=== PATIENT | male | born 1945 | race Caucasian/White ===

== ENCOUNTER 2018-04-18 07:35 | Emergency (ER) | payer OTHER, SELFPAY ==
[2018-04-18 07:43] VITALS: BP 161/84; PULSE 82; RESP 15; TEMP 36.7; O2SAT 100; BMI 36.2
--- NOTE | 2018-04-18 07:55 | DI.RAD.S_ITS ---
PROCEDURE: XR CHEST 1V INDICATIONS: Chest pain TECHNIQUE: One view of the chest was acquired. COMPARISON: [facility], , CHEST 2 VIEW, 04/17/2015, 18:13. FINDINGS: Surgical changes and devices: None. Lungs and pleura: No pleural effusions or pneumothorax. There is pulmonary vascular prominence suggestive of mild edema. Mediastinum: Mediastinal contours appear unchanged. Heart size is enlarged. Bones and chest wall: No suspicious bony lesions. Overlying soft tissues appear unremarkable. IMPRESSION: 1. Pulmonary vascular prominence suggestive of mild edema. Dictated by: Carloz Lopez M.D. on 04/18/2018 at 8:59 Approved by: Carloz Lopez M.D. on 04/18/2018 at 8:59
[2018-04-18 08:04] LABS: Add Manual Diff / Slide Review NO; Basophils Percent Auto 1.3 % (0-2); Eosinophils Percent Auto 2.5 % (2-4); Hematocrit 39.5 % (41-53); Hemoglobin 13.7 g/dL (13.5-17.5); Lymphocytes Percent Auto 17.6 % (25-40); Mean Corpuscular HGB Conc 34.5 % (30-36); Mean Corpuscular Hemoglobin 31.5 PG (26-34); Mean Corpuscular Volume 91.3 fL (80-100); Monocytes Percent Auto 8.9 % (3-14); Neutrophils Absolute Auto 6300 /uL (3000-5900); Neutrophils Percent Auto 69.7 % (50-75); Platelet Count 205 X10^3/uL (150-400); Red Blood Cell Count 4.33 X10^6/uL (4.5-5.9); Red Cell Distribution Width 14.4 % (11.6-14.8)
[2018-04-18 08:05] LABS: INR 1.2 (0.9-1.3); Prothrombin Time 12.5 SECONDS (10.1-12.7)
[2018-04-18 08:07] LABS: PTT Partial Thromboplastin Tim 31 SECONDS (26.4-36.2)
[2018-04-18 08:09] LABS: Alanine Aminotransferase 31 IU/L (21-72); Albumin 3.8 g/dL (3.5-5.0); Albumin Globulin Ratio 1.2 (1.0-2.8); Alkaline Phosphatase 69 U/L (38-126); Aspartate Aminotransferase 21 IU/L (17-59); BUN Creatinine Ratio 14.4 (6-22); Bilirubin Total 0.5 mg/dL (0.2-1.3); Calcium 9.1 mg/dL (8.4-10.2); Creatine Kinase 114 U/L (55-170); Estimated Glomerular Filt Rate > 60.0 mL/min (>60); Globulin 3.2 g/dL (1.7-4.1); Glucose 275 mg/dL (80-110); HEMOLYSIS < 15 (0-50); Lipase 150 U/L (23-300); Potassium 4.3 mmol/L (3.4-5.1); Sodium 137 mmol/L (137-145)
--- NOTE | 2018-04-18 08:10 | DI.RAD.S_ITS ---
PROCEDURE: XR CHEST 2V INDICATIONS: palpitations TECHNIQUE: 2 views of the chest were acquired. COMPARISON: [facility], , CHEST 1 VIEW, 03/23/2015, 5:56. [facility], , CHEST 2 VIEW, 04/17/2015, 18:13. [facility], , XR CHEST 1V, 04/18/2018, 8:06. FINDINGS: Surgical changes and devices: None. Lungs and pleura: No pleural effusions or pneumothorax. There is pulmonary vascular prominence suggestive of mild edema. No focal consolidation. Mediastinum: Mediastinal contours are unchanged. Heart size is enlarged. Bones and chest wall: No suspicious bony abnormalities. Soft tissues appear unremarkable. IMPRESSION: 1. Persistent mild pulmonary edema. Dictated by: Carloz Lopez M.D. on 04/18/2018 at 8:58 Approved by: Carloz Lopez M.D. on 04/18/2018 at 8:59
[2018-04-18 08:24] LABS: CKMB % Relative Index 2.1 % (1.5-5.0); Creatine Kinase MB 2.36 ng/mL (<2.37)
--- NOTE | 2018-04-18 08:37 | ED.ARRPALP ---
HPI - Arrhythmia/Palpitations General Chief Complaint: Arrhythmia/Palpitations Stated Complaint: trouble breathing, elevated heart rate Time Seen by Provider: 04/18/18 08:00 Source: patient Mode of arrival: ambulatory Limitations: no limitations History of Present Illness HPI narrative: 72 M hx of paroxysmal Afib 2+ years ago presents with chest tightness and mild dyspnea after finding his HR > 150 on pulse ox at home. Patient reports he could feel his pulse disappear when his heart raced as per pulse ox, and was SOB and lightheaded. Reports that 2 years prior he had a similar episode and was treated for CHF and pneumonia at the time. Patient since has not need to stay on diuretics or antiarrhythmics. Only taking baby aspirin at this time. This episode has no precipitants that patient can identify. Currently feeling mild chest tightness in ED. PMD Dr. Danielle Related Data Home Medications Medication Instructions Recorded Confirmed zolpidem 5 mg PO HS PRN 04/18/18 04/18/18 Allergies Allergy/AdvReac Type Severity Reaction Status Date / Time lisinopril [LISINOPRIL] Allergy Intermediate COUGH Verified 04/18/18 07:43 piperacillin [PIPERACILLIN] AdvReac Mild RASH MAY Verified 04/18/18 07:43 2014 ADMIT, MAY BE VANCO, UNSURE vancomycin [VANCOMYCIN] AdvReac Mild RASH MAY Verified 04/18/18 07:43 2014 ADMIT MAY BE PIPERACILLIN INSTEAD azithromycin [From Zithromax] AdvReac Verified 04/18/18 07:43 Review of Systems Review of Systems Constitutional - No fever, chills Eyes - No visual changes ENT - No hearing loss Cardiovascular - has chest pain, No edema, has palpitations Respiratory - No cough, has shortness of breath GI - No abdominal pain, No nausea, No vomiting - No dysuria, no hematuria MSK- No back pain Skin - No rash Neuro - No weakness, no change in level of consciousness Endocrine - No polyuria Hematologic/lymphatic - No easy bruising, no petechiae PFSH Social History Smoking Status: Never smoker Exam Narrative Exam Narrative: Exam: Constitutional - Well appearing, well nourished, NAD EYES - PERRL, EOMI ENT - Moist oral mucosa Cardiovasuclar - Normal rate, rhythm, no murmurs, gallops, rubs Respiratory - Lungs CTA bilaterally, no increased respiratory effort, no accessory muscle use GI - Soft, non tender, non distended, no rebound MSK - No deformity, No CVA tenderness, trace lower extremity edema Skin - No rash, no petechiae Neuro - A&Ox3, moves all extremities. No focal deficits Initial Vital Signs Initial Vital Signs: Vital Signs Temperature 98.0 F 04/18/18 07:43 Pulse Rate 82 04/18/18 07:43 Respiratory Rate 15 04/18/18 07:43 Blood Pressure 161/84 H 04/18/18 07:43 Pulse Oximetry 100 04/18/18 07:43 Course Orders Ordered: ED Orders 04/18/18 07:50 Complete Blood Count AUTO DIFF Stat Comprehensive Metabolic Panel Stat Lipase Stat Partial Thromboplastin Time Stat Prothrombin Time INR Stat Troponin with CK Cardiac Panel Stat 04/18/18 07:55 XR chest 1V Stat EKG-12 Lead Stat 04/18/18 07:58 Thyroid Stimulating Hormone Stat 04/18/18 07:59 BNP [B Type Natriuretic Peptide] Stat 04/18/18 08:09 Urinalysis and Microscopic Stat 04/18/18 08:10 XR chest 2V Stat 04/18/18 08:45 Urinalysis and Microscopic Stat Sodium Chloride (Normal Saline 0.9%) 1,000 mls @ 150 mls/hr IV CONT SHELBY Last Admin: 04/18/18 08:55 Dose: 150 mls/hr Heparin Sodium/Dextrose (Heparin Drip) 25,000 unit in 500 mls @ 28.304 mls/hr IV CONT SHELBY; Protocol Last Admin: 04/18/18 08:58 Dose: 12 units/kg/hr, 28.304 mls/hr Sodium Chloride (Normal Saline 0.9%) 1,000 mls @ 150 mls/hr IV CONT SHELBY Last Admin: 04/18/18 09:03 Dose: Not Given Nitroglycerin (Nitrostat) 0.4 mg SL [id number] PRN PRN Reason: Chest Pain Last Admin: 04/18/18 09:09 Dose: 0.4 mg Nitroglycerin (Nitrostat) 0.4 mg SL [id number] PRN PRN Reason: Chest Pain Discontinued Medications Aspirin (Aspirin) 325 mg PO NOW ONE Stop: 04/18/18 08:44 Last Admin: 04/18/18 08:55 Dose: Not Given Aspirin (Aspirin Chew) 324 mg PO NOW ONE Stop: 04/18/18 08:46 Last Admin: 04/18/18 09:03 Dose: 324 mg Furosemide (Lasix) 40 mg IV NOW ONE Stop: 04/18/18 11:04 Last Admin: 04/18/18 11:14 Dose: 40 mg Vital Signs - 8 hr 04/18/18 07:43 04/18/18 08:59 04/18/18 09:09 Temperature 98.0 F Pulse Rate 82 75 77 Respiratory Rate 15 18 Blood Pressure 161/84 H 148/77 H Blood Pressure [Right Arm] 148/77 H Pulse Oximetry 100 99 04/18/18 10:04 04/18/18 10:54 Temperature Pulse Rate 77 80 Respiratory Rate 15 14 Blood Pressure Blood Pressure [Right Arm] 133/76 H 152/76 H Pulse Oximetry 97 99 MDM - Arrhythmia/Palpitations Lab Data Result diagrams: 04/18/18 07:50 04/18/18 07:50 Lab Results 04/18/18 04/18/18 04/18/18 Range/Units 07:50 07:50 07:50 WBC 9.0 (4.5-11.0) X10^3/uL RBC 4.33 L (4.5-5.9) X10^6/uL Hgb 13.7 (13.5-17.5) g/dL Hct 39.5 L (41-53) % MCV 91.3 (80-100) fL MCH 31.5 (26-34) PG MCHC 34.5 (30-36) % RDW 14.4 (11.6-14.8) % Plt Count 205 (150-400) X10^3/uL Neut % (Auto) 69.7 (50-75) % Lymph % (Auto) 17.6 L (25-40) % [place] % (Auto) 8.9 (3-14) % Eos % (Auto) 2.5 (2-4) % Baso % (Auto) 1.3 (0-2) % Neut # (Auto) 6300 H (8840-6592) /uL PT 12.5 (10.1-12.7) SECONDS INR 1.2 (0.9-1.3) APTT 31 (26.4-36.2) SECONDS Sodium 137 (137-145) mmol/L Potassium 4.3 (3.4-5.1) mmol/L Chloride 102.0 (98-107) mmol/L Carbon Dioxide 25.0 (22-32) mmol/L BUN 13.0 (9-20) mg/dL Creatinine 0.90 (0.66-1.25) mg/dL Estimated GFR > 60.0 (>60) mL/min BUN/Creatinine Ratio 14.4 (6-22) Glucose 275 H (80-110) mg/dL Calcium 9.1 (8.4-10.2) mg/dL Total Bilirubin 0.5 (0.2-1.3) mg/dL AST 21 (17-59) IU/L ALT 31 (21-72) IU/L Alkaline Phosphatase 69 (38-126) U/L Total Creatine Kinase 114 (55-170) U/L CK-MB (CK-2) 2.36 (<2.37) ng/mL CK-MB (CK-2) Rel Index 2.1 (1.5-5.0) % Troponin I 0.603 H* (0.01-0.034) ng/mL B-Natriuretic Peptide (<100) Total Protein 7.0 (6.3-8.2) g/dL Albumin 3.8 (3.5-5.0) g/dL Globulin 3.2 (1.7-4.1) g/dL Albumin/Globulin Ratio 1.2 (1.0-2.8) Lipase 150 (23-300) U/L TSH (0.47-4.68) uIU/mL Digoxin 04/18/18 04/18/18 Range/Units 07:58 07:59 WBC (4.5-11.0) X10^3/uL RBC (4.5-5.9) X10^6/uL Hgb (13.5-17.5) g/dL Hct (41-53) % MCV (80-100) fL MCH (26-34) PG MCHC (30-36) % RDW (11.6-14.8) % Plt Count (150-400) X10^3/uL Neut % (Auto) (50-75) % Lymph % (Auto) (25-40) % [place] % (Auto) (3-14) % Eos % (Auto) (2-4) % Baso % (Auto) (0-2) % Neut # (Auto) (8962-3919) /uL PT (10.1-12.7) SECONDS INR (0.9-1.3) APTT (26.4-36.2) SECONDS Sodium (137-145) mmol/L Potassium (3.4-5.1) mmol/L Chloride (98-107) mmol/L Carbon Dioxide (22-32) mmol/L BUN (9-20) mg/dL Creatinine (0.66-1.25) mg/dL Estimated GFR (>60) mL/min BUN/Creatinine Ratio (6-22) Glucose (80-110) mg/dL Calcium (8.4-10.2) mg/dL Total Bilirubin (0.2-1.3) mg/dL AST (17-59) IU/L ALT (21-72) IU/L Alkaline Phosphatase (38-126) U/L Total Creatine Kinase (55-170) U/L CK-MB (CK-2) (<2.37) ng/mL CK-MB (CK-2) Rel Index (1.5-5.0) % Troponin I (0.01-0.034) ng/mL B-Natriuretic Peptide 205.0 (<100) Total Protein (6.3-8.2) g/dL Albumin (3.5-5.0) g/dL Globulin (1.7-4.1) g/dL Albumin/Globulin Ratio (1.0-2.8) Lipase (23-300) U/L TSH 2.03 (0.47-4.68) uIU/mL Digoxin Cancelled Imaging Data Chest x-ray: Radiologist's impression: Patient: Joseph Zepeda RMR#: [id number] : 7Acct:[id number] Age/Sex: 72 / MDate of Service: 04/18/18 Loc: ED Accession Number: [id number] Procedure: XR chest 2V Ordering Provider: Thomas Geronimo M.D. PROCEDURE: XR CHEST 2V INDICATIONS: palpitations TECHNIQUE: 2 views of the chest were acquired. COMPARISON: [facility], , CHEST 1 VIEW, 03/23/2015, 5:56. [facility], , CHEST 2 VIEW, 04/17/2015, 18:13. [facility], CR, XR CHEST 1V, 04/18/2018, 8:06. FINDINGS: Surgical changes and devices: None. Lungs and pleura: No pleural effusions or pneumothorax. There is pulmonary vascular prominence suggestive of mild edema. No focal consolidation. Mediastinum: Mediastinal contours are unchanged. Heart size is enlarged. Bones and chest wall: No suspicious bony abnormalities. Soft tissues appear unremarkable. IMPRESSION: 1. Persistent mild pulmonary edema. Dictated by: Carloz Lopez M.D. on 04/18/2018 at 8:58 Approved by: Carloz Lopez M.D. on 04/18/2018 at 8:59 ECG Data Interpretation: Sinus Rhthym; HR [address]/Tw changes Normal ME interval; Left atrial enlargement No ectopy small inferior Q waves MDM Narrative Medical decision making narrative: Patient still having mild chest discomfort despite no evidence of afib on monitor. has remained SR 70-90s 325mg ASA given. No significant EKG changes at this time Trop 0.6 - likely result of demand during tachycardic episodes Consulted configuration consultant Dr. Corrales; Agrees that modest trop leak is demand ischemia; without definitive EKG changes recommends medical management and trending of troponin. Case discussed with Hospitalist Dr. Brice - recommends transfer to facility with cardiology. CXR reviewed, mild pulmnary edema - 40mg lasix given. Spoke with configuration consultant Dr. Guan and Hospitalist Dr. Persaud at [facility]; accepted patient for transfer. Patient remained stable in ED. Discharge Plan Departure Patient Disposition: [facility] Clinical Impression: Non-ST elevation [place] (NSTEMI), Pulmonary edema Prescriptions: No Action zolpidem 5 MG tablet 5 mg PO HS PRN (Reason: Sleep) RF: 0
[2018-04-18 08:42] LABS: Troponin I 0.603 ng/mL (0.01-0.034)
[2018-04-18] MEDS: SODIUM CHLORIDE 0.9% 1,000 ML 150 ML IV (08:55)
[2018-04-18] MEDS: HEPARIN DRIP 25,000 UNIT/500 ML IV.SOLN 28.304 UNIT IV (08:58)
[2018-04-18 08:59] VITALS: BP 148/77; PULSE 75; RESP 18; O2SAT 99
--- NOTE | 2018-04-18 08:59 | ED_ITS ---
HPI - Arrhythmia/Palpitations General Chief Complaint: Arrhythmia/Palpitations Stated Complaint: trouble breathing, elevated heart rate Time Seen by Provider: 04/18/18 08:00 Source: patient Mode of arrival: ambulatory Limitations: no limitations History of Present Illness HPI narrative: 72 M hx of paroxysmal Afib 2+ years ago presents with chest tightness and mild dyspnea after finding his HR > 150 on pulse ox at home. Patient reports he could feel his pulse disappear when his heart raced as per pulse ox, and was SOB and lightheaded. Reports that 2 years prior he had a similar episode and was treated for CHF and pneumonia at the time. Patient since has not need to stay on diuretics or antiarrhythmics. Only taking baby aspirin at this time. This episode has no precipitants that patient can identify. Currently feeling mild chest tightness in ED. PMD Dr. Danielle Related Data Home Medications Medication Instructions Recorded Confirmed zolpidem 5 mg PO HS PRN 04/18/18 04/18/18 Allergies Allergy/AdvReac Type Severity Reaction Status Date / Time lisinopril [LISINOPRIL] Allergy Intermediate COUGH Verified 04/18/18 07:43 piperacillin [PIPERACILLIN] AdvReac Mild RASH MAY Verified 04/18/18 07:43 2014 ADMIT, MAY BE VANCO, UNSURE vancomycin [VANCOMYCIN] AdvReac Mild RASH MAY Verified 04/18/18 07:43 2014 ADMIT MAY BE PIPERACILLIN INSTEAD azithromycin [From Zithromax] AdvReac Verified 04/18/18 07:43 Review of Systems Review of Systems Constitutional - No fever, chills Eyes - No visual changes ENT - No hearing loss Cardiovascular - has chest pain, No edema, has palpitations Respiratory - No cough, has shortness of breath GI - No abdominal pain, No nausea, No vomiting - No dysuria, no hematuria MSK- No back pain Skin - No rash Neuro - No weakness, no change in level of consciousness Endocrine - No polyuria Hematologic/lymphatic - No easy bruising, no petechiae PFSH Social History Smoking Status: Never smoker Exam Narrative Exam Narrative: Exam: Constitutional - Well appearing, well nourished, NAD EYES - PERRL, EOMI ENT - Moist oral mucosa Cardiovasuclar - Normal rate, rhythm, no murmurs, gallops, rubs Respiratory - Lungs CTA bilaterally, no increased respiratory effort, no accessory muscle use GI - Soft, non tender, non distended, no rebound MSK - No deformity, No CVA tenderness, trace lower extremity edema Skin - No rash, no petechiae Neuro - A&Ox3, moves all extremities. No focal deficits Initial Vital Signs Initial Vital Signs: Vital Signs Temperature 98.0 F 04/18/18 07:43 Pulse Rate 82 04/18/18 07:43 Respiratory Rate 15 04/18/18 07:43 Blood Pressure 161/84 H 04/18/18 07:43 Pulse Oximetry 100 04/18/18 07:43 Course Orders Ordered: ED Orders 04/18/18 07:50 Complete Blood Count AUTO DIFF Stat Comprehensive Metabolic Panel Stat Lipase Stat Partial Thromboplastin Time Stat Prothrombin Time INR Stat Troponin with CK Cardiac Panel Stat 04/18/18 07:55 XR chest 1V Stat EKG-12 Lead Stat 04/18/18 07:58 Thyroid Stimulating Hormone Stat 04/18/18 07:59 BNP [B Type Natriuretic Peptide] Stat 04/18/18 08:09 Urinalysis and Microscopic Stat 04/18/18 08:10 XR chest 2V Stat 04/18/18 08:45 Urinalysis and Microscopic Stat Sodium Chloride (Normal Saline 0.9%) 1,000 mls @ 150 mls/hr IV CONT SHELBY Last Admin: 04/18/18 08:55 Dose: 150 mls/hr Heparin Sodium/Dextrose (Heparin Drip) 25,000 unit in 500 mls @ 28.304 mls/hr IV CONT SHELBY; Protocol Last Admin: 04/18/18 08:58 Dose: 12 units/kg/hr, 28.304 mls/hr Sodium Chloride (Normal Saline 0.9%) 1,000 mls @ 150 mls/hr IV CONT SHELBY Last Admin: 04/18/18 09:03 Dose: Not Given Nitroglycerin (Nitrostat) 0.4 mg SL [id number] PRN PRN Reason: Chest Pain Last Admin: 04/18/18 09:09 Dose: 0.4 mg Nitroglycerin (Nitrostat) 0.4 mg SL [id number] PRN PRN Reason: Chest Pain Discontinued Medications Aspirin (Aspirin) 325 mg PO NOW ONE Stop: 04/18/18 08:44 Last Admin: 04/18/18 08:55 Dose: Not Given Aspirin (Aspirin Chew) 324 mg PO NOW ONE Stop: 04/18/18 08:46 Last Admin: 04/18/18 09:03 Dose: 324 mg Furosemide (Lasix) 40 mg IV NOW ONE Stop: 04/18/18 11:04 Last Admin: 04/18/18 11:14 Dose: 40 mg Vital Signs - 8 hr 04/18/18 07:43 04/18/18 08:59 04/18/18 09:09 Temperature 98.0 F Pulse Rate 82 75 77 Respiratory Rate 15 18 Blood Pressure 161/84 H 148/77 H Blood Pressure [Right Arm] 148/77 H Pulse Oximetry 100 99 04/18/18 10:04 04/18/18 10:54 Temperature Pulse Rate 77 80 Respiratory Rate 15 14 Blood Pressure Blood Pressure [Right Arm] 133/76 H 152/76 H Pulse Oximetry 97 99 MDM - Arrhythmia/Palpitations Lab Data Result diagrams: 04/18/18 07:50 04/18/18 07:50 Lab Results 04/18/18 04/18/18 04/18/18 Range/Units 07:50 07:50 07:50 WBC 9.0 (4.5-11.0) X10^3/uL RBC 4.33 L (4.5-5.9) X10^6/uL Hgb 13.7 (13.5-17.5) g/dL Hct 39.5 L (41-53) % MCV 91.3 (80-100) fL MCH 31.5 (26-34) PG MCHC 34.5 (30-36) % RDW 14.4 (11.6-14.8) % Plt Count 205 (150-400) X10^3/uL Neut % (Auto) 69.7 (50-75) % Lymph % (Auto) 17.6 L (25-40) % [place] % (Auto) 8.9 (3-14) % Eos % (Auto) 2.5 (2-4) % Baso % (Auto) 1.3 (0-2) % Neut # (Auto) 6300 H (9663-0283) /uL PT 12.5 (10.1-12.7) SECONDS INR 1.2 (0.9-1.3) APTT 31 (26.4-36.2) SECONDS Sodium 137 (137-145) mmol/L Potassium 4.3 (3.4-5.1) mmol/L Chloride 102.0 (98-107) mmol/L Carbon Dioxide 25.0 (22-32) mmol/L BUN 13.0 (9-20) mg/dL Creatinine 0.90 (0.66-1.25) mg/dL Estimated GFR > 60.0 (>60) mL/min BUN/Creatinine Ratio 14.4 (6-22) Glucose 275 H (80-110) mg/dL Calcium 9.1 (8.4-10.2) mg/dL Total Bilirubin 0.5 (0.2-1.3) mg/dL AST 21 (17-59) IU/L ALT 31 (21-72) IU/L Alkaline Phosphatase 69 (38-126) U/L Total Creatine Kinase 114 (55-170) U/L CK-MB (CK-2) 2.36 (<2.37) ng/mL CK-MB (CK-2) Rel Index 2.1 (1.5-5.0) % Troponin I 0.603 H* (0.01-0.034) ng/mL B-Natriuretic Peptide (<100) Total Protein 7.0 (6.3-8.2) g/dL Albumin 3.8 (3.5-5.0) g/dL Globulin 3.2 (1.7-4.1) g/dL Albumin/Globulin Ratio 1.2 (1.0-2.8) Lipase 150 (23-300) U/L TSH (0.47-4.68) uIU/mL Digoxin 04/18/18 04/18/18 Range/Units 07:58 07:59 WBC (4.5-11.0) X10^3/uL RBC (4.5-5.9) X10^6/uL Hgb (13.5-17.5) g/dL Hct (41-53) % MCV (80-100) fL MCH (26-34) PG MCHC (30-36) % RDW (11.6-14.8) % Plt Count (150-400) X10^3/uL Neut % (Auto) (50-75) % Lymph % (Auto) (25-40) % [place] % (Auto) (3-14) % Eos % (Auto) (2-4) % Baso % (Auto) (0-2) % Neut # (Auto) (8109-3542) /uL PT (10.1-12.7) SECONDS INR (0.9-1.3) APTT (26.4-36.2) SECONDS Sodium (137-145) mmol/L Potassium (3.4-5.1) mmol/L Chloride (98-107) mmol/L Carbon Dioxide (22-32) mmol/L BUN (9-20) mg/dL Creatinine (0.66-1.25) mg/dL Estimated GFR (>60) mL/min BUN/Creatinine Ratio (6-22) Glucose (80-110) mg/dL Calcium (8.4-10.2) mg/dL Total Bilirubin (0.2-1.3) mg/dL AST (17-59) IU/L ALT (21-72) IU/L Alkaline Phosphatase (38-126) U/L Total Creatine Kinase (55-170) U/L CK-MB (CK-2) (<2.37) ng/mL CK-MB (CK-2) Rel Index (1.5-5.0) % Troponin I (0.01-0.034) ng/mL B-Natriuretic Peptide 205.0 (<100) Total Protein (6.3-8.2) g/dL Albumin (3.5-5.0) g/dL Globulin (1.7-4.1) g/dL Albumin/Globulin Ratio (1.0-2.8) Lipase (23-300) U/L TSH 2.03 (0.47-4.68) uIU/mL Digoxin Cancelled Imaging Data Chest x-ray: Radiologist's impression: Patient: Joseph Zepeda RMR#: [id number] : 7Acct:[id number] Age/Sex: 72 / MDate of Service: 04/18/18 Loc: ED Accession Number: [id number] Procedure: XR chest 2V Ordering Provider: Thomas Geronimo M.D. PROCEDURE: XR CHEST 2V INDICATIONS: palpitations TECHNIQUE: 2 views of the chest were acquired. COMPARISON: [facility], , CHEST 1 VIEW, 03/23/2015, 5:56. [facility], , CHEST 2 VIEW, 04/17/2015, 18:13. [facility], CR, XR CHEST 1V, 04/18/2018, 8: 06. FINDINGS: Surgical changes and devices: None. Lungs and pleura: No pleural effusions or pneumothorax. There is pulmonary vascular prominence suggestive of mild edema. No focal consolidation. Mediastinum: Mediastinal contours are unchanged. Heart size is enlarged. Bones and chest wall: No suspicious bony abnormalities. Soft tissues appear unremarkable. IMPRESSION: 1. Persistent mild pulmonary edema. Dictated by: Carloz Lopez M.D. on 04/18/2018 at 8:58 Approved by: Carloz Lopez M.D. on 04/18/2018 at 8:59 ECG Data Interpretation: Sinus Rhthym; HR [address]/Tw changes Normal [place] interval; Left atrial enlargement No ectopy small inferior Q waves MDM Narrative Medical decision making narrative: Patient still having mild chest discomfort despite no evidence of afib on monitor. has remained SR 70-90s 325mg ASA given. No significant EKG changes at this time Trop 0.6 - likely result of demand during tachycardic episodes Consulted centrifugal casting machine tender Dr. Corrales; Agrees that modest trop leak is demand ischemia; without definitive EKG changes recommends medical management and trending of troponin. Case discussed with Hospitalist Dr. Brice - recommends transfer to facility with cardiology. CXR reviewed, mild pulmnary edema - 40mg lasix given. Spoke with centrifugal casting machine tender Dr. Guan and Hospitalist Dr. Persaud at [facility]; accepted patient for transfer. Patient remained stable in ED. Discharge Plan Departure Patient Disposition: [facility] Clinical Impression: Non-ST elevation [place] (NSTEMI), Pulmonary edema Prescriptions: No Action zolpidem 5 MG tablet 5 mg PO HS PRN (Reason: Sleep) RF: 0
[2018-04-18] MEDS: ASPIRIN 81 MG TAB 324 MG PO (09:03)
--- NOTE | 2018-04-18 09:07 | PC.NURSE ---
pt c/o chest heaviness that started about a week ago, rated as 4/10, sob got worse today, and irregular heart beat that started yesterday. pt has history of afib with cardioversion.
[2018-04-18 09:09] VITALS: BP 148/77; PULSE 77
[2018-04-18] MEDS: NITROGLYCERIN 0.4 MG SL TAB SL (09:09)
[2018-04-18 09:14] LABS: Thyroid Stimulating Hormone 2.03 uIU/mL (0.47-4.68)
--- NOTE | 2018-04-18 09:27 | PC.NURSE ---
1 nitro took pain from 03/03-01/03. dropped pt's bp by 20points, and pt c/o lightheaded, will hold the 2 additional doses.
[2018-04-18 10:04] VITALS: BP 133/76; PULSE 77; RESP 15; O2SAT 97
[2018-04-18 10:54] VITALS: BP 152/76; PULSE 80; RESP 14; O2SAT 99
[2018-04-18] MEDS: FUROSEMIDE 40 MG/4 ML VIAL IV (11:14)
== END 2018-04-18 11:41 | disposition short-term general hospital (02) ==
PROVIDERS: Emergency Provider Student in an Organized Health Care Education/Training Program; Family Provider Internal Medicine; PCP Internal Medicine
DX: I21.4 Non-ST elevation (NSTEMI) myocardial infarction (principal); J81.1 Chronic pulmonary edema
CPT/HCPCS: 36591; 71045; 71046; 80053; 82550; 82553; 83690; 83880; 84443; 84484; 85025; 85610; 85730; 93005; 93010; 96365; 96366; 99284; 99285; J1644; J1940

== ENCOUNTER → 2018-04-27 10:12 | Outpatient (CLI) | payer OTHER, SELFPAY ==
[2018-04-27 11:44] LABS: BUN Creatinine Ratio 18.8 (6-22); Blood Urea Nitrogen 15 mg/dL (9-20); Calcium 9.1 mg/dL (8.4-10.2); Carbon Dioxide 28 mmol/L (22-32); Chloride 99 mmol/L (98-107); Estimated Glomerular Filt Rate > 60.0 mL/min (>60); Glucose 157 mg/dL (80-110); HEMOLYSIS < 15 (0-50); Potassium 4.3 mmol/L (3.4-5.1); Sodium 139 mmol/L (137-145)
== END ==
PROVIDERS: PCP Internal Medicine; Visit Provider Internal Medicine
DX: I25.10 Atherosclerotic heart disease of native coronary artery without angina pectoris (principal); I10 Essential (primary) hypertension
CPT/HCPCS: 36415; 80048

== ENCOUNTER → 2018-05-22 10:37 | Outpatient (CLI) | payer OTHER, SELFPAY ==
[2018-05-22 11:34] LABS: Hemoglobin A1C% w Est Avg Glu 8.3 % (4.0-6.0)
[2018-05-22 11:41] LABS: BUN Creatinine Ratio 22.2 (6-22); Blood Urea Nitrogen 20 mg/dL (9-20); Calcium 9.2 mg/dL (8.4-10.2); Carbon Dioxide 27 mmol/L (22-32); Chloride 101 mmol/L (98-107); Estimated Glomerular Filt Rate > 60.0 mL/min (>60); Glucose 157 mg/dL (80-110); HEMOLYSIS < 15 (0-50); Potassium 4.6 mmol/L (3.4-5.1); Sodium 142 mmol/L (137-145)
[2018-05-22 11:57] LABS: Vitamin D 25 Hydroxy (D3) 31.4 ng/mL (30.0-100.0)
== END ==
PROVIDERS: PCP Internal Medicine; Visit Provider Internal Medicine
DX: E11.9 Type 2 diabetes mellitus without complications (principal); I25.10 Atherosclerotic heart disease of native coronary artery without angina pectoris
CPT/HCPCS: 36415; 80048; 82306; 83036

== ENCOUNTER 2018-06-14 09:18 | Emergency (ER) | payer OTHER, SELFPAY ==
[2018-06-14] VITALS (15 sets, daily range): BP systolic 93–141; BP diastolic 45–73; PULSE 53–89; RESP 11–26; TEMP 36.6; O2SAT 97–100; BMI 33.0
--- NOTE | 2018-06-14 09:50 | DI.RAD.S_ITS ---
PROCEDURE: XR CHEST 2V INDICATIONS: afib TECHNIQUE: 2 views of the chest were acquired. COMPARISON: [facility], CR, XR CHEST 2V, 04/18/2018, 8:30. FINDINGS: Surgical changes and devices: None. Lungs and pleura: No pleural effusions or pneumothorax. Mild increased pulmonary vascularity is present. There is blunting the costophrenic angles bilaterally. Mediastinum: Mediastinal contours are normal. Heart size is mildly prominent. Bones and chest wall: No suspicious bony abnormalities. Soft tissues appear unremarkable. IMPRESSION: Cardiomegaly with increased vascularity and trace effusions most suggestive of edema. Dictated by: Shannon Shay M.D. on 06/14/2018 at 11:01 Approved by: Shannon Shay M.D. on 06/14/2018 at 11:02
[2018-06-14 10:04] LABS: Add Manual Diff / Slide Review NO; Hematocrit 36.8 % (41-53); Hemoglobin 12.8 g/dL (13.5-17.5); Lymphocytes Percent Auto 21.6 % (25-40); Mean Corpuscular HGB Conc 34.7 % (30-36); Mean Corpuscular Hemoglobin 32.2 PG (26-34); Mean Corpuscular Volume 92.9 fL (80-100); Monocytes Percent Auto 7.7 % (3-14); Neutrophils Absolute Auto 6900 /uL (3000-5900); Neutrophils Percent Auto 66.7 % (50-75); Platelet Count 266 X10^3/uL (150-400); Red Blood Cell Count 3.96 X10^6/uL (4.5-5.9); Red Cell Distribution Width 15.1 % (11.6-14.8); White Blood Cell Count 10.4 X10^3/uL (4.5-11.0)
[2018-06-14 10:08] LABS: BUN Creatinine Ratio 21.3 (6-22); Blood Urea Nitrogen 17 mg/dL (9-20); Calcium 9.2 mg/dL (8.4-10.2); Carbon Dioxide 25 mmol/L (22-32); Chloride 104 mmol/L (98-107); Estimated Glomerular Filt Rate > 60.0 mL/min (>60); Glucose 180 mg/dL (80-110); HEMOLYSIS < 15 (0-50); Magnesium 2.1 mg/dL (1.6-2.3); Potassium 4.3 mmol/L (3.4-5.1); Sodium 139 mmol/L (137-145)
[2018-06-14 10:21] LABS: Troponin I 0.121 ng/mL (0.01-0.034)
[2018-06-14 10:30] LABS: Free T4, Direct Thyroxine 1.22 ng/dL (0.78-2.19)
[2018-06-14] MEDS: SODIUM CHLORIDE 0.9% 1,000 ML 1000 ML IV (10:31)
--- NOTE | 2018-06-14 10:37 | PC.NURSE ---
S/W MD about 1L NS bolus and BNP being high. Agreed to 500ss bolus.
[2018-06-14] MEDS: ASPIRIN 81 MG TAB 324 MG PO (10:42)
[2018-06-14 10:44] LABS: Thyroid Stimulating Hormone 0.91 uIU/mL (0.47-4.68)
--- NOTE | 2018-06-14 10:44 | PC.NURSE ---
Metoprolol held for bp 98/53, hr 77-92
[2018-06-14] MEDS: ETOMIDATE 2 MG/ML VIAL 10 MG IV (12:38)
--- NOTE | 2018-06-14 13:22 | ED.WEAKNESS ---
HPI - Weakness General Chief complaint: Weakness Stated complaint: low bp, elevated heart rate Time Seen by Provider: 06/14/18 09:25 History of Present Illness HPI Narrative: HPI 72-year-old male with HTN and [place] ~4 weeks ago now S/P stent ?2 with a interval cardiac moderate notable for one short episode of A. fib presents with mild weakness, and an irregular heart rate of estimated half days duration. Patient reports that he was in his usual state of health, he checks his blood pressure twice daily, when checked at this morning he noted he was 90/50 with a heart rate of approximately 100, he normally has a lower resting heart rate in the blood pressure proximally 140/80. The patient then presents the emergency room for further evaluation. The patient notes that he normally drinks 1-2 cups of coffee a day, yesterday he drank an estimate for cups after running out of decaf coffee. Patient denies fevers, chills, shortness of breath, or further symptoms. M/S/F/SocHx notable for: cardiomyopathy, CAD, A. fib, DM II, HTN; remainder reviewed with patient and in chart. Medications: ASA, atorvastatin, carvedilol, clopidogrel, furosemide, glucosamine, Losartan, metformin, multivitamin, zolpidem. ROS: Negative constitutional, eye, cardiovascular, pulmonary, GI, , MSK, skin, neurologic, psychiatric, endocrine unless noted in the HPI. Exam Gen: Pleasant, non-toxic appearing, resting comfortably. HEENT: NC, AT, PEERL, EOMI. Resp: Clear to auscultation bilaterally, normal work of breathing, no accessory muscle usage. Card: irregularly irregular rate, with no murmurs, rubs, or gallops, extremities warm and well perfused. GI: Non-tender to palpation throughout all quadrants, no focal tenderness at McBurney's point, negative Jones's sign, non-distended, no rebound or guarding. : No suprapubic tenderness to palpation. MSK: No visible deformities, strength and tone without visually appreciable deficit. Skin: Normal color with no visible lesions. Neuro: AO x 3, no facial asymmetry, vision and hearing WNL. Psych: Mood and affect appropriate. Labs / Imaging: WBC 10.4, Hb 12.8, Na 139, K 4.3, magnesium 2.1 troponin < 0.121 BNP 482.0 EKG: atrial fibrillation with ventricular rate of 95 bpm, no ST segment elevations or depressions, no LBBB. CXR: cardiomegaly with increased vascularity and trace effusion most suggestive of edema. EKG (post cardioversion): SR 89 bpm, no LBBB, no ST segment elevations or depressions. MDM Previous chart, nursing note, labs, imaging, and vitals reviewed. A: 72-year-old male with HTN and [place] ~4 weeks ago now S/P stent ?2 with a interval cardiac moderate notable for one short episode of A. fib presents with mild weakness, and an irregular heart rate of estimated half days duration. DDx & Evaluation: patient with A. fib and hypotension. Patient already on dual antiplatelet agents. Inciting event unclear, maybe idiopathic given the patient's CAD and prior atrial fibrillation versus triggered by increase caffeine consumption yesterday, electrolytes WNL. The stock plan administrator on-call was consulted, recent hospitalization reviewed, as well as cardiac cath report, given the patient's multiple comorbidities a cardioversion was felt to be in the patient's best interest, no further anticoagulation recommended, and then initiation of amiodarone. Patient to follow up with his stock plan administrator on Friday or Friday. The troponin elevation was noted, however the patient has extensive microvascular disease, this is felt to to be causing her rate dependent demand mediated troponin elevation, no further troponin measurements were recommended given the patient's recent cardiac catheterization, absence of chest pain, or shortness breath, and the otherwise asymptomatic nature of his atrial fibrillation. Following 500 ML normal saline, the patient was sedated and cardioverted as documented below, amiodarone prescribed an patient discharged with cardiology follow-up. SEDATION Pre-Procedure: Consent: Written. Risks and benefits including adverse drug reaction, pain, nausea, vomiting, the need for respiratory support, and in extremely rare instances organ damage and , were reviewed with the patient, the patient understood and consented to sedation. ASA: 2, Mallampati 1, 12+ hours NPO. Y ? Patient (name and ID) and procedure. Y ? airway cart Y ? BVM Y ? Suction Y ? capnography, SaO2, HR, BP functioning and within acceptable limits. Patient on supplemental oxygen via a nasal cannula. Y ? review potential complications and management plans. Procedure The patient was given a total of 10 mg of Etomidate with moderate-deep sedation achieved. There were no significant adverse events and the patient tolerated the procedure well. Total time: 15 minutes. Post-Procedure I remained at the bedside until the patient was clearing sedation, vitals signs, airway and overall clinical condition were stable. RT and nursing remained present monitoring the patient per protocol through complete clearing of sedation and I was immediately available in the department throughout. Cardioversion Indication: Atrial Fibrillation. Consent: Written. Risks and benefits including post-procedural arrhythmias, pain, electrical san, and stroke were discussed with the patient. The patient understood and agreed to proceed with the procedure. After a time out in which the patient's identity was confirmed verbally and by their wrist band, synchronized cardioversion was performed at 200 J via anterior / posterior pads. A continuous 3 lead echocardiogram demonstrated conversion from atrial fibrillation to a sinus rhythm, the transition from atrial fibrillation to sinus rhythm was notable for an estimated 10 second long asystole pause. There were no complications and the patient tolerated the procedure well. Impression: atrial fibrillation (please reference below for remainder of encounter information) Related Data Home Medications Medication Instructions Recorded Confirmed zolpidem 5 mg PO HS PRN 04/18/18 05/22/18 aspirin 81 mg tablet,delayed 81 mg PO DAILY 04/27/18 05/22/18 release atorvastatin 40 mg tablet 40 mg PO DAILY 04/27/18 05/22/18 carvedilol 3.125 mg tablet 3.125 mg PO BID 04/27/18 05/22/18 clopidogrel 75 mg tablet 75 mg PO DAILY 04/27/18 05/22/18 glucosamine sulfate 1,000 mg 1,000 mg PO BID 04/27/18 05/22/18 capsule metformin 500 mg tablet 500 mg PO BID 04/27/18 05/22/18 multivitamin tablet 1 tab PO DAILY 04/27/18 05/22/18 Previous Rx's Medication Instructions Recorded furosemide 40 mg tablet 40 mg PO DAILY #90 tab 06/11/18 losartan 50 mg tablet 100 mg PO DAILY #90 tab 06/11/18 amiodarone See Label Instructions .ROUTE 06/14/18 .COMPLEX #21 tab Allergies Allergy/AdvReac Type Severity Reaction Status Date / Time lisinopril [LISINOPRIL] Allergy Intermediate COUGH Verified 05/22/18 10:10 piperacillin [PIPERACILLIN] AdvReac Mild RASH MAY Verified 05/22/18 10:10 2014 ADMIT, MAY BE VANCO, UNSURE vancomycin [VANCOMYCIN] AdvReac Mild RASH MAY Verified 05/22/18 10:10 2014 ADMIT MAY BE PIPERACILLIN INSTEAD azithromycin [From Zithromax] AdvReac Verified 05/22/18 10:10 [facility] Medical History Cardiomyopathy (Chronic ~03/2018) Coronary artery disease (Chronic ~03/2018) Atrial fibrillation (Chronic 03/30/15) Type 2 diabetes mellitus without complication (Chronic 05/01/15) Hypertension (Chronic 05/30/15) Social History Smoking Status: Former smoker Exam Initial Vital Signs Initial Vital Signs: Vital Signs Temperature 97.9 F 06/14/18 09:27 Pulse Rate 88 06/14/18 09:27 Respiratory Rate 15 06/14/18 09:27 Blood Pressure 141/73 H 06/14/18 09:27 Pulse Oximetry 97 06/14/18 09:27 Course Orders Ordered: ED Orders 06/14/18 09:35 B Type Natriuretic Peptide Stat Basic Metabolic Panel Stat Complete Blood Count AUTO DIFF Stat Free T4 Free Thyroxine Stat Magnesium Stat Thyroid Stimulating Hormone Stat Troponin I Stat 06/14/18 09:50 XR chest 2V Stat Discontinued Medications Amiodarone HCl (Cordarone) 400 mg PO NOW ONE Stop: 06/14/18 13:08 Aspirin (Aspirin Chew) 324 mg PO NOW ONE Stop: 06/14/18 10:38 Last Admin: 06/14/18 10:42 Dose: 324 mg Etomidate (Amidate) 10 mg IV NOW ONE Stop: 06/14/18 12:25 Last Admin: 06/14/18 12:38 Dose: 10 mg Sodium Chloride (Normal Saline 0.9%) 1,000 mls @ 1,000 mls/hr IV BOLUS ONE Stop: 06/14/18 10:49 Last Infusion: 06/14/18 11:06 Dose: 25 mls/hr Admin: 06/14/18 10:31 Dose: 1,000 mls/hr Metoprolol Tartrate (Lopressor) 5 mg IV Q5M [facility] Stop: 06/14/18 10:56 Vital Signs - 8 hr 06/14/18 09:27 06/14/18 10:30 06/14/18 11:01 Temperature 97.9 F Pulse Rate 88 88 79 Respiratory Rate 15 15 20 Blood Pressure 141/73 H Blood Pressure [Left Arm] 110/55 L 117/56 L Pulse Oximetry 97 100 100 06/14/18 12:20 06/14/18 12:30 06/14/18 12:46 Temperature Pulse Rate 86 85 55 L Respiratory Rate 13 16 14 Blood Pressure Blood Pressure [Left Arm] 93/51 L 110/57 L 130/62 H Pulse Oximetry 100 98 100 06/14/18 12:52 06/14/18 13:00 06/14/18 13:05 Temperature Pulse Rate 53 L 53 L 54 L Respiratory Rate 20 15 13 Blood Pressure Blood Pressure [Left Arm] 121/54 H 106/49 L 100/47 L Pulse Oximetry 100 100 99 06/14/18 13:10 06/14/18 13:15 Temperature Pulse Rate 55 L 55 L Respiratory Rate 11 L 16 Blood Pressure Blood Pressure [Left Arm] 110/59 L 119/55 L Pulse Oximetry 98 100 MDM - Weakness Lab Data Result diagrams: 06/14/18 09:35 06/14/18 09:35 Lab Results 06/14/18 06/14/18 06/14/18 Range/Units 09:35 09:35 09:35 WBC 10.4 (4.5-11.0) X10^3/uL RBC 3.96 L (4.5-5.9) X10^6/uL Hgb 12.8 L (13.5-17.5) g/dL Hct 36.8 L (41-53) % MCV 92.9 (80-100) fL MCH 32.2 (26-34) PG MCHC 34.7 (30-36) % RDW 15.1 H (11.6-14.8) % Plt Count 266 (150-400) X10^3/uL Neut % (Auto) 66.7 (50-75) % Lymph % (Auto) 21.6 L (25-40) % [place] % (Auto) 7.7 (3-14) % Eos % (Auto) 3.0 (2-4) % Baso % (Auto) 1.0 (0-2) % Neut # (Auto) 6900 H (5716-5364) /uL Sodium 139 (137-145) mmol/L Potassium 4.3 (3.4-5.1) mmol/L Chloride 104 (98-107) mmol/L Carbon Dioxide 25 (22-32) mmol/L BUN 17 (9-20) mg/dL Creatinine 0.80 (0.66-1.25) mg/dL Estimated GFR > 60.0 (>60) mL/min BUN/Creatinine Ratio 21.3 (6-22) Glucose 180 H (80-110) mg/dL Calcium 9.2 (8.4-10.2) mg/dL Magnesium 2.1 (1.6-2.3) mg/dL Troponin I 0.121 H* (0.01-0.034) ng/mL B-Natriuretic Peptide (<100) TSH 0.91 (0.47-4.68) uIU/mL Free T4 1.22 (0.78-2.19) ng/dL 06/14/18 Range/Units 09:35 WBC (4.5-11.0) X10^3/uL RBC (4.5-5.9) X10^6/uL Hgb (13.5-17.5) g/dL Hct (41-53) % MCV (80-100) fL MCH (26-34) PG MCHC (30-36) % RDW (11.6-14.8) % Plt Count (150-400) X10^3/uL Neut % (Auto) (50-75) % Lymph % (Auto) (25-40) % [place] % (Auto) (3-14) % Eos % (Auto) (2-4) % Baso % (Auto) (0-2) % Neut # (Auto) (8007-6551) /uL Sodium (137-145) mmol/L Potassium (3.4-5.1) mmol/L Chloride (98-107) mmol/L Carbon Dioxide (22-32) mmol/L BUN (9-20) mg/dL Creatinine (0.66-1.25) mg/dL Estimated GFR (>60) mL/min BUN/Creatinine Ratio (6-22) Glucose (80-110) mg/dL Calcium (8.4-10.2) mg/dL Magnesium (1.6-2.3) mg/dL Troponin I (0.01-0.034) ng/mL B-Natriuretic Peptide 482.0 H (<100) TSH (0.47-4.68) uIU/mL Free T4 (0.78-2.19) ng/dL Discharge Plan Departure Patient Disposition: Home, Self-Care Clinical Impression: Atrial fibrillation Prescriptions: New amiodarone 400 mg tablet See Label Instructions .ROUTE .COMPLEX Qty: 21 RF: 0 No Action furosemide 40 mg tablet 40 mg PO DAILY Qty: 90 RF: 0 losartan 50 mg tablet 100 mg PO DAILY Qty: 90 RF: 0 aspirin [Adult Low Dose Aspirin] 81 mg tablet,delayed release (DR/EC) 81 mg PO DAILY RF: 0 atorvastatin 40 mg tablet 40 mg PO DAILY RF: 0 carvedilol 3.125 mg tablet 3.125 mg PO BID RF: 0 clopidogrel 75 mg tablet 75 mg PO DAILY RF: 0 metformin 500 mg tablet 500 mg PO BID RF: 0 multivitamin tablet 1 tab PO DAILY RF: 0 glucosamine sulfate 1,000 mg capsule 1,000 mg PO BID RF: 0 zolpidem 5 MG tablet 5 mg PO HS PRN (Reason: Sleep) RF: 0
[2018-06-14] MEDS: AMIODARONE 200 MG TABLET 400 MG PO (13:36)
--- NOTE | 2018-06-14 13:38 | PC.NURSE ---
Cardioverted. Stable. Eating sandwich and drinking his water
== END 2018-06-14 14:14 | disposition home or self-care (01) ==
PROVIDERS: Emergency Provider Emergency Medicine; Family Provider Internal Medicine; PCP Internal Medicine
DX: I48.91 Unspecified atrial fibrillation (principal)
CPT/HCPCS: 36591; 71046; 80048; 83735; 83880; 84439; 84443; 84484; 85025; 92960; 93005; 93041; 96361; 96374; 96375; 99152; 99285; 99291

== ENCOUNTER → 2018-08-04 11:07 | Outpatient (CLI) | payer OTHER, SELFPAY ==
[2018-08-04 11:42] LABS: Add Manual Diff / Slide Review NO; Basophils Percent Auto 0.8 % (0-2); Hemoglobin 11.8 g/dL (13.5-17.5); Lymphocytes Percent Auto 24.5 % (25-40); Mean Corpuscular HGB Conc 34.8 % (30-36); Mean Corpuscular Hemoglobin 33.5 PG (26-34); Mean Corpuscular Volume 96.3 fL (80-100); Monocytes Percent Auto 7.9 % (3-14); Neutrophils Absolute Auto 5500 /uL (3000-5900); Neutrophils Percent Auto 62.8 % (50-75); Platelet Count 227 X10^3/uL (150-400); Red Blood Cell Count 3.53 X10^6/uL (4.5-5.9); Red Cell Distribution Width 15.5 % (11.6-14.8); White Blood Cell Count 8.8 X10^3/uL (4.5-11.0)
[2018-08-04 11:52] LABS: Hemoglobin A1C% w Est Avg Glu 6.3 % (4.0-6.0)
[2018-08-04 12:21] LABS: Alanine Aminotransferase 27 IU/L (21-72); Albumin 3.8 g/dL (3.5-5.0); Albumin Globulin Ratio 1.3 (1.0-2.8); Alkaline Phosphatase 65 U/L (38-126); Aspartate Aminotransferase 27 IU/L (17-59); Bilirubin Total 0.4 mg/dL (0.2-1.3); Blood Urea Nitrogen 16 mg/dL (9-20); Calcium 8.9 mg/dL (8.4-10.2); Carbon Dioxide 29 mmol/L (22-32); Chloride 103 mmol/L (98-107); Creatine Kinase 73 U/L (55-170); Estimated Glomerular Filt Rate > 60.0 mL/min (>60); Globulin 2.9 g/dL (1.7-4.1); Glucose 203 mg/dL (80-110); HEMOLYSIS < 15 (0-50); Potassium 4.6 mmol/L (3.4-5.1); Sodium 141 mmol/L (137-145); Total Protein 6.7 g/dL (6.3-8.2)
== END ==
PROVIDERS: PCP Internal Medicine; Visit Provider Internal Medicine
DX: I25.10 Atherosclerotic heart disease of native coronary artery without angina pectoris (principal); I48.91 Unspecified atrial fibrillation; E11.9 Type 2 diabetes mellitus without complications; I10 Essential (primary) hypertension
CPT/HCPCS: 36415; 80053; 82550; 83036; 85025

== ENCOUNTER → 2018-08-26 11:24 | Outpatient (CLI) | payer OTHER, SELFPAY ==
--- NOTE | 2018-08-28 08:20 | PM.PFT.1 ---
Pulmonary Function Test Referral & Results Date Patient Seen: 08/26/18 Requesting provider: Tracey Nina Results: The spirometry demonstrates an FVC of 3.62 L which is 79% of predicted. The FEV1 was measured at 2.6 year L which is 70% of predicted. The FEV1/FVC ratio was 72 which is 98% of predicted. Following the administration of bronchodilator there was no appreciable change. Lung volumes show an SVC of 3.97 L which is 84% of predicted. The diffusing capacity was measured at 25.63 which is 76% of predicted. No hemoglobin value was provided, so no correction for potential anemia could be made, if appropriate. The maximum voluntary ventilation was slightly reduced Interpretation: This study demonstrates mild to moderate obstructive lung disease without evidence of benefit following bronchodilator administration There is also minimal restrictive lung disease present based on reduction in lung volumes There is also mild reduction in diffusing capacity (unless patient is anemic) suggesting some element of disease at the capillary alveolar level as well. Clinical correlation suggested
== END ==
PROVIDERS: Family Provider Internal Medicine; PCP Internal Medicine; Visit Provider Physician Assistant
DX: Z79.899 Other long term (current) drug therapy (principal)
CPT/HCPCS: 94010; 94060; 94726; 94729

== ENCOUNTER → 2018-11-02 10:35 | Outpatient (CLI) | payer OTHER, SELFPAY ==
[2018-11-02 11:13] LABS: Hemoglobin A1C% w Est Avg Glu 7.1 % (4.0-6.0)
[2018-11-02 11:28] LABS: Glucose 133 mg/dL (80-110)
== END ==
PROVIDERS: Family Provider Internal Medicine; PCP Internal Medicine; Visit Provider Internal Medicine
DX: E11.9 Type 2 diabetes mellitus without complications (principal)
CPT/HCPCS: 36415; 82947; 83036

== ENCOUNTER → 2019-02-16 09:40 | Outpatient (CLI) | payer OTHER, SELFPAY ==
[2019-02-16 10:57] LABS: Add Manual Diff / Slide Review NO; Basophils Absolute Auto 100 /uL (0-100); Eosinophils Absolute Auto 300 /uL (0-450); Eosinophils Percent Auto 3.1 % (2-4); Hematocrit 38.2 % (41-53); Hemoglobin 13.5 g/dL (13.5-17.5); Lymphocytes Absolute Auto 2300 /uL (1100-4500); Lymphocytes Percent Auto 27.3 % (25-40); Mean Corpuscular HGB Conc 35.3 % (30-36); Mean Corpuscular Hemoglobin 33.8 PG (26-34); Mean Corpuscular Volume 95.6 fL (80-100); Monocytes Absolute Auto 900 /uL (0-900); Monocytes Percent Auto 10.2 % (3-14); Neutrophils Absolute Auto 4900 /uL (1500-7000); Neutrophils Percent Auto 58.4 % (50-75); Platelet Count 237 X10^3/uL (150-400); Red Cell Distribution Width 14.1 % (11.6-14.8); White Blood Cell Count 8.4 X10^3/uL (4.5-11.0)
[2019-02-16 11:16] LABS: Hemoglobin A1C% w Est Avg Glu 6.7 % (4.0-6.0)
[2019-02-16 11:32] LABS: Alanine Aminotransferase 33 IU/L (21-72); Albumin 4.1 g/dL (3.5-5.0); Albumin Globulin Ratio 1.3 (1.0-2.8); Alkaline Phosphatase 59 U/L (38-126); Aspartate Aminotransferase 23 IU/L (17-59); Bilirubin Total 0.5 mg/dL (0.2-1.3); Blood Urea Nitrogen 24 mg/dL (9-20); Calcium 9.4 mg/dL (8.4-10.2); Carbon Dioxide 29 mmol/L (22-32); Chloride 103 mmol/L (98-107); Creatine Kinase 91 U/L (55-170); Estimated Glomerular Filt Rate > 60.0 mL/min (>60); Globulin 3.1 g/dL (1.7-4.1); Glucose 152 mg/dL (80-110); HEMOLYSIS < 15 (0-50); Potassium 4.1 mmol/L (3.4-5.1); Sodium 140 mmol/L (137-145); Total Protein 7.2 g/dL (6.3-8.2)
== END ==
PROVIDERS: PCP Internal Medicine; Visit Provider Internal Medicine
DX: E11.9 Type 2 diabetes mellitus without complications (principal); I10 Essential (primary) hypertension; I25.10 Atherosclerotic heart disease of native coronary artery without angina pectoris; I48.91 Unspecified atrial fibrillation
CPT/HCPCS: 36415; 80053; 82550; 83036; 85025

== ENCOUNTER → 2019-08-03 09:26 | Outpatient (CLI) | payer OTHER, SELFPAY ==
[2019-08-03 10:19] LABS: Hemoglobin A1C% w Est Avg Glu 7.5 % (4.0-6.0)
[2019-08-03 10:47] LABS: Creatinine Urine Random 56.5 mg/dL
[2019-08-03 10:48] LABS: Alanine Aminotransferase 23 IU/L (21-72); Albumin 3.9 g/dL (3.5-5.0); Albumin Globulin Ratio 1.3 (1.0-2.8); Alkaline Phosphatase 60 U/L (38-126); Aspartate Aminotransferase 19 IU/L (17-59); Bilirubin Total 0.5 mg/dL (0.2-1.3); Blood Urea Nitrogen 18 mg/dL (9-20); Calcium 9.4 mg/dL (8.4-10.2); Carbon Dioxide 30 mmol/L (22-32); Chloride 101 mmol/L (98-107); Cholesterol 93 mg/dL (140-199); Estimated Glomerular Filt Rate > 60.0 mL/min (>60); Glucose 174 mg/dL (80-110); HDL Cholesterol 39 mg/dL (40-60); HEMOLYSIS < 15 (0-50); LDL Cholesterol Calculated 41 mg/dL (<100); Potassium 4.9 mmol/L (3.4-5.1); Sodium 138 mmol/L (137-145); Total Protein 6.9 g/dL (6.3-8.2); Triglycerides 63 mg/dL (35-150)
[2019-08-03 10:52] LABS: Microalbumi Creatinin Ratio Ur 58.4 ug/mg CR (<30); Microalbumin Urine Random 3.3 mg/dL (0-1.6)
== END ==
PROVIDERS: PCP Internal Medicine; Visit Provider Internal Medicine Cardiovascular Disease
DX: I25.10 Atherosclerotic heart disease of native coronary artery without angina pectoris (principal); I25.5 Ischemic cardiomyopathy; E78.5 Hyperlipidemia, unspecified; E11.9 Type 2 diabetes mellitus without complications; I10 Essential (primary) hypertension
CPT/HCPCS: 36415; 80053; 80061; 82043; 82570; 83036

== ENCOUNTER → 2019-08-20 13:32 | Outpatient (CLI) | payer OTHER, SELFPAY ==
[2019-08-23 15:27] LABS: Fecal Immunochemical Test NOT DETECTED (NOT DETECTED)
== END ==
PROVIDERS: PCP Internal Medicine; Visit Provider Internal Medicine
DX: E11.65 Type 2 diabetes mellitus with hyperglycemia (principal); Z12.11 Encounter for screening for malignant neoplasm of colon
CPT/HCPCS: 82274

== ENCOUNTER → 2019-11-12 10:02 | Outpatient (CLI) | payer OTHER, SELFPAY ==
[2019-11-12 11:15] LABS: Hemoglobin A1C% w Est Avg Glu 7.7 % (4.0-6.0)
[2019-11-12 11:31] LABS: Blood Urea Nitrogen 22 mg/dL (9-20); Carbon Dioxide 28 mmol/L (22-32); Chloride 100 mmol/L (98-107); Estimated Glomerular Filt Rate > 60.0 mL/min (>60); Glucose 270 mg/dL (80-110); HEMOLYSIS < 15 (0-50); Potassium 4.6 mmol/L (3.4-5.1); Sodium 134 mmol/L (137-145)
== END ==
PROVIDERS: PCP Internal Medicine; Visit Provider Internal Medicine
DX: E11.65 Type 2 diabetes mellitus with hyperglycemia (principal)
CPT/HCPCS: 36415; 80048; 83036

== ENCOUNTER → 2020-02-01 08:14 | Outpatient (CLI) | payer OTHER, SELFPAY ==
[2020-02-01 09:12] LABS: Hemoglobin A1C% w Est Avg Glu 7.9 % (4.0-6.0)
[2020-02-01 09:28] LABS: Alanine Aminotransferase 20 IU/L (<50); Albumin 3.9 g/dL (3.5-5.0); Albumin Globulin Ratio 1.3 (1.0-2.8); Alkaline Phosphatase 63 U/L (38-126); Aspartate Aminotransferase 21 IU/L (17-59); BUN Creatinine Ratio 19.8 (6-22); Bilirubin Total 0.4 mg/dL (0.2-1.3); Blood Urea Nitrogen 21 mg/dL (9-20); Calcium 9.3 mg/dL (8.4-10.2); Carbon Dioxide 27 mmol/L (22-32); Chloride 103 mmol/L (98-107); Estimated Glomerular Filt Rate > 60.0 mL/min (>60); Glucose 188 mg/dL (80-110); HEMOLYSIS < 15 (0-50); Potassium 4.7 mmol/L (3.4-5.1); Sodium 137 mmol/L (137-145); Total Protein 6.9 g/dL (6.3-8.2)
== END ==
PROVIDERS: PCP Internal Medicine; Referring Provider Internal Medicine; Visit Provider Internal Medicine
DX: E11.9 Type 2 diabetes mellitus without complications (principal); I10 Essential (primary) hypertension
CPT/HCPCS: 36415; 80053; 83036

== ENCOUNTER → 2020-05-22 09:21 | Outpatient (CLI) | payer OTHER, SELFPAY ==
[2020-05-22 11:24] LABS: Hemoglobin A1C% w Est Avg Glu 10.2 % (4.0-6.0)
[2020-05-22 11:47] LABS: BUN Creatinine Ratio 19.2 (6-22); Blood Urea Nitrogen 19 mg/dL (9-20); Calcium 9.6 mg/dL (8.4-10.2); Carbon Dioxide 28 mmol/L (22-32); Chloride 99 mmol/L (98-107); Estimated Glomerular Filt Rate > 60.0 mL/min (>60); Glucose 325 mg/dL (80-110); HEMOLYSIS 29 (0-50); Sodium 134 mmol/L (137-145)
[2020-05-22 11:54] LABS: Potassium 5.5 mmol/L (3.4-5.1)
== END ==
PROVIDERS: PCP Internal Medicine; Referring Provider Internal Medicine; Visit Provider Internal Medicine
DX: E11.65 Type 2 diabetes mellitus with hyperglycemia (principal)
CPT/HCPCS: 36415; 80048; 83036

== ENCOUNTER → 2020-08-21 08:36 | Outpatient (CLI) | payer OTHER, SELFPAY ==
[2020-08-21 09:51] LABS: Alanine Aminotransferase 25 IU/L (<50); Albumin 4.1 g/dL (3.5-5.0); Albumin Globulin Ratio 1.4 (1.0-2.8); Alkaline Phosphatase 87 U/L (38-126); Aspartate Aminotransferase 20 IU/L (17-59); BUN Creatinine Ratio 15.9 (6-22); Bilirubin Total 0.5 mg/dL (0.2-1.3); Blood Urea Nitrogen 17 mg/dL (9-20); Calcium 9.2 mg/dL (8.4-10.2); Carbon Dioxide 30 mmol/L (22-32); Chloride 100 mmol/L (98-107); Estimated Glomerular Filt Rate > 60.0 mL/min (>60); Globulin 2.9 g/dL (1.7-4.1); Glucose 246 mg/dL (80-110); HEMOLYSIS < 15 (0-50); Sodium 136 mmol/L (137-145)
[2020-08-21 09:55] LABS: Hemoglobin A1C% w Est Avg Glu 8.2 % (4.0-6.0)
== END ==
PROVIDERS: PCP Internal Medicine; Referring Provider Internal Medicine; Visit Provider Internal Medicine
DX: E11.65 Type 2 diabetes mellitus with hyperglycemia (principal); I10 Essential (primary) hypertension; I25.10 Atherosclerotic heart disease of native coronary artery without angina pectoris
CPT/HCPCS: 36415; 80053; 83036

== ENCOUNTER → 2020-12-20 09:19 | Outpatient (CLI) | payer OTHER, SELFPAY ==
[2020-12-20 10:01] LABS: Hemoglobin A1C% w Est Avg Glu 8.5 % (4.0-6.0)
[2020-12-20 10:50] LABS: BUN Creatinine Ratio 16.7 (6-22); Blood Urea Nitrogen 18 mg/dL (9-20); Carbon Dioxide 28 mmol/L (22-32); Chloride 106 mmol/L (98-107); Estimated Glomerular Filt Rate > 60.0 mL/min (>60); Glucose 200 mg/dL (80-110); HEMOLYSIS < 15 (0-50); Potassium 4.8 mmol/L (3.4-5.1); Sodium 136 mmol/L (137-145)
== END ==
PROVIDERS: PCP Internal Medicine; Referring Provider Internal Medicine; Visit Provider Internal Medicine
DX: E11.65 Type 2 diabetes mellitus with hyperglycemia (principal); I10 Essential (primary) hypertension; I25.10 Atherosclerotic heart disease of native coronary artery without angina pectoris
CPT/HCPCS: 36415; 80048; 83036

== ENCOUNTER → 2021-03-05 10:10 | Outpatient (CLI) | payer OTHER, SELFPAY ==
[2021-03-05 11:17] LABS: BUN Creatinine Ratio 20.8 (6-22); Blood Urea Nitrogen 20 mg/dL (9-20); Calcium 9.4 mg/dL (8.4-10.2); Carbon Dioxide 28 mmol/L (22-32); Chloride 103 mmol/L (98-107); Estimated Glomerular Filt Rate > 60.0 mL/min (>60); Glucose 274 mg/dL (80-110); HEMOLYSIS 17 (0-50); Potassium 4.8 mmol/L (3.4-5.1); Sodium 139 mmol/L (137-145)
[2021-03-05 11:38] LABS: Hemoglobin A1C% w Est Avg Glu 9.5 % (4.0-6.0)
== END ==
PROVIDERS: PCP Internal Medicine; Referring Provider Internal Medicine; Visit Provider Internal Medicine
DX: E11.65 Type 2 diabetes mellitus with hyperglycemia (principal); I25.5 Ischemic cardiomyopathy; I48.91 Unspecified atrial fibrillation
CPT/HCPCS: 80048; 83036

== ENCOUNTER → 2021-06-04 09:36 | Outpatient (CLI) | payer OTHER, SELFPAY ==
[2021-06-04 11:50] LABS: Hemoglobin A1C% w Est Avg Glu 8.9 % (4.0-6.0)
[2021-06-04 12:25] LABS: Blood Urea Nitrogen 19 mg/dL (9-20); Calcium 9.6 mg/dL (8.4-10.2); Carbon Dioxide 25 mmol/L (22-32); Chloride 105 mmol/L (98-107); Estimated Glomerular Filt Rate > 60.0 mL/min (>60); Glucose 208 mg/dL (80-110); HEMOLYSIS < 15 (0-50); Potassium 4.8 mmol/L (3.4-5.1); Sodium 137 mmol/L (137-145)
== END ==
PROVIDERS: PCP Internal Medicine; Referring Provider Internal Medicine; Visit Provider Internal Medicine
DX: E11.65 Type 2 diabetes mellitus with hyperglycemia (principal)
CPT/HCPCS: 36415; 80048; 83036

== ENCOUNTER → 2021-11-01 10:19 | Outpatient (CLI) | payer OTHER, SELFPAY ==
[2021-11-01 10:56] LABS: Hemoglobin A1C% w Est Avg Glu 9.1 % (4.0-6.0)
[2021-11-01 11:00] LABS: BUN Creatinine Ratio 16.7 (6-22); Blood Urea Nitrogen 21 mg/dL (9-20); Estimated Glomerular Filt Rate 55.9 mL/min (>60)
== END ==
PROVIDERS: PCP Internal Medicine; Referring Provider Internal Medicine; Visit Provider Internal Medicine
DX: E11.65 Type 2 diabetes mellitus with hyperglycemia (principal); I10 Essential (primary) hypertension; I25.10 Atherosclerotic heart disease of native coronary artery without angina pectoris; I42.9 Cardiomyopathy, unspecified
CPT/HCPCS: 36415; 82565; 83036; 84520

== ENCOUNTER → 2022-02-01 09:48 | Outpatient (CLI) | payer OTHER, SELFPAY ==
[2022-02-01 12:17] LABS: BUN Creatinine Ratio 19.8 (6-22); Blood Urea Nitrogen 23 mg/dL (9-20); Calcium 9.2 mg/dL (8.4-10.2); Carbon Dioxide 31 mmol/L (22-32); Chloride 103 mmol/L (98-107); Estimated Glomerular Filt Rate > 60.0 mL/min (>60); Glucose 266 mg/dL (80-110); HEMOLYSIS < 15 (0-50); Potassium 4.9 mmol/L (3.4-5.1); Sodium 136 mmol/L (137-145)
[2022-02-01 12:22] LABS: Hemoglobin A1C% w Est Avg Glu 10.1 % (4.0-6.0)
== END ==
PROVIDERS: PCP Internal Medicine; Referring Provider Internal Medicine; Visit Provider Internal Medicine
DX: E11.65 Type 2 diabetes mellitus with hyperglycemia (principal); I48.0 Paroxysmal atrial fibrillation; I10 Essential (primary) hypertension
CPT/HCPCS: 36415; 80048; 83036

== ENCOUNTER → 2022-04-04 08:46 | Outpatient (CLI) | payer OTHER, SELFPAY ==
[2022-04-04 10:54] LABS: Hemoglobin A1C% w Est Avg Glu 8.3 % (4.0-6.0)
[2022-04-04 11:07] LABS: BUN Creatinine Ratio 21.1 (6-22); Blood Urea Nitrogen 26 mg/dL (9-20); Carbon Dioxide 30 mmol/L (22-32); Chloride 102 mmol/L (98-107); Estimated Glomerular Filt Rate > 60 mL/min (>60); Glucose 156 mg/dL (80-110); HEMOLYSIS < 15 (0-50); Sodium 140 mmol/L (137-145)
[2022-04-04 11:08] LABS: Potassium 5.7 mmol/L (3.4-5.1)
== END ==
PROVIDERS: PCP Internal Medicine; Referring Provider Internal Medicine; Visit Provider Internal Medicine
DX: E11.65 Type 2 diabetes mellitus with hyperglycemia (principal)
CPT/HCPCS: 36415; 80048; 83036

== ENCOUNTER → 2022-09-04 09:41 | Outpatient (CLI) | payer OTHER, SELFPAY ==
[2022-09-04 11:27] LABS: BUN Creatinine Ratio 21.1 (6-22); Blood Urea Nitrogen 28 mg/dL (9-20); Calcium 8.9 mg/dL (8.4-10.2); Carbon Dioxide 28 mmol/L (22-32); Chloride 102 mmol/L (98-107); Estimated Glomerular Filt Rate 56 mL/min (>60); Glucose 116 mg/dL (80-110); HEMOLYSIS < 15 (0-50); Potassium 4.6 mmol/L (3.4-5.1); Sodium 140 mmol/L (137-145)
== END ==
PROVIDERS: PCP Internal Medicine; Referring Provider Internal Medicine; Visit Provider Internal Medicine
DX: E11.65 Type 2 diabetes mellitus with hyperglycemia (principal); I10 Essential (primary) hypertension; I25.10 Atherosclerotic heart disease of native coronary artery without angina pectoris
CPT/HCPCS: 36415; 80048; 83036

== ENCOUNTER 2023-02-24 08:34 | Inpatient (IN) | payer OTHER, SELFPAY ==
[2023-02-24] VITALS (33 sets, daily range): BP systolic 142–232; BP diastolic 55–93; PULSE 60–66; RESP 18–38; TEMP 36.4; O2SAT 93–100; BMI 39.0; BMI 38.0
--- NOTE | 2023-02-24 08:43 | ED.SOB ---
HPI - SOB/Dyspnea General Chief Complaint: Shortness of Breath/Dyspnea Stated Complaint: SOB T-1 getting worse Time Seen by Provider: 02/24/23 08:43 History of Present Illness HPI Narrative: This is a 77-year-old male with history of paroxysmal atrial fibrillation, tachy-ama syndrome, coronary artery disease with RCA stent in 2018, pacemaker, aortic stenosis, KAYLAN, dyslipidemia, CHF, type 2 diabetes who presents with acute on chronic shortness of breath. Patient states about 6-8 weeks ago he started having some shortness of breath he went to the walk-in clinic had a respiratory panel and tested positive for RSV. Received cough medicine he improved and then slowly been worsening again. He states about a week ago really started to worsen and over the last 24 hours significantly more dyspneic. He describes shortness of breath with exertion particular he states even put his shoes on he test paint and take a break, when he is going to the bathroom. Patient notes that he also can not lie flat and he is had increasing orthopnea. Patient has not appreciated significant increasing swelling of his extremities. He denies any syncope. He is had some mild lightheadedness but no near syncope. He denies chest pain or pressure but states his shortness of breath feels similar to when he was heart attack. Patient denies any nausea or vomiting. No diaphoresis. No dysuria urgency frequency or hematuria. No diarrhea constipation, no black or bloody stools. Patient is noted to be quite hypertensive upon arrival he states he is taken his regular medications today. On aspirin 81 mg daily with no other anticoagulation, atorvastatin, Lasix, glipizide, losartan, metformin, sotalol and spironolactone. Patient states he is had a pacemaker in 2 cardiac stents he denies other surgical history. States he is allergic to lisinopril, Zosyn, vanco and azithromycin. Quit tobacco with cigarettes 4 years ago and quit cigars 1.5 months ago. No EtOH. No illicit. Dr. Danielle is his primary care and Dr. Campuzano is his bicycle inspector. Related Data Home Medications Medication Instructions Recorded Confirmed glucosamine sulfate 1,000 mg 1,000 mg PO DAILY 04/27/18 02/24/23 capsule multivitamin 1 tab PO DAILY 04/27/18 02/24/23 aspirin 81 mg tablet,delayed 81 mg PO DAILY 08/21/20 02/24/23 release (Adult Low Dose Aspirin) losartan 50 mg tablet 50 mg PO BID 02/24/23 02/24/23 sotalol 120 mg tablet 120 mg PO BID 02/24/23 02/24/23 Previous Rx's Medication Instructions Recorded glipizide 10 mg tablet 10 mg PO BID #180 tabs 04/05/22 atorvastatin 40 mg tablet 40 mg PO DAILY #90 tabs 06/24/22 furosemide 40 mg tablet 40 mg PO DAILY PRN edema #90 tabs 06/24/22 metformin 1,000 mg tablet 1,000 mg PO BID #180 tabs 06/24/22 spironolactone 25 mg tablet 12.5 mg PO DAILY #45 tabs 06/24/22 Allergies Allergy/AdvReac Type Severity Reaction Status Date / Time lisinopril [LISINOPRIL] Allergy Intermediate COUGH Verified 02/24/23 08:53 piperacillin [PIPERACILLIN] AdvReac Mild RASH MAY Verified 02/24/23 08:53 2014 ADMIT, MAY BE VANCO, UNSURE vancomycin [VANCOMYCIN] AdvReac Mild RASH MAY Verified 02/24/23 08:53 2014 ADMIT MAY BE PIPERACILLIN INSTEAD azithromycin [From Zithromax] AdvReac Verified 02/24/23 08:53 Review of Systems Review of Systems ROS Unobtainable: All systems reviewed & are unremarkable except as noted in HPI and below Patient History Medical History (Updated 02/24/23 @ 11:58 by Nura Danielle MD) Aortic stenosis Atrial fibrillation (03/30/15) Cardiomyopathy (~03/2018) Coronary artery disease (~03/2018) Hypertension (05/30/15) Tachy-ama syndrome Type 2 diabetes mellitus with hyperglycemia, without long-term current use of insulin Type 2 diabetes mellitus without complication (05/01/15) Surgical History H/O heart artery stent (~03/2018) S/P cardiac pacemaker procedure (~09/2018) Social History household members: none Smoking Status: Former smoker alcohol intake: never Smoking Status: Former smoker Substance Use Type: does not use Exam Narrative Exam Narrative: GENERAL: Alert and oriented x three, pale elderly male in moderate distress. HEENT: Head normocephalic, atraumatic, EOMI, pupils reactive, face symmetric, moist mucous membranes NECK: Supple, full range of motion CARDIOVASCULAR: Regular rate and rhythm without murmurs, rubs or gallops. Positive for JVD. Trace edema bilateral lower extremities. RESPIRATORY: Breath sounds equal bilaterally, no wheezes rales or rhonchi. Positive for tachypnea. No accessory muscle use. Patient does have to be upright. ABDOMEN: Soft, nontender. Normoactive bowel sounds all 4 quadrants. No guarding or rebound, rigidity, no mass : No CVA tenderness EXTREMITIES: Normal range of motion, no clubbing. Neurovascularly intact. NEUROLOGICAL: Cranial nerves II through XII grossly intact. Moving all extremities SKIN: Warm, dry, no petechiae, no rashes or lesions. Initial Vital Signs Initial Vital Signs: Vital Signs Pulse Rate 61 02/24/23 08:45 Respiratory Rate 26 H 02/24/23 08:45 Blood Pressure 232/93 H 02/24/23 08:45 Pulse Oximetry 96 02/24/23 08:45 Oxygen Delivery Method Room Air 02/24/23 08:45 Course Orders Ordered: ED Orders 02/24/23 10:39 EKG-12 Lead Routine 02/24/23 10:45 Trop I [Troponin I] Stat 02/24/23 11:45 EC echo doppler complete Stat 02/25/23 05:00 Basic Metabolic Panel Routine Magnesium Routine NT-proBNP (BNP-Adult 18+) Routine Acetaminophen (Acetaminophen 325 Mg Tablet) 650 mg PO Q6H PRN PRN Reason: Fever/Mild Pain (1-3) Albuterol (Albuterol 2.5 Mg/3 Ml Neb (Adult)) 2.5 mg INH [id number] PRN PRN Reason: Shortness Of Breath Last Admin: 02/24/23 17:00 Dose: 2.5 mg Documented By: BRIANNA Aspirin (Aspirin Ec 81 Mg Tablet) 81 mg PO DAILY [facility] Atorvastatin Calcium (Atorvastatin 20 Mg Tablet) 40 mg PO DAILY [facility] Dextrose (Dextrose 50 % In Water 25 Gm/50 Ml Syringe) 25 gm IV PRN PRN PRN Reason: Hypoglycemia Enoxaparin Sodium (Enoxaparin 40 Mg/0.4 Ml Syringe) 40 mg SUBCUT DAILY [facility] Glipizide (Glipizide 5 Mg Tablet) 10 mg PO BID [facility] Furosemide 80 mg/ Sodium (Chloride) 58 mls @ 116 mls/hr IV Q12H [facility] Insulin Human Lispro (Insulin Lispro 100 Unit/Ml 3ml Vial) 0 unit SUBCUT ACHS [facility]; Protocol Last Admin: 02/24/23 17:30 Dose: Not Given Documented By: Lorazepam (Lorazepam 2 Mg/Ml Inj) 0.5 mg IV Q2HR PRN PRN Reason: Anxiety Last Admin: 02/24/23 16:55 Dose: 0.5 mg Documented By: Losartan Potassium (Losartan 50 Mg Tablet) 50 mg PO BID [facility] Metformin HCl (Metformin Hcl 500 Mg Tablet) 1,000 mg PO BID [facility] Multivitamins (Multivitamin 1 Tablet) 1 tab PO DAILY [facility] Naloxone HCl (Naloxone 0.4 Mg/Ml Vial) 0.2 mg IV Q2MIN PRN PRN Reason: Opiate Reversal Sotalol HCl (Sotalol 80 Mg Tablet) 120 mg PO BID [facility] Spironolactone (Spironolactone 25 Mg Tablet) 12.5 mg PO DAILY [facility] Discontinued Medications Aspirin (Aspirin 81 Mg Chew Tab) 324 mg PO NOW ONE Stop: 02/24/23 08:45 Last Admin: 02/24/23 09:04 Dose: 243 mg Documented By: ÁNGELA Furosemide 80 mg/ Sodium (Chloride) 58 mls @ 116 mls/hr IV NOW ONE Stop: 02/24/23 08:56 Last Infusion: 02/24/23 09:40 Dose: 0 mls/hr Documented By: Admin: 02/24/23 09:05 Dose: 116 mls/hr Documented By: ÁNGELA Nitroglycerin (Nitroglycerin 0.4 Mg Sl Tab) 0.4 mg SL NOW ONE Stop: 02/24/23 08:56 Last Admin: 02/24/23 09:06 Dose: Not Given Documented By: ÁNGELA Vital Signs Vital signs: Vital Signs - 8 hr 02/24/23 11:00 02/24/23 11:01 02/24/23 11:01 Pulse Rate 60 60 Respiratory Rate 30 H Blood Pressure 183/79 H Pulse Oximetry 96 96 02/24/23 11:16 02/24/23 11:16 02/24/23 11:30 Pulse Rate 60 65 Respiratory Rate 31 H 19 Blood Pressure 176/74 H Pulse Oximetry 96 96 02/24/23 11:31 02/24/23 11:31 Pulse Rate 63 Respiratory Rate 26 H Blood Pressure 171/75 H Pulse Oximetry 95 MDM - SOB/Dyspnea Lab Data 02/24/23 08:40 02/24/23 08:40 Labs: Lab Results 02/24/23 02/24/23 02/24/23 Range/Units 08:40 08:40 08:40 WBC 10.8 (4.5-11.0) X10^3/uL RBC 4.07 L (4.5-5.9) X10^6/uL Hgb 12.2 L (13.5-17.5) g/dL Hct 36.9 L (41-53) % MCV 90.6 (80-100) fL MCH 30.1 (26-34) PG MCHC 33.2 (30-36) % RDW 15.6 H (11.6-14.8) % Plt Count 308 (150-400) X10^3/uL Neut % (Auto) 73.8 (50-75) % Lymph % (Auto) 13.9 L (25-40) % Apache % (Auto) 8.2 (3-14) % Eos % (Auto) 2.6 (2-4) % Baso % (Auto) 1.5 (0-2) % Neut # (Auto) 8000 H (2298-6569) /uL Lymph # (Auto) 1500 (5710-1281) /uL [place] # (Auto) 900 (0-900) /uL Eos # (Auto) 300 (0-450) /uL Baso # (Auto) 200 H (0-100) /uL PT 13.1 H (10.1-12.7) SECONDS INR 1.1 (0.9-1.3) APTT 33 (26-36) SECONDS Sodium 139 (137-145) mmol/L Potassium 4.2 (3.4-5.1) mmol/L Chloride 104 (98-107) mmol/L Carbon Dioxide 27 (22-32) mmol/L BUN 20 (9-20) mg/dL Creatinine 1.16 (0.66-1.25) mg/dL Estimated GFR > 60 (>60) mL/min BUN/Creatinine Ratio 17.2 (6-22) Glucose 152 H (80-110) mg/dL Calcium 8.8 (8.4-10.2) mg/dL Magnesium 1.8 (1.6-2.3) mg/dL Total Bilirubin 0.3 (0.2-1.3) mg/dL AST 22 (17-59) IU/L ALT 25 (<50) IU/L Alkaline Phosphatase 72 (38-126) U/L Total Creatine Kinase 80 (55-170) U/L CK-MB (CK-2) TNP CK-MB (CK-2) Rel Index TNP Troponin I 0.013 (0.01-0.034) ng/mL NT-Pro-B Natriuret Pep (<450) pg/mL Total Protein 7.8 (6.3-8.2) g/dL Albumin 3.9 (3.5-5.0) g/dL Globulin 3.9 (1.7-4.1) g/dL Albumin/Globulin Ratio 1.0 (1.0-2.8) Lipase 127 (23-300) U/L SARS-CoV-2 (PCR) (Negative) 02/24/23 02/24/23 02/24/23 Range/Units 08:40 09:15 10:45 WBC (4.5-11.0) X10^3/uL RBC (4.5-5.9) X10^6/uL Hgb (13.5-17.5) g/dL Hct (41-53) % MCV (80-100) fL MCH (26-34) PG MCHC (30-36) % RDW (11.6-14.8) % Plt Count (150-400) X10^3/uL Neut % (Auto) (50-75) % Lymph % (Auto) (25-40) % Apache % (Auto) (3-14) % Eos % (Auto) (2-4) % Baso % (Auto) (0-2) % Neut # (Auto) (5626-3146) /uL Lymph # (Auto) (9579-6205) /uL Apache # (Auto) (0-900) /uL Eos # (Auto) (0-450) /uL Baso # (Auto) (0-100) /uL PT (10.1-12.7) SECONDS INR (0.9-1.3) APTT (26-36) SECONDS Sodium (137-145) mmol/L Potassium (3.4-5.1) mmol/L Chloride (98-107) mmol/L Carbon Dioxide (22-32) mmol/L BUN (9-20) mg/dL Creatinine (0.66-1.25) mg/dL Estimated GFR (>60) mL/min BUN/Creatinine Ratio (6-22) Glucose (80-110) mg/dL Calcium (8.4-10.2) mg/dL Magnesium (1.6-2.3) mg/dL Total Bilirubin (0.2-1.3) mg/dL AST (17-59) IU/L ALT (<50) IU/L Alkaline Phosphatase (38-126) U/L Total Creatine Kinase (55-170) U/L CK-MB (CK-2) CK-MB (CK-2) Rel Index Troponin I < 0.012 (0.01-0.034) ng/mL NT-Pro-B Natriuret Pep 316 (<450) pg/mL Total Protein (6.3-8.2) g/dL Albumin (3.5-5.0) g/dL Globulin (1.7-4.1) g/dL Albumin/Globulin Ratio (1.0-2.8) Lipase (23-300) U/L SARS-CoV-2 (PCR) Negative (Negative) Imaging Data Chest x-ray: Radiologist's Impression: [address] [address] XRay Report Signed Patient: Joseph Zepeda MR#: [id number] : 1945 Acct:[id number] Age/Sex: 77 / M Date of Service: 02/24/23 Loc: ED Accession Number: [id number] ?? Procedure: XR chest 1V Ordering Provider: Erika Bernard D.O. PROCEDURE:? XR CHEST 1V ? INDICATIONS:? chest pain ? TECHNIQUE:? One view of the chest was acquired.? ? COMPARISON:? [facility], [facility]ANDR, XR CHEST 2V, 06/14/2018, 9:34. ? FINDINGS:? ? Surgical changes and devices:? left-sided cardiac pacer device is in place.? ? Lungs and pleura:? New moderate-sized right pleural effusion with associated compressive atelectasis.? Mild blunting of the left costophrenic angle may represent small left pleural effusion.? No pneumothorax.? Minimal diffuse interstitial prominence.? No focal consolidation. ? Mediastinum:? Mediastinal contours appear stable.? Heart size is borderline enlarged.? ? Bones and chest wall:? No suspicious bony lesions.? Overlying soft tissues appear unremarkable.? ? IMPRESSION:? Borderline cardiomegaly with new moderate-sized right pleural effusion and possible small left pleural effusion.? Findings may represent pulmonary edema.? An infectious or inflammatory process not excluded if clinically appropriate. ? ? Dictated by: Lobo Bhakta M.D. on 02/24/2023 at 9:15 ? ? Approved by: Lobo Bhakta M.D. on 02/24/2023 at 9:17?? ECG Data Attestation: I personally reviewed and interpreted this ECG as follows: Prior ECG tracings: available for review Interpretation: Atrial paced rhythm rate of 60 TX 218 QRS 86 and QTC 442. Patient has prior from 06/14/2018 V1 through V3 appears similar lateral leads V4 5 6 appear to have a little bit of J-point elevation in comparison but no ST elevation noted. EKG shows atrial paced rhythm prolonged AV conduction. Rate of 60 TX 234 QRS 86 and QTC 456. No acute ST changes or dynamic changes appreciated. EKG appears similar to prior from today. MDM Narrative Medical decision making narrative: This is a 77-year-old male who presents with complaint of increasing shortness of breath particularly with exertion and orthopnea. He does not have significant crackles or swelling on exam but I suspect CHF exacerbation he does have a history of aortic stenosis so will diurese. We anticipate giving a dose of nitro but patient's blood pressure improved to 160 without intervention so this was not given. Patient on recheck has diuresed his shortness of breath has improved rest he is 140 systolic, labs show baseline anemia, no major platelets changes, no leukocytosis,?coags are negative, patient's renal function is at baseline, normal electrolytes glucose is 152, troponins negative BNP is only 316 with normal LFTs and a negative COVID. Patient's chest x-ray does show moderate pleural effusion. Troponin and EKG repeated at 2 hours shows no acute dynamic changes, troponin is negative. . Patient's breathing has improved while at rest but is still slightly tachypneic. Discussed with Dr. Danielle plan for observation for diuresis, echo as patient has known aortic stenosis in his been 4 or 5 years since it was last checked that I am able to see in our system. Patient has not echo from 2018 available that shows normal left ventricle with mild concentric hypertrophy and EF of 65%, moderately enlarged left atrium right atrium with thickened aortic valve with mild stenosis and mild insufficiency and a dilated ascending aorta at that time. Discharge Plan Departure Patient Disposition: Admitted as Observation Clinical Impression: Pleural effusion, Acute exacerbation of CHF (congestive heart failure) Admit Date/Time: 02/24/23 11:54 Admit Provider: Nura Danielle
--- NOTE | 2023-02-24 08:44 | DI.RAD.S_ITS ---
PROCEDURE: XR CHEST 1V INDICATIONS: chest pain TECHNIQUE: One view of the chest was acquired. COMPARISON: [facility], CR, XR CHEST 2V, 06/14/2018, 9:34. FINDINGS: Surgical changes and devices: left-sided cardiac pacer device is in place. Lungs and pleura: New moderate-sized right pleural effusion with associated compressive atelectasis. Mild blunting of the left costophrenic angle may represent small left pleural effusion. No pneumothorax. Minimal diffuse interstitial prominence. No focal consolidation. Mediastinum: Mediastinal contours appear stable. Heart size is borderline enlarged. Bones and chest wall: No suspicious bony lesions. Overlying soft tissues appear unremarkable. IMPRESSION: Borderline cardiomegaly with new moderate-sized right pleural effusion and possible small left pleural effusion. Findings may represent pulmonary edema. An infectious or inflammatory process not excluded if clinically appropriate. Dictated by: Lobo Bhakta M.D. on 02/24/2023 at 9:15 Approved by: Lobo Bhakta M.D. on 02/24/2023 at 9:17
[2023-02-24 08:57] LABS: Add Manual Diff / Slide Review NO; Basophils Absolute Auto 200 /uL (0-100); Basophils Percent Auto 1.5 % (0-2); Eosinophils Absolute Auto 300 /uL (0-450); Eosinophils Percent Auto 2.6 % (2-4); Hematocrit 36.9 % (41-53); Hemoglobin 12.2 g/dL (13.5-17.5); Lymphocytes Absolute Auto 1500 /uL (1100-4500); Lymphocytes Percent Auto 13.9 % (25-40); Mean Corpuscular HGB Conc 33.2 % (30-36); Mean Corpuscular Hemoglobin 30.1 PG (26-34); Mean Corpuscular Volume 90.6 fL (80-100); Monocytes Absolute Auto 900 /uL (0-900); Monocytes Percent Auto 8.2 % (3-14); Neutrophils Absolute Auto 8000 /uL (1500-7000); Neutrophils Percent Auto 73.8 % (50-75); Platelet Count 308 X10^3/uL (150-400); Red Blood Cell Count 4.07 X10^6/uL (4.5-5.9); Red Cell Distribution Width 15.6 % (11.6-14.8); White Blood Cell Count 10.8 X10^3/uL (4.5-11.0)
[2023-02-24 09:00] LABS: INR 1.1 (0.9-1.3); Prothrombin Time 13.1 SECONDS (10.1-12.7)
[2023-02-24 09:03] LABS: PTT Partial Thromboplastin Tim 33 SECONDS (26-36)
[2023-02-24 09:04] LABS: Alanine Aminotransferase 25 IU/L (<50); Albumin 3.9 g/dL (3.5-5.0); Alkaline Phosphatase 72 U/L (38-126); Aspartate Aminotransferase 22 IU/L (17-59); BUN Creatinine Ratio 17.2 (6-22); Bilirubin Total 0.3 mg/dL (0.2-1.3); Blood Urea Nitrogen 20 mg/dL (9-20); Calcium 8.8 mg/dL (8.4-10.2); Carbon Dioxide 27 mmol/L (22-32); Chloride 104 mmol/L (98-107); Creatine Kinase 80 U/L (55-170); Estimated Glomerular Filt Rate > 60 mL/min (>60); Globulin 3.9 g/dL (1.7-4.1); Glucose 152 mg/dL (80-110); HEMOLYSIS < 15 (0-50); Lipase 127 U/L (23-300); Magnesium 1.8 mg/dL (1.6-2.3); Potassium 4.2 mmol/L (3.4-5.1); Sodium 139 mmol/L (137-145); Total Protein 7.8 g/dL (6.3-8.2)
[2023-02-24] MEDS: ASPIRIN 81 MG CHEW TAB 324 MG PO (09:04)
[2023-02-24] MEDS: FUROSEMIDE 80 MG in SODIUM CHLORIDE 0.9% 50 ML 116 MG IV ×2 (09:05→20:15)
[2023-02-24 09:15] LABS: Troponin I 0.013 ng/mL (0.01-0.034)
[2023-02-24 09:41] LABS: NT-proBNP (BNP-Adult 18+) 316 pg/mL (<450)
[2023-02-24 10:01] LABS: COVID19 -Nasal RAPID Negative (Negative)
[2023-02-24 11:29] LABS: Troponin I < 0.012 ng/mL (0.01-0.034)
--- NOTE | 2023-02-24 11:45 | DI.ECHO.S_ITS ---
[facility] +---------+ : : [address] [place] : : : : [id number] : : : : Phone: [phone] Echocardiogram Report + + :Name: KRISTIAN REEVES Study Date: 02/24/2023 Height: 71 in : :[facility] ReadingLocation: Weight: 280 lb : : Gender: Male BSA: 2.4 m2 : :: 1945 Age: 77 yrs BP: 175/77 mmHg: :Reason For Study: AORTIC STENOSIS, CHF : :Ordering Physician: LEANDRA, : :ALESSANDRA Performed By: Beth Soto : :Referring: ALESSANDRA MOBLEY : + + Interpretation Summary The study quality was technically difficult. Patient is hypertensive 175/77mmHg. The ejection fraction is estimated to be 55-60%. Grade I diastolic dysfunction The right ventricular systolic function is normal. The IVC is dilated (diameter is greater than 2.1 cm) yet it collapses greater than 50% with a sniff. This suggests a right atrial pressure of 8 mm Hg. There is mild aortic stenosis. The ascending aorta is moderate-severely enlarged 4.7cm. Procedure: A two-dimensional transthoracic echocardiogram with color flow and Doppler was performed. The study quality was technically difficult. Comparison is made with the echocardiogram of 03/22/2015. The patient has a paced rhythm. The heart rate ranged between 60-65 bpm during the study. Left Ventricle: The estimated left ventricular end diastolic volume is 109 ml. Left ventricular wall thickness is mild-moderately increased. The ejection fraction is estimated to be 55-60%. There are no obvious focal wall motion abnormalities noted but poor endocardial definition reduces the sensitivity for the detection of such. Grade I diastolic dysfunction. Right Ventricle: The right ventricle is borderline dilated. There is a pacemaker lead in the right ventricle. The right ventricular systolic function is normal. Atria: The left atrial size is normal. The right atrium is borderline dilated. There is a catheter/pacemaker lead seen in the right atrium. There is no Doppler evidence for an interatrial shunt. Mitral Valve: The mitral valve is normal in structure and function. There is trace mitral regurgitation. Aortic Valve: The aortic valve is not well visualized. There is moderate aortic valve sclerosis. The peak aortic velocity is 2.2 m/sec. The aortic valve mean gradient is 11 mmHg. There is mild aortic stenosis. There is mild aortic regurgitation. Tricuspid Valve: The tricuspid valve is normal in structure and function. There is trace tricuspid regurgitation. Pulmonic Valve: The pulmonic valve is not well visualized. There is no pulmonic valvular regurgitation. Great Vessels: The aortic root is borderline dilated. The ascending aorta is moderate-severely enlarged. The IVC is dilated (diameter is greater than 2.1 cm) yet it collapses greater than 50% with a sniff. This suggests a right atrial pressure of 8 mm Hg. Pericardium/ Pleura There is no pericardial effusion. There is no pleural effusion. MMode/2D Measurements & Calculations LVIDd: 4.9 cm LVOT diam: 2.4 cm LVIDs: 3.9 cm Ao root diam: 4.1 cm FS: 21.2 % asc Aorta Diam: 4.7 cm IVSd: 1.5 cm LVPWd: 1.1 cm LV storm. diameter/BSA (cm/m^2): 2.0 LV sys. diameter/BSA (cm/m^2): 1.6 LA A2 area: 18.0 cm2 RA long axis: 5.9 cm LA A4 area: 22.1 cm2 RA area: 24.2 cm2 LA length (vol): 5.5 cm RA vol: 84.0 ml LA vol: 61.0 ml RA : 34.5 ml/m2 LA vol index: 25.1 ml/m2 IVC diam: 2.1 cm RVD1 (basal): 4.1 cm RVD2 (mid): 3.8 cm TAPSE: 2.1 cm Doppler Measurements & Calculations Ao V2 max: 220.1 cm/sec LVOT Max Felice: 115.4 cm/sec Ao V2 mean: 152.0 cm/sec LV V1 max P.3 mmHg Ao max P.4 mmHg LV V1 VTI: 25.0 cm Ao mean P.9 mmHg KHRIS(I,D): 2.3 cm2 Ao V2 VTI: 50.5 cm KHRIS(V,D): 2.5 cm2 sev ratio: 0.50 KHRIS indexed to BSA (cm^2/m^2): 0.96 MV E max felice: 80.2 cm/sec PA V2 max: 93.7 cm/sec MV A max felice: 77.7 cm/sec PA V2 mean: 66.4 cm/sec MV E/A: 1.0 PA mean P.0 mmHg Med Peak E' Felice: 4.1 cm/sec E/E' med: 19.4 Lat Peak E' Felice: 5.8 cm/sec E/E' lat: 13.9 E/e' average: 16.7 MV dec time: 0.20 sec [facility] 117.4 ml Reading Physician:GRIS
--- NOTE | 2023-02-24 11:53 | P.HP_ITS ---
History of Present Illness History of Present Illness Date Patient Seen: 02/24/23 Time Patient Seen: 11:53 Chief complaint: SOB T-1 getting worse Narrative: 77-year-old male well known to me admitted via emergency department with worsening shortness of breath, and orthopnea. No chest pain no palpitations no syncope or near-syncope Recently had a respiratory infection (RSV) in October (diagnosed at the walk[facility] in [place]). He feels like he did get better from that but over the last couple of weeks or so here has had increasing weakness shortness of breath to the point where he almost collapsed yesterday In the ER he was found to have probable congestive heart failure with bilateral effusions on chest x-ray. BNP however was within the normal range. He is quite hypertensive and tachypneic but not hypoxic Does have known cardiomyopathy although last echo appears to be 2017 Patient also with paroxysmal atrial fibrillation, followed by Dr. Montano in [place], not on anticoagulation at patient request. Patient also with known aortic stenosis [facility] Medical History (Updated 02/24/23 @ 11:58 by Nura Dainelle MD) Aortic stenosis Atrial fibrillation (03/30/15) Cardiomyopathy (~03/2018) Coronary artery disease (~03/2018) Hypertension (05/30/15) Tachy-ama syndrome Type 2 diabetes mellitus with hyperglycemia, without long-term current use of insulin Type 2 diabetes mellitus without complication (05/01/15) Surgical History H/O heart artery stent (~03/2018) S/P cardiac pacemaker procedure (~09/2018) Social History household members: none Smoking Status: Former smoker alcohol intake: never Meds Home Medications and Allergies Home Medications Medication Instructions Recorded Confirmed Type glucosamine sulfate 1,000 mg 1,000 mg PO DAILY 04/27/18 02/24/23 History capsule multivitamin 1 tab PO DAILY 04/27/18 02/24/23 History aspirin 81 mg tablet,delayed 81 mg PO DAILY 08/21/20 02/24/23 History release (Adult Low Dose Aspirin) glipizide 10 mg tablet 10 mg PO BID #180 tabs 04/05/22 02/24/23 Rx atorvastatin 40 mg tablet 40 mg PO DAILY #90 tabs 06/24/22 02/24/23 Rx furosemide 40 mg tablet 40 mg PO DAILY PRN edema #90 tabs 06/24/22 02/24/23 Rx metformin 1,000 mg tablet 1,000 mg PO BID #180 tabs 06/24/22 02/24/23 Rx spironolactone 25 mg tablet 12.5 mg PO DAILY #45 tabs 06/24/22 02/24/23 Rx losartan 50 mg tablet 50 mg PO BID 02/24/23 02/24/23 History sotalol 120 mg tablet 120 mg PO BID 02/24/23 02/24/23 History Allergies Allergy/AdvReac Type Severity Reaction Status Date / Time lisinopril [LISINOPRIL] Allergy Intermediate COUGH Verified 02/24/23 08:53 piperacillin [PIPERACILLIN] AdvReac Mild RASH MAY Verified 02/24/23 08:53 2014 ADMIT, MAY BE VANCO, UNSURE vancomycin [VANCOMYCIN] AdvReac Mild RASH MAY Verified 02/24/23 08:53 2014 ADMIT MAY BE PIPERACILLIN INSTEAD azithromycin [From Zithromax] AdvReac Verified 02/24/23 08:53 Review of Systems Review of Systems ROS: Yes All systems reviewed with the patient and are negative except as otherwise documented Exam Vital Signs (past 8 hours): - 02/24/23 08:45 02/24/23 08:49 02/24/23 09:00 Pulse Rate 61 62 60 Respiratory Rate 26 H 33 H 38 H Blood Pressure 232/93 H Pulse Oximetry 96 98 96 Oxygen Delivery Method Room Air 02/24/23 09:00 02/24/23 09:16 02/24/23 09:16 Pulse Rate 63 Respiratory Rate 27 H Blood Pressure 173/74 H 168/72 H Pulse Oximetry 95 Oxygen Delivery Method Room Air 02/24/23 09:30 02/24/23 09:31 02/24/23 09:31 Pulse Rate 61 61 Respiratory Rate 23 32 H Blood Pressure 148/65 H Pulse Oximetry 94 93 Oxygen Delivery Method 02/24/23 09:46 02/24/23 09:46 02/24/23 10:00 Pulse Rate 60 65 Respiratory Rate 32 H Blood Pressure 171/73 H Pulse Oximetry 95 94 Oxygen Delivery Method 02/24/23 10:02 02/24/23 10:08 02/24/23 10:08 Pulse Rate 62 60 Respiratory Rate 30 H 23 Blood Pressure 159/73 H Pulse Oximetry 94 95 Oxygen Delivery Method 02/24/23 10:15 02/24/23 10:15 02/24/23 10:30 Pulse Rate 61 62 Respiratory Rate 22 20 Blood Pressure 154/70 H Pulse Oximetry 94 94 Oxygen Delivery Method 02/24/23 10:31 02/24/23 10:31 02/24/23 10:46 Pulse Rate 61 Respiratory Rate 25 H Blood Pressure 143/56 H 143/67 H Pulse Oximetry 93 Oxygen Delivery Method 02/24/23 10:46 02/24/23 11:00 02/24/23 11:01 Pulse Rate 60 60 60 Respiratory Rate 28 H 30 H Blood Pressure Pulse Oximetry 94 96 96 Oxygen Delivery Method 02/24/23 11:01 02/24/23 11:16 02/24/23 11:16 Pulse Rate 60 Respiratory Rate 31 H Blood Pressure 183/79 H 176/74 H Pulse Oximetry 96 Oxygen Delivery Method Oxygen Delivery Method Room Air Narrative Exam Narrative: Elderly male in no obvious distress lying on a gurney in the emergency department HEENT-unremarkable Neck-no bruits Lungs-crackles at the bases bilaterally without wheezes good air movement Heart-regular rate and rhythm no murmur Abdomen-benign Chtibxtlqmc-0-5+ pitting edema at the ankles bilaterally Neuro-alert orient x3 no cranial nerve defects no focal defects although gait not tested Objective Labs 02/24/23 08:40 02/25/23 04:03 Labs: Laboratory Results - last 24 hr 02/24/23 02/24/23 02/24/23 08:40 08:40 08:40 WBC 10.8 RBC 4.07 L Hgb 12.2 L Hct 36.9 L MCV 90.6 MCH 30.1 MCHC 33.2 RDW 15.6 H Plt Count 308 Neut % (Auto) 73.8 Lymph % (Auto) 13.9 L [place] % (Auto) 8.2 Eos % (Auto) 2.6 Baso % (Auto) 1.5 Neut # (Auto) 8000 H Lymph # (Auto) 1500 [place] # (Auto) 900 Eos # (Auto) 300 Baso # (Auto) 200 H PT 13.1 H INR 1.1 APTT 33 Sodium 139 Potassium 4.2 Chloride 104 Carbon Dioxide 27 BUN 20 Creatinine 1.16 Estimated GFR > 60 BUN/Creatinine Ratio 17.2 Glucose 152 H Calcium 8.8 Magnesium 1.8 Total Bilirubin 0.3 AST 22 ALT 25 Alkaline Phosphatase 72 Total Creatine Kinase 80 CK-MB (CK-2) TNP CK-MB (CK-2) Rel Index TNP Troponin I 0.013 NT-Pro-B Natriuret Pep Total Protein 7.8 Albumin 3.9 Globulin 3.9 Albumin/Globulin Ratio 1.0 Lipase 127 SARS-CoV-2 (PCR) 02/24/23 02/24/23 02/24/23 08:40 09:15 10:45 WBC RBC Hgb Hct MCV MCH MCHC RDW Plt Count Neut % (Auto) Lymph % (Auto) [place] % (Auto) Eos % (Auto) Baso % (Auto) Neut # (Auto) Lymph # (Auto) [place] # (Auto) Eos # (Auto) Baso # (Auto) PT INR APTT Sodium Potassium Chloride Carbon Dioxide BUN Creatinine Estimated GFR BUN/Creatinine Ratio Glucose Calcium Magnesium Total Bilirubin AST ALT Alkaline Phosphatase Total Creatine Kinase CK-MB (CK-2) CK-MB (CK-2) Rel Index Troponin I < 0.012 NT-Pro-B Natriuret Pep 316 Total Protein Albumin Globulin Albumin/Globulin Ratio Lipase SARS-CoV-2 (PCR) Negative Assessment & Plan Assessment & Plan narrative: 1. Dyspnea likely secondary to congestive heart failure-patient has responded well to diuretic therapy in the ER. Continue this for now. Plan to obtain repeat echocardiography. A bit puzzling that his BNP is normal his chest x-ray certainly is consistent with congestive heart failure which fits his clinical picture as well with orthopnea, crackles on exam, etcetera 2. Hypertension-likely least in part secondary to patient's dyspnea. Will work to improve his dyspnea and follow his blood pressure. Would like to wait for his echo to see what his degree of aortic stenosis is before being overly aggressive in treating hypertension at this time 3. Diabetes-patient longstanding diabetes on oral medication. Continue with diabetic diet and his usual medications with insulin for coverage as necessary 4. Coronary disease-patient with known coronary artery disease but appears to be stable. Continue current medications 5. Paroxysmal atrial fibrillation-patient appears to be stable continue sotalol. Patient has declined oral anticoagulation for stroke risk reduction. 6. Code status-full code as per patient 7. VTE prophylaxis-Lovenox has been ordered and is appropriate. COVID-19 COVID-19 status: Negative Result date/Date tested (Pos, Neg/Pending): 02/24/23
[2023-02-24 16:24] LABS: MRSA (Nasal) PCR Not Detected (Not Detect)
[2023-02-24] MEDS: LORazepam 2 MG/ML INJ 0.5 MG IV (16:55)
[2023-02-24] MEDS: ALBUTEROL 2.5 MG/3 ML NEB (ADULT) INH ×2 (17:00→20:58)
--- NOTE | 2023-02-24 19:35 | PC.NURSE ---
Pt was received from the ED with tachypnea and worsening SOB on exertion; pt is 94% on room air; He has bilateral lower extremity pitting edema; he is voiding per urinal; to bedside; at 1635, he complained of increased difficulty breathing; o2 sat remains mid-90s on room air, but pt appears more distressed and now has expiratory wheezes on the right; Dr Danielle notified and orders rec'd; Ativan 0.5mg iv given and albuterol neb done to good effect; pt will get another dose of Lasix at 1999, which he was inquiring about
[2023-02-24] MEDS: LOSARTAN 50 MG TABLET PO (21:13)
[2023-02-24] MEDS: SOTALOL 80 MG TABLET 120 MG PO (21:13)
[2023-02-24] MEDS: METFORMIN HCL 500 MG TABLET 1000 MG PO (21:13)
[2023-02-24] MEDS: glipiZIDE 5 MG TABLET 10 MG PO (21:13)
[2023-02-25] VITALS (11 sets, daily range): BP systolic 112–144; BP diastolic 55–78; PULSE 60–81; RESP 18–26; TEMP 36.1–36.7; O2SAT 91–96
[2023-02-25 05:21] LABS: BUN Creatinine Ratio 19.3 (6-22); Blood Urea Nitrogen 23 mg/dL (9-20); Calcium 8.3 mg/dL (8.4-10.2); Carbon Dioxide 29 mmol/L (22-32); Chloride 103 mmol/L (98-107); Estimated Glomerular Filt Rate > 60 mL/min (>60); Glucose 105 mg/dL (80-110); HEMOLYSIS < 15 (0-50); Magnesium 1.7 mg/dL (1.6-2.3); Potassium 3.7 mmol/L (3.4-5.1); Sodium 138 mmol/L (137-145)
[2023-02-25 05:29] LABS: NT-proBNP (BNP-Adult 18+) 277 pg/mL (<450)
--- NOTE | 2023-02-25 05:51 | PC.NURSE ---
Patient given lasix and diuresing moderate amount of urine. Wearing home cpap mask while sleeping. O2 sats stable.
--- NOTE | 2023-02-25 07:32 | PM.PN.1 ---
Subjective Subjective Date Patient Seen: 02/25/23 Time Patient Seen: 07:32 Interval history: Patient continues to report intermittent significant dyspnea despite relatively normal oxygen saturations. Did respond to albuterol, which in my mind suggest maybe more of a COPD exacerbation here than true congestive heart failure ECHO demonstrated normal left ventricular function with evidence of diastolic dysfunction Blood sugars thus far okay Exam Vital Signs (past 8 hours): - 02/25/23 00:00 02/25/23 04:00 Temperature 97.0 F L 97.4 F L Pulse Rate 81 66 Respiratory Rate 24 23 Blood Pressure 112/55 L 113/78 Pulse Oximetry 92 96 Oxygen Flow Rate 0 Fraction of Inspired Oxygen 28 SaO2/FiO2 Ratio 357 Oxygen Delivery Method Nasal Cannula Oxygen Flow Rate 0 Objective Labs 02/24/23 08:40 02/25/23 04:03 Labs: Laboratory Results - last 24 hr 02/24/23 02/24/23 02/24/23 08:40 08:40 08:40 WBC 10.8 RBC 4.07 L Hgb 12.2 L Hct 36.9 L MCV 90.6 MCH 30.1 MCHC 33.2 RDW 15.6 H Plt Count 308 Neut % (Auto) 73.8 Lymph % (Auto) 13.9 L [place] % (Auto) 8.2 Eos % (Auto) 2.6 Baso % (Auto) 1.5 Neut # (Auto) 8000 H Lymph # (Auto) 1500 [place] # (Auto) 900 Eos # (Auto) 300 Baso # (Auto) 200 H PT 13.1 H INR 1.1 APTT 33 Sodium 139 Potassium 4.2 Chloride 104 Carbon Dioxide 27 BUN 20 Creatinine 1.16 Estimated GFR > 60 BUN/Creatinine Ratio 17.2 Glucose 152 H Calcium 8.8 Magnesium 1.8 Total Bilirubin 0.3 AST 22 ALT 25 Alkaline Phosphatase 72 Total Creatine Kinase 80 CK-MB (CK-2) TNP CK-MB (CK-2) Rel Index TNP Troponin I 0.013 NT-Pro-B Natriuret Pep Total Protein 7.8 Albumin 3.9 Globulin 3.9 Albumin/Globulin Ratio 1.0 Lipase 127 Nasal Screen MRSA (PCR) SARS-CoV-2 (PCR) 02/24/23 02/24/23 02/24/23 08:40 09:15 10:45 WBC RBC Hgb Hct MCV MCH MCHC RDW Plt Count Neut % (Auto) Lymph % (Auto) [place] % (Auto) Eos % (Auto) Baso % (Auto) Neut # (Auto) Lymph # (Auto) [place] # (Auto) Eos # (Auto) Baso # (Auto) PT INR APTT Sodium Potassium Chloride Carbon Dioxide BUN Creatinine Estimated GFR BUN/Creatinine Ratio Glucose Calcium Magnesium Total Bilirubin AST ALT Alkaline Phosphatase Total Creatine Kinase CK-MB (CK-2) CK-MB (CK-2) Rel Index Troponin I < 0.012 NT-Pro-B Natriuret Pep 316 Total Protein Albumin Globulin Albumin/Globulin Ratio Lipase Nasal Screen MRSA (PCR) SARS-CoV-2 (PCR) Negative 02/24/23 02/25/23 13:20 04:03 WBC RBC Hgb Hct MCV MCH MCHC RDW Plt Count Neut % (Auto) Lymph % (Auto) [place] % (Auto) Eos % (Auto) Baso % (Auto) Neut # (Auto) Lymph # (Auto) [place] # (Auto) Eos # (Auto) Baso # (Auto) PT INR APTT Sodium 138 Potassium 3.7 Chloride 103 Carbon Dioxide 29 BUN 23 H Creatinine 1.19 Estimated GFR > 60 BUN/Creatinine Ratio 19.3 Glucose 105 Calcium 8.3 L Magnesium 1.7 Total Bilirubin AST ALT Alkaline Phosphatase Total Creatine Kinase CK-MB (CK-2) CK-MB (CK-2) Rel Index Troponin I NT-Pro-B Natriuret Pep 277 Total Protein Albumin Globulin Albumin/Globulin Ratio Lipase Nasal Screen MRSA (PCR) Not detected SARS-CoV-2 (PCR) [facility] Medical History (Updated 02/25/23 @ 07:35 by Nura Danielle MD) Aortic stenosis Atrial fibrillation (03/30/15) Cardiomyopathy (~03/2018) Coronary artery disease (~03/2018) Hypertension (05/30/15) Tachy-ama syndrome Type 2 diabetes mellitus with hyperglycemia, without long-term current use of insulin Type 2 diabetes mellitus without complication (05/01/15) Surgical History H/O heart artery stent (~03/2018) S/P cardiac pacemaker procedure (~09/2018) Social History household members: none Smoking Status: Former smoker alcohol intake: never Assessment & Plan Assessment & Plan narrative: 1. Heart failure, acute on chronic with preserved left ventricular ejection fraction, continue with diuretic therapy. Electrolytes etcetera okay this morning. 2. Question COPD-patient does have significant smoking history and with a persistently normal BNP as noted above and lack of hypoxia I am beginning to believe this is more of a COPD exacerbation than actual significant acute congestive heart failure although certainly there is an element of the heart failure as well. I am going to add parental steroids and continue with albuterol etcetera. Patient did demonstrate a mild COPD on PFTs performed in 2018, would be beneficial to repeat those when patient is significantly improved after this hospitalization. Patient reports he never really got fully better after his RSV infection back in October. I would presume that the infection triggered more of a COPD exacerbation and he is not really been treated at all for COPD. I think that infection has unmasked more of a significant chronic lung disease than appeared to be present previously. 3. Diabetes-continue usual medications with insulin coverage as above. Patient on carb controlled diet. IV steroids however are going to likely raised blood sugars will continue to monitor may need more aggressive insulin therapy etcetera 4. Cardiac-patient with known paroxysmal atrial fibrillation coronary disease and mild aortic stenosis. All this appears to be stable including aortic stenosis which was stable on repeat echocardiography. Blood pressure improved thus far this morning. Continue to monitor no change in medication. Patient continues in a paced rhythm Quality VTE Deep Vein Thrombosis/Pulmonary Embolism Present on Admission: No
[2023-02-25 09:03] LABS: Hemoglobin A1C% w Est Avg Glu 8.6 % (4.0-6.0)
[2023-02-25] MEDS: SPIRONOLACTONE 25 MG TABLET 12.5 MG PO (09:37)
[2023-02-25] MEDS: SOTALOL 80 MG TABLET 120 MG PO ×2 (09:38→20:18)
[2023-02-25] MEDS: ASPIRIN EC 81 MG TABLET PO (09:39)
[2023-02-25] MEDS: LOSARTAN 50 MG TABLET PO ×2 (09:39→20:16)
[2023-02-25] MEDS: MULTIVITAMIN 1 TABLET 1 TAB PO (09:39)
[2023-02-25] MEDS: METFORMIN HCL 500 MG TABLET 1000 MG PO ×2 (09:40→20:16)
[2023-02-25] MEDS: glipiZIDE 5 MG TABLET 10 MG PO ×2 (09:40→20:16)
[2023-02-25] MEDS: ENOXAPARIN 40 MG/0.4 ML SYRINGE SUBCUT (09:41)
[2023-02-25] MEDS: methylPREDNISolone 125 MG/2 ML VIAL 60 MG IV ×2 (09:42→17:08)
[2023-02-25] MEDS: FUROSEMIDE 80 MG in SODIUM CHLORIDE 0.9% 50 ML 116 MG IV ×2 (09:43→20:21)
[2023-02-25] MEDS: ALBUTEROL 2.5 MG/3 ML NEB (ADULT) INH (09:58)
[2023-02-25] MEDS: INSULIN LISPRO 100 UNIT/ML 3ML VIAL SUBCUT ×3 (12:16→20:27)
--- NOTE | 2023-02-25 13:04 | CM.DANOTE ---
DCP/Assessment: Reviewed chart. Patient is a 77yr old male admitted to [facility] with shortness of breath. Patient had RSV in October 2022. PCP is Dr. Danielle. Primary payor is 1)[employer]. COMMERCIAL ENGINEER met with patient and son/Thang at bedside explained role. Son reports that he lives on same property with patient however, has his own place. Son reports that he assists with meals in the morning and evening. Son denies any other assistance. Patient states I can do it myself Patient uses no DME devices at baseline and continues to drive. Patient currently INPT status and d/c date unknown. P: Anticipate patient will return home when medically stable. CM team to continue to follow if needs arise. [facility] Discharge Planning/Care Management CM Discharge Assessment Start: 02/25/23 13:01 Freq: Status: Active Protocol: Document 02/25/23 13:02 [facility] (Rec: 02/25/23 13:04 [facility] [id number]) Discharge Planning Assessment Assigned Convertible Sofa Bedspring Tester Radha Perea COMMERCIAL ENGINEER Contact Information Thang (son) ph# [phone] Advance Directives? No History Provided By Patient,Family Member Prior Living Arrangements House Household Members none Type of transporation used prior to Drives own vehicle admit Independent with ADL's Yes Is patient alert and oriented? Yes Needs Assistance With Meal Prep Caregiver for Another No Barriers to Discharge No Discharge Plan Home Referrals Initiated None needed Whiteboard Updated in Patient Room with Yes name and ext. # of Convertible Sofa Bedspring Tester Review Status In Process Next Review Type Continued Stay Review
--- NOTE | 2023-02-25 13:26 | PC.NURSE ---
1325 Called and left message with Dr. Danielle' nurse asking if he wants K and Mag replaced before next lasix dose tonight and if vital signs could be changed from q4h to less frequently. Patient has had over 1L UOP since morning dose of Lasix; K this morning was 3.7 and Mag was 1.7. Last BP at noon was 138/62.
[2023-02-25] MEDS: ALBUTEROL/IPRATROPIUM 3 ML AMPUL INH ×2 (13:40→19:30)
[2023-02-25] MEDS: ATORVASTATIN 20 MG TABLET 40 MG PO (20:16)
[2023-02-26] MEDS: methylPREDNISolone 125 MG/2 ML VIAL 60 MG IV ×3 (00:19→17:07)
[2023-02-26 04:00] VITALS: BP 106/53; PULSE 66; RESP 19; TEMP 36.4; O2SAT 91
[2023-02-26 05:22] LABS: HEMOLYSIS < 15 (0-50); Potassium 4.1 mmol/L (3.4-5.1)
[2023-02-26 05:23] LABS: BUN Creatinine Ratio 27.9 (6-22); Blood Urea Nitrogen 39 mg/dL (9-20); Calcium 8.6 mg/dL (8.4-10.2); Carbon Dioxide 26 mmol/L (22-32); Chloride 99 mmol/L (98-107); Estimated Glomerular Filt Rate 52 mL/min (>60); Glucose 305 mg/dL (80-110); Magnesium 1.8 mg/dL (1.6-2.3); Sodium 135 mmol/L (137-145)
[2023-02-26 07:00] VITALS: BP 116/57; PULSE 60; RESP 19; TEMP 36.6; O2SAT 93
[2023-02-26] MEDS: ALBUTEROL/IPRATROPIUM 3 ML AMPUL INH ×3 (07:33→19:58)
[2023-02-26 07:41] VITALS: O2SAT 93
[2023-02-26] MEDS: INSULIN LISPRO 100 UNIT/ML 3ML VIAL SUBCUT ×4 (07:57→20:51)
[2023-02-26] MEDS: SOTALOL 80 MG TABLET 120 MG PO ×2 (07:58→20:49)
[2023-02-26] MEDS: METFORMIN HCL 500 MG TABLET 1000 MG PO ×2 (07:58→20:49)
[2023-02-26] MEDS: MULTIVITAMIN 1 TABLET 1 TAB PO (07:59)
[2023-02-26] MEDS: SPIRONOLACTONE 25 MG TABLET 12.5 MG PO (07:59)
[2023-02-26] MEDS: ASPIRIN EC 81 MG TABLET PO (07:59)
[2023-02-26] MEDS: LOSARTAN 50 MG TABLET PO ×2 (07:59→20:48)
[2023-02-26] MEDS: glipiZIDE 5 MG TABLET 10 MG PO ×2 (07:59→20:49)
[2023-02-26] MEDS: FUROSEMIDE 40 MG TABLET 80 MG PO (08:03)
--- NOTE | 2023-02-26 11:16 | P.PN_ITS ---
Subjective Subjective Date Patient Seen: 02/26/23 Time Patient Seen: 08:15 Interval history: Patient tells me he is feeling better this morning. Feels easier to breathe. A little bit uneasy about his blood sugars being elevated Exam Vital Signs (past 8 hours): - 02/26/23 04:00 02/26/23 07:41 02/26/23 07:44 Temperature 97.6 F Pulse Rate 66 Respiratory Rate 19 Blood Pressure 106/53 L Pulse Oximetry 91 93 Oxygen Delivery Method Room Air Room Air Oxygen Flow Rate 02/26/23 07:00 02/26/23 07:00 Temperature 97.8 F Pulse Rate 60 Respiratory Rate 19 Blood Pressure 116/57 L Pulse Oximetry 93 93 Oxygen Delivery Method Room Air Oxygen Flow Rate 0 Fraction of Inspired Oxygen 28 SaO2/FiO2 Ratio 357 Oxygen Delivery Method Room Air Oxygen Flow Rate 0 Objective Labs 02/24/23 08:40 02/26/23 04:00 Labs: Laboratory Results - last 24 hr 02/26/23 04:00 Sodium 135 L Potassium 4.1 Chloride 99 Carbon Dioxide 26 BUN 39 H Creatinine 1.40 H Estimated GFR 52 L BUN/Creatinine Ratio 27.9 H Glucose 305 H D Calcium 8.6 Magnesium 1.8 PFSH Medical History (Updated 02/25/23 @ 07:35 by Nura Danielle MD) Aortic stenosis Atrial fibrillation (03/30/15) Cardiomyopathy (~03/2018) Coronary artery disease (~03/2018) Hypertension (05/30/15) Tachy-ama syndrome Type 2 diabetes mellitus with hyperglycemia, without long-term current use of insulin Type 2 diabetes mellitus without complication (05/01/15) Surgical History H/O heart artery stent (~03/2018) S/P cardiac pacemaker procedure (~09/2018) Social History household members: none Smoking Status: Former smoker alcohol intake: never Assessment & Plan Assessment & Plan narrative: 1. Heart failure, acute on chronic with preserved left ventricular ejection fraction. Slight bump in creatinine this morning although electrolytes are okay. Will switch off of the IV diuretics and onto oral diuretics at slightly higher dose than he came into the hospital taking. Continue to monitor his renal function. 2. COPD exacerbation-patient's improvement after steroid therapy seems to omid landen to me that his symptoms are mostly due to COPD exacerbation. Will continue with parental steroids for least another 24 hours despite the hyperglycemia that it is creating. Continue with nebulized treatments as well. Will likely benefit from additional inhaled therapies as an outpatient as well upon discharge. 3. Diabetes-patient continues on his usual oral medication. He is going to requ laure higher dose insulin coverage I think at this point. Hopefully as we reduce his parental steroids and or switch to oral steroids at lower doses blood sugars will be under better control. 4. Cardiac-patient with known paroxysmal atrial fibrillation coronary disease and mild aortic stenosis. All this appears to be stable including aortic stenosis which was stable on repeat echocardiography. Blood pressure improved thus far this morning. Continue to monitor no change in medication. Patient continues in a paced rhythm. No changes for today. Quality VTE Deep Vein Thrombosis/Pulmonary Embolism Present on Admission: No
--- NOTE | 2023-02-26 14:42 | DIET.PN1 ---
Dietary/Diabetes Progress Note Assessment: Screening for hyperglycemia RD noticed BG in 300-400s over the last 24 hours. Seems likely r/t starting steroid tx yesterday morning, confirmed with pharmacy. Recent Lispro and oral DM meds likely not covering glucose adequately. Would recommend d/c of sulfonylurea and managing with long and short acting insulin at this time. Diet: 02/24/23 Lunch Carbohydrate Consistent Diet Diet Modifications: 2 gm Na Carbohydrate level: Medium (3 CHO) Bedtime snack: No Reflex DM orders: No Low Sodium Diet (2gm) Diet Modifications: Nutrition Percent Meal Consumed 100% 02/26/23 13:12 Percent Meal Consumed 100% 02/25/23 18:00 Percent Meal Consumed 100% 02/25/23 12:57 Percent Meal Consumed 100% 02/25/23 08:47 Percent Meal Consumed 100% 02/24/23 18:06 Labs: RBC 4.07 X10^6/uL (4.5-5.9) L 02/24/23 08:40 Hgb 12.2 g/dL (13.5-17.5) L 02/24/23 08:40 Hct 36.9 % (41-53) L 02/24/23 08:40 Creatinine 1.40 mg/dL (0.66-1.25) H 02/26/23 04:00 Hemoglobin A1c 8.6 % (4.0-6.0) H 02/25/23 04:05 NT-Pro-B Natriuret Pep 277 pg/mL (<450) 02/25/23 04:03 Interventions: Rec adding long acting insulin to help cover hyperglycemia while on steroid tx. Electronically Signed by: Toya Rabago 02/26/23 14:42 Clinical Dietitian, County Manager [address] [id number]
[2023-02-26 19:59] VITALS: O2SAT 93
[2023-02-26 20:00] VITALS: BP 118/58; PULSE 62; RESP 21; TEMP 36.1; O2SAT 95
[2023-02-26 20:48] VITALS: BP 118/58; PULSE 60
[2023-02-26] MEDS: ATORVASTATIN 20 MG TABLET 40 MG PO (20:49)
[2023-02-27] VITALS (8 sets, daily range): BP systolic 110–127; BP diastolic 59–66; PULSE 61–69; RESP 16–20; TEMP 36.2–36.4; O2SAT 93–94
[2023-02-27] MEDS: methylPREDNISolone 125 MG/2 ML VIAL 60 MG IV (00:33)
[2023-02-27 05:16] LABS: Blood Urea Nitrogen 49 mg/dL (9-20); Calcium 8.5 mg/dL (8.4-10.2); Carbon Dioxide 25 mmol/L (22-32); Chloride 100 mmol/L (98-107); Estimated Glomerular Filt Rate 54 mL/min (>60); Glucose 274 mg/dL (80-110); HEMOLYSIS < 15 (0-50); Magnesium 2.1 mg/dL (1.6-2.3); Potassium 4.2 mmol/L (3.4-5.1); Sodium 136 mmol/L (137-145)
--- NOTE | 2023-02-27 06:53 | PM.PN.1 ---
Subjective Subjective Date Patient Seen: 02/27/23 Time Patient Seen: 06:53 Interval history: Patient remains quite hyperglycemic with the parental steroids with average blood sugar over 300 yesterday Breathing is definitely improved however. Still reporting a sense of needing to think about it to breathe deeply otherwise breathing very shallowly but definitely improved. Has been up and around in the room and significantly improved he says. Exam Vital Signs (past 8 hours): Fraction of Inspired Oxygen 28 SaO2/FiO2 Ratio 357 Oxygen Delivery Method Room Air Oxygen Flow Rate 0 Objective Labs 02/24/23 08:40 02/27/23 04:25 Labs: Laboratory Results - last 24 hr 02/27/23 04:25 Sodium 136 L Potassium 4.2 Chloride 100 Carbon Dioxide 25 BUN 49 H Creatinine 1.36 H Estimated GFR 54 L BUN/Creatinine Ratio 36.0 H Glucose 274 H Calcium 8.5 Magnesium 2.1 PFSH Medical History (Updated 02/25/23 @ 07:35 by Nura Danielle MD) Aortic stenosis Atrial fibrillation (03/30/15) Cardiomyopathy (~03/2018) Coronary artery disease (~03/2018) Hypertension (05/30/15) Tachy-ama syndrome Type 2 diabetes mellitus with hyperglycemia, without long-term current use of insulin Type 2 diabetes mellitus without complication (05/01/15) Surgical History H/O heart artery stent (~03/2018) S/P cardiac pacemaker procedure (~09/2018) Social History household members: none Smoking Status: Former smoker alcohol intake: never Assessment & Plan Assessment & Plan narrative: 1. Heart failure, acute on chronic with preserved left ventricular ejection fraction. Creatinine slightly better. Continue with lower dose diuretic for now while monitoring renal function and electrolytes 2. COPD exacerbation-given his severe hyperglycemia I am going to switch to oral corticosteroids at this point. Continue other therapies 3. Diabetes-patient quite hyperglycemic almost certainly secondary to the parental steroids. Will discontinue these in favor of oral steroids and increase coverage insulin as well. Hopefully between these 2 interventions blood sugars will improve significantly 4. Cardiac-patient with known paroxysmal atrial fibrillation coronary disease and mild aortic stenosis. All this appears to be stable including aortic stenosis which was stable on repeat echocardiography. Blood pressure improved thus far this morning. Continue to monitor no change in medication. Patient continues in a paced rhythm. Again, no changes today. 5. Disposition-patient I think would benefit from an additional 24 hours here in the hospital while we assess his blood sugar on the oral steroids as well as continue with frequent nebulizer treatments etcetera. Hopefully he can be discharged tomorrow Quality VTE Deep Vein Thrombosis/Pulmonary Embolism Present on Admission: No
--- NOTE | 2023-02-27 07:01 | PC.NURSE ---
Pt's blood sugars have been consistently in the 300s on a high dose regimen; he is concerned about this; explained about steroids and the effect on blood glucose; pt has slept most of the shift and is a possible discharge for today.
[2023-02-27] MEDS: INSULIN LISPRO 100 UNIT/ML 3ML VIAL SUBCUT ×4 (08:19→21:06)
[2023-02-27] MEDS: MULTIVITAMIN 1 TABLET 1 TAB PO (08:21)
[2023-02-27] MEDS: FUROSEMIDE 40 MG TABLET 80 MG PO (08:21)
[2023-02-27] MEDS: ASPIRIN EC 81 MG TABLET PO (08:21)
[2023-02-27] MEDS: predniSONE 20 MG TABLET 40 MG PO (08:21)
[2023-02-27] MEDS: SPIRONOLACTONE 25 MG TABLET 12.5 MG PO (08:22)
[2023-02-27] MEDS: glipiZIDE 5 MG TABLET 10 MG PO ×2 (08:22→21:04)
[2023-02-27] MEDS: METFORMIN HCL 500 MG TABLET 1000 MG PO ×2 (08:22→21:04)
[2023-02-27] MEDS: LOSARTAN 50 MG TABLET PO ×2 (08:23→21:03)
[2023-02-27] MEDS: SOTALOL 80 MG TABLET 120 MG PO ×2 (08:23→21:05)
[2023-02-27] MEDS: ALBUTEROL/IPRATROPIUM 3 ML AMPUL INH ×3 (08:33→19:16)
[2023-02-27] MEDS: ATORVASTATIN 20 MG TABLET 40 MG PO (21:04)
[2023-02-27] MEDS: LORazepam 2 MG/ML INJ 0.5 MG IV (21:17)
[2023-02-28 00:04] VITALS: PULSE 86; RESP 16; O2SAT 95
[2023-02-28] MEDS: ALBUTEROL 2.5 MG/3 ML NEB (ADULT) INH (00:04)
[2023-02-28 05:51] LABS: BUN Creatinine Ratio 37.2 (6-22); Blood Urea Nitrogen 55 mg/dL (9-20); Calcium 8.3 mg/dL (8.4-10.2); Carbon Dioxide 26 mmol/L (22-32); Chloride 102 mmol/L (98-107); Estimated Glomerular Filt Rate 49 mL/min (>60); Glucose 161 mg/dL (80-110); HEMOLYSIS < 15 (0-50); Sodium 137 mmol/L (137-145)
--- NOTE | 2023-02-28 06:48 | P.PN_ITS ---
Subjective Subjective Date Patient Seen: 02/28/23 Time Patient Seen: 06:48 Interval history: Patient's blood sugar somewhat better yesterday in the 200s but also in the 300s. Required 40+ units of coverage insulin Breathing is some better Exam Vital Signs (past 8 hours): - 02/28/23 00:04 Pulse Rate 86 Respiratory Rate 16 Pulse Oximetry 95 Oxygen Delivery Method Room Air Oxygen Flow Rate 0 Fraction of Inspired Oxygen 21 Fraction of Inspired Oxygen 21 SaO2/FiO2 Ratio 452 Oxygen Delivery Method Room Air Oxygen Flow Rate 0 Objective Labs 02/24/23 08:40 02/28/23 05:25 Labs: Laboratory Results - last 24 hr 02/28/23 05:25 Sodium 137 Potassium 4.0 Chloride 102 Carbon Dioxide 26 BUN 55 H Creatinine 1.48 H Estimated GFR 49 L BUN/Creatinine Ratio 37.2 H Glucose 161 H D Calcium 8.3 L PFSH Medical History (Updated 02/25/23 @ 07:35 by Nura Danielle MD) Aortic stenosis Atrial fibrillation (03/30/15) Cardiomyopathy (~03/2018) Coronary artery disease (~03/2018) Hypertension (05/30/15) Tachy-ama syndrome Type 2 diabetes mellitus with hyperglycemia, without long-term current use of insulin Type 2 diabetes mellitus without complication (05/01/15) Surgical History H/O heart artery stent (~03/2018) S/P cardiac pacemaker procedure (~09/2018) Social History household members: none Smoking Status: Former smoker alcohol intake: never Assessment & Plan Assessment & Plan narrative: 1. Heart failure, acute on chronic with preserved left ventricular ejection fraction. Creatinine essentially unchanged in fact bumped up slightly. Electrolytes okay. Will reduce oral dose of furosemide back to baseline 2. COPD exacerbation-stable to improved currently on oral corticosteroids. No change in therapy 3. Diabetes-patient remains very much hyperglycemic. I am going to add long- acting insulin to the regimen starting this morning. His coverage insulin was significantly increased yesterday. 4. Cardiac-continues in a paced rhythm. Continue to monitor 5. Disposition-probable discharge later today Quality VTE Deep Vein Thrombosis/Pulmonary Embolism Present on Admission: No
[2023-02-28 07:00] VITALS: BP 122/62; PULSE 66; RESP 18; TEMP 36.6; O2SAT 95
[2023-02-28 08:04] VITALS: BP 122/62; PULSE 66
[2023-02-28] MEDS: ASPIRIN EC 81 MG TABLET PO (08:04)
[2023-02-28] MEDS: predniSONE 20 MG TABLET 40 MG PO (08:04)
[2023-02-28] MEDS: MULTIVITAMIN 1 TABLET 1 TAB PO (08:04)
[2023-02-28] MEDS: LOSARTAN 50 MG TABLET PO (08:04)
[2023-02-28] MEDS: METFORMIN HCL 500 MG TABLET 1000 MG PO (08:04)
[2023-02-28] MEDS: glipiZIDE 5 MG TABLET 10 MG PO (08:06)
[2023-02-28] MEDS: SOTALOL 80 MG TABLET 120 MG PO (08:06)
[2023-02-28] MEDS: SODIUM CHLORIDE 0.9% FLUSH 10 ML IV (08:08)
[2023-02-28] MEDS: SPIRONOLACTONE 25 MG TABLET 12.5 MG PO (08:10)
[2023-02-28] MEDS: INSULIN GLARGINE 100 UNIT/ML 3ML PEN 20 UNIT SUBCUT (08:15)
[2023-02-28] MEDS: FUROSEMIDE 40 MG TABLET PO (08:22)
[2023-02-28 09:24] VITALS: PULSE 63; RESP 16; O2SAT 94
[2023-02-28] MEDS: ALBUTEROL/IPRATROPIUM 3 ML AMPUL INH (09:24)
--- NOTE | 2023-02-28 11:03 | PM.DS.1 ---
History of Present Illness History of Present Illness Date Patient Seen: 02/28/23 Time Patient Seen: 11:03 Chief complaint: SOB T-1 getting worse Narrative: 77-year-old male well known to me admitted via emergency department with worsening shortness of breath, and orthopnea. No chest pain no palpitations no syncope or near-syncope Recently had a respiratory infection (RSV) in October (diagnosed at the walk[facility]in [facility] in [place]). He feels like he did get better from that but over the last couple of weeks or so here has had increasing weakness shortness of breath to the point where he almost collapsed yesterday In the ER he was found to have probable congestive heart failure with bilateral effusions on chest x-ray. BNP however was within the normal range. He is quite hypertensive and tachypneic but not hypoxic Does have known cardiomyopathy although last echo appears to be 2018 Patient also with paroxysmal atrial fibrillation, followed by Dr. Montano in [place], not on anticoagulation at patient request. Patient also with known aortic stenosis Discharge Providers Provider Date of admission: 02/24/23 11:54 Discharge Date: 02/28/23 Primary care physician: Nura Danielle MD Discharge provider: Nura Danielle MD Summary Hospital Course Discharge Diagnosis: 1. COPD exacerbation, acute 2. Acute exacerbation of chronic heart failure with preserved ejection fraction 3. Acute kidney injury 4. Diabetes type 2 with hyperglycemia secondary to medication 5. Paroxysmal atrial fibrillation 6. Coronary artery disease status post drug-eluting stent placement, not this hospitalization 7. Status post pacemaker placement Hospital Course: Patient was admitted as above. Initially felt to have more of a congestive heart failure picture despite his lack of hypoxia and normal BNP. Did have significant diuresis but failed to significantly improve. Therefore parental steroids as well as increased nebulized medications for his COPD were ordered and patient with this improved much more significantly suggesting this was truly more of a COPD exacerbation than anything else. He did have some lower extremity edema etcetera that were improved with the diuretic therapy However the parental steroids caused a severe hyperglycemia and patient was improved he was subsequently switched to oral corticosteroids with significant improvement in respiratory status continuing. Blood sugars were improved with this. In the and he was discharged on a further lower dose of oral corticosteroids as well as his usual oral diabetes medications. Is felt as though with decreasing steroid doses as well as increased activity which she will be doing at home his blood sugars should be much more acceptable hopefully in the 200-250 range rather than in the 350-400 range as seen here in the hospital Patient's A1c was checked during this hospitalization and elevated at 8.6 so he is chronically probably about 250 anyway He would a slight bump in his creatinine with the vigorous diuresis. This was reduced back to his normal baseline level of diuretic therapy and it is expected that his renal function returned to normal over time and will need to be checked as an outpatient Patient's cardiac issues were not present during this hospitalization. Patient continues to decline long-term anticoagulation for his paroxysmal atrial fibrillation Status at Discharge Cognitive/behavioral status at discharge: at baseline, oriented Functional status at discharge: independent ambulation Overall status at discharge: patient is progressing back to baseline Exam Vital Signs (past 8 hours): - 02/28/23 07:00 02/28/23 07:00 02/28/23 08:04 Temperature 97.9 F Pulse Rate 66 66 Respiratory Rate 18 Blood Pressure 122/62 122/62 Pulse Oximetry 95 95 Oxygen Delivery Method Room Air Oxygen Flow Rate 0 02/28/23 07:00 02/28/23 09:24 Temperature Pulse Rate 63 Respiratory Rate 16 Blood Pressure Pulse Oximetry 94 Oxygen Delivery Method Room Air CPAP Room Air Oxygen Flow Rate Fraction of Inspired Oxygen 21 SaO2/FiO2 Ratio 452 Oxygen Delivery Method Room Air Oxygen Flow Rate 0 Objective Labs 02/24/23 08:40 02/28/23 05:25 Labs: Laboratory Results - last 24 hr 02/28/23 05:25 Sodium 137 Potassium 4.0 Chloride 102 Carbon Dioxide 26 BUN 55 H Creatinine 1.48 H Estimated GFR 49 L BUN/Creatinine Ratio 37.2 H Glucose 161 H D Calcium 8.3 L [facility] Medical History Aortic stenosis Atrial fibrillation (03/30/15) Cardiomyopathy (~03/2018) Coronary artery disease (~03/2018) Hypertension (05/30/15) Tachy-ama syndrome Type 2 diabetes mellitus with hyperglycemia, without long-term current use of insulin Type 2 diabetes mellitus without complication (05/01/15) Surgical History H/O heart artery stent (~03/2018) S/P cardiac pacemaker procedure (~09/2018) Social History household members: none Smoking Status: Former smoker alcohol intake: never Discharge Plan Discharge Plan Patient Disposition: Home Discharge orders & Medications Prescriptions: New prednisone 20 mg tablet 30 mg PO DAILY Qty: 60 0RF tiotropium bromide 18 mcg capsule, w/inhalation device 1 cap inhalation DAILY Qty: 30 4RF Rx Instructions: puncture 1 cap using device; one dose = 2 inhalations albuterol sulfate 90 mcg/actuation HFA aerosol inhaler 2 puff inhalation Q4-6H PRN (Reason: shortness of breath or wheezing) Qty: 8.5 3RF Continued metformin 1,000 mg tablet 1,000 mg PO BID Qty: 180 3RF furosemide 40 mg tablet 40 mg PO DAILY PRN (Reason: edema) Qty: 90 3RF atorvastatin 40 mg tablet 40 mg PO DAILY Qty: 90 3RF spironolactone 25 mg tablet 12.5 mg PO DAILY Qty: 45 3RF aspirin [Adult Low Dose Aspirin] 81 mg tablet,delayed release (DR/EC) 81 mg PO DAILY multivitamin tablet 1 tab PO DAILY glucosamine sulfate 1,000 mg capsule 1,000 mg PO DAILY glipizide 10 mg tablet 10 mg PO BID Qty: 180 3RF losartan 50 mg tablet 50 mg PO BID Patient Comments: TAKE ONE TABLET BY MOUTH TWICE DAILY sotalol 120 mg tablet 120 mg PO BID Follow up/Referrals: Nura Danielle MD [Primary Care Provider] - 03/06/23 (03/06/23 in am, call office for exact time) Discharge Health Status Multidrug resistant organism: No MDRO Diet/Activity/Treatments Diet: Diet as Tolerated and Carb-consistent/Diabetic Activity: As tolerated Visit Report/Discharge Packet Instructions: DI for Heart Failure Stand Alone Forms: Patient Portal/API, Stroke Signs & Symptoms Discharge Data Primary Care Provider: Nura Danielle Quality VTE Deep Vein Thrombosis/Pulmonary Embolism Present on Admission: No
== END 2023-02-28 11:00 | disposition home or self-care (01) | DRG 291 ==
LOC: ED 08:43 → AC 12:07 → ICU 02-25 13:05 → AC 02-25 13:16
PROVIDERS: Admitting Provider Internal Medicine; Emergency Provider Emergency Medicine; PCP Internal Medicine; Referring Provider Emergency Medicine; Visit Provider Internal Medicine
DX: I11.0 Hypertensive heart disease with heart failure (principal); I50.33 Acute on chronic diastolic (congestive) heart failure; J44.1 Chronic obstructive pulmonary disease with (acute) exacerbation; I48.0 Paroxysmal atrial fibrillation; I25.10 Atherosclerotic heart disease of native coronary artery without angina pectoris; I35.0 Nonrheumatic aortic (valve) stenosis; E11.65 Type 2 diabetes mellitus with hyperglycemia; T38.0X5A Adverse effect of glucocorticoids and synthetic analogues, initial encounter; Z95.5 Presence of coronary angioplasty implant and graft; Z87.891 Personal history of nicotine dependence; Z95.0 Presence of cardiac pacemaker; Z20.822 Contact with and (suspected) exposure to COVID-19; Z79.84 Long term (current) use of oral hypoglycemic drugs
CPT/HCPCS: 36415; 71045; 80048; 80053; 82550; 82962; 83036; 83690; 83735; 83880; 84484; 85025; 85610; 85730; 87635; 87797; 93005; 93306; 94640; 94760; 96365; 99223; 99233; 99238; 99284; 99285; C9803; J1650; J1815; J1940; J2060; J2930; J7613

== ENCOUNTER → 2023-03-05 09:14 | Outpatient (CLI) | payer OTHER, SELFPAY ==
[2023-02-24 12:22] VITALS: BMI 38.0
[2023-03-05 09:59] LABS: HEMOLYSIS < 15 (0-50); Potassium 4.8 mmol/L (3.4-5.1)
[2023-03-05 10:00] LABS: Alanine Aminotransferase 32 IU/L (<50); Albumin 3.2 g/dL (3.5-5.0); Albumin Globulin Ratio 1.1 (1.0-2.8); Alkaline Phosphatase 89 U/L (38-126); Aspartate Aminotransferase 16 IU/L (17-59); BUN Creatinine Ratio 30.8 (6-22); Bilirubin Total 0.3 mg/dL (0.2-1.3); Blood Urea Nitrogen 36 mg/dL (9-20); Calcium 8.4 mg/dL (8.4-10.2); Carbon Dioxide 27 mmol/L (22-32); Chloride 104 mmol/L (98-107); Estimated Glomerular Filt Rate > 60 mL/min (>60); Glucose 331 mg/dL (80-110); Sodium 137 mmol/L (137-145); Total Protein 6.2 g/dL (6.3-8.2)
[2023-03-06 01:59] LABS: Labcorp Hemoglobin (Hb) A1c 9.2 % (4.8-5.6)
== END ==
PROVIDERS: PCP Internal Medicine; Referring Provider Internal Medicine; Visit Provider Internal Medicine
DX: I10 Essential (primary) hypertension (principal); E11.9 Type 2 diabetes mellitus without complications
CPT/HCPCS: 36415; 80053; 83036

== ENCOUNTER 2023-04-02 14:59 | Inpatient (IN) | payer OTHER, SELFPAY ==
[2023-02-24 12:22] VITALS: BMI 38.0
[2023-04-02] VITALS (12 sets, daily range): BP systolic 119–191; BP diastolic 58–80; PULSE 60–64; RESP 20–36; TEMP 36.4–37; O2SAT 92–97; BMI 39.6
--- NOTE | 2023-04-02 15:05 | DI.RAD.S_ITS ---
PROCEDURE: XR CHEST 1V INDICATIONS: chest pain TECHNIQUE: One view of the chest was acquired. COMPARISON: [facility], CR, XR CHEST 1V, 02/24/2023, 8:45. [facility], CR, XR CHEST 2V, 06/14/2018, 9:34. FINDINGS: Surgical changes and devices: Left chest wall pulse generator with dual-chamber electrode leads in place. Lungs and pleura: Moderate right pleural effusion, larger than prior. There is underlying opacity, possibly atelectasis and airspace disease. Probable left lung base atelectasis is also present. Mediastinum: Mild cardiomegaly. Bones and chest wall: No suspicious bony lesions. Overlying soft tissues appear unremarkable. IMPRESSION: Increased moderate right pleural effusion. There is underlying opacity representing atelectasis or airspace disease. Consider future imaging surveillance to assess for resolution. Dictated by: Miki Zambrano M.D. on 04/02/2023 at 17:05 Approved by: Miki Zambrano M.D. on 04/02/2023 at 17:06
[2023-04-02 15:19] LABS: Add Manual Diff / Slide Review NO; Basophils Absolute Auto 100 /uL (0-100); Basophils Percent Auto 0.8 % (0-2); Eosinophils Absolute Auto 100 /uL (0-450); Eosinophils Percent Auto 0.5 % (2-4); Hematocrit 35.6 % (41-53); Hemoglobin 12.1 g/dL (13.5-17.5); Lymphocytes Absolute Auto 800 /uL (1100-4500); Lymphocytes Percent Auto 7.1 % (25-40); Mean Corpuscular HGB Conc 33.8 % (30-36); Mean Corpuscular Hemoglobin 30.7 PG (26-34); Mean Corpuscular Volume 90.7 fL (80-100); Monocytes Absolute Auto 700 /uL (0-900); Neutrophils Absolute Auto 9800 /uL (1500-7000); Neutrophils Percent Auto 85.6 % (50-75); Platelet Count 255 X10^3/uL (150-400); Red Blood Cell Count 3.93 X10^6/uL (4.5-5.9); Red Cell Distribution Width 15.7 % (11.6-14.8); White Blood Cell Count 11.4 X10^3/uL (4.5-11.0)
[2023-04-02] MEDS: ASPIRIN 81 MG CHEW TAB 324 MG PO (15:20)
[2023-04-02 15:26] LABS: INR 1.1 (0.9-1.3); Prothrombin Time 12.4 SECONDS (10.1-12.7)
[2023-04-02 15:29] LABS: PTT Partial Thromboplastin Tim 29 SECONDS (26-36)
[2023-04-02 15:34] LABS: Alanine Aminotransferase 36 IU/L (<50); Albumin 3.8 g/dL (3.5-5.0); Albumin Globulin Ratio 1.2 (1.0-2.8); Alkaline Phosphatase 81 U/L (38-126); Aspartate Aminotransferase 27 IU/L (17-59); BUN Creatinine Ratio 20.1 (6-22); Bilirubin Total 0.3 mg/dL (0.2-1.3); Blood Urea Nitrogen 27 mg/dL (9-20); Calcium 8.2 mg/dL (8.4-10.2); Carbon Dioxide 26 mmol/L (22-32); Chloride 104 mmol/L (98-107); Creatine Kinase 50 U/L (55-170); Estimated Glomerular Filt Rate 55 mL/min (>60); Globulin 3.3 g/dL (1.7-4.1); Glucose 312 mg/dL (80-110); HEMOLYSIS < 15 (0-50); Potassium 5.1 mmol/L (3.4-5.1); Sodium 137 mmol/L (137-145); Total Protein 7.1 g/dL (6.3-8.2)
[2023-04-02 15:46] LABS: NT-proBNP (BNP-Adult 18+) 289 pg/mL (<450); Troponin I 0.015 ng/mL (0.01-0.034)
[2023-04-02 16:34] LABS: COVID19 -Nasal RAPID Negative (Negative)
[2023-04-02] MEDS: ALBUTEROL/IPRATROPIUM 3 ML AMPUL INH ×2 (16:38→22:59)
--- NOTE | 2023-04-02 17:32 | ED.SOB ---
HPI - SOB/Dyspnea General Chief Complaint: Shortness of Breath/Dyspnea Stated Complaint: shortness of breath (Afib) Time Seen by Provider: 04/02/23 15:04 Source: patient and EMS Mode of arrival: EMS Limitations: no limitations History of Present Illness HPI Narrative: Patient brought in by ambulance from cardiology office. He was there for evaluation follow-up from his admission last month, admitted here for CHF and COPD exacerbation. Patient states the last 3 days had increased swelling to legs and feet. Has had shortness of breath. Patient denies any chest pain. Patient did have breathing treatment by EMS which improved his lung sounds. He states at home he has been as low as 89% room air. He is not on home oxygen. Patient states his normal usually 94%. Patient in no distress at this time. He does have extensive edema of the legs ankles and feet. He has felt very short of breath with ambulation. Short of breath with sitting up as well as lying flat. Related Data Home Medications Medication Instructions Recorded Confirmed glucosamine sulfate 1,000 mg 1,000 mg PO DAILY 04/27/18 04/02/23 capsule multivitamin 1 tab PO DAILY 04/27/18 04/02/23 aspirin 81 mg tablet,delayed 81 mg PO DAILY 08/21/20 04/02/23 release (Adult Low Dose Aspirin) sotalol 120 mg tablet 120 mg PO BID 02/24/23 04/02/23 losartan 50 mg tablet 50 mg PO BID 04/02/23 04/02/23 Previous Rx's Medication Instructions Recorded atorvastatin 40 mg tablet 40 mg PO DAILY #90 tabs 06/24/22 metformin 1,000 mg tablet 1,000 mg PO BID #180 tabs 06/24/22 spironolactone 25 mg tablet 12.5 mg PO DAILY #45 tabs 06/24/22 albuterol sulfate 90 mcg/actuation 2 puff inhalation Q4-6H PRN 02/28/23 aerosol inhaler shortness of breath or wheezing #8.5 grams glipizide 10 mg tablet 10 mg PO BID #180 tabs 03/31/23 insulin glargine 100 unit/mL (3 See Rx Instructions .Route 04/07/23 mL) subcutaneous pen .COMPLEX #15 mL ipratropium 0.5 mg-albuterol 3 mg 3 ml inhalation Q4-6H PRN 04/07/23 (2.5 mg base)/3 mL nebulization shortness of breath or wheezing soln #180 mL prednisone 20 mg tablet 60 mg PO DAILY #60 tabs 04/07/23 furosemide 40 mg tablet 40 mg PO DAILY #90 tabs 04/08/23 nebulizer and compressor #1 ea 04/08/23 pen needle, diabetic 32 gauge x #100 ea 04/09/23 1/4 (BD Ultra-Fine Micro Pen Needle) Allergies Allergy/AdvReac Type Severity Reaction Status Date / Time lisinopril [LISINOPRIL] Allergy Intermediate COUGH Verified 04/02/23 15:14 piperacillin [PIPERACILLIN] AdvReac Mild RASH MAY Verified 04/02/23 15:14 2014 ADMIT, MAY BE VANCO, UNSURE vancomycin [VANCOMYCIN] AdvReac Mild RASH MAY Verified 04/02/23 15:14 2014 ADMIT MAY BE PIPERACILLIN INSTEAD azithromycin [From Zithromax] AdvReac Verified 04/02/23 15:14 Review of Systems Review of Systems Narrative: GENERAL: negative chills, fatigue, malaise, fever, sweats. HEENT: negative sinus pain, ear pain, sore throat RESPIRATORY: Positive dyspnea, negative cough CARDIOVASCULAR: negative chest pain, palpitations, positive peripheral edema GASTROINTESTINAL: negative nausea, vomiting, abdominal pain : negative dysuria, frequency, hematuria MUSCULOSKELETAL: negative muscle or bony pain SKIN: negative rash, skin lesions NEUROLOGIC: negative weakness, numbness ROS Unobtainable: All systems reviewed & are unremarkable except as noted in HPI and below Patient History Medical History Aortic stenosis Atrial fibrillation (03/30/15) Cardiomyopathy (~03/2018) COPD (chronic obstructive pulmonary disease) Coronary artery disease (~03/2018) Hypertension (05/30/15) Tachy-ama syndrome Type 2 diabetes mellitus with hyperglycemia, without long-term current use of insulin Type 2 diabetes mellitus without complication (05/01/15) Surgical History H/O heart artery stent (~03/2018) S/P cardiac pacemaker procedure (~09/2018) Social History household members: none Smoking Status: Former smoker alcohol intake: never Smoking Status: Former smoker alcohol intake frequency: 0-2 drinks per day Substance Use Type: does not use Exam Narrative Exam Narrative: GENERAL: in no distress, not toxic not dyspneic HEAD: Normocephalic. EYES: Pupils equal round ENT: Mucous membranes moist. NECK: Trachea midline. CARDIOVASCULAR: Regular rate and rhythm without murmurs RESPIRATORY: There is diminished bibasilar lung sounds. No wheezing. Speaking near full sentences. GASTROINTESTINAL: Abdomen soft, non-tender EXTREMITIES: No gross deformities. Extensive bilateral symmetric leg ankle feet edema. No calf tenderness. BACK: No flank tenderness. NEURO: AOx4. SKIN: Warm and dry PSYCH: Not anxious, is cooperative Initial Vital Signs Initial Vital Signs: Vital Signs Temperature 98.6 F 04/02/23 15:00 Pulse Rate 60 04/02/23 15:00 Respiratory Rate 30 H 04/02/23 15:00 Blood Pressure 191/80 H 04/02/23 15:00 Pulse Oximetry 95 04/02/23 15:00 Oxygen Delivery Method Room Air 04/02/23 15:00 Course Orders Ordered: Discontinued Medications Acetaminophen (Acetaminophen 325 Mg Tablet) 650 mg PO Q6H PRN PRN Reason: Fever/Mild Pain (1-3) Hydrocodone Bitart/Acetaminophen (Hydrocodone/Acet 5/325 Tablet) 1 tab PO Q4H PRN PRN Reason: Pain, Moderate (4-6) Albuterol (Albuterol 2.5 Mg/3 Ml Neb (Adult)) 2.5 mg INH Q4H PRN PRN Reason: shortness of breath or wheezing Last Admin: 04/02/23 22:34 Dose: 2.5 mg Documented By: NORIS Albuterol/Ipratropium (Albuterol/Ipratropium 3 Ml Ampul) 3 ml INH NOW ONE Stop: 04/02/23 16:34 Last Admin: 04/02/23 16:38 Dose: 3 ml Documented By: BRIANNA Albuterol/Ipratropium (Albuterol/Ipratropium 3 Ml Ampul) 3 ml INH [id number] [facility] Last Admin: 04/08/23 14:19 Dose: 3 ml Documented By: Admin: 04/08/23 13:20 Dose: Not Given Documented By: Admin: 04/08/23 07:56 Dose: 3 ml Documented By: Admin: 04/07/23 22:54 Dose: 3 ml Documented By: ZJanie Admin: 04/07/23 19:04 Dose: 3 ml Documented By: JRosalba Admin: 04/07/23 15:05 Dose: 3 ml Documented By: Admin: 04/07/23 11:05 Dose: 3 ml Documented By: Admin: 04/07/23 08:41 Dose: Not Given Documented By: Admin: 04/06/23 22:55 Dose: 3 ml Documented By: Admin: 04/06/23 19:25 Dose: 3 ml Documented By: Admin: 04/06/23 15:50 Dose: 3 ml Documented By: Admin: 04/06/23 11:36 Dose: 3 ml Documented By: Admin: 04/06/23 08:06 Dose: 3 ml Documented By: Admin: 04/06/23 00:04 Dose: 3 ml Documented By: Admin: 04/05/23 20:23 Dose: 3 ml Documented By: Admin: 04/05/23 17:38 Dose: Not Given Documented By: Admin: 04/05/23 13:01 Dose: 3 ml Documented By: Admin: 04/05/23 07:33 Dose: 3 ml Documented By: Admin: 04/04/23 23:57 Dose: Not Given Documented By: Admin: 04/04/23 18:14 Dose: 3 ml Documented By: Admin: 04/04/23 18:06 Dose: Not Given Documented By: Admin: 04/04/23 12:34 Dose: 3 ml Documented By: Admin: 04/04/23 07:46 Dose: 3 ml Documented By: Admin: 04/04/23 03:12 Dose: Not Given Documented By: Admin: 04/03/23 19:45 Dose: 3 ml Documented By: Admin: 04/03/23 14:57 Dose: 3 ml Documented By: Admin: 04/03/23 11:30 Dose: 3 ml Documented By: Admin: 04/03/23 07:31 Dose: 3 ml Documented By: JRosalba Admin: 04/02/23 22:59 Dose: 3 ml Documented By: Admin: 04/02/23 22:30 Dose: Not Given Documented By: ZC Aspirin (Aspirin 81 Mg Chew Tab) 324 mg PO NOW ONE Stop: 04/02/23 15:05 Last Admin: 04/02/23 15:20 Dose: 243 mg Documented By: GEORGIA Aspirin (Aspirin Ec 81 Mg Tablet) 81 mg PO DAILY [facility] Last Admin: 04/08/23 09:19 Dose: 81 mg Documented By: Admin: 04/07/23 09:32 Dose: 81 mg Documented By: Admin: 04/06/23 08:25 Dose: 81 mg Documented By: Admin: 04/05/23 08:31 Dose: 81 mg Documented By: Admin: 04/04/23 08:49 Dose: 81 mg Documented By: Admin: 04/03/23 08:38 Dose: 81 mg Documented By: JAZ Atorvastatin Calcium (Atorvastatin 20 Mg Tablet) 40 mg PO DAILY [facility] Atorvastatin Calcium (Atorvastatin 20 Mg Tablet) 40 mg PO BEDTIME [facility] Last Admin: 04/07/23 21:35 Dose: 40 mg Documented By: Admin: 04/06/23 20:40 Dose: 40 mg Documented By: Admin: 04/05/23 20:33 Dose: 40 mg Documented By: Admin: 04/04/23 22:28 Dose: 40 mg Documented By: Admin: 04/03/23 21:11 Dose: 40 mg Documented By: Admin: 04/02/23 21:09 Dose: 40 mg Documented By: BARBARA Benzocaine (Benzocaine/Menthol 1 Millicent Pkt) 1 each PO Q1HR PRN PRN Reason: Sore Throat Dextrose (Dextrose 50 % In Water 25 Gm/50 Ml Syringe) 25 gm IV PRN PRN; Protocol PRN Reason: Hypoglycemia Docusate Sodium (Docusate 100 Mg Capsule) 100 mg PO BID [facility] Last Admin: 04/08/23 09:21 Dose: Not Given Documented By: Admin: 04/07/23 21:35 Dose: 100 mg Documented By: Admin: 04/07/23 09:33 Dose: 100 mg Documented By: Admin: 04/06/23 20:37 Dose: Not Given Documented By: Admin: 04/06/23 08:26 Dose: Not Given Documented By: Admin: 04/05/23 20:35 Dose: Not Given Documented By: Admin: 04/05/23 08:32 Dose: 100 mg Documented By: Admin: 04/04/23 22:28 Dose: 100 mg Documented By: Admin: 04/04/23 08:49 Dose: 100 mg Documented By: Admin: 04/03/23 21:07 Dose: 100 mg Documented By: Admin: 04/03/23 08:40 Dose: 100 mg Documented By: Admin: 04/02/23 21:08 Dose: 100 mg Documented By: BARBARA Enoxaparin Sodium (Enoxaparin 40 Mg/0.4 Ml Syringe) 40 mg SUBCUT DAILY [facility] Last Admin: 04/08/23 09:20 Dose: 40 mg Documented By: Admin: 04/07/23 09:34 Dose: 40 mg Documented By: Admin: 04/06/23 08:26 Dose: 40 mg Documented By: Admin: 04/05/23 08:33 Dose: 40 mg Documented By: Admin: 04/04/23 08:48 Dose: 40 mg Documented By: Admin: 04/03/23 08:42 Dose: 40 mg Documented By: JAZ Furosemide (Furosemide 40 Mg Tablet) 40 mg PO DAILY [facility] Furosemide (Furosemide 20 Mg/2 Ml Vial) 20 mg IV NOW ONE Stop: 04/03/23 02:14 Last Admin: 04/03/23 02:37 Dose: 20 mg Documented By: NATHANIEL Furosemide (Furosemide 40 Mg/4 Ml Vial) 40 mg IV Q12H [facility] Last Admin: 04/04/23 08:16 Dose: Not Given Documented By: Admin: 04/03/23 19:32 Dose: 40 mg Documented By: Admin: 04/03/23 09:05 Dose: 40 mg Documented By: JESSICAW Furosemide (Furosemide 40 Mg/4 Ml Vial) 40 mg IV DAILY [facility] Last Admin: 04/07/23 09:31 Dose: 40 mg Documented By: Admin: 04/06/23 08:34 Dose: 40 mg Documented By: Admin: 04/05/23 08:38 Dose: 40 mg Documented By: Admin: 04/04/23 08:45 Dose: 40 mg Documented By: ABNER Furosemide (Furosemide 40 Mg Tablet) 40 mg PO DAILY [facility] Last Admin: 04/08/23 09:19 Dose: 40 mg Documented By: TENISHA Glipizide (Glipizide 5 Mg Tablet) 10 mg PO BID [facility] Last Admin: 04/08/23 13:23 Dose: Not Given Documented By: Admin: 04/07/23 21:35 Dose: 10 mg Documented By: Admin: 04/07/23 09:31 Dose: 10 mg Documented By: Admin: 04/06/23 20:39 Dose: 10 mg Documented By: Admin: 04/06/23 08:26 Dose: 10 mg Documented By: Admin: 04/05/23 20:47 Dose: 10 mg Documented By: Admin: 04/05/23 08:49 Dose: 10 mg Documented By: Admin: 04/04/23 22:41 Dose: 10 mg Documented By: Admin: 04/04/23 08:42 Dose: 10 mg Documented By: Admin: 04/03/23 21:11 Dose: 10 mg Documented By: Admin: 04/03/23 08:33 Dose: 10 mg Documented By: Admin: 04/02/23 21:09 Dose: 10 mg Documented By: BARBARA Insulin Glargine (Insulin Glargine 100 Unit/Ml 3ml Pen) 30 unit SUBCUT DAILY [facility] Last Admin: 04/08/23 13:23 Dose: Not Given Documented By: Admin: 04/07/23 09:35 Dose: 30 unit Documented By: TENISHA Co-signed By: TIFFANY Admin: 04/06/23 08:30 Dose: 30 unit Documented By: TAMIKO Co-signed By: BHAVESH Admin: 04/05/23 08:20 Dose: 30 unit Documented By: BHAVESH Co-signed By: ALISSA Admin: 04/04/23 08:05 Dose: 30 unit Documented By: ABNER Co-signed By: BHAVESH Admin: 04/03/23 09:06 Dose: 30 unit Documented By: HCW Co-signed By: TOMMY Insulin Glargine (Insulin Glargine 100 Unit/Ml 3ml Pen) 15 unit SUBCUT BEDTIME [facility] Last Admin: 04/07/23 21:50 Dose: 15 unit Documented By: SHEYW Co-signed By: OSMAN Admin: 04/06/23 20:48 Dose: 15 unit Documented By: VIKTORIA Co-signed By: LYNDON Admin: 04/05/23 20:49 Dose: 15 unit Documented By: VIKTORIA Co-signed By: MARI Admin: 04/04/23 22:30 Dose: 15 unit Documented By: JACQUELYN Co-signed By: MS Insulin Human Lispro (Insulin Lispro 100 Unit/Ml 3ml Vial) 0 unit SUBCUT [facility]; Protocol Last Admin: 04/08/23 13:03 Dose: 4 unit Documented By: TENISHA Co-signed By: EMMANUELLE Admin: 04/08/23 13:03 Dose: Not Given Documented By: Admin: 04/07/23 21:49 Dose: Not Given Documented By: Admin: 04/07/23 17:24 Dose: 4 unit Documented By: TENISHA Co-signed By: TIFFANY Admin: 04/07/23 12:51 Dose: 8 unit Documented By: TENISHA Co-signed By: TIFFANY Admin: 04/07/23 08:23 Dose: 4 unit Documented By: TENISHA Co-signed By: TIFFANY Admin: 04/06/23 20:45 Dose: Not Given Documented By: Admin: 04/06/23 17:01 Dose: 16 unit Documented By: TAMIKO Co-signed By: BHAVESH Admin: 04/06/23 12:10 Dose: 8 unit Documented By: MM Co-signed By: BHAVESH Admin: 04/06/23 08:29 Dose: 4 unit Documented By: TAMIKO Co-signed By: BHAVESH Admin: 04/05/23 20:51 Dose: Not Given Documented By: Admin: 04/05/23 16:53 Dose: 8 unit Documented By: ABNER Co-signed By: BHAVESH Admin: 04/05/23 11:46 Dose: 16 unit Documented By: ABNER Co-signed By: BHAVESH Admin: 04/05/23 08:20 Dose: 8 unit Documented By: BHAVESH Co-signed By: EM Admin: 04/04/23 22:31 Dose: Not Given Documented By: Admin: 04/04/23 16:59 Dose: 12 unit Documented By: ABNER Co-signed By: BHAVESH Admin: 04/04/23 11:49 Dose: 20 unit Documented By: SB Co-signed By: BHAVESH Admin: 04/04/23 08:08 Dose: 12 unit Documented By: SB Co-signed By: BHAVESH Admin: 04/03/23 22:59 Dose: Not Given Documented By: Admin: 04/03/23 17:11 Dose: 12 unit Documented By: NEMO Co-signed By: TAMIKO Admin: 04/03/23 12:21 Dose: 20 unit Documented By: NEMO Co-signed By: TAMIKO Admin: 04/03/23 08:44 Dose: 20 unit Documented By: HCW Co-signed By: TAMIKO Admin: 04/02/23 20:44 Dose: Not Given Documented By: ARLETTE Insulin Human Lispro (Insulin Lispro 100 Unit/Ml 3ml Vial) 10 unit SUBCUT NOW ONE Stop: 04/03/23 03:51 Last Admin: 04/03/23 03:51 Dose: 10 unit Documented By: NATHANIEL Co-signed By: DICK Losartan Potassium (Losartan 50 Mg Tablet) 50 mg PO BID [facility] Last Admin: 04/03/23 21:07 Dose: 50 mg Documented By: Admin: 04/03/23 08:40 Dose: 50 mg Documented By: Admin: 04/02/23 21:08 Dose: 50 mg Documented By: BARBARA Magnesium Hydroxide (Magnesium Hydroxide 30 Ml Udc) 30 ml PO DAILY PRN PRN Reason: Constipation Last Admin: 04/05/23 10:58 Dose: 30 ml Documented By: BHAVESH Metformin HCl (Metformin Hcl 500 Mg Tablet) 1,000 mg PO BID [facility] Last Admin: 04/03/23 08:41 Dose: 1,000 mg Documented By: Admin: 04/02/23 21:08 Dose: 1,000 mg Documented By: BARBARA Metformin HCl (Metformin Hcl 500 Mg Tablet) 1,000 mg PO BIDWM [facility] Last Admin: 04/08/23 13:23 Dose: Not Given Documented By: Admin: 04/07/23 18:22 Dose: 1,000 mg Documented By: Admin: 04/07/23 09:33 Dose: 1,000 mg Documented By: Admin: 04/06/23 17:41 Dose: 1,000 mg Documented By: Admin: 04/06/23 08:25 Dose: 1,000 mg Documented By: Admin: 04/05/23 16:52 Dose: 1,000 mg Documented By: Admin: 04/05/23 08:32 Dose: 1,000 mg Documented By: Admin: 04/04/23 17:05 Dose: 1,000 mg Documented By: Admin: 04/04/23 08:49 Dose: 1,000 mg Documented By: Admin: 04/03/23 17:22 Dose: 1,000 mg Documented By: Admin: 04/03/23 08:50 Dose: Not Given Documented By: HCW Methylprednisolone (Methylprednisolone 125 Mg/2 Ml Vial) 125 mg IV NOW ONE Stop: 04/02/23 17:55 Last Admin: 04/02/23 18:07 Dose: 125 mg Documented By: GEORGIA Methylprednisolone (Methylprednisolone 125 Mg/2 Ml Vial) 60 mg IV Q8H [facility] Last Admin: 04/07/23 00:11 Dose: 60 mg Documented By: Admin: 04/06/23 17:42 Dose: 60 mg Documented By: Admin: 04/06/23 08:34 Dose: 60 mg Documented By: Admin: 04/06/23 00:41 Dose: 60 mg Documented By: Admin: 04/05/23 18:15 Dose: 60 mg Documented By: Admin: 04/05/23 08:38 Dose: 60 mg Documented By: Admin: 04/05/23 01:01 Dose: 60 mg Documented By: Admin: 04/04/23 17:05 Dose: 60 mg Documented By: Admin: 04/04/23 08:45 Dose: 60 mg Documented By: Admin: 04/04/23 02:31 Dose: 60 mg Documented By: Admin: 04/03/23 17:23 Dose: 60 mg Documented By: Admin: 04/03/23 08:38 Dose: 60 mg Documented By: Admin: 04/03/23 00:24 Dose: 60 mg Documented By: NATHANIEL Multivitamins (Multivitamin 1 Tablet) 1 tab PO DAILY [facility] Last Admin: 04/08/23 09:20 Dose: 1 tab Documented By: Admin: 04/07/23 09:32 Dose: 1 tab Documented By: Admin: 04/06/23 08:25 Dose: 1 tab Documented By: Admin: 04/05/23 08:32 Dose: 1 tab Documented By: Admin: 04/04/23 08:48 Dose: 1 tab Documented By: Admin: 04/03/23 08:41 Dose: 1 tab Documented By: HCW Naloxone HCl (Naloxone 0.4 Mg/Ml Vial) 0.2 mg IV Q2MIN PRN PRN Reason: Opiate Reversal Non-Formulary Medication (Glucosamine Sulfate) 1,000 mg PO DAILY [facility] Prednisone (Prednisone 20 Mg Tablet) 60 mg PO DAILY [facility] Last Admin: 04/08/23 09:20 Dose: 60 mg Documented By: Admin: 04/07/23 09:32 Dose: 60 mg Documented By: CLL Sotalol HCl (Sotalol 80 Mg Tablet) 120 mg PO BID [facility] Last Admin: 04/08/23 09:19 Dose: 120 mg Documented By: Admin: 04/07/23 21:36 Dose: 120 mg Documented By: Admin: 04/07/23 09:32 Dose: 120 mg Documented By: Admin: 04/06/23 20:38 Dose: 120 mg Documented By: Admin: 04/06/23 08:24 Dose: 120 mg Documented By: Admin: 04/05/23 20:31 Dose: 120 mg Documented By: Admin: 04/05/23 08:31 Dose: 120 mg Documented By: Admin: 04/04/23 22:30 Dose: 120 mg Documented By: Admin: 04/04/23 08:48 Dose: 120 mg Documented By: Admin: 04/03/23 21:07 Dose: 120 mg Documented By: Admin: 04/03/23 08:34 Dose: 120 mg Documented By: Admin: 04/02/23 21:09 Dose: 120 mg Documented By: BARBARA Spironolactone (Spironolactone 25 Mg Tablet) 12.5 mg PO DAILY [facility] Last Admin: 04/03/23 08:40 Dose: 12.5 mg Documented By: HCW Vital Signs Vital signs: Vital Signs - 8 hr 04/02/23 15:00 04/02/23 16:14 04/02/23 16:40 Temperature 98.6 F Pulse Rate 60 62 Respiratory Rate 30 H 27 H Blood Pressure 191/80 H Pulse Oximetry 95 95 93 Oxygen Delivery Method Room Air Room Air Room Air 04/02/23 16:15 04/02/23 16:15 04/02/23 16:30 Temperature Pulse Rate 64 Respiratory Rate 36 H Blood Pressure 124/61 119/63 Pulse Oximetry 94 Oxygen Delivery Method 04/02/23 16:30 04/02/23 17:00 04/02/23 17:00 Temperature Pulse Rate 60 60 Respiratory Rate 24 25 H Blood Pressure 137/63 Pulse Oximetry 92 94 Oxygen Delivery Method MDM - SOB/Dyspnea Lab Data 04/05/23 06:50 04/06/23 05:45 Labs: Lab Results 04/02/23 04/02/23 04/02/23 Range/Units 15:00 15:00 15:00 WBC 11.4 H (4.5-11.0) X10^3/uL RBC 3.93 L (4.5-5.9) X10^6/uL Hgb 12.1 L (13.5-17.5) g/dL Hct 35.6 L (41-53) % MCV 90.7 (80-100) fL MCH 30.7 (26-34) PG MCHC 33.8 (30-36) % RDW 15.7 H (11.6-14.8) % Plt Count 255 (150-400) X10^3/uL Neut % (Auto) 85.6 H (50-75) % Lymph % (Auto) 7.1 L (25-40) % [place] % (Auto) 6.0 (3-14) % Eos % (Auto) 0.5 L (2-4) % Baso % (Auto) 0.8 (0-2) % Neut # (Auto) 9800 H (7252-6666) /uL Lymph # (Auto) 800 L (6314-7075) /uL [place] # (Auto) 700 (0-900) /uL Eos # (Auto) 100 (0-450) /uL Baso # (Auto) 100 (0-100) /uL PT 12.4 (10.1-12.7) SECONDS INR 1.1 (0.9-1.3) APTT 29 (26-36) SECONDS Sodium 137 (137-145) mmol/L Potassium 5.1 (3.4-5.1) mmol/L Chloride 104 (98-107) mmol/L Carbon Dioxide 26 (22-32) mmol/L BUN 27 H (9-20) mg/dL Creatinine 1.34 H (0.66-1.25) mg/dL Estimated GFR 55 L (>60) mL/min BUN/Creatinine Ratio 20.1 (6-22) Glucose 312 H (80-110) mg/dL Calcium 8.2 L (8.4-10.2) mg/dL Total Bilirubin 0.3 (0.2-1.3) mg/dL AST 27 (17-59) IU/L ALT 36 (<50) IU/L Alkaline Phosphatase 81 (38-126) U/L Total Creatine Kinase 50 L (55-170) U/L CK-MB (CK-2) TNP CK-MB (CK-2) Rel Index TNP Troponin I 0.015 (0.01-0.034) ng/mL NT-Pro-B Natriuret Pep 289 (<450) pg/mL Total Protein 7.1 (6.3-8.2) g/dL Albumin 3.8 (3.5-5.0) g/dL Globulin 3.3 (1.7-4.1) g/dL Albumin/Globulin Ratio 1.2 (1.0-2.8) SARS-CoV-2 (PCR) (Negative) 04/02/23 04/02/23 Range/Units 16:00 17:06 WBC (4.5-11.0) X10^3/uL RBC (4.5-5.9) X10^6/uL Hgb (13.5-17.5) g/dL Hct (41-53) % MCV (80-100) fL MCH (26-34) PG MCHC (30-36) % RDW (11.6-14.8) % Plt Count (150-400) X10^3/uL Neut % (Auto) (50-75) % Lymph % (Auto) (25-40) % [place] % (Auto) (3-14) % Eos % (Auto) (2-4) % Baso % (Auto) (0-2) % Neut # (Auto) (3874-4877) /uL Lymph # (Auto) (1243-4197) /uL [place] # (Auto) (0-900) /uL Eos # (Auto) (0-450) /uL Baso # (Auto) (0-100) /uL PT (10.1-12.7) SECONDS INR (0.9-1.3) APTT (26-36) SECONDS Sodium (137-145) mmol/L Potassium (3.4-5.1) mmol/L Chloride (98-107) mmol/L Carbon Dioxide (22-32) mmol/L BUN (9-20) mg/dL Creatinine (0.66-1.25) mg/dL Estimated GFR (>60) mL/min BUN/Creatinine Ratio (6-22) Glucose (80-110) mg/dL Calcium (8.4-10.2) mg/dL Total Bilirubin (0.2-1.3) mg/dL AST (17-59) IU/L ALT (<50) IU/L Alkaline Phosphatase (38-126) U/L Total Creatine Kinase (55-170) U/L CK-MB (CK-2) CK-MB (CK-2) Rel Index Troponin I 0.013 (0.01-0.034) ng/mL NT-Pro-B Natriuret Pep (<450) pg/mL Total Protein (6.3-8.2) g/dL Albumin (3.5-5.0) g/dL Globulin (1.7-4.1) g/dL Albumin/Globulin Ratio (1.0-2.8) SARS-CoV-2 (PCR) Negative (Negative) Point of Care Testing Glucose POC 180 Imaging Data Chest x-ray: Radiologist's Impression: IMPRESSION: Increased moderate right pleural effusion. There is underlying opacity representing atelectasis or airspace disease. Consider future imaging surveillance to assess for resolution. MDM Narrative Medical decision making narrative: Patient brought in by ambulance from cardiology office. He was there for evaluation follow-up from his admission last month, admitted here for CHF and COPD exacerbation. Patient states the last 3 days had increased swelling to legs and feet. Has had shortness of breath. Patient denies any chest pain. Patient did have breathing treatment by EMS which improved his lung sounds. He states at home he has been as low as 89% room air. He is not on home oxygen. Patient states his normal usually 94%. Patient in no distress at this time. He does have extensive edema of the legs ankles and feet. He has felt very short of breath with ambulation. Short of breath with sitting up as well as lying flat After history and exam CBC CMP troponin EKG BNP chest x-ray [facility] CC: Dyspnea Complicating co-morbidities: COPD CHF Data collected from: Patient and EMS Medical records reviewed: Discharge summary from this hospital February 28, 2023, echocardiogram February 24, 2023 Differential considered: Includes but not limited to COPD CHF pneumonia Exam documented above, pertinent findings include: Diminished bibasilar lung sounds Lab Test results independently reviewed as above. Pertinent findings: WBC 11.4 hemoglobin 12.1 hematocrit 35.6 platelets 255 sodium 137 potassium 5.1 BUN 27 creatinine 1.34 GFR 55 BNP 289 Independently reviewed EKG as above sinus rhythm rate [address] elevation or depression Imaging studies independently reviewed: Chest x-ray increased moderate right pleural effusion. Consultations: Spoke with [employer] interrogation for pacemaker. Patient had atrial flutter brief episode March 31 March 26 and March 25. No V-tach 5:[address] Juarez, she will admit for Dr. Danielle. Treatments: DuoNeb treatment Solu-Medrol Re-evaluations: 5:30 p.m.. Updated patient results. He does desire admission hospital. He has been so short of breath for the past 3 days despite home medications. He does feel better after 2nd DuoNeb treatment. I did review results with him. Discussion: Appropriate for admission for dyspnea. Patient not at based baseline and has been true breath for 3 days with likely COPD exacerbation. Not improving with home medications. No diuretics at this time. I did review Dr. Danielle notes last time, this appears again more like COPD. Patient did not improve last time with diuretics. Diagnosis: COPD exacerbation/dyspnea/CHF Discharge Plan Departure Patient Disposition: Admitted as Observation Clinical Impression: Acute exacerbation of chronic obstructive airways disease Admit Date/Time: 04/02/23 18:26 Admit Provider: Precious Juarez
[2023-04-02 17:40] LABS: Troponin I 0.013 ng/mL (0.01-0.034)
--- NOTE | 2023-04-02 17:55 | PC.NURSE ---
Pacemaker interrogated, pt reports feeling better after 2nd nebulizer treatment.
[2023-04-02] MEDS: methylPREDNISolone 125 MG/2 ML VIAL IV (18:07)
[2023-04-02] MEDS: METFORMIN HCL 500 MG TABLET 1000 MG PO (21:08)
[2023-04-02] MEDS: DOCUSATE 100 MG CAPSULE PO (21:08)
[2023-04-02] MEDS: LOSARTAN 50 MG TABLET PO (21:08)
[2023-04-02] MEDS: glipiZIDE 5 MG TABLET 10 MG PO (21:09)
[2023-04-02] MEDS: SOTALOL 80 MG TABLET 120 MG PO (21:09)
[2023-04-02] MEDS: ATORVASTATIN 20 MG TABLET 40 MG PO (21:09)
[2023-04-02] MEDS: ALBUTEROL 2.5 MG/3 ML NEB (ADULT) INH (22:34)
[2023-04-03] VITALS (12 sets, daily range): BP systolic 109–139; BP diastolic 53–64; PULSE 59–95; RESP 16–22; TEMP 35.8–36.6; O2SAT 92–97
[2023-04-03] MEDS: methylPREDNISolone 125 MG/2 ML VIAL 60 MG IV ×3 (00:24→17:23)
[2023-04-03] MEDS: FUROSEMIDE 20 MG/2 ML VIAL IV (02:37)
[2023-04-03 03:18] LABS: Glucose 460 mg/dL (80-110)
[2023-04-03 03:19] LABS: Magnesium 1.9 mg/dL (1.6-2.3)
[2023-04-03 03:28] LABS: NT-proBNP (BNP-Adult 18+) 478 pg/mL (<450)
[2023-04-03] MEDS: INSULIN LISPRO 100 UNIT/ML 3ML VIAL 10 UNIT SUBCUT (03:51)
--- NOTE | 2023-04-03 06:44 | PM.HP.1 ---
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 Patient with admission in early February similar to this. At that time felt to be more due to COPD than anything else with relatively normal echo. Patient did well with nebulized treatments and parental than oral corticosteroids. The steroids made him quite hyperglycemic however. In follow-up as an outpatient patient was not able to afford any of the respiratory medications beyond a simple albuterol inhaler. He had his prednisone tapered down to off. However he has been increasingly short of breath with lower extremity edema over the last 3 or 4 days. No clear symptoms consistent with orthopnea or PND although difficult to tell as he does become somewhat more short of breath in a supine position but not necessarily any classic orthopnea kind of pattern In the ER his BNP was normal chest x-ray showed a small/modest right pleural effusion. Is describing a sensation in his right lower chest as though there is some fullness or something there. Coughing up some ?sticky? sputum off and on. He responded very nicely to nebulizer treatments. He was minimally hypoxic although this rapidly responded. He was given IV Solu-Medrol and admitted for continued management of his COPD [facility] Medical History (Updated 04/03/23 @ 06:50 by Nura Danielle MD) Aortic stenosis Atrial fibrillation (03/30/15) Cardiomyopathy (~03/2018) COPD (chronic obstructive pulmonary disease) Coronary artery disease (~03/2018) Hypertension (05/30/15) Tachy-ama syndrome Type 2 diabetes mellitus with hyperglycemia, without long-term current use of insulin Type 2 diabetes mellitus without complication (05/01/15) Surgical History H/O heart artery stent (~03/2018) S/P cardiac pacemaker procedure (~09/2018) Social History household members: none Smoking Status: Former smoker alcohol intake: never Meds Home Medications and Allergies Home Medications Medication Instructions Recorded Confirmed Type glucosamine sulfate 1,000 mg 1,000 mg PO DAILY 04/27/18 04/02/23 History capsule multivitamin 1 tab PO DAILY 04/27/18 04/02/23 History aspirin 81 mg tablet,delayed 81 mg PO DAILY 08/21/20 04/02/23 History release (Adult Low Dose Aspirin) atorvastatin 40 mg tablet 40 mg PO DAILY #90 tabs 06/24/22 04/02/23 Rx furosemide 40 mg tablet 40 mg PO DAILY PRN edema #90 tabs 06/24/22 04/02/23 Rx metformin 1,000 mg tablet 1,000 mg PO BID #180 tabs 06/24/22 04/02/23 Rx spironolactone 25 mg tablet 12.5 mg PO DAILY #45 tabs 06/24/22 04/02/23 Rx sotalol 120 mg tablet 120 mg PO BID 02/24/23 04/02/23 History albuterol sulfate 90 mcg/actuation 2 puff inhalation Q4-6H PRN 02/28/23 04/02/23 Rx aerosol inhaler shortness of breath or wheezing #8.5 grams tiotropium bromide 18 mcg capsule 1 cap inhalation DAILY #30 02/28/23 04/02/23 Rx with inhalation device inhalations glipizide 10 mg tablet 10 mg PO BID #180 tabs 03/31/23 04/02/23 Rx losartan 50 mg tablet 50 mg PO BID 04/02/23 04/02/23 History Allergies Allergy/AdvReac Type Severity Reaction Status Date / Time lisinopril [LISINOPRIL] Allergy Intermediate COUGH Verified 04/02/23 15:14 piperacillin [PIPERACILLIN] AdvReac Mild RASH MAY Verified 04/02/23 15:14 2014 ADMIT, MAY BE VANCO, UNSURE vancomycin [VANCOMYCIN] AdvReac Mild RASH MAY Verified 04/02/23 15:14 2014 ADMIT MAY BE PIPERACILLIN INSTEAD azithromycin [From Zithromax] AdvReac Verified 04/02/23 15:14 Review of Systems Review of Systems ROS: Yes All systems reviewed with the patient and are negative except as otherwise documented Exam Vital Signs (past 8 hours): - 04/02/23 22:59 04/03/23 01:45 04/03/23 02:20 Temperature 97.1 F L Pulse Rate 60 59 L Respiratory Rate 22 22 Blood Pressure 124/61 Pulse Oximetry 94 92 Oxygen Delivery Method CPAP Oxygen Flow Rate 04/03/23 05:38 Temperature 96.4 F L Pulse Rate 60 Respiratory Rate 18 Blood Pressure 139/53 L Pulse Oximetry 93 Oxygen Delivery Method Oxygen Flow Rate 0 Oxygen Delivery Method CPAP Oxygen Flow Rate 0 Narrative Exam Narrative: Elderly male lying in hospital bed become somewhat tachypneic with talking HEENT unremarkable Neck-no bruits Lungs-diminished breath sounds no crackles no wheezes Heart-regular rate and rhythm Abdomen-positive bowel tones soft nontender nondistended, moderate obesity limits evaluation for organomegaly, but none detected [id number]+ pitting edema at the ankle to the pretibial area bilaterally Objective Labs 04/02/23 15:00 04/03/23 02:50 Labs: Laboratory Results - last 24 hr 04/02/23 04/02/23 04/02/23 15:00 15:00 15:00 WBC 11.4 H RBC 3.93 L Hgb 12.1 L Hct 35.6 L MCV 90.7 MCH 30.7 MCHC 33.8 RDW 15.7 H Plt Count 255 Neut % (Auto) 85.6 H Lymph % (Auto) 7.1 L [place] % (Auto) 6.0 Eos % (Auto) 0.5 L Baso % (Auto) 0.8 Neut # (Auto) 9800 H Lymph # (Auto) 800 L [place] # (Auto) 700 Eos # (Auto) 100 Baso # (Auto) 100 PT 12.4 INR 1.1 APTT 29 Sodium 137 Potassium 5.1 Chloride 104 Carbon Dioxide 26 BUN 27 H Creatinine 1.34 H Estimated GFR 55 L BUN/Creatinine Ratio 20.1 Glucose 312 H Calcium 8.2 L Phosphorus Magnesium Total Bilirubin 0.3 AST 27 ALT 36 Alkaline Phosphatase 81 Total Creatine Kinase 50 L CK-MB (CK-2) TNP CK-MB (CK-2) Rel Index TNP Troponin I 0.015 NT-Pro-B Natriuret Pep 289 Total Protein 7.1 Albumin 3.8 Globulin 3.3 Albumin/Globulin Ratio 1.2 SARS-CoV-2 (PCR) 04/02/23 04/02/23 04/03/23 16:00 17:06 02:50 WBC RBC Hgb Hct MCV MCH MCHC RDW Plt Count Neut % (Auto) Lymph % (Auto) [place] % (Auto) Eos % (Auto) Baso % (Auto) Neut # (Auto) Lymph # (Auto) [place] # (Auto) Eos # (Auto) Baso # (Auto) PT INR APTT Sodium Potassium Chloride Carbon Dioxide BUN Creatinine Estimated GFR BUN/Creatinine Ratio Glucose Calcium Phosphorus 3.0 Magnesium 1.9 Total Bilirubin AST ALT Alkaline Phosphatase Total Creatine Kinase CK-MB (CK-2) CK-MB (CK-2) Rel Index Troponin I 0.013 NT-Pro-B Natriuret Pep 478 H Total Protein Albumin Globulin Albumin/Globulin Ratio SARS-CoV-2 (PCR) Negative 04/03/23 02:50 WBC RBC Hgb Hct MCV MCH MCHC RDW Plt Count Neut % (Auto) Lymph % (Auto) [place] % (Auto) Eos % (Auto) Baso % (Auto) Neut # (Auto) Lymph # (Auto) [place] # (Auto) Eos # (Auto) Baso # (Auto) PT INR APTT Sodium Potassium Chloride Carbon Dioxide BUN Creatinine Estimated GFR BUN/Creatinine Ratio Glucose 460 H D Calcium Phosphorus Magnesium Total Bilirubin AST ALT Alkaline Phosphatase Total Creatine Kinase CK-MB (CK-2) CK-MB (CK-2) Rel Index Troponin I NT-Pro-B Natriuret Pep Total Protein Albumin Globulin Albumin/Globulin Ratio SARS-CoV-2 (PCR) Assessment & Plan Assessment & Plan narrative: 1. COPD exacerbation-patient with significant COPD exacerbation as a primary cause of his symptoms in my opinion. He has a normal BNP and really does not have classic symptoms of acute congestive heart failure. At this point will treat him for COPD primarily with IV corticosteroids (which will cause hyperglycemia based on previous experience) as well as frequent nebulizer treatments. Fortunately patient does not currently have an oxygen requirement. Given the small right-sided pleural effusion as well as his sense of abnormality and sputum production I am going to go ahead and obtain CT imaging of the lungs looking for evidence of infection that may benefit from antibiotic therapy Patient will need to investigate options for better coverage for medications as an outpatient as he clearly has significant lung disease and in my opinion would significantly benefit from inhaled steroids as well as probably inhaled cholinergics to go with the albuterol as an outpatient. Patient had previously reported did not have outpatient coverage for prescriptions but it appears his insurance is Medicare advantage plan which by nature comes with prescription coverage. I will ask Care Management staff to assist patient in establishing/understanding his current level of benefits under his Medicare advantage plan (assuming that is still active). Patient may well benefit from home nebulizer therapy will need to investigate his insurance coverage for home nebulizer as well as medication for same nebulizer. 2. Question congestive heart failure-I think patient merely has significant peripheral edema from his inactivity due to his lung disease. Do not believe there is active/acute congestive heart failure at this time. Chest x-ray is minimally consistent with this were with a small effusion he does certainly have some lower extremity edema. I would assume the edema is not a sign of acute congestive heart failure, however he does have a right-sided pleural effusion which can be consistent with congestive heart failure as well.. His echo done in January of this year was essentially normal with normal left ventricular function. I do think he would benefit from some increased diuretics and we will anticipate doing that while monitoring electrolytes and renal function carefully 3. Diabetes-the corticosteroids for his lung disease will as before make his blood sugars quite high I am sure. He will receive insulin here in the hospital, including long-acting insulin. Patient has refused additional oral medication or additional medication all for his diabetes as an outpatient. Will continue to work with him trying to convince him of the importance of better control of his blood sugars, which to date has not been a priority for patient. Patient will likely need to be discharged on insulin therapy as well. 4. History of coronary disease-no evidence of active coronary disease at this time. Continue usual medications 5. Aortic stenosis-this remained mild on echocardiogram in January of this year. 6. Status post pacemaker-interrogate his pacemaker as above demonstrated some brief runs of atrial flutter. Continues to be aware of this and evaluate for possible tachyarrhythmias as clinically indicated 7. VTE prophylaxis-Lovenox appropriate and ordered 8. Code status-patient is a full code by his request which is entirely appropriate COVID-19 COVID-19 status: Negative Result date/Date tested (Pos, Neg/Pending): 04/02/23 Quality VTE Deep Vein Thrombosis/Pulmonary Embolism Present on Admission: No
[2023-04-03] MEDS: ALBUTEROL/IPRATROPIUM 3 ML AMPUL INH ×4 (07:31→19:45)
--- NOTE | 2023-04-03 08:31 | DI.CT.S_ITS ---
PROCEDURE: CT CHEST WO CON INDICATIONS: pneumonia/effusion TECHNIQUE: Noncontrast 5 mm thick sections acquired from the pulmonary apices to the posterior costophrenic angles. 1 mm lung window, 5 mm thick coronal and sagittal and 7 mm axial MIP reformats were then acquired. For radiation dose reduction, the following was used: automated exposure control, adjustment of mA and/or kV according to patient size. COMPARISON: CT 04/18/2015. FINDINGS: Image quality: Excellent. Lungs and pleura: Moderate loculated right-sided pleural effusion. Right lower lobe atelectasis. Mediastinum: Heart size is enlarged. No pericardial effusion. No mediastinal adenopathy by size criteria. Moderate aneurysmal dilation of the ascending aorta, measuring 4.8 centimeters. Esophagus is normal in caliber. No hiatal hernia. Marked coronary artery calcifications for age. Bones and chest wall: No suspicious bony lesions. No vertebral body compression fractures. No axillary or supraclavicular adenopathy by size criteria. Thyroid gland is unremarkable . Abdomen: Visualized upper abdominal solid organs and bowel loops appear normal in the absence of contrast. IMPRESSION: Moderate, loculated right-sided pleural effusion with complete atelectasis of the right lower lobe. 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 This is not significantly changed since 2014. Marked coronary artery calcifications for age. Consider cardiology referral. Dictated by: Lisandro Del Angel M.D. on 04/03/2023 at 9:17 Approved by: Lisandro Del Angel M.D. on 04/03/2023 at 9:20
[2023-04-03] MEDS: glipiZIDE 5 MG TABLET 10 MG PO ×2 (08:33→21:11)
[2023-04-03] MEDS: SOTALOL 80 MG TABLET 120 MG PO ×2 (08:34→21:07)
[2023-04-03] MEDS: ASPIRIN EC 81 MG TABLET PO (08:38)
[2023-04-03] MEDS: DOCUSATE 100 MG CAPSULE PO ×2 (08:40→21:07)
[2023-04-03] MEDS: LOSARTAN 50 MG TABLET PO ×2 (08:40→21:07)
[2023-04-03] MEDS: SPIRONOLACTONE 25 MG TABLET 12.5 MG PO (08:40)
[2023-04-03] MEDS: MULTIVITAMIN 1 TABLET 1 TAB PO (08:41)
[2023-04-03] MEDS: METFORMIN HCL 500 MG TABLET 1000 MG PO ×2 (08:41→17:22)
[2023-04-03] MEDS: ENOXAPARIN 40 MG/0.4 ML SYRINGE SUBCUT (08:42)
[2023-04-03] MEDS: INSULIN LISPRO 100 UNIT/ML 3ML VIAL SUBCUT ×3 (08:44→17:11)
[2023-04-03] MEDS: FUROSEMIDE 40 MG/4 ML VIAL IV ×2 (09:05→19:32)
[2023-04-03] MEDS: INSULIN GLARGINE 100 UNIT/ML 3ML PEN 30 UNIT SUBCUT (09:06)
--- NOTE | 2023-04-03 14:30 | PT.IIE ---
Surgical History (Last Reviewed 04/03/23 @ 06:47 by Nura Danielle MD) H/O heart artery stent (~03/2018) S/P cardiac pacemaker procedure (~09/2018) Medical History (Last Updated 04/03/23 @ 06:50 by Nura Danielle MD) Aortic stenosis Atrial fibrillation (03/30/15) Cardiomyopathy (~03/2018) COPD (chronic obstructive pulmonary disease) Coronary artery disease (~03/2018) Hypertension (05/30/15) Tachy-ama syndrome Type 2 diabetes mellitus with hyperglycemia, without long-term current use of insulin Type 2 diabetes mellitus without complication (05/01/15) Physical Therapy Inpatient Evaluation/Re-Eval M1 PT/OT-IP Prior Functional Status Start: 04/03/23 15:30 Freq: NEEDED Status: Active Protocol: Document 04/03/23 14:30 AB (Rec: 04/03/23 15:46 AB [id number]) Medical Review Prior Functional Status Medical History Reviewed Yes Communication agreeable to do PT Mobility and Gait pt stated that he is independent with all mobilities and ambulation without AD Social History Household Members none Living Arrangements House Number of Floors (Floors) One Floor Number of Stairs To Enter/Railing? 3 steps L rail ascending to enter the house Home Environment Standard Height Toilet,Walk in Shower,Built-In Shower Seat Home Equipment Straight Cane,Shower Seat with Backrest,Hand Held Shower, Grab Bars In Shower Additional Social History Comment pt stated that his adopted daughter lives next door and can assist him if needed has safety frame around the toilet M2 PT-IP Current Condition Start: 04/03/23 15:30 Freq: NEEDED Status: Active Protocol: Document 04/03/23 14:30 AB (Rec: 04/03/23 15:46 AB [id number]) Physical Therapy Current Condition Current Condition Evaluation Date 04/03/23 Treatment Diagnosis COPD exacerbation; difficulty in walking Onset Date 04/02/23 M3 PT-IP Subjective Start: 04/03/23 15:30 Freq: NEEDED Status: Active Protocol: Document 04/03/23 14:30 AB (Rec: 04/03/23 15:46 AB [id number]) Subjective Physical Therapy Visit Type Type Initial Evaluation Visit Start Time 14:30 Visit Stop Time 15:00 Total Visit Minutes 30 Number of MEDICATION NURSE Visits 0 Physical Therapy Visit Comments Patient Comments agreeable to do PT M4 PT-IP Mobility and Gait Start: 04/03/23 15:30 Freq: NEEDED Status: Active Protocol: Document 04/03/23 14:30 AB (Rec: 04/03/23 15:46 AB [email or web address]) PT-Bed Mobility Assessment Supine to Sit Supine to Sit Standby Assistance,Head of Bed Elevated,Bedrails Sit to Supine Sit to Supine Standby Assistance,Head of Bed Elevated,Bedrails PT-Transfer Assessment Sit to and From Stand Sit to and from Stand Standby Assistance Equipment Transfer Assistive Device None Orthotic/Prosthetic Devices or Brace: No Transfers Transfer Destination Chair Transfer Technique ambulated Transfer Ability Level of Assist Standby Assistance,1 Person Assistance,Use of Upper Extremities Comments Mobility Comments completed supine to sit SBA with HOB elevated and pt used bed rail to assist. pt ambulated to chair without AD SBA ~ 5 ft. (+) SOB O2 sat at room air: 96%. pt agreed to ambulate more. sit to stand from chair SBA and ambulated in room without AD SBA ~ 40 ft but pt tends to hold on the bed/counter for support. O2 sat after ambulation 97%. pt requested to go back to bed. completed sit to supine SBA using bed rail to assist. O2 sat checked: 91%. positioned pt in bed. call light and table placed within reach. O2 sat after ~ 30 sec of rest 96% . Gait Assessment Gait Gait Assistance Required: Standby Assistance Distance (Feet) 40 Able to Maintain Weight Bearing Status Yes During Gait Assistive Devices Assistive Device None Orthotic/Prosthetic Devices or Brace: No Gait Deviations General Gait Pattern Antalgic,Wide Based Gait Factors Limiting Gait Function Factors Limiting Gait Function Decreased Activity Tolerance, Respiratory Distress PT-Balance Assessment Sitting Balance and Reactions Static Sitting Balance Ability Normal Dynamic Sitting Balance Ability Normal Standing Balance and Reactions Static Standing Balance Ability Good Dynamic Standing Balance Ability Fair Device Used without AD M5 PT-IP Objective Assessments Start: 04/03/23 15:30 Freq: NEEDED Status: Active Protocol: Document 04/03/23 14:30 AB (Rec: 04/03/23 15:46 AB [id number]) Orientation Orientation/Cognition Level of Alertness Alert Orientation Name,Place,Situation Language Function Ability No Deficits Noted Safety Awareness Understands Safety Issues Memory Description No Deficits Noted Gross Range of Motion Lower Extremity ROM Assessment Within Functional Limits Strength Lower Extremity Strength Assessment Within Functional Limits Other Assessments Other Other Assessments (+) LE edema M6 PT-IP Treatment Start: 04/03/23 15:30 Freq: NEEDED Status: Active Protocol: Document 04/03/23 14:30 AB (Rec: 04/03/23 15:46 AB [email or web address]) Physical Therapy Treatment Education Education Provided Safety M7 PT-IP Assessment and Plan Start: 04/03/23 15:30 Freq: NEEDED Status: Active Protocol: Document 04/03/23 14:30 AB (Rec: 04/03/23 15:46 AB [email or web address]) PT Summary Assessment and Plan Potential Rehabilitation Potential Fair Status of Condition at Evaluation Evolving Summary Impairments Pain,ROM,Strength,Balance, Coordination,Sensation,Bed Mobility,Transfers,Gait, Activity Tolerance Assessment Summary pt admitted for COPD exacerbation. pt requiring SBA with mobility without AD but tends to hold on to counter/rail for support. Will assess safety using SPC when appropriate and will progress towards least restrictive AD or without AD during hospital stay. pt will benefit from further PT to improve overall strength to progress activity tolerance and mobility independence. pt also needs to complete stair climbing training prior to d/c . will continue to assess progress. Goals Bed Mobility Goal Independent Transfer Goal Independent,Cane Gait Goal Independent,Cane Gait Distance 200 Other Goals improve ambulation without AD ~ 300 ft mod I up/down 3 steps L rail ascending mod I Days to Meet Goals 10 Frequency of Treatment Frequency Of Treatment Once a Day Treatment Plan Physical Therapy Treatment Plan Bed Mobility Training,Transfer Training,Gait Training, Therapeutic Exercise,Balance Retraining,Discharge Planning, Hot or Cold Pack,Neuromuscular Re-ed,Coordination Retraining Precautions Other Precautions O2 sat Recommendations To Nursing Amount of Assist Needed 1 Person Assist Discharge Recommendations PT Discharge Recommendations Home with Assistance, Outpatient PT Other Discharge Recommendations may benefit from outpt cardiopulmo rehab Transportation Needs at Discharge Private Vehicle
--- NOTE | 2023-04-03 15:14 | CM.DANOTE ---
Initial DCP Assessment Note 77 yo M admitted INPT for what DR Danielle suspects is an exasperation of patient's COPD Met w/patient this morning to review DCP and address concerns discussed in the chart re Rx coverage through his [facility] Advantage plan Patient w/overall poor activity tolerance ie difficulty gripping cards and making calls, out of breath this visit but can still talk, RT in for breathing treatment at the end of this conversation Patient explains up until a year or so ago, he had Rx coverage through [facility] and then they dropped it w/o his permission in addition to increasing the premium. According to patient, he has been trying to get Rx coverage again but often feels defeated by the wait times on hold and the round about of automated systems Patient can afford to pay $200 mo out of pocket for Rx but cannot afford hundreds of dollars weekly [facility] but [facility] could not get [facility] an appt r/t the COVID pandemic, patient does not want to change his doctor of 20+ years (Shashi) anyway so did not try again Sat with patient as he called the [facility] customer service line and neither this BUSINESS SUPPORT or patient could get past the automated system- no matter how many times we tried and the numbers pressed Back at this BUSINESS SUPPORT's desk, attempted contact on patient's behalf through the provider line P [phone] which led to Pharmacy Coverage Inquiries P [phone] at which point a rep says that a third libertarian cannot sign patient up for Rx services. No additional advice, short cuts or assistance of any kind was offered Overall, no progress made today re Rx coverage. Tomorrow, may be able to call Chastity w/patient at bedside first thing in the AM DAYAN Lanier Discharge Planning/Care Management CM Discharge Assessment Start: 04/03/23 15:03 Freq: Status: Active Protocol: Document 04/03/23 15:03 ROMAN (Rec: 04/03/23 15:14 ROMAN [id number]) Discharge Planning Assessment Assigned [employer] DAYAN Pino DPOA/Assigned Designee Name Son is active duty [employer] [place] and currently deployed Contact Information Mom is 90+ and lives in [facility], [place] Advance Directives? No History Provided By Patient,Medical Record Prior Living Arrangements House Household Members none Type of transportation used prior to Drives own vehicle admit Independent with ADL's Yes: Poor activity tolerance Is patient alert and oriented? Yes Patient/Family Preference Home with Home Health Barriers to Discharge No Comment Patient will return home. Patient has been paying out of pocket for his prescriptions and using a Good Rx coupon card Discharge Plan Home Transportation Arrangement Friend Referrals Initiated None needed
[2023-04-03] MEDS: ATORVASTATIN 20 MG TABLET 40 MG PO (21:11)
[2023-04-04] VITALS (10 sets, daily range): BP systolic 98–133; BP diastolic 48–60; PULSE 60–91; RESP 18–20; TEMP 36.1–36.6; O2SAT 92–97
[2023-04-04] MEDS: methylPREDNISolone 125 MG/2 ML VIAL 60 MG IV ×3 (02:31→17:05)
[2023-04-04 06:12] LABS: INR 1.1 (0.9-1.3)
[2023-04-04 06:20] LABS: Blood Urea Nitrogen 40 mg/dL (9-20); Calcium 8.1 mg/dL (8.4-10.2); Carbon Dioxide 28 mmol/L (22-32); Chloride 102 mmol/L (98-107); Estimated Glomerular Filt Rate 46 mL/min (>60); Glucose 254 mg/dL (80-110); HEMOLYSIS < 15 (0-50); Potassium 4.7 mmol/L (3.4-5.1); Sodium 137 mmol/L (137-145)
--- NOTE | 2023-04-04 07:22 | DI.US.S_ITS ---
PROCEDURE: US THORACENTESIS INDICATIONS: RIGHT PLEURAL EFFUSION - DIAGNOSTIC AND THERAPEUTIC THORA TECHNIQUE: The indications, alternatives, benefits, risks, and complications of the procedure were explained to the patient. Written informed consent was obtained and placed in the chart. The chest was examined sonographically, and an appropriate site was chosen for thoracentesis. The skin was prepared and draped in the usual sterile fashion, and 1% lidocaine was infiltrated from the skin down through the pleural surface. A 19-gauge catheter-covered needle was then introduced into the pleural space, the catheter was advanced and the needle was withdrawn, and thereafter pleural fluid was aspirated. The catheter was then removed and a dressing was applied. COMPARISON: None. FINDINGS: Access site: Right hemithorax. Needle: One-Step centesis catheter with introducer needle. Fluid volume and description: 1225 cc of dark reddish fluid Fluid sent for diagnostic testin cc were sent. Medications: 1% lidocaine for local anaesthesia. Complications: None; post-procedural chest radiograph is pending to assess for pneumothorax. IMPRESSION: Successful ultrasound-guided thoracentesis. Dictated by: Bong Santacruz M.D. on 04/04/2023 at 13:09 Approved by: Bong Santacruz M.D. on 04/04/2023 at 13:13
--- NOTE | 2023-04-04 07:23 | DI.RAD.S_ITS ---
PROCEDURE: XR CHEST 1V INDICATIONS: post-thoracentesis TECHNIQUE: One view of the chest was acquired. COMPARISON: [facility], CR, XR CHEST 1V, 04/02/2023, 15:30. FINDINGS: Surgical changes and devices: Left-sided cardiac pacer device is in place. Lungs and pleura: Interval decrease in size of right pleural effusion now moderate in size. Associated compressive atelectasis. No pneumothorax seen. Redemonstration of minimal patchy left basilar opacities. Mediastinum: Mediastinal contours appear normal. Heart size is normal. Bones and chest wall: No suspicious bony lesions. Overlying soft tissues appear unremarkable. IMPRESSION: Interval decrease in size of right pleural effusion status post thoracentesis. No pneumothorax seen. Dictated by: Lobo Bhakta M.D. on 04/04/2023 at 10:48 Approved by: Lobo Bhakta M.D. on 04/04/2023 at 10:49
--- NOTE | 2023-04-04 07:23 | PATH_ITS ---
Note [facility] Accession Number: [id number] TESTS RESULT FLAG UNITS REF RANGE LAB Clinician Provided Cytology Information No. of containers..02 Other (Miscellaneous) Source: PLEURAL FLUID DIAGNOSIS: 01 PLEURAL FLUID NEGATIVE FOR MALIGNANT CELLS. THIS INTERPRETATION INCLUDES EVALUATION OF A CELL BLOCK. Pathologist ICD10: J90 Signed out by: Cherie Lyles MD, Pathologist NPI- [id number] Performed by: Rashaad Urbano, Electrical Development Engineer ([facility]) Gross description: 95 CC, RED, CLOUDY RECEIVED: FRESH IN TWO ORANGE CAP CONTAINERS.VO /VDU 04/08/2023 0654 Local FLAG LEGEND: L-Low Normal,H-High Normal,LL-Alert Low,HH-Alert High <-Panic Low,>-Panic High,A-Abnormal,AA-Critical Abnormal Performed at: 01 =Z [facility] [address], [place] [address] Carloz Middleton MD, Performed at: 01 [facility] [address], [place], [place] [id number] MD Carloz Middleton MD Phone: [phone]
[2023-04-04] MEDS: ALBUTEROL/IPRATROPIUM 3 ML AMPUL INH ×3 (07:46→18:14)
--- NOTE | 2023-04-04 07:50 | P.PN_ITS ---
Subjective Subjective Date Patient Seen: 04/04/23 Time Patient Seen: 07:40 Interval history: Patient says he feels like ?crap ?. Said he began to go downhill overnight. Admits that his breathing is better than it was yesterday. Admits that his swelling in his feet are better than they were yesterday although feels like they are worse now than they were in the middle of the night. Has a tiny headache feels queasy in his stomach. No other more specific sy mptoms Still with some right upper quadrant pain discomfort Patient this morning is minimally hypotensive in somewhat more tachycardic although still a sinus rhythm with frequent PACs on telemetry Exam Vital Signs (past 8 hours): - 04/04/23 01:55 04/04/23 03:46 Temperature 97.0 F L Pulse Rate 91 H Respiratory Rate 18 Blood Pressure 120/56 L 98/48 L Pulse Oximetry 94 Oxygen Flow Rate 0 Fraction of Inspired Oxygen 21 SaO2/FiO2 Ratio 447 Oxygen Delivery Method Room Air Oxygen Flow Rate 0 Objective Labs 04/02/23 15:00 04/04/23 05:30 Labs: Laboratory Results - last 24 hr 04/04/23 04/04/23 05:30 05:30 PT 13.0 H INR 1.1 Sodium 137 Potassium 4.7 Chloride 102 Carbon Dioxide 28 BUN 40 H Creatinine 1.54 H Estimated GFR 46 L BUN/Creatinine Ratio 26.0 H Glucose 254 H D Calcium 8.1 L Magnesium 2.0 PFSH Medical History (Updated 04/03/23 @ 06:50 by Nura Danielle MD) Aortic stenosis Atrial fibrillation (03/30/15) Cardiomyopathy (~03/2018) COPD (chronic obstructive pulmonary disease) Coronary artery disease (~03/2018) Hypertension (05/30/15) Tachy-ama syndrome Type 2 diabetes mellitus with hyperglycemia, without long-term current use of insulin Type 2 diabetes mellitus without complication (05/01/15) Surgical History H/O heart artery stent (~03/2018) S/P cardiac pacemaker procedure (~09/2018) Social History household members: none Smoking Status: Former smoker alcohol intake: never Assessment & Plan Assessment & Plan narrative: 1. Respiratory-patient I still think is mostly a COPD exacerbation and should continue on parental steroids as well as frequent nebulizers and oxygen as necessary although is not currently have an oxygen requirement. His right-sided effusion is worse than it was back in February month ago. I am not convinced given lack of findings with his heart that that is due to congestive heart failure alone. Therefore I think we need least a diagnostic thoracentesis in effort to better delineate potential causes up to and including malignancy. I discussed this with patient and he understands that will be getting a sample and at the same time draining as much fluid as we can (however the CT suggest loculated fluid which will make it difficult to fully drain this). All be looking for infection evidence that this is merely congestive heart failure or of course evidence of a more serious condition such as malignancy. Patient asked again about antibiotic therapy at thus far there is really no clinical indication for antibiotics. I would hold off on antibiotic therapy until after his thoracentesis but would consider that there is some evidence out there in the literature that COPD exacerbations do indeed improve when treated with antibiotic therapy in addition to corticosteroids. 2. Diabetes-blood sugars are better controlled with the long-acting plus advanced dosing of the short-acting coverage insulin. Continue with current insulin therapies as well as patient's oral meds and a carb consistent diet 3. Cardiac-patient in sinus rhythm somewhat tachycardic with frequent PACs. Basically this is his baseline rhythm. Continue sotalol but given his modest hypotension normal left ventricular function on echo done last month I am going to discontinue the losartan altogether but continue with sotalol for now. 4. Electrolytes/renal-patient's creatinine is relatively stable despite the somewhat aggressive diuresis. I am going to back off a bit on the Lasix given the modest hypotension and this tiny bump in his creatinine. Continue to monitor carefully. Thus far patient does not require electrolyte replacement. 5. Social-patient working with Care management staff to try and figure out his outpatient prescription drug coverage. Obviously he is going to require outpatient drug coverage in the future and needs to get signed up with that [facility]. Still seems to me that patient is covered under Medicare advantage plan that does not have a part D aspect to it but appreciate assistance from care management staff. Quality VTE Deep Vein Thrombosis/Pulmonary Embolism Present on Admission: No
[2023-04-04] MEDS: INSULIN GLARGINE 100 UNIT/ML 3ML PEN 30 UNIT SUBCUT (08:05)
[2023-04-04] MEDS: INSULIN LISPRO 100 UNIT/ML 3ML VIAL SUBCUT ×3 (08:08→16:59)
[2023-04-04] MEDS: glipiZIDE 5 MG TABLET 10 MG PO ×2 (08:42→22:41)
[2023-04-04] MEDS: FUROSEMIDE 40 MG/4 ML VIAL IV (08:45)
[2023-04-04] MEDS: MULTIVITAMIN 1 TABLET 1 TAB PO (08:48)
[2023-04-04] MEDS: SOTALOL 80 MG TABLET 120 MG PO ×2 (08:48→22:30)
[2023-04-04] MEDS: ENOXAPARIN 40 MG/0.4 ML SYRINGE SUBCUT (08:48)
[2023-04-04] MEDS: ASPIRIN EC 81 MG TABLET PO (08:49)
[2023-04-04] MEDS: DOCUSATE 100 MG CAPSULE PO ×2 (08:49→22:28)
[2023-04-04] MEDS: METFORMIN HCL 500 MG TABLET 1000 MG PO ×2 (08:49→17:05)
--- NOTE | 2023-04-04 10:35 | PC.NURSE ---
Day shift: Thoracentesis done at bedside with MD Santacruz and test lab technician. Patient tolerated procedure and samples collected by .
--- NOTE | 2023-04-04 11:05 | PT-IP ANOTE ---
Patient just returned from thoracentesis, stated he had been up in chair most of the morning, and had a restless night. Patient requested to rest prior to PT; will attempt this afternoon.
[2023-04-04 12:10] LABS: Body Fluid Red Blood Cells 132803 /uL; Body Fluid Tot Nucleated Cells 3778 /uL
[2023-04-04 12:17] LABS: Body Fluid Appearance CLOUDY; Body Fluid Color RED
[2023-04-04 12:18] LABS: Body Fluid Clotted? NO CLOTS PRESENT
[2023-04-04 12:56] LABS: Eosinophils Body Fluid 2 %; Mononuclear WBC Body Fluid 96 %; Polynuclear WBC Body Fluid 2 %
--- NOTE | 2023-04-04 13:34 | PT-IP ANOTE ---
Per nursing pt is resting and is not appropriate at this time. May attempt to see later in afternoon.
--- NOTE | 2023-04-04 15:11 | CM.DPNOTE ---
Addendum entered by DAYAN Mcknight 04/04/23 15:22: ADD: Meanwhile, patient will need to continue to use [facility] and pay out of pocket for any prescription needs. Patient has [facility] in [place] as his pharmacy. [facility] may offer more competitive pricing (?) Original Note: DCP Note Worked on insurance coordination w/patient at his bedside throughout the morning. Inevitably, patient advised that he can not change his plan outside of open enrollment which is Aug-Oct. Advocated on patient's behalf while on the phone w/[employer] and was denied an exception to the rule Patient feeling defeated. Says he tried during open enrollment and spent days trying to figure insurance options out w/[employer]. Patient asks that [facility] be [facility] to see what it would take to get Rx coverage Patient would benefit from in person assist, as this LAST CODE STRIPER provided today, w/calls to insurance co. Son is deployed and DIL recently had a baby Placed call to [facility]; learned that patient is not enrolled in [place] [facility] and would need to establish w/a provider by calling the [facility] According to admitting team, no longer has a SHIBA (MCR plan assistance) rep. Attempted to return to patient's room to discuss and encourage him to visit the [facility] at [address] for in person assistance once [facility] open enrollment comes again; patient sleeping soundly and nursing requests no interruptions at this time Plan: Discharge home (r/o need for HH) when medically ready. Need to encourage patient to utilize in person services at [facility] or other (?) to be prepared for open enrollment in the Fall 2022 ROMAN
--- NOTE | 2023-04-04 15:37 | PC.NURSE ---
Day shift: RN at Dr Danielle office informed and was asked to pass this information along to Dr Danielle regarding Pt being tachycardic and then pacemaker making HR 70 at this time. Pt denies any chest pain or chest discomfort. ICU/teletype or varitype keyboard operator Swati watching tele and will continue to monitor. Awaiting new orders or call from Dr Danielle at this time 1540.
--- NOTE | 2023-04-04 16:00 | PT.IPTN ---
Current Diagnoses Chronic obstructive pulmonary disease with (acute) exacerbation (04/02/23) Physical Therapy Treatment Note M2 PT-IP Current Condition Start: 04/03/23 15:30 Freq: NEEDED Status: Active Protocol: Document 04/03/23 14:30 AB (Rec: 04/03/23 15:46 AB [id number]) Physical Therapy Current Condition Current Condition Evaluation Date 04/03/23 Treatment Diagnosis COPD exacerbation; difficulty in walking Onset Date 04/02/23 M3 PT-IP Subjective Start: 04/03/23 15:30 Freq: NEEDED Status: Active Protocol: Document 04/04/23 16:18 TS (Rec: 04/04/23 16:31 TS [id number]) Subjective Physical Therapy Visit Type Type Treatment Note Visit Start Time 16:00 Visit Stop Time 16:17 Total Visit Minutes 17 Number of SALES SUPPORT REPRESENTATIVE Visits 1 Physical Therapy Visit Comments Patient Comments Pt reports his breahting has improved, feels he has more energy but his stamina is low. M4 PT-IP Mobility and Gait Start: 04/03/23 15:30 Freq: NEEDED Status: Active Protocol: Document 04/04/23 16:18 TS (Rec: 04/04/23 16:31 TS [id number]) PT-Bed Mobility Assessment Supine to Sit Supine to Sit Standby Assistance,Head of Bed Elevated,Bedrails Sit to Supine Sit to Supine Standby Assistance,Head of Bed Elevated,Bedrails Scooting Scooting to Edge of Bed Standby Assistance PT-Transfer Assessment Sit to and From Stand Sit to and from Stand Standby Assistance Equipment Transfer Assistive Device None Orthotic/Prosthetic Devices or Brace: No Comments Mobility Comments Pt found resting in bed, agreeable to PT session. Supine to sit SBA with HOB elevated 30D, BUE support. Sit to stand no AD with BUE suppport on knees, no LOB. Pt ambulated in hallway no AD SBA with occasional wall support for balance, normal stride length and height, no buckling or LOB but c/o SOB, required ~1 min rest break to recover. Stairs x6 step over step SBA with BUE support. Pt was left sitting EOB with nursing in room. Gait Assessment Gait Gait Assistance Required: Standby Assistance Distance (Feet) 300 Able to Maintain Weight Bearing Status Yes During Gait Assistive Devices Assistive Device None Orthotic/Prosthetic Devices or Brace: No Gait Deviations General Gait Pattern Antalgic,Wide Based Gait Factors Limiting Gait Function Factors Limiting Gait Function Decreased Activity Tolerance, Respiratory Distress Comments Gait Comments See mobility comments. Stair Climbing Assessment Evaluation Level of Assist On Stairs Standby Assistance Devices Stair Climbing Assistive Devices Left Railing,Right Railing Technique/Endurance Stair Climbing Direction Ascend and Descend Stair Climbing Technique Step Over Step Number of Steps Climbed 6 Comments Stair Climbing Comments See mobility comments. PT-Balance Assessment Sitting Balance and Reactions Static Sitting Balance Ability Normal Dynamic Sitting Balance Ability Normal Standing Balance and Reactions Static Standing Balance Ability Good Dynamic Standing Balance Ability Fair Device Used without AD M5 PT-IP Objective Assessments Start: 04/03/23 15:30 Freq: NEEDED Status: Active Protocol: Document 04/03/23 14:30 AB (Rec: 04/03/23 15:46 AB [id number]) Orientation Orientation/Cognition Level of Alertness Alert Orientation Name,Place,Situation Language Function Ability No Deficits Noted Safety Awareness Understands Safety Issues Memory Description No Deficits Noted Gross Range of Motion Lower Extremity ROM Assessment Within Functional Limits Strength Lower Extremity Strength Assessment Within Functional Limits Other Assessments Other Other Assessments (+) LE edema M6 PT-IP Treatment Start: 04/03/23 15:30 Freq: NEEDED Status: Active Protocol: Document 04/04/23 16:18 TS (Rec: 04/04/23 16:31 TS [id number]) Physical Therapy Treatment Education Education Provided Safety M7 PT-IP Assessment and Plan Start: 04/03/23 15:30 Freq: NEEDED Status: Active Protocol: Document 04/04/23 16:18 TS (Rec: 04/04/23 16:31 TS [id number]) PT Summary Assessment and Plan Potential Rehabilitation Potential Fair Summary Impairments Pain,ROM,Strength,Balance, Coordination,Sensation,Bed Mobility,Transfers,Gait, Activity Tolerance Assessment Summary Pt continues to require SBA for all mobility. He progressed his gait to ~300' SBA with no AD, does require occasional use of wall support for balance on R side. Pt became SOB after ~100' of ambulation, required standing rest break to recover. He progresed his stairs x6 SBA with BUE handrails. Pt o2 stayed in low 90's with mobility, increased to mid- high 90's when at rest. PT recommends return home with assist when medically stable. Pt could benefit from outpatient therapy to increase activity tolerance and overall stamina. Goals Bed Mobility Goal Independent Transfer Goal Independent,Cane Gait Goal Independent,Cane Gait Distance 200 Other Goals improve ambulation without AD ~ 300 ft mod I up/down 3 steps L rail ascending mod I Days to Meet Goals 10 Frequency of Treatment Frequency Of Treatment Once a Day Treatment Plan Physical Therapy Treatment Plan Bed Mobility Training,Transfer Training,Gait Training, Therapeutic Exercise,Balance Retraining,Discharge Planning, Hot or Cold Pack,Neuromuscular Re-ed,Coordination Retraining Precautions Other Precautions O2 sat Recommendations To Nursing Amount of Assist Needed Standby Assistance Discharge Recommendations PT Discharge Recommendations Home with Assistance, Outpatient PT Other Discharge Recommendations may benefit from outpt cardiopulmo rehab Transportation Needs at Discharge Private Vehicle
--- NOTE | 2023-04-04 16:27 | DIET.PN1 ---
Dietary Progress Note Assessment: RD screening for hyperglycemia and asked by CM to see pt due to diabetes. Candelario continues with hyperglycemia with recent readings mostly above 250 mg/dl. RD and pharmacy discussed potential for increasing insulin regimen. Candelario reports well managed DM prior to steroid tx. States all his BG issues started in October when he was dx with RSV and needed steroid tx. Per provider notes, potential for home insulin. After discussion, Candelario is open to this. States he has never checked his BG at home before. RD to provide meter today. Reports three meals per day. Some dinners high in carbs due to pasta portions provided by daughter, who lives next door. Also endorses reduced phys activity since RSV. Avoids sugar drinks, ice cream, white bread. States he really thinks hyperglycemia is from steroid tx alone. Home DM meds: Metformin 1000mg BID and Glipizide 10mg BID. Recent HgA1c down to 8.1% from 9.2% last month. Barrier to DM management is rx insurance coverage. If he does not have med coverage, might benefit from NPH rx to be filled at [facility]. Can also obtain testing supplies at [facility] or online for more affordable options. Ht: 180.34 cm Wt: 127.5 kg BMI: 39.6 Last BM: 04/02/23 (04/02/23 20:12) MNA: 13 Karl Score: 18 Diet: 04/02/23 Dinner Low Sodium Diet (2gm) Diet Modifications: Nutrition Percent Meal Consumed 100% 04/04/23 08:58 Percent Meal Consumed 100% 04/03/23 18:00 Percent Meal Consumed 100% 04/03/23 13:00 Labs: RBC 3.93 X10^6/uL (4.5-5.9) L 04/02/23 15:00 Hgb 12.1 g/dL (13.5-17.5) L 04/02/23 15:00 Hct 35.6 % (41-53) L 04/02/23 15:00 Creatinine 1.54 mg/dL (0.66-1.25) H 04/04/23 05:30 NT-Pro-B Natriuret Pep 478 pg/mL (<450) H 04/03/23 02:50 Nutrition Diagnosis: Altered nutrition related lab value r/t steroid tx, excessive CHO at dinner aeb HgA1c of 8.1%, BG >250mg/dl, diet recall and pt report Interventions: diabetes education: affordable insulin and SMBG options, nutrition recs (Plate Method), provided meter/supplies for 10 days Rec continued titration of long acting HS insulin until morning FBG are <180mg/dl EER: CCD 45g/meal Monitoring/Evaluations: Rec OP diabetes ed, which is covered by his MCR part B. Provided OP DSME contact info. Electronically Signed by: Toya Rabago 04/04/23 16:27 Clinical Diet[address] [address]
[2023-04-04] MEDS: ATORVASTATIN 20 MG TABLET 40 MG PO (22:28)
[2023-04-04] MEDS: INSULIN GLARGINE 100 UNIT/ML 3ML PEN 15 UNIT SUBCUT (22:30)
[2023-04-05] VITALS (9 sets, daily range): BP systolic 113–139; BP diastolic 45–61; PULSE 61–75; RESP 17–20; TEMP 36.3–36.4; O2SAT 93–96
[2023-04-05] MEDS: methylPREDNISolone 125 MG/2 ML VIAL 60 MG IV ×3 (01:01→18:15)
--- NOTE | 2023-04-05 06:10 | PC.NURSE ---
A&OX4, able to make needs known. Pt rested comfortably on RA through the night, offered breathing treatment @~2300 and pt refused stating that he is breathing so much better he didn't feel like he needed it. VSS Thoracentesis site on Right lower back band aid remained CDI through shift.
[2023-04-05] MEDS: ALBUTEROL/IPRATROPIUM 3 ML AMPUL INH ×3 (07:33→20:23)
[2023-04-05 07:35] LABS: Add Manual Diff / Slide Review NO; Basophils Absolute Auto 0 /uL (0-100); Basophils Percent Auto 0.1 % (0-2); Eosinophils Absolute Auto 0 /uL (0-450); Hematocrit 33.7 % (41-53); Hemoglobin 11.3 g/dL (13.5-17.5); Lymphocytes Absolute Auto 600 /uL (1100-4500); Lymphocytes Percent Auto 3.5 % (25-40); Mean Corpuscular HGB Conc 33.6 % (30-36); Mean Corpuscular Volume 89.2 fL (80-100); Monocytes Absolute Auto 600 /uL (0-900); Monocytes Percent Auto 3.5 % (3-14); Neutrophils Absolute Auto 15800 /uL (1500-7000); Neutrophils Percent Auto 92.9 % (50-75); Platelet Count 246 X10^3/uL (150-400); Red Blood Cell Count 3.78 X10^6/uL (4.5-5.9); Red Cell Distribution Width 15.6 % (11.6-14.8); White Blood Cell Count 16.9 X10^3/uL (4.5-11.0)
[2023-04-05 07:51] LABS: BUN Creatinine Ratio 32.1 (6-22); Blood Urea Nitrogen 44 mg/dL (9-20); Carbon Dioxide 26 mmol/L (22-32); Chloride 101 mmol/L (98-107); Estimated Glomerular Filt Rate 53 mL/min (>60); Glucose 225 mg/dL (80-110); HEMOLYSIS < 15 (0-50); Potassium 4.7 mmol/L (3.4-5.1); Sodium 136 mmol/L (137-145)
[2023-04-05 07:59] LABS: NT-proBNP (BNP-Adult 18+) 669 pg/mL (<450)
[2023-04-05] MEDS: INSULIN GLARGINE 100 UNIT/ML 3ML PEN 30 UNIT SUBCUT (08:20)
[2023-04-05] MEDS: INSULIN LISPRO 100 UNIT/ML 3ML VIAL SUBCUT ×3 (08:20→16:53)
[2023-04-05] MEDS: SOTALOL 80 MG TABLET 120 MG PO ×2 (08:31→20:31)
[2023-04-05] MEDS: ASPIRIN EC 81 MG TABLET PO (08:31)
[2023-04-05] MEDS: METFORMIN HCL 500 MG TABLET 1000 MG PO ×2 (08:32→16:52)
[2023-04-05] MEDS: MULTIVITAMIN 1 TABLET 1 TAB PO (08:32)
[2023-04-05] MEDS: DOCUSATE 100 MG CAPSULE PO (08:32)
[2023-04-05] MEDS: ENOXAPARIN 40 MG/0.4 ML SYRINGE SUBCUT (08:33)
[2023-04-05] MEDS: FUROSEMIDE 40 MG/4 ML VIAL IV (08:38)
[2023-04-05] MEDS: glipiZIDE 5 MG TABLET 10 MG PO ×2 (08:49→20:47)
--- NOTE | 2023-04-05 10:00 | PT.IPTN ---
Current Diagnoses Chronic obstructive pulmonary disease with (acute) exacerbation (04/02/23) Physical Therapy Treatment Note M2 PT-IP Current Condition Start: 04/03/23 15:30 Freq: NEEDED Status: Active Protocol: Document 04/03/23 14:30 AB (Rec: 04/03/23 15:46 AB [id number]) Physical Therapy Current Condition Current Condition Evaluation Date 04/03/23 Treatment Diagnosis COPD exacerbation; difficulty in walking Onset Date 04/02/23 M3 PT-IP Subjective Start: 04/03/23 15:30 Freq: NEEDED Status: Active Protocol: Document 04/05/23 10:24 TS (Rec: 04/05/23 10:31 TS [id number]) Subjective Physical Therapy Visit Type Type Treatment Note Visit Start Time 10:00 Visit Stop Time 10:15 Total Visit Minutes 15 Number of GLOBAL COORDINATOR Visits 2 Physical Therapy Visit Comments Patient Comments Pt reports being up in room pacing back and forth for last hour, agreeable to PT. M4 PT-IP Mobility and Gait Start: 04/03/23 15:30 Freq: NEEDED Status: Active Protocol: Document 04/05/23 10:24 TS (Rec: 04/05/23 10:31 TS [id number]) PT-Transfer Assessment Sit to and From Stand Sit to and from Stand Standby Assistance Equipment Transfer Assistive Device None Orthotic/Prosthetic Devices or Brace: No Comments Mobility Comments Pt found resting sitting EOB, agreeable to PT. Pt performed sit to stand no AD SBA with BUE handrail support. He ambulated in hallway ~300' SBA no AD with occasional support from wall and rest x30 secs for SOB, pt Spo2 remained low to mid 90's throughout session . Pt did not want to attempt stairs this session, felt too fatigued. Pt was left back in bed with call light nearby, all needs met. Gait Assessment Gait Gait Assistance Required: Standby Assistance Distance (Feet) 300 Able to Maintain Weight Bearing Status Yes During Gait Assistive Devices Assistive Device None Orthotic/Prosthetic Devices or Brace: No Gait Deviations General Gait Pattern Antalgic,Wide Based Gait Factors Limiting Gait Function Factors Limiting Gait Function Decreased Activity Tolerance, Respiratory Distress Comments Gait Comments Needs occasional wall support for balance and for rest break x30 secs. Stair Climbing Assessment Comments Stair Climbing Comments Did not attempt this session, was too fatigued. PT-Balance Assessment Sitting Balance and Reactions Static Sitting Balance Ability Normal Dynamic Sitting Balance Ability Normal Standing Balance and Reactions Static Standing Balance Ability Good Dynamic Standing Balance Ability Fair Device Used without AD M5 PT-IP Objective Assessments Start: 04/03/23 15:30 Freq: NEEDED Status: Active Protocol: Document 04/03/23 14:30 AB (Rec: 04/03/23 15:46 AB [id number]) Orientation Orientation/Cognition Level of Alertness Alert Orientation Name,Place,Situation Language Function Ability No Deficits Noted Safety Awareness Understands Safety Issues Memory Description No Deficits Noted Gross Range of Motion Lower Extremity ROM Assessment Within Functional Limits Strength Lower Extremity Strength Assessment Within Functional Limits Other Assessments Other Other Assessments (+) LE edema M6 PT-IP Treatment Start: 04/03/23 15:30 Freq: NEEDED Status: Active Protocol: Document 04/05/23 10:24 TS (Rec: 04/05/23 10:31 TS [id number]) Physical Therapy Treatment Education Education Provided Safety M7 PT-IP Assessment and Plan Start: 04/03/23 15:30 Freq: NEEDED Status: Active Protocol: Document 04/05/23 10:24 TS (Rec: 04/05/23 10:31 TS [id number]) PT Summary Assessment and Plan Potential Rehabilitation Potential Fair Summary Impairments Pain,ROM,Strength,Balance, Coordination,Sensation,Bed Mobility,Transfers,Gait, Activity Tolerance Progress Towards Goals Progressing Toward Goals Assessment Summary Pt continues to require SBA for all mobility. He continues to ambulate ~300' SBA with no AD, does require occasional use of wall support for balance on R side. Pt became SOB after ~100' of ambulation, required standing x30 secs rest break to recover. Pt not able to perform stairs today due to fatigue/SOB Pt o2 stayed in low 90's with mobility, increased to mid- high 90's when at rest. PT recommends return home with assist when medically stable. Pt could benefit from outpatient therapy to increase activity tolerance and overall stamina. Goals Bed Mobility Goal Independent Transfer Goal Independent,Cane Gait Goal Independent,Cane Gait Distance 200 Other Goals improve ambulation without AD ~ 300 ft mod I up/down 3 steps L rail ascending mod I Days to Meet Goals 10 Frequency of Treatment Frequency Of Treatment Once a Day Treatment Plan Physical Therapy Treatment Plan Bed Mobility Training,Transfer Training,Gait Training, Therapeutic Exercise,Balance Retraining,Discharge Planning, Hot or Cold Pack,Neuromuscular Re-ed,Coordination Retraining Precautions Other Precautions O2 sat Recommendations To Nursing Amount of Assist Needed Standby Assistance Discharge Recommendations PT Discharge Recommendations Home with Assistance, Outpatient PT Other Discharge Recommendations may benefit from outpt cardiopulmo rehab Transportation Needs at Discharge Private Vehicle
--- NOTE | 2023-04-05 10:02 | PM.PN.1 ---
Subjective Subjective Date Patient Seen: 04/05/23 Time Patient Seen: 10:02 Interval history: Patient seen in follow-up of respiratory failure and right-sided effusion. Congestive heart failure and uncontrolled diabetes. Patient overall is feeling a little better today. Still feeling very weak and very short of breath. But no other changes. No chest pain. Feels like his lung is a little better cough is improved. Otherwise no change. Exam Vital Signs (past 8 hours): - 04/05/23 05:00 04/05/23 07:34 04/05/23 08:08 Temperature 97.5 F L 97.5 F L Pulse Rate 61 72 61 Respiratory Rate 18 18 18 Blood Pressure 116/52 L 114/54 L Pulse Oximetry 96 94 94 Oxygen Delivery Method Room Air Oxygen Flow Rate 0 04/05/23 09:18 Temperature Pulse Rate Respiratory Rate Blood Pressure Pulse Oximetry Oxygen Delivery Method Room Air Oxygen Flow Rate Fraction of Inspired Oxygen 21 SaO2/FiO2 Ratio 447 Oxygen Delivery Method Room Air Oxygen Flow Rate 0 Narrative Exam Narrative: Alert elderly male in no acute distress breathing frequently was standing next to bed Mucous membranes moist. Lungs actually sound pretty good. Heart regular rate and rhythm extremities with 2+ edema Objective Labs 04/05/23 06:50 04/05/23 06:30 Labs: Laboratory Results - last 24 hr 04/04/23 04/04/23 04/04/23 09:30 09:30 09:30 WBC RBC Hgb Hct MCV MCH MCHC RDW Plt Count Neut % (Auto) Lymph % (Auto) [place] % (Auto) Eos % (Auto) Baso % (Auto) Neut # (Auto) Lymph # (Auto) [place] # (Auto) Eos # (Auto) Baso # (Auto) Sodium Potassium Chloride Carbon Dioxide BUN Creatinine Estimated GFR BUN/Creatinine Ratio Glucose Calcium Magnesium NT-Pro-B Natriuret Pep Fluid Color Fluid Appearance Fluid RBC Fld Tot Nucleated Cell Fluid Polynuclear WBCs Fluid Mononuclear WBCs Fluid Eosinophils Fluid Other Cells Body Fluid Clot Ref Test (Refrig) Comment Comment Comment 04/04/23 04/04/23 04/05/23 09:30 09:30 06:30 WBC RBC Hgb Hct MCV MCH MCHC RDW Plt Count Neut % (Auto) Lymph % (Auto) [place] % (Auto) Eos % (Auto) Baso % (Auto) Neut # (Auto) Lymph # (Auto) [place] # (Auto) Eos # (Auto) Baso # (Auto) Sodium 136 L Potassium 4.7 Chloride 101 Carbon Dioxide 26 BUN 44 H Creatinine 1.37 H Estimated GFR 53 L BUN/Creatinine Ratio 32.1 H Glucose 225 H Calcium 8.0 L Magnesium 2.0 NT-Pro-B Natriuret Pep 669 H Fluid Color Red Fluid Appearance Cloudy Fluid RBC 350555 Fld Tot Nucleated Cell 3778 Fluid Polynuclear WBCs 2 Fluid Mononuclear WBCs 96 Fluid Eosinophils 2 Fluid Other Cells Not Reportable Body Fluid Clot No clots present Ref Test (Refrig) Comment 04/05/23 06:50 WBC 16.9 H RBC 3.78 L Hgb 11.3 L Hct 33.7 L MCV 89.2 MCH 30.0 MCHC 33.6 RDW 15.6 H Plt Count 246 Neut % (Auto) 92.9 H Lymph % (Auto) 3.5 L [place] % (Auto) 3.5 Eos % (Auto) 0.0 L Baso % (Auto) 0.1 Neut # (Auto) 40446 H Lymph # (Auto) 600 L [place] # (Auto) 600 Eos # (Auto) 0 Baso # (Auto) 0 Sodium Potassium Chloride Carbon Dioxide BUN Creatinine Estimated GFR BUN/Creatinine Ratio Glucose Calcium Magnesium NT-Pro-B Natriuret Pep Fluid Color Fluid Appearance Fluid RBC Fld Tot Nucleated Cell Fluid Polynuclear WBCs Fluid Mononuclear WBCs Fluid Eosinophils Fluid Other Cells Body Fluid Clot Ref Test (Refrig) [facility] Medical History (Updated 04/03/23 @ 06:50 by Nura Danielle MD) Aortic stenosis Atrial fibrillation (03/30/15) Cardiomyopathy (~03/2018) COPD (chronic obstructive pulmonary disease) Coronary artery disease (~03/2018) Hypertension (05/30/15) Tachy-ama syndrome Type 2 diabetes mellitus with hyperglycemia, without long-term current use of insulin Type 2 diabetes mellitus without complication (05/01/15) Surgical History H/O heart artery stent (~03/2018) S/P cardiac pacemaker procedure (~09/2018) Social History household members: none Smoking Status: Former smoker alcohol intake: never Assessment & Plan Assessment & Plan narrative: Congestive heart failure. Acute on chronic. Left ventricular. Still having some edema. Still having a lot of dyspnea. But oxygenating well. Diuresis seems to be going pretty well. Will recheck lytes in the morning. Continue IV and probable switch to oral Lasix a.m.. COPD exacerbation with effusion. Maybe slightly better today. Continue IV steroids. Does not appear to be infected will follow cultures on effusion but at this point no antibiotics. Will continue current care with inhalers and switch to oral tomorrow. Poorly controlled diabetes. Blood sugars are improved. Mostly this is secondary to his steroids. Seems to be doing well with current coverage. Will need to follow. May need to go home on insulin. Patient very worried about that. Will need to do some education around that. Electrolyte abnormality. Overall stable but will recheck in a.m.. Social as per care management. Currently no change today. Disposition. Will be slow change. Expect Friday or Friday. Quality VTE Deep Vein Thrombosis/Pulmonary Embolism Present on Admission: No
[2023-04-05] MEDS: MAGNESIUM HYDROXIDE 30 ML UDC PO (10:58)
--- NOTE | 2023-04-05 11:34 | PC.NURSE ---
Day shift: Dr Vázquez informed of Pt's run of Vtach and Pt returned to NSR as his pacemaker adjusted rate. Pt on a beta sekou and MD aware. No new medication orders at this time.
[2023-04-05] MEDS: ATORVASTATIN 20 MG TABLET 40 MG PO (20:33)
[2023-04-05] MEDS: INSULIN GLARGINE 100 UNIT/ML 3ML PEN 15 UNIT SUBCUT (20:49)
[2023-04-06] VITALS (8 sets, daily range): BP systolic 115–138; BP diastolic 45–68; PULSE 60–68; RESP 16–20; TEMP 36.1–36.9; O2SAT 92–96
[2023-04-06] MEDS: ALBUTEROL/IPRATROPIUM 3 ML AMPUL INH ×6 (00:04→22:55)
[2023-04-06] MEDS: methylPREDNISolone 125 MG/2 ML VIAL 60 MG IV ×3 (00:41→17:42)
[2023-04-06 06:53] LABS: Alanine Aminotransferase 28 IU/L (<50); Albumin 3.2 g/dL (3.5-5.0); Albumin Globulin Ratio 1.1 (1.0-2.8); Alkaline Phosphatase 51 U/L (38-126); Aspartate Aminotransferase 18 IU/L (17-59); BUN Creatinine Ratio 34.5 (6-22); Bilirubin Total 0.2 mg/dL (0.2-1.3); Blood Urea Nitrogen 48 mg/dL (9-20); Calcium 7.9 mg/dL (8.4-10.2); Carbon Dioxide 27 mmol/L (22-32); Chloride 101 mmol/L (98-107); Estimated Glomerular Filt Rate 53 mL/min (>60); Globulin 2.8 g/dL (1.7-4.1); Glucose 189 mg/dL (80-110); HEMOLYSIS < 15 (0-50); Potassium 4.6 mmol/L (3.4-5.1); Sodium 135 mmol/L (137-145)
[2023-04-06] MEDS: SOTALOL 80 MG TABLET 120 MG PO ×2 (08:24→20:38)
[2023-04-06] MEDS: MULTIVITAMIN 1 TABLET 1 TAB PO (08:25)
[2023-04-06] MEDS: ASPIRIN EC 81 MG TABLET PO (08:25)
[2023-04-06] MEDS: METFORMIN HCL 500 MG TABLET 1000 MG PO ×2 (08:25→17:41)
[2023-04-06] MEDS: ENOXAPARIN 40 MG/0.4 ML SYRINGE SUBCUT (08:26)
[2023-04-06] MEDS: glipiZIDE 5 MG TABLET 10 MG PO ×2 (08:26→20:39)
[2023-04-06] MEDS: INSULIN LISPRO 100 UNIT/ML 3ML VIAL SUBCUT ×3 (08:29→17:01)
[2023-04-06] MEDS: INSULIN GLARGINE 100 UNIT/ML 3ML PEN 30 UNIT SUBCUT (08:30)
[2023-04-06] MEDS: FUROSEMIDE 40 MG/4 ML VIAL IV (08:34)
--- NOTE | 2023-04-06 09:32 | PT.IPTN ---
Current Diagnoses Chronic obstructive pulmonary disease with (acute) exacerbation (04/02/23) Physical Therapy Treatment Note M2 PT-IP Current Condition Start: 04/03/23 15:30 Freq: NEEDED Status: Active Protocol: Document 04/03/23 14:30 AB (Rec: 04/03/23 15:46 AB [email or web address]) Physical Therapy Current Condition Current Condition Evaluation Date 04/03/23 Treatment Diagnosis COPD exacerbation; difficulty in walking Onset Date 04/02/23 M3 PT-IP Subjective Start: 04/03/23 15:30 Freq: NEEDED Status: Active Protocol: Document 04/06/23 09:20 KS (Rec: 04/06/23 13:24 KS [id number]) Subjective Physical Therapy Visit Type Type Treatment Note Visit Start Time 09:20 Visit Stop Time 09:32 Total Visit Minutes 12 Number of PRACTICE CONSULTANT Visits 3 Physical Therapy Visit Comments Patient Comments pt has been mobilizing independently in room. M4 PT-IP Mobility and Gait Start: 04/03/23 15:30 Freq: NEEDED Status: Active Protocol: Document 04/06/23 09:20 KS (Rec: 04/06/23 13:24 KS [id number]) PT-Transfer Assessment Comments Mobility Comments Pt already ambulating in room upon arrival, then ambulated ~ 120 ft to practice stairs and ascended/descended 3 steps w/ BHR, took standing rest break ~2 min and ambulated additional 120 ft back to room with slower pace due to fatigue but still no AD and no LOB, where he requested to continue standing. Left with all needs in reach. Gait Assessment Gait Gait Assistance Required: Standby Assistance Distance (Feet) 240 Able to Maintain Weight Bearing Status Yes During Gait Assistive Devices Assistive Device None Orthotic/Prosthetic Devices or Brace: No Gait Deviations General Gait Pattern Antalgic,Wide Based Gait Factors Limiting Gait Function Factors Limiting Gait Function Decreased Activity Tolerance, Respiratory Distress Comments Gait Comments 1x standing rest break after 3 steps w/ BHR, slower pace when returning to room due to fatigue. Stair Climbing Assessment Evaluation Level of Assist On Stairs Standby Assistance Devices Stair Climbing Assistive Devices Left Railing,Right Railing Technique/Endurance Stair Climbing Direction Ascend and Descend Stair Climbing Technique Step Over Step Number of Steps Climbed 3 Stair Climbing Set # Repetitions (reps) 1 Comments Stair Climbing Comments Ascended/descended step over step BHA SBA. Feels confident to complete at home. PT-Balance Assessment Sitting Balance and Reactions Static Sitting Balance Ability Normal Dynamic Sitting Balance Ability Normal Standing Balance and Reactions Static Standing Balance Ability Good Dynamic Standing Balance Ability Fair Device Used without AD M5 PT-IP Objective Assessments Start: 04/03/23 15:30 Freq: NEEDED Status: Active Protocol: Document 04/03/23 14:30 AB (Rec: 04/03/23 15:46 AB [email or web address]) Orientation Orientation/Cognition Level of Alertness Alert Orientation Name,Place,Situation Language Function Ability No Deficits Noted Safety Awareness Understands Safety Issues Memory Description No Deficits Noted Gross Range of Motion Lower Extremity ROM Assessment Within Functional Limits Strength Lower Extremity Strength Assessment Within Functional Limits Other Assessments Other Other Assessments (+) LE edema M6 PT-IP Treatment Start: 04/03/23 15:30 Freq: NEEDED Status: Active Protocol: Document 04/06/23 09:20 KS (Rec: 04/06/23 13:24 KS [id number]) Physical Therapy Treatment Education Education Provided Safety M7 PT-IP Assessment and Plan Start: 04/03/23 15:30 Freq: NEEDED Status: Active Protocol: Document 04/06/23 09:20 KS (Rec: 04/06/23 13:24 KS [id number]) PT Summary Assessment and Plan Potential Rehabilitation Potential Fair Summary Impairments Pain,ROM,Strength,Balance, Coordination,Sensation,Bed Mobility,Transfers,Gait, Activity Tolerance Progress Towards Goals Progressing Toward Goals Assessment Summary Pt SBA for ambulation and stairs, able to ambulate 240 ft w/o AD. Limited by weakness and poor activity tolerance, required 2 min standing rest break following stair training . Pt will benefit from OPPT to improve endurance and strength. Goals Bed Mobility Goal Independent Transfer Goal Independent,Cane Gait Goal Independent,Cane Gait Distance 200 Other Goals improve ambulation without AD ~ 300 ft mod I up/down 3 steps L rail ascending mod I Days to Meet Goals 10 Frequency of Treatment Frequency Of Treatment Once a Day Treatment Plan Physical Therapy Treatment Plan Bed Mobility Training,Transfer Training,Gait Training, Therapeutic Exercise,Balance Retraining,Discharge Planning, Hot or Cold Pack,Neuromuscular Re-ed,Coordination Retraining Precautions Other Precautions O2 sat Recommendations To Nursing Amount of Assist Needed Standby Assistance Discharge Recommendations PT Discharge Recommendations Home with Assistance, Outpatient PT Other Discharge Recommendations may benefit from outpt cardiopulmonary rehab Transportation Needs at Discharge Private Vehicle
--- NOTE | 2023-04-06 09:49 | PM.PN.1 ---
Subjective Subjective Date Patient Seen: 04/06/23 Time Patient Seen: 09:49 Interval history: Patient seen in follow-up of congestive heart failure and COPD. Maybe feeling a little better today. Just came back from a walk when I saw him he was pretty significantly short of breath. Feels like his legs are a little less swollen today. Still feeling quite short of breath. Not a lot of energy. No chest pain. No fevers no other changes. Vital signs have otherwise been stable. Has been having good output. Exam Vital Signs (past 8 hours): - 04/06/23 04:00 04/06/23 08:00 Temperature 97.9 F 97.0 F L Pulse Rate 60 63 Respiratory Rate 20 20 Blood Pressure 128/63 138/67 Pulse Oximetry 93 93 Oxygen Flow Rate 1 0 Fraction of Inspired Oxygen 21 SaO2/FiO2 Ratio 447 Oxygen Delivery Method Room Air Oxygen Flow Rate 0 Narrative Exam Narrative: Alert elderly male standing at the side of the bed in no acute distress with respiratory rate in the mid 20s Lungs are clear heart is regular rate and rhythm extremities with 2+ edema Objective Labs 04/05/23 06:50 04/06/23 05:45 Labs: Laboratory Results - last 24 hr 04/04/23 04/04/23 04/04/23 09:30 09:30 09:30 Sodium Potassium Chloride Carbon Dioxide BUN Creatinine Estimated GFR BUN/Creatinine Ratio Glucose Calcium Total Bilirubin AST ALT Alkaline Phosphatase Total Protein Albumin Globulin Albumin/Globulin Ratio Ref Test (Refrig) Comment Comment Comment 04/04/23 04/06/23 09:30 05:45 Sodium 135 L Potassium 4.6 Chloride 101 Carbon Dioxide 27 BUN 48 H Creatinine 1.39 H Estimated GFR 53 L BUN/Creatinine Ratio 34.5 H Glucose 189 H Calcium 7.9 L Total Bilirubin 0.2 AST 18 ALT 28 Alkaline Phosphatase 51 Total Protein 6.0 L Albumin 3.2 L Globulin 2.8 Albumin/Globulin Ratio 1.1 Ref Test (Refrig) Comment [facility] Medical History (Updated 04/03/23 @ 06:50 by Nura Danielle MD) Aortic stenosis Atrial fibrillation (03/30/15) Cardiomyopathy (~03/2018) COPD (chronic obstructive pulmonary disease) Coronary artery disease (~03/2018) Hypertension (05/30/15) Tachy-ama syndrome Type 2 diabetes mellitus with hyperglycemia, without long-term current use of insulin Type 2 diabetes mellitus without complication (05/01/15) Surgical History H/O heart artery stent (~03/2018) S/P cardiac pacemaker procedure (~09/2018) Social History household members: none Smoking Status: Former smoker alcohol intake: never Assessment & Plan Assessment & Plan narrative: Congestive heart failure. Acute on chronic. Left ventricular. Reviewed echo from earlier this year. Really no definitive abnormality no reason to repeat. Still having a lot of dyspnea. We discussed options. We are going to go to oral today but he would prefer to continue IV today and continues diuresis. Does not feel like oral is as effective. And certainly that is true. We discussed this. Dr. Danielle can switch to oral tomorrow. I suspect he is going to be until Friday but will see how things go. No other significant change COPD exacerbation. Patient with slow improvement periods is going to take some time. Interestingly a short of breath as he appears he is maintaining his pulse ox is. No need for oxygen. Will continue steroids. And follow. Switch to orals on day of discharge. Pleural effusion. Etiology is unclear. Culture is negative. Pathology not back yet. Will follow. May need to follow-up as outpatient depends on when pathology returns. But otherwise seems to be doing well. Certainly lungs sound well. Poorly controlled diabetes. Much improved. Still overall doing some elevation but current protocol seems to be working well. Will make no changes. Mild hyponatremia no other abnormality. Maintaining potassium find. Will continue to follow. But this appears to be about where he is. No change at this time. Social/medication management as per care management. DVT prophylaxis stable. Code status full. Disposition. Possibly home tomorrow I would think that probably Friday would be on are likely Goal. Will follow. Quality VTE Deep Vein Thrombosis/Pulmonary Embolism Present on Admission: No
--- NOTE | 2023-04-06 11:24 | CM.DPC ---
DCP Cont: Per MD, will keep pt on IV diuresis today and then likely switch to oral tomorrow and pt remains on room air but feels dyspnea still and fatigues quickly. Possible d/c 1-2 days if medically stable. SW met bedside with pt and explained role and he confirms he is starting to see improvements with his leg swelling and breathing but states he is concerned with discharging too soon as he was here barely over a month ago and discharged home but got worse and had to be admitted again. Pt confirms he is getting ongoing diabetes education and he is newly dx with diabetes and attempting to ambulate more each day. Pt is hopeful for d/c to home when medically stable. Plan: SW to follow for plan of switch to oral rx and ongoing ambulation and diuresis for plan of d/c to home when stable. DAYAN Ann
[2023-04-06] MEDS: ATORVASTATIN 20 MG TABLET 40 MG PO (20:40)
[2023-04-06] MEDS: INSULIN GLARGINE 100 UNIT/ML 3ML PEN 15 UNIT SUBCUT (20:48)
[2023-04-07] VITALS (8 sets, daily range): BP systolic 119–165; BP diastolic 48–82; PULSE 60–84; RESP 16–20; TEMP 36.1–37.3; O2SAT 91–97
[2023-04-07] MEDS: methylPREDNISolone 125 MG/2 ML VIAL 60 MG IV (00:11)
--- NOTE | 2023-04-07 07:37 | PM.PN.1 ---
Subjective Subjective Date Patient Seen: 04/07/23 Time Patient Seen: 07:38 Interval history: Patient with essentially uneventful weekend. He still quite dyspneic with activity but very comfortable at rest. He is not hypoxic however with activity His pleural effusion appears to be an exudate (based on protein level of 3.7 as well as LDH of 254, cytology still pending. Patient declined to have his meds switch to oral meds yesterday Blood sugars mostly better 200 or less there so for the most part on current b.i.d. Lantus plus coverage Care management staff as work with patient and confirmed he has no outpatient prescription coverage with his current insurance plan and is not able to change to a different plan until August. [facility] and he has not started any of that process whatsoever Exam Vital Signs (past 8 hours): - 04/07/23 00:00 04/07/23 03:34 Temperature 99.1 F 96.9 F L Pulse Rate 77 62 Respiratory Rate 16 16 Blood Pressure 119/48 L 124/56 L Pulse Oximetry 96 91 Fraction of Inspired Oxygen 21 SaO2/FiO2 Ratio 447 Oxygen Delivery Method Room Air Oxygen Flow Rate 0 Objective Labs 04/05/23 06:50 04/06/23 05:45 [facility] Medical History (Updated 04/03/23 @ 06:50 by Nura Danielle MD) Aortic stenosis Atrial fibrillation (03/30/15) Cardiomyopathy (~03/2018) COPD (chronic obstructive pulmonary disease) Coronary artery disease (~03/2018) Hypertension (05/30/15) Tachy-ama syndrome Type 2 diabetes mellitus with hyperglycemia, without long-term current use of insulin Type 2 diabetes mellitus without complication (05/01/15) Surgical History H/O heart artery stent (~03/2018) S/P cardiac pacemaker procedure (~09/2018) Social History household members: none Smoking Status: Former smoker alcohol intake: never Assessment & Plan Assessment and plan (1) Type 2 diabetes mellitus without complication: Qualifiers: Diabetes mellitus senior living insulin use: without remote computer terminal operator use Qualified Code(s): E11.9 - Type 2 diabetes mellitus without complications Status: Chronic Assessment & Plan narrative: 1. COPD exacerbation-I am going to switch him to oral prednisone which helped with his blood sugars. Continue with nebulizers etcetera. 2. Congestive heart failure-patient I think with mild congestive heart failure now improved, renal function stable. Will switch to oral Lasix prior to discharge, or upon discharge 3. Pleural effusion-exudative pleural effusion which is very very nonspecific. Still awaiting cytology. No evidence of infection. Continue to monitor as an outpatient 4. Diabetes-improved numbers. Will see what his blood sugars do with the switch from parental steroids to oral steroids. Patient is going to need to be discharged on insulin, and I am afraid that the glargine insulin will be too expensive. However not convinced there is anything cheaper out there 5. Atrial fibrillation-has been stable thus far. Maybe some brief runs of atrial tachycardia as noted on Friday 6. Disposition-patient likely to go home but would benefit from home health services Quality VTE Deep Vein Thrombosis/Pulmonary Embolism Present on Admission: No
[2023-04-07] MEDS: INSULIN LISPRO 100 UNIT/ML 3ML VIAL SUBCUT ×3 (08:23→17:24)
--- NOTE | 2023-04-07 08:35 | PT.IPTN ---
Current Diagnoses Type 2 diabetes mellitus without complications (04/02/23) Chronic obstructive pulmonary disease with (acute) exacerbation (04/02/23) detention (current) use of insulin (04/02/23) Physical Therapy Treatment Note M2 PT-IP Current Condition Start: 04/03/23 15:30 Freq: NEEDED Status: Active Protocol: Document 04/03/23 14:30 AB (Rec: 04/03/23 15:46 AB [email or web address]) Physical Therapy Current Condition Current Condition Evaluation Date 04/03/23 Treatment Diagnosis COPD exacerbation; difficulty in walking Onset Date 04/02/23 M3 PT-IP Subjective Start: 04/03/23 15:30 Freq: NEEDED Status: Active Protocol: Document 04/07/23 09:03 TS (Rec: 04/07/23 09:18 TS [email or web address]) Subjective Physical Therapy Visit Type Type Treatment Note Visit Start Time 08:35 Visit Stop Time 08:52 Total Visit Minutes 17 Number of SCHOOL PHOTOGRAPHS DETAILER Visits 4 Physical Therapy Visit Comments Patient Comments Pt speaking with MD when entering room, pt reporting increased coughing and feels he's not taking as deep of breaths. Pt reports getting up in room ambulating Ind with no AD, agreeable to PT. M4 PT-IP Mobility and Gait Start: 04/03/23 15:30 Freq: NEEDED Status: Active Protocol: Document 04/07/23 09:03 TS (Rec: 04/07/23 09:18 TS [email or web address]) PT-Bed Mobility Assessment Supine to Sit Supine to Sit Independent Sit to Supine Sit to Supine Independent Scooting Scooting to Edge of Bed Independent PT-Transfer Assessment Sit to and From Stand Sit to and from Stand Standby Assistance Equipment Transfer Assistive Device None Orthotic/Prosthetic Devices or Brace: No Comments Mobility Comments Pt found resting in bed, agreeable to PT. Supine to sit HOB elevated w/BUE support Ind. Sit to stand x1 SBA, difficult to initiate, uses momentume to stand. Pt ambulated in room/hallway ~350 ' SBA, increased swaying, unsteady on feet requires occasional wall suppport for balance. Prior to stairs x6 SBA with BUE handrail assist pt required ~30sec rest break. Spo2 after mobility 94%. Pt was left sitting EOB in room, with call light nearby, all needs met. Gait Assessment Gait Gait Assistance Required: Standby Assistance Distance (Feet) 350 Able to Maintain Weight Bearing Status Yes During Gait Assistive Devices Assistive Device None Orthotic/Prosthetic Devices or Brace: No Gait Deviations General Gait Pattern Antalgic Factors Limiting Gait Function Factors Limiting Gait Function Decreased Activity Tolerance, Respiratory Distress Comments Gait Comments See mobility Stair Climbing Assessment Evaluation Level of Assist On Stairs Standby Assistance Devices Stair Climbing Assistive Devices Left Railing,Right Railing Technique/Endurance Stair Climbing Direction Ascend and Descend Stair Climbing Technique Step Over Step Number of Steps Climbed 6 Stair Climbing Set # Repetitions (reps) 1 Comments Stair Climbing Comments Stairs x6 SBA step over step, slightly unsteady on feet with BUE handrail assist. PT-Balance Assessment Sitting Balance and Reactions Static Sitting Balance Ability Normal Dynamic Sitting Balance Ability Normal Standing Balance and Reactions Static Standing Balance Ability Good Dynamic Standing Balance Ability Fair Device Used without AD Comments Other Balance Tests/Deviations/Treatment Pt unsteady with ambulation, : no buckling or LOB but requires occasional wall support for balance. M5 PT-IP Objective Assessments Start: 04/03/23 15:30 Freq: NEEDED Status: Active Protocol: Document 04/03/23 14:30 AB (Rec: 04/03/23 15:46 AB [email or web address]) Orientation Orientation/Cognition Level of Alertness Alert Orientation Name,Place,Situation Language Function Ability No Deficits Noted Safety Awareness Understands Safety Issues Memory Description No Deficits Noted Gross Range of Motion Lower Extremity ROM Assessment Within Functional Limits Strength Lower Extremity Strength Assessment Within Functional Limits Other Assessments Other Other Assessments (+) LE edema M6 PT-IP Treatment Start: 04/03/23 15:30 Freq: NEEDED Status: Active Protocol: Document 04/07/23 09:03 TS (Rec: 04/07/23 09:18 TS [email or web address]) Physical Therapy Treatment Education Education Provided Safety M7 PT-IP Assessment and Plan Start: 04/03/23 15:30 Freq: NEEDED Status: Active Protocol: Document 04/07/23 09:03 TS (Rec: 04/07/23 09:18 TS [email or web address]) PT Summary Assessment and Plan Potential Rehabilitation Potential Fair Summary Impairments Pain,ROM,Strength,Balance, Coordination,Sensation,Bed Mobility,Transfers,Gait, Activity Tolerance Progress Towards Goals Progressing Toward Goals Assessment Summary Pt progressed bed mobility to Ind, remains SBA for ambulation and stairs. He has increased swaying and unsteadiness with gait this session requiring increased use of wall support and rails, also x3 rest breaks for fatigue. PT continues to recommend return home with assist when medically stable. Pt may benefit from outpatient therapy to improve stamina and balance. Goals Bed Mobility Goal Independent Transfer Goal Independent,Cane Gait Goal Independent,Cane Gait Distance 200 Other Goals improve ambulation without AD ~ 300 ft mod I up/down 3 steps L rail ascending mod I Days to Meet Goals 10 Frequency of Treatment Frequency Of Treatment Once a Day Treatment Plan Physical Therapy Treatment Plan Bed Mobility Training,Transfer Training,Gait Training, Therapeutic Exercise,Balance Retraining,Discharge Planning, Hot or Cold Pack,Neuromuscular Re-ed,Coordination Retraining Precautions Other Precautions O2 sat Recommendations To Nursing Amount of Assist Needed Standby Assistance Discharge Recommendations PT Discharge Recommendations Home with Assistance, Outpatient PT Other Discharge Recommendations may benefit from outpt cardiopulmonary rehab Transportation Needs at Discharge Private Vehicle
[2023-04-07] MEDS: FUROSEMIDE 40 MG/4 ML VIAL IV (09:31)
[2023-04-07] MEDS: glipiZIDE 5 MG TABLET 10 MG PO ×2 (09:31→21:35)
[2023-04-07] MEDS: MULTIVITAMIN 1 TABLET 1 TAB PO (09:32)
[2023-04-07] MEDS: ASPIRIN EC 81 MG TABLET PO (09:32)
[2023-04-07] MEDS: SOTALOL 80 MG TABLET 120 MG PO ×2 (09:32→21:36)
[2023-04-07] MEDS: predniSONE 20 MG TABLET 60 MG PO (09:32)
[2023-04-07] MEDS: DOCUSATE 100 MG CAPSULE PO ×2 (09:33→21:35)
[2023-04-07] MEDS: METFORMIN HCL 500 MG TABLET 1000 MG PO ×2 (09:33→18:22)
[2023-04-07] MEDS: ENOXAPARIN 40 MG/0.4 ML SYRINGE SUBCUT (09:34)
[2023-04-07] MEDS: INSULIN GLARGINE 100 UNIT/ML 3ML PEN 30 UNIT SUBCUT (09:35)
--- NOTE | 2023-04-07 10:37 | PC.NURSE ---
Addendum entered by Scarlet Dominguez R.N. 04/07/23 14:49: Patient administered is own lunch time insulin of 8u for blood sugar of 206. He is sitting up in chair and resting. Ambulated in halls with field counsel earlier and tolerated well. Patient does get sob but recovers well. Original Note: Assess- Patient is alert and oriented x4, he denies pain. UP and ambulated in the halls with physical therapy. Patient slightly sob. He recovers fast. Up in the chair and resting. BS cta, o sob noted at rest. Blood sugar 160. Insulin given. We will teach patient how to properly administer his insulin later today.
[2023-04-07] MEDS: ALBUTEROL/IPRATROPIUM 3 ML AMPUL INH ×4 (11:05→22:54)
[2023-04-07] MEDS: ATORVASTATIN 20 MG TABLET 40 MG PO (21:35)
[2023-04-07] MEDS: INSULIN GLARGINE 100 UNIT/ML 3ML PEN 15 UNIT SUBCUT (21:50)
[2023-04-08] VITALS: BP 148/65; PULSE 68; RESP 20; TEMP 36.2; O2SAT 94
[2023-04-08 06:20] VITALS: BP 126/53; PULSE 60; RESP 16; TEMP 36.2; O2SAT 96
[2023-04-08] MEDS: ALBUTEROL/IPRATROPIUM 3 ML AMPUL INH ×2 (07:56→14:19)
--- NOTE | 2023-04-08 08:39 | PM.DS.1 ---
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 Patient with admission in early February similar to this. At that time felt to be more due to COPD than anything else with relatively normal echo. Patient did well with nebulized treatments and parental than oral corticosteroids. The steroids made him quite hyperglycemic however. In follow-up as an outpatient patient was not able to afford any of the respiratory medications beyond a simple albuterol inhaler. He had his prednisone tapered down to off. However he has been increasingly short of breath with lower extremity edema over the last 3 or 4 days. No clear symptoms consistent with orthopnea or PND although difficult to tell as he does become somewhat more short of breath in a supine position but not necessarily any classic orthopnea kind of pattern In the ER his BNP was normal chest x-ray showed a small/modest right pleural effusion. Is describing a sensation in his right lower chest as though there is some fullness or something there. Coughing up some ?sticky? sputum off and on. He responded very nicely to nebulizer treatments. He was minimally hypoxic although this rapidly responded. He was given IV Solu-Medrol and admitted for continued management of his COPD Discharge Providers Provider Date of admission: 04/02/23 18:26 Discharge Date: 04/08/23 Primary care physician: Nura Danielle MD Consults: 04/03/23 06:44 Consult to Discharge Planning Routine Comment: patient needs Medicare Part D info 04/03/23 08:27 Consult to Physical Therapy Evaluate & Treat Comment: Physician Instructions: Evaluate and Treat Discharge provider: Nura Danielle MD Summary Hospital Course Discharge Diagnosis: 1. Acute COPD exacerbation 2. Acute on chronic congestive heart failure with preserved left ventricular function 3. Possible posttraumatic right-sided pleural effusion 4. Diabetes type 2 with hyperglycemia without ketosis or acidosis 5. Atrial flutter, typical 6. Hypertension 7. Coronary artery disease status post drug-eluting stent placement, stable this admission 8. Paroxysmal atrial fibrillation 9. Peripheral edema Hospital Course: Patient was admitted to the hospital as above with dyspnea. [place] to be primarily a COPD exacerbation complicated by the large right-sided pleural effusion. Also perhaps an element of acute on chronic congestive heart failure. He was treated with IV steroids nebulized medications as well as IV diuresis His breathing improved significantly. He did undergo diagnostic thoracentesis which removed just over a L of bloody fluid. Cytology still pending at time of discharge but remainder of examination suggested exudative based process causing the effusion. Patient very late in the course of his hospitalization recalled a serious injury/fall to his right chest approximately 2 weeks prior to his prior hospitalization, that he believes maybe a source of bleeding or blood into his chest. This does fit with the clinical picture depending on cytology results. The fluid was loculated which would suggest it being present for a longer period of time etcetera His COPD symptoms with dyspnea and very mild hypoxia did improve rapidly. However he still fairly dyspneic with activity. Patient was switched from IV steroids to oral steroids with continued improvement in his breathing. He will be sent home with a home nebulizer (assuming that can be set up prior to discharge) to continue with medication as prescription drug coverage is an issue for patient and expense is a huge issue with prescriptions for standard meter dose inhalers being pretty much out possibility for patient because of cost He was treated with IV diuretics which improve the lower extremity edema and his breathing also improved as above. He will continue on oral furosemide on a daily basis which previously had been as needed upon discharge Patient's diabetes was initially very poorly controlled because of the severe hyperglycemia caused by the parental steroids. Numbers improved slightly with switch to oral steroids but still hyperglycemic. He was started on insulin long-acting insulin as well as coverage insulin. He will continue on long-acting insulin only upon discharge as well as his usual oral diabetes medications. Anticipate with increased activity at home and the reduction in blood sugars noted with the switch to oral prednisone his blood sugar control should be adequate although not perfect by any means as an outpatient Patient will likely benefit from Pulmonary Medicine referral although if indeed this effusion appears to be posttraumatic that may not be necessary Patient will be followed carefully in the outpatient clinic by Dr. Danielle Exam Vital Signs (past 8 hours): - 04/08/23 06:20 Temperature 97.2 F L Pulse Rate 60 Respiratory Rate 16 Blood Pressure 126/53 L Pulse Oximetry 96 Oxygen Flow Rate 0 Fraction of Inspired Oxygen 21 SaO2/FiO2 Ratio 461 Oxygen Delivery Method Room Air Oxygen Flow Rate 0 Objective Labs 04/05/23 06:50 04/06/23 05:45 [facility] Medical History Aortic stenosis Atrial fibrillation (03/30/15) Cardiomyopathy (~03/2018) COPD (chronic obstructive pulmonary disease) Coronary artery disease (~03/2018) Hypertension (05/30/15) Tachy-ama syndrome Type 2 diabetes mellitus with hyperglycemia, without long-term current use of insulin Type 2 diabetes mellitus without complication (05/01/15) Surgical History H/O heart artery stent (~03/2018) S/P cardiac pacemaker procedure (~09/2018) Social History household members: none Smoking Status: Former smoker alcohol intake: never Discharge Assessment & Plan Assessment and Plan Plan of Treatment: Discharge home with oral prednisone, home nebulized albuterol and ipratropium, insulin in the form of insulin glargine twice daily as well as all of his other usual medications Patient need to be seen approximately 1 week after discharge by his PCP Patient will also have home health services initiated to include PT OT visiting nurse and respiratory therapy if available Discharge Plan Discharge Plan Patient Disposition: Home Health Service Discharge orders & Medications Prescriptions: New insulin glargine 100 unit/mL (3 mL) insulin pen See Rx Instructions .ROUTE .COMPLEX Qty: 15 12RF Rx Instructions: 30 units in am, 15 units in pm (DME) pen needle, diabetic [BD Ultra-Fine Micro Pen Needle] 32 gauge x 1/4 needle See Rx Instructions .Route Qty: 100 12RF Rx Instructions: As directed to inject insulin prednisone 20 mg tablet 60 mg PO DAILY Qty: 60 1RF ipratropium-albuterol 0.5 mg-3 mg(2.5 mg base)/3 mL solution for nebulization 3 ml inhalation Q4-6H PRN (Reason: shortness of breath or wheezing) Qty: 180 7RF (DME) nebulizer and compressor Device See Rx Instructions .Route Qty: 1 0RF Rx Instructions: As directed Continued metformin 1,000 mg tablet 1,000 mg PO BID Qty: 180 3RF atorvastatin 40 mg tablet 40 mg PO DAILY Qty: 90 3RF spironolactone 25 mg tablet 12.5 mg PO DAILY Qty: 45 3RF glipizide 10 mg tablet 10 mg PO BID Qty: 180 3RF aspirin [Adult Low Dose Aspirin] 81 mg tablet,delayed release (DR/EC) 81 mg PO DAILY multivitamin tablet 1 tab PO DAILY glucosamine sulfate 1,000 mg capsule 1,000 mg PO DAILY sotalol 120 mg tablet 120 mg PO BID albuterol sulfate 90 mcg/actuation HFA aerosol inhaler 2 puff inhalation Q4-6H PRN (Reason: shortness of breath or wheezing) Qty: 8.5 3RF losartan 50 mg tablet 50 mg PO BID Patient Comments: TAKE ONE TABLET BY MOUTH TWICE DAILY Changed furosemide 40 mg tablet 40 mg PO DAILY Qty: 90 3RF Discontinued tiotropium bromide 18 mcg capsule, w/inhalation device 1 cap inhalation DAILY Qty: 30 4RF Rx Instructions: puncture 1 cap using device; one dose = 2 inhalations Follow up/Referrals: Nura Danielle MD [Primary Care Provider] - 1 Week Diet/Activity/Treatments Diet: Diet as Tolerated and Carb-consistent/Diabetic Visit Report/Discharge Packet Instructions: DI for Hyperglycemia -- Adult Stand Alone Forms: Patient Portal/API Discharge Data Primary Care Provider: Nura Danielle Quality VTE Deep Vein Thrombosis/Pulmonary Embolism Present on Admission: No
--- NOTE | 2023-04-08 08:50 | PC.NURSE ---
Addendum entered by Scarlet Dominguez R.N. 04/08/23 10:02: Rechecked patients blood sugar at up to 100 after breakfast. Will recheck at 1145 and if wnl will give insulins and po metformin and glipizide. Patient seems upset about being discharged today. He states and I talked and he said it might be in the morning that I go. He is sitting up in chair and worked with physical therapy. Original Note: Patients blood sugar 49. Given orange juice this morning and patient is now eating his breakfast. He denies pain or discomfort and is up in room independently. Voices no issues at this time.
[2023-04-08] MEDS: FUROSEMIDE 40 MG TABLET PO (09:19)
[2023-04-08] MEDS: ASPIRIN EC 81 MG TABLET PO (09:19)
[2023-04-08] MEDS: SOTALOL 80 MG TABLET 120 MG PO (09:19)
[2023-04-08] MEDS: MULTIVITAMIN 1 TABLET 1 TAB PO (09:20)
[2023-04-08] MEDS: predniSONE 20 MG TABLET 60 MG PO (09:20)
[2023-04-08] MEDS: ENOXAPARIN 40 MG/0.4 ML SYRINGE SUBCUT (09:20)
--- NOTE | 2023-04-08 09:34 | PT.IPTN ---
Current Diagnoses Type 2 diabetes mellitus without complications (04/02/23) Chronic obstructive pulmonary disease with (acute) exacerbation (04/02/23) Chronic obstructive pulmonary disease, unspecified (04/02/23) ad terminal makeup operator (current) use of insulin (04/02/23) Physical Therapy Treatment Note M2 PT-IP Current Condition Start: 04/03/23 15:30 Freq: NEEDED Status: Active Protocol: Document 04/03/23 14:30 AB (Rec: 04/03/23 15:46 AB [id number]) Physical Therapy Current Condition Current Condition Evaluation Date 04/03/23 Treatment Diagnosis COPD exacerbation; difficulty in walking Onset Date 04/02/23 M3 PT-IP Subjective Start: 04/03/23 15:30 Freq: NEEDED Status: Active Protocol: Document 04/08/23 09:58 TS (Rec: 04/08/23 10:07 TS [id number]) Subjective Physical Therapy Visit Type Type Treatment Note Visit Start Time 09:34 Visit Stop Time 09:52 Total Visit Minutes 18 Number of PRINTING GRAY CLOTH TENDER Visits 5 Physical Therapy Visit Comments Patient Comments Pt found resting in chair, reports he's feeling better this morning than yesterday, still feeling somewhat fatigued, agreeable to work with PT. M4 PT-IP Mobility and Gait Start: 04/03/23 15:30 Freq: NEEDED Status: Active Protocol: Document 04/08/23 09:58 TS (Rec: 04/08/23 10:07 TS [id number]) PT-Transfer Assessment Sit to and From Stand Sit to and from Stand Independent Equipment Transfer Assistive Device None Orthotic/Prosthetic Devices or Brace: No Comments Mobility Comments Pt found resting in chair, agreeable to PT. Sit to stand Ind from bedside chair with BUE support and no AD. Pt amublated in llway ~600' SBA , continues to require occasional wall support for balance and x6 rest breaks. Pt was left back in chair, call light nearby, all needs met. Gait Assessment Gait Gait Assistance Required: Standby Assistance Distance (Feet) 600 Able to Maintain Weight Bearing Status Yes During Gait Assistive Devices Assistive Device None Orthotic/Prosthetic Devices or Brace: No Gait Deviations General Gait Pattern Antalgic Factors Limiting Gait Function Factors Limiting Gait Function Decreased Activity Tolerance, Respiratory Distress Comments Gait Comments Pt ambulated SBA ~600' in hallway with some swaying, no AD, requires occasional wall support for balance and rest breaks x6. Stair Climbing Assessment Evaluation Level of Assist On Stairs Standby Assistance Devices Stair Climbing Assistive Devices Left Railing,Right Railing Technique/Endurance Stair Climbing Direction Ascend and Descend Stair Climbing Technique Step Over Step Number of Steps Climbed 6 Stair Climbing Set # Repetitions (reps) 1 Comments Stair Climbing Comments x3 stairs SBA with BUE support on handrails. PT-Balance Assessment Sitting Balance and Reactions Static Sitting Balance Ability Normal Dynamic Sitting Balance Ability Normal Standing Balance and Reactions Static Standing Balance Ability Good Dynamic Standing Balance Ability Fair Device Used without AD M5 PT-IP Objective Assessments Start: 04/03/23 15:30 Freq: NEEDED Status: Active Protocol: Document 04/03/23 14:30 AB (Rec: 04/03/23 15:46 AB [id number]) Orientation Orientation/Cognition Level of Alertness Alert Orientation Name,Place,Situation Language Function Ability No Deficits Noted Safety Awareness Understands Safety Issues Memory Description No Deficits Noted Gross Range of Motion Lower Extremity ROM Assessment Within Functional Limits Strength Lower Extremity Strength Assessment Within Functional Limits Other Assessments Other Other Assessments (+) LE edema M6 PT-IP Treatment Start: 04/03/23 15:30 Freq: NEEDED Status: Active Protocol: Document 04/08/23 09:58 TS (Rec: 04/08/23 10:07 TS [id number]) Physical Therapy Treatment Education Education Provided Safety M7 PT-IP Assessment and Plan Start: 04/03/23 15:30 Freq: NEEDED Status: Active Protocol: Document 04/08/23 09:58 TS (Rec: 04/08/23 10:07 TS [id number]) PT Summary Assessment and Plan Potential Rehabilitation Potential Fair Summary Impairments Pain,ROM,Strength,Balance, Coordination,Sensation,Bed Mobility,Transfers,Gait, Activity Tolerance Progress Towards Goals Progressing Toward Goals Assessment Summary Pt progressed gait to ~600' in hallway SBA, requires occasional wall support for balance and x6 rest breaks for fatigue. Pt SOB with mobility , Spo2 remains in mid 90's throughout session. PT is recommending return home with assist and ppossible outpatient therapy to increase stamina. Discussed HHPT with pt doesn't feel that it is necessary. Goals Bed Mobility Goal Independent Transfer Goal Independent,Cane Gait Goal Independent,Cane Gait Distance 200 Other Goals improve ambulation without AD ~ 300 ft mod I up/down 3 steps L rail ascending mod I Days to Meet Goals 10 Frequency of Treatment Frequency Of Treatment Once a Day Treatment Plan Physical Therapy Treatment Plan Bed Mobility Training,Transfer Training,Gait Training, Therapeutic Exercise,Balance Retraining,Discharge Planning, Hot or Cold Pack,Neuromuscular Re-ed,Coordination Retraining Precautions Other Precautions O2 sat Recommendations To Nursing Amount of Assist Needed Independent Discharge Recommendations PT Discharge Recommendations Home with Assistance, Outpatient PT Other Discharge Recommendations may benefit from outpt cardiopulmonary rehab Transportation Needs at Discharge Private Vehicle
--- NOTE | 2023-04-08 10:36 | CM.DPC ---
DCP Discharge Home with HH Per MD, pt is medically stable to d/c home today and agreeable with need for HH. Per PT, recommending outpt or Cardiopulmonary rehab and safe for home, fatigues quickly. SW met bedside with pt and explained role and he confirms he is agreeable to d/c home but waiting for RT for nebs and National Insurance Officer for diabetes education. SW discussed recommendation of HH and pt denies hx of HH himself but experienced it with his mother and his now spouse. Pt agreeable with HH but does not feel he needs PT and would like to start with RN for med management and diabetes education. SW encouraged pt to have Dtr inlaw present when HH RN comes to provide CG training on medications and diabetes as pt anxious with managing this new dx. Pt very agreeable as states his Dtr inlaw helps with grocery shopping and cooking meals. SW provided HH Choice list and no HH preference. GARY also provided printed information regarding [facility] and [facility] for Medicare/insurance help to get med coverage. ALFREDO Ching made referral to [facility] based on Vendor Calendar and faxed F2F and orders as well. GARY left msg for National Insurance Officer to confirm diabetes ed happens bedside prior to d/c based on pt request. Plan: Patient to d/c home today via family POV and [facility] to follow after discharge. DAYAN Ann
[2023-04-08] MEDS: INSULIN LISPRO 100 UNIT/ML 3ML VIAL SUBCUT (13:03)
== END 2023-04-08 15:00 | disposition home health service (06) | DRG 190 ==
LOC: ED 17:43 → AC 18:27
PROVIDERS: Family Medicine; Admitting Provider Family Medicine; Emergency Provider Emergency Medicine; PCP Internal Medicine; Referring Provider Emergency Medicine; Visit Provider Internal Medicine
DX: J44.1 Chronic obstructive pulmonary disease with (acute) exacerbation (principal); I50.33 Acute on chronic diastolic (congestive) heart failure; J96.90 Respiratory failure, unspecified, unspecified whether with hypoxia or hypercapnia; J90 Pleural effusion, not elsewhere classified; I48.92 Unspecified atrial flutter; I11.0 Hypertensive heart disease with heart failure; E11.65 Type 2 diabetes mellitus with hyperglycemia; T38.0X5A Adverse effect of glucocorticoids and synthetic analogues, initial encounter; I25.10 Atherosclerotic heart disease of native coronary artery without angina pectoris; I48.0 Paroxysmal atrial fibrillation; Z79.84 Long term (current) use of oral hypoglycemic drugs; Z95.0 Presence of cardiac pacemaker; Z87.891 Personal history of nicotine dependence; Z95.5 Presence of coronary angioplasty implant and graft; Z20.822 Contact with and (suspected) exposure to COVID-19
CPT/HCPCS: 32555; 36415; 71045; 71250; 80048; 80053; 82550; 82947; 82962; 83735; 83880; 84100; 84484; 85025; 85610; 85730; 87070; 87075; 87205; 87635; 89051; 93005; 94640; 94760; 94762; 96374; 97116; 97161; 99223; 99233; 99238; 99284; 99285; C9803; J1650; J1815; J1940; J2930; J7613

== ENCOUNTER → 2023-04-15 11:12 | Outpatient (CLI) | payer OTHER, SELFPAY ==
[2023-04-02 20:12] VITALS: BMI 39.6
--- NOTE | 2023-04-15 11:14 | DI.RAD.S_ITS ---
PROCEDURE: XR CHEST 2V INDICATIONS: pleural effusion TECHNIQUE: 2 views of the chest were acquired. COMPARISON: [facility], CR, XR CHEST 1V, 04/04/2023, 10:01. FINDINGS: Surgical changes and devices: Pacemaker Lungs and pleura: Interval increase in moderate right pleural effusion with compressive right basilar atelectasis. Cephalization of flow. Mediastinum: Mediastinal contours are normal. Cardiomegaly. Bones and chest wall: No suspicious bony abnormalities. Soft tissues appear unremarkable. IMPRESSION: Congestive heart failure with interval increase in right pleural effusion. Underlying compressive atelectasis in the right lung base. Dictated by: Wes Mendenhall M.D. on 04/15/2023 at 15:22 Approved by: Wes Mendenhall M.D. on 04/15/2023 at 15:23
[2023-04-15 13:12] LABS: Add Manual Diff / Slide Review NO; Basophils Absolute Auto 0 /uL (0-100); Basophils Percent Auto 0.1 % (0-2); Eosinophils Absolute Auto 0 /uL (0-450); Eosinophils Percent Auto 0.1 % (2-4); Hemoglobin 12.4 g/dL (13.5-17.5); Lymphocytes Absolute Auto 500 /uL (1100-4500); Lymphocytes Percent Auto 2.8 % (25-40); Mean Corpuscular HGB Conc 32.7 % (30-36); Mean Corpuscular Hemoglobin 30.2 PG (26-34); Mean Corpuscular Volume 92.4 fL (80-100); Monocytes Absolute Auto 300 /uL (0-900); Monocytes Percent Auto 1.7 % (3-14); Neutrophils Absolute Auto 15900 /uL (1500-7000); Neutrophils Percent Auto 95.3 % (50-75); Platelet Count 197 X10^3/uL (150-400); Red Blood Cell Count 4.11 X10^6/uL (4.5-5.9); Red Cell Distribution Width 16.5 % (11.6-14.8); White Blood Cell Count 16.6 X10^3/uL (4.5-11.0)
[2023-04-15 13:35] LABS: Alanine Aminotransferase 34 IU/L (<50); Albumin 3.6 g/dL (3.5-5.0); Albumin Globulin Ratio 1.4 (1.0-2.8); Alkaline Phosphatase 84 U/L (38-126); Aspartate Aminotransferase 20 IU/L (17-59); Bilirubin Total 0.3 mg/dL (0.2-1.3); Blood Urea Nitrogen 36 mg/dL (9-20); Carbon Dioxide 28 mmol/L (22-32); Chloride 99 mmol/L (98-107); Estimated Glomerular Filt Rate 43 mL/min (>60); Globulin 2.5 g/dL (1.7-4.1); Glucose 383 mg/dL (80-110); HEMOLYSIS < 15 (0-50); Potassium 5.1 mmol/L (3.4-5.1); Sodium 135 mmol/L (137-145); Total Protein 6.1 g/dL (6.3-8.2)
[2023-04-15 13:38] LABS: NT-proBNP (BNP-Adult 18+) 478 pg/mL (<450)
== END ==
PROVIDERS: PCP Internal Medicine; Referring Provider Internal Medicine; Visit Provider Internal Medicine
DX: I10 Essential (primary) hypertension (principal); I50.9 Heart failure, unspecified; J90 Pleural effusion, not elsewhere classified; J98.11 Atelectasis
CPT/HCPCS: 36415; 71046; 80053; 83880; 85025

== ENCOUNTER 2023-04-25 10:26 | Inpatient (IN) | payer OTHER, SELFPAY ==
[2023-04-02 20:12] VITALS: BMI 39.6
[2023-04-25] VITALS (23 sets, daily range): BP systolic 102–158; BP diastolic 42–70; PULSE 60–68; RESP 16–46; TEMP 36.1–36.6; O2SAT 89–98; BMI 41.4; BMI 42.1
--- NOTE | 2023-04-25 10:40 | DI.RAD.S_ITS ---
PROCEDURE: XR CHEST 1V INDICATIONS: chest pain TECHNIQUE: One view of the chest was acquired. COMPARISON: [facility], CR, XR CHEST 2V, 04/15/2023, 11:16. FINDINGS: Surgical changes and devices: Pacemaker Lungs and pleura: Stable findings. Moderate right pleural effusion with right basilar compressive atelectasis. Left lung grossly clear. Mediastinum: Mediastinal contours appear normal. Mild cardiomegaly. Bones and chest wall: No suspicious bony lesions. Overlying soft tissues appear unremarkable. IMPRESSION: Stable findings. Mild cardiomegaly. Moderate right pleural effusion with right basilar atelectasis. Dictated by: Wes Mendenhall M.D. on 04/25/2023 at 11:19 Approved by: Wes Mendenhall M.D. on 04/25/2023 at 11:20
--- NOTE | 2023-04-25 10:40 | DI.US.S_ITS ---
PROCEDURE: US PERIPH VENOUS LOW EXTREM LT INDICATIONS: PAIN TECHNIQUE: Real-time imaging, as well as color and pulse Doppler interrogation, were performed of the lower extremity deep veins from the inguinal ligament to the popliteal fossa. COMPARISON: None. FINDINGS: The common femoral, femoral and popliteal veins are normally compressible, and free of intraluminal thrombus. Color and pulse Doppler demonstrate normal phasic intraluminal flow. There is normal augmentation response to distal compression maneuver. IMPRESSION: Negative left lower extremity duplex venous ultrasound for DVT. Dictated by: Wes Mendenhall M.D. on 04/25/2023 at 11:58 Approved by: Wes Mendenhall M.D. on 04/25/2023 at 11:59
[2023-04-25 11:02] LABS: Add Manual Diff / Slide Review NO; Basophils Absolute Auto 0 /uL (0-100); Basophils Percent Auto 0.3 % (0-2); Eosinophils Absolute Auto 0 /uL (0-450); Eosinophils Percent Auto 0.4 % (2-4); Hematocrit 35.2 % (41-53); Hemoglobin 11.6 g/dL (13.5-17.5); Lymphocytes Absolute Auto 500 /uL (1100-4500); Mean Corpuscular Hemoglobin 30.2 PG (26-34); Mean Corpuscular Volume 91.6 fL (80-100); Monocytes Absolute Auto 600 /uL (0-900); Monocytes Percent Auto 4.6 % (3-14); Neutrophils Absolute Auto 11000 /uL (1500-7000); Neutrophils Percent Auto 90.7 % (50-75); Platelet Count 183 X10^3/uL (150-400); Red Blood Cell Count 3.85 X10^6/uL (4.5-5.9); Red Cell Distribution Width 16.1 % (11.6-14.8); White Blood Cell Count 12.2 X10^3/uL (4.5-11.0)
[2023-04-25 11:10] LABS: PTT Partial Thromboplastin Tim 24 SECONDS (26-36)
[2023-04-25] MEDS: ONDANSETRON 4 MG/2 ML INJ IV (11:10)
[2023-04-25] MEDS: MORPHINE 4 MG/ML INJ IV (11:11)
[2023-04-25 11:12] LABS: Alanine Aminotransferase 36 IU/L (<50); Albumin 3.4 g/dL (3.5-5.0); Albumin Globulin Ratio 1.2 (1.0-2.8); Alkaline Phosphatase 79 U/L (38-126); Aspartate Aminotransferase 26 IU/L (17-59); BUN Creatinine Ratio 33.3 (6-22); Bilirubin Total 0.5 mg/dL (0.2-1.3); Blood Urea Nitrogen 49 mg/dL (9-20); Calcium 8.3 mg/dL (8.4-10.2); Carbon Dioxide 33 mmol/L (22-32); Chloride 94 mmol/L (98-107); Creatine Kinase 23 U/L (55-170); Estimated Glomerular Filt Rate 49 mL/min (>60); Globulin 2.8 g/dL (1.7-4.1); Glucose 393 mg/dL (80-110); HEMOLYSIS 27 (0-50); Lipase 69 U/L (23-300); Magnesium 1.7 mg/dL (1.6-2.3); Potassium 5.1 mmol/L (3.4-5.1); Sodium 132 mmol/L (137-145); Total Protein 6.2 g/dL (6.3-8.2)
--- NOTE | 2023-04-25 11:20 | ED_ITS ---
HPI - Extremity Problem General Chief complaint: Shortness of Breath/Dyspnea Stated complaint: pain in LT leg afraid it's a blood clot Time Seen by Provider: 04/25/23 11:16 Source: patient Mode of arrival: Wheelchair Limitations: no limitations History of Present Illness HPI Narrative: This is a 77-year-old male with history of paroxysmal atrial fibrillation, tachy-ama syndrome, coronary artery disease with RCA stent 2018, pacemaker, aortic stenosis, KAYLAN, dyslipidemia, CHF, type 2 diabetes who presents with c omplaint of left leg pain, increasing shortness of breath and swelling in his extremities. Patient notes he is had recent hospitalizations 2-3 initially started with RSV infection with COPD exacerbation, patient has been on prednisone quite regularly secondary to this and has had increasing edema which has been attributed. Patient states this morning at about 7:00 a.m. he started having significant pain in his left calf he states it is quite painful nothing seems to make it better or worse he is tried elevating it. He has not taken any medications. States both of his legs have been very swollen and very tight in her starting to weep which is something that has not happened before. States swelling has been over several weeks he had not had swelling like this in the past. He denies any new sensation changes. He does not appreciate weakness he states movement makes it worse. States pain is very much in the calf the anterior shaffer and foot are not painful. He is noticed some skin breakdown and had a fissure or splint on the right back of the leg but not on the left. Related Data Home Medications Medication Instructions Recorded Confirmed glucosamine sulfate 1,000 mg 1,000 mg PO DAILY 04/27/18 04/15/23 capsule multivitamin 1 tab PO DAILY 04/27/18 04/15/23 aspirin 81 mg tablet,delayed 81 mg PO DAILY 08/21/20 04/15/23 release (Adult Low Dose Aspirin) sotalol 120 mg tablet 120 mg PO BID 02/24/23 04/15/23 losartan 50 mg tablet 50 mg PO BID 04/02/23 04/15/23 Previous Rx's Medication Instructions Recorded atorvastatin 40 mg tablet 40 mg PO DAILY #90 tabs 06/24/22 metformin 1,000 mg tablet 1,000 mg PO BID #180 tabs 06/24/22 spironolactone 25 mg tablet 12.5 mg PO DAILY #45 tabs 06/24/22 albuterol sulfate 90 mcg/actuation 2 puff inhalation Q4-6H PRN 02/28/23 aerosol inhaler shortness of breath or wheezing #8.5 grams glipizide 10 mg tablet 10 mg PO BID #180 tabs 03/31/23 insulin glargine 100 unit/mL (3 See Rx Instructions .Route 04/07/23 mL) subcutaneous pen .COMPLEX #15 mL ipratropium 0.5 mg-albuterol 3 mg 3 ml inhalation Q4-6H PRN 04/07/23 (2.5 mg base)/3 mL nebulization shortness of breath or wheezing soln #180 mL prednisone 20 mg tablet 60 mg PO DAILY #60 tabs 04/07/23 nebulizer and compressor #1 ea 04/08/23 pen needle, diabetic 32 gauge x #100 ea 04/09/2311/27 (BD Ultra-Fine Micro Pen Needle) torsemide 20 mg tablet 40 mg PO DAILY #60 tabs 04/15/23 metolazone 2.5 mg tablet 2.5 mg PO DAILY #30 tabs 04/18/23 clindamycin HCl 300 mg capsule 300 mg PO Q6H #40 caps 04/25/23 metolazone 5 mg tablet 5 mg PO DAILY #4 tabs 04/25/23 torsemide 40 mg tablet 80 mg PO DAILY #8 tabs 04/25/23 Allergies Allergy/AdvReac Type Severity Reaction Status Date / Time lisinopril [LISINOPRIL] Allergy Intermediate COUGH Verified 04/25/23 10:32 piperacillin [PIPERACILLIN] AdvReac Mild RASH MAY Verified 04/25/23 10:32 2014 ADMIT, MAY BE VANCO, UNSURE vancomycin [VANCOMYCIN] AdvReac Mild RASH MAY Verified 04/25/23 10:32 2014 ADMIT MAY BE PIPERACILLIN INSTEAD azithromycin [From Zithromax] AdvReac Verified 04/25/23 10:32 Review of Systems Review of Systems ROS Unobtainable: All systems reviewed & are unremarkable except as noted in HPI and below Patient History Medical History Aortic stenosis Atrial fibrillation (03/30/15) Cardiomyopathy (~03/2018) COPD (chronic obstructive pulmonary disease) Coronary artery disease (~03/2018) Hypertension (05/30/15) Tachy-ama syndrome Type 2 diabetes mellitus with hyperglycemia, without long-term current use of insulin Type 2 diabetes mellitus without complication (05/01/15) Surgical History H/O heart artery stent (~03/2018) S/P cardiac pacemaker procedure (~09/2018) Social History household members: none Smoking Status: Former smoker alcohol intake: never Smoking Status: Former smoker alcohol intake frequency: 0-2 drinks per day Substance Use Type: does not use Exam Narrative Exam Narrative: GENERAL: Alert and oriented x three, obese male in moderate distress. HEENT: Head normocephalic, atraumatic, EOMI, pupils reactive, face symmetric, moist mucous membranes NECK: Supple, full range of motion CARDIOVASCULAR: Regular rate and rhythm without murmurs, rubs or gallops. JVD. Bilateral lower extremity edema 2+ pitting. RESPIRATORY: Breath sounds equal bilaterally, no wheezes rales or rhonchi. Mild crackles. Tachypnea. ABDOMEN: Soft, nontender. Normoactive bowel sounds all 4 quadrants. No guarding or rebound, rigidity, no mass : No CVA tenderness EXTREMITIES: Normal range of motion, no clubbing. Patient has significant edema bilateral lower extremities extending up to his abdomen. Patient has pain over the left calf. He is nontender at the hip, over the thigh, he is nontender over the anterior shaffer or foot. Patient's does have some mild weeping. He has dopplerable pulses right and left slightly greater on the left. He does not have any warmth, erythema or other skin changes. Patient has normal muscle movement. He does have sensation to touch. Neurovascularly intact NEUROLOGICAL: Cranial nerves II through XII grossly intact. Moving all extremities SKIN: Warm, dry, no petechiae, no rashes or lesions other than small areas of abrasions bilateral lower extremities. Initial Vital Signs Initial Vital Signs: Vital Signs Temperature 97.0 F L 04/25/23 10:30 Pulse Rate 60 04/25/23 10:30 Respiratory Rate 28 H 04/25/23 10:30 Blood Pressure 126/58 L 04/25/23 10:30 Pulse Oximetry 96 04/25/23 10:30 Oxygen Delivery Method Room Air 04/25/23 10:30 Course Orders Ordered: ED Orders 04/25/23 10:40 US periph venous low extrem lt Stat XR chest 1V Stat EKG-12 Lead Stat 04/25/23 10:55 Complete Blood Count AUTO DIFF Stat Comprehensive Metabolic Panel Stat Lactate (Lactic Acid) Stat Lipase Stat Magnesium Stat NT-proBNP (BNP-Adult 18+) Stat PTT Partial Thromboplastin Ronal Stat Prothrombin Time INR Stat Troponin & CK Cardiac Panel Stat 04/25/23 12:10 Urine Culture Stat Urine Microscopic Stat 04/25/23 12:17 CT angio abd aorta runoff Stat Acetaminophen (Acetaminophen 325 Mg Tablet) 650 mg PO Q6H PRN PRN Reason: Fever/Mild Pain (1-3) Albuterol (Albuterol 2.5 Mg/3 Ml Neb (Adult)) 2.5 mg INH [id number] PRN PRN Reason: Shortness Of Breath Albuterol/Ipratropium (Albuterol/Ipratropium 3 Ml Ampul) 3 ml INH [id number] SHELBY Atorvastatin Calcium (Atorvastatin 20 Mg Tablet) 40 mg PO BEDTIME [facility] Dextrose (Dextrose 50 % In Water 25 Gm/50 Ml Syringe) 25 gm IV PRN PRN PRN Reason: Hypoglycemia Enoxaparin Sodium (Enoxaparin 40 Mg/0.4 Ml Syringe) 40 mg SUBCUT DAILY [facility] Glipizide (Glipizide 5 Mg Tablet) 10 mg PO BIDAC SHELBY Hydromorphone HCl (Hydromorphone 2 Mg Tablet) 2 mg PO Q4HR PRN PRN Reason: Pain, Moderate (4-6) Hydromorphone HCl (Hydromorphone 4 Mg Tablet) 4 mg PO Q4HR PRN PRN Reason: Pain, Severe (7-10) Clindamycin Phosphate (Cleocin) 600 mg in 50 mls @ 50 mls/hr IV Q8H [facility] Furosemide 120 mg/ Sodium (Chloride) 62 mls @ 124 mls/hr IV Q12H [facility] Insulin Glargine (Insulin Glargine 100 Unit/Ml 3ml Pen) 30 unit SUBCUT 0800 SHELBY Insulin Glargine (Insulin Glargine 100 Unit/Ml 3ml Pen) 15 unit SUBCUT 2100 SHELBY Insulin Human Lispro (Insulin Lispro 100 Unit/Ml 3ml Vial) 0 unit SUBCUT ACHS SHELBY; Protocol Losartan Potassium (Losartan 50 Mg Tablet) 50 mg PO BID SHELBY Metolazone (Metolazone 2.5 Mg Tablet) 5 mg PO 0800 SHELBY Naloxone HCl (Naloxone 0.4 Mg/Ml Vial) 0.2 mg IV Q2MIN PRN PRN Reason: Opiate Reversal Prednisone (Prednisone 20 Mg Tablet) 30 mg PO DAILY SHELBY Sotalol HCl (Sotalol 80 Mg Tablet) 120 mg PO BID SHELBY Discontinued Medications Acetaminophen (Acetaminophen 325 Mg Tablet) 975 mg PO NOW ONE Stop: 04/25/23 11:44 Last Admin: 04/25/23 11:50 Dose: 975 mg Documented By: THELMA Diphenhydramine HCl (Diphenhydramine 50 Mg/Ml Vial) 25 mg IV NOW ONE Stop: 04/25/23 16:27 Last Admin: 04/25/23 16:32 Dose: 25 mg Documented By: THELMA Famotidine (Famotidine 20 Mg/2 Ml Vial) 20 mg IV NOW SHELBY Famotidine (Famotidine 20 Mg/2 Ml Vial) 20 mg IV NOW SHELBY Famotidine (Famotidine 20 Mg/2 Ml Vial) 20 mg IV NOW ONE Stop: 04/25/23 16:46 Last Admin: 04/25/23 16:37 Dose: 20 mg Documented By: THELMA Gabapentin (Gabapentin 300 Mg Capsule) 300 mg PO NOW ONE Stop: 04/25/23 13:54 Last Admin: 04/25/23 14:09 Dose: 300 mg Documented By: THELMA Hydromorphone HCl (Hydromorphone 0.5 Mg Inj) 0.5 mg IV NOW ONE Stop: 04/25/23 11:25 Last Admin: 04/25/23 11:26 Dose: 0.5 mg Documented By: THELMA Hydromorphone HCl (Hydromorphone 0.5 Mg Inj) 0.5 mg IV NOW ONE Stop: 04/25/23 13:54 Last Admin: 04/25/23 14:09 Dose: 0.5 mg Documented By: THELMA Sodium Chloride (Normal Saline 0.9%) 500 mls @ 1,000 mls/hr IV BOLUS ONE Stop: 04/25/23 12:54 Last Infusion: 04/25/23 14:23 Dose: 0 mls/hr Documented By: Admin: 04/25/23 12:51 Dose: 1,000 mls/hr Documented By: THELMA Furosemide 60 mg/ Sodium (Chloride) 56 mls @ 112 mls/hr IV NOW ONE Stop: 04/25/23 13:56 Last Infusion: 04/25/23 14:53 Dose: 0 mls/hr Documented By: Admin: 04/25/23 14:10 Dose: 112 mls/hr Documented By: THELMA Clindamycin Phosphate 900 mg/ (Sodium Chloride) 106 mls @ 106 mls/hr IV NOW ONE Stop: 04/25/23 14:50 Last Infusion: 04/25/23 16:11 Dose: 0 mls/hr Documented By: Admin: 04/25/23 15:05 Dose: 106 mls/hr Documented By: THELMA Lorazepam (Lorazepam 2 Mg/Ml Inj) 1 mg IV NOW ONE Stop: 04/25/23 11:44 Last Admin: 04/25/23 12:00 Dose: Not Given Documented By: RADHA Lorazepam (Lorazepam 0.5 Mg Tablet) 1 mg PO NOW ONE Stop: 04/25/23 11:48 Last Admin: 04/25/23 11:50 Dose: 1 mg Documented By: THELMA Methylprednisolone (Methylprednisolone 125 Mg/2 Ml Vial) 125 mg IV NOW ONE Stop: 04/25/23 16:28 Last Admin: 04/25/23 16:30 Dose: 125 mg Documented By: THELMA Metolazone (Metolazone 2.5 Mg Tablet) 5 mg PO NOW ONE Stop: 04/25/23 17:23 Last Admin: 04/25/23 19:01 Dose: 5 mg Documented By: TAMIKO Morphine Sulfate (Morphine 4 Mg/Ml Inj) 4 mg IV NOW ONE Stop: 04/25/23 10:57 Last Admin: 04/25/23 11:11 Dose: 4 mg Documented By: THELMA Ondansetron HCl (Ondansetron 4 Mg/2 Ml Inj) 4 mg IV NOW ONE Stop: 04/25/23 10:57 Last Admin: 04/25/23 11:10 Dose: 4 mg Documented By: THELMA Vital Signs Vital signs: Vital Signs - 8 hr 04/25/23 11:15 04/25/23 11:30 04/25/23 11:30 Pulse Rate 60 60 Respiratory Rate 30 H 28 H Blood Pressure 117/60 Pulse Oximetry 95 93 Oxygen Delivery Method Oxygen Flow Rate 04/25/23 11:45 04/25/23 12:00 04/25/23 12:01 Pulse Rate 60 62 Respiratory Rate 36 H 36 H Blood Pressure 131/64 Pulse Oximetry 93 91 Oxygen Delivery Method Oxygen Flow Rate 04/25/23 12:01 04/25/23 12:15 04/25/23 12:26 Pulse Rate 68 60 Respiratory Rate 28 H 30 H Blood Pressure Pulse Oximetry 89 L 90 L 97 Oxygen Delivery Method Nasal Cannula Oxygen Flow Rate 2 04/25/23 12:47 04/25/23 12:47 04/25/23 13:00 Pulse Rate 60 Respiratory Rate 36 H Blood Pressure 155/69 H 145/65 H Pulse Oximetry 95 Oxygen Delivery Method Oxygen Flow Rate 04/25/23 13:00 04/25/23 13:15 04/25/23 13:30 Pulse Rate 60 60 Respiratory Rate 31 H 33 H Blood Pressure 158/70 H Pulse Oximetry 98 98 Oxygen Delivery Method Oxygen Flow Rate 04/25/23 13:30 04/25/23 13:45 04/25/23 14:00 Pulse Rate 60 60 Respiratory Rate 36 H 40 H Blood Pressure 130/63 Pulse Oximetry 96 95 Oxygen Delivery Method Oxygen Flow Rate 04/25/23 14:00 04/25/23 14:15 04/25/23 14:30 Pulse Rate 60 60 Respiratory Rate 36 H 38 H Blood Pressure 148/67 H Pulse Oximetry 97 97 Oxygen Delivery Method Oxygen Flow Rate 04/25/23 14:30 04/25/23 14:45 Pulse Rate 60 62 Respiratory Rate 32 H 30 H Blood Pressure Pulse Oximetry 91 Oxygen Delivery Method Oxygen Flow Rate MDM - Extremity (Nontraumatic) Lab Data 04/25/23 10:55 04/25/23 10:55 Labs: Lab Results 04/25/23 04/25/23 04/25/23 Range/Units 10:55 10:55 10:55 WBC 12.2 H (4.5-11.0) X10^3/uL RBC 3.85 L (4.5-5.9) X10^6/uL Hgb 11.6 L (13.5-17.5) g/dL Hct 35.2 L (41-53) % MCV 91.6 (80-100) fL MCH 30.2 (26-34) PG MCHC 33.0 (30-36) % RDW 16.1 H (11.6-14.8) % Plt Count 183 (150-400) X10^3/uL Neut % (Auto) 90.7 H (50-75) % Lymph % (Auto) 4.0 L (25-40) % [place] % (Auto) 4.6 (3-14) % Eos % (Auto) 0.4 L (2-4) % Baso % (Auto) 0.3 (0-2) % Neut # (Auto) 89143 H (5094-4623) /uL Lymph # (Auto) 500 L (1639-2972) /uL [place] # (Auto) 600 (0-900) /uL Eos # (Auto) 0 (0-450) /uL Baso # (Auto) 0 (0-100) /uL PT 11.0 (10.1-12.7) SECONDS INR 1.0 (0.9-1.3) APTT 24 L (26-36) SECONDS Sodium 132 L (137-145) mmol/L Potassium 5.1 (3.4-5.1) mmol/L Chloride 94 L (98-107) mmol/L Carbon Dioxide 33 H (22-32) mmol/L BUN 49 H (9-20) mg/dL Creatinine 1.47 H (0.66-1.25) mg/dL Estimated GFR 49 L (>60) mL/min BUN/Creatinine Ratio 33.3 H (6-22) Glucose 393 H (80-110) mg/dL Lactate (0.7-2.1) mmol/L Calcium 8.3 L (8.4-10.2) mg/dL Magnesium 1.7 (1.6-2.3) mg/dL Total Bilirubin 0.5 (0.2-1.3) mg/dL AST 26 (17-59) IU/L ALT 36 (<50) IU/L Alkaline Phosphatase 79 (38-126) U/L Total Creatine Kinase 23 L (55-170) U/L CK-MB (CK-2) TNP CK-MB (CK-2) Rel Index TNP Troponin I 0.032 (0.01-0.034) ng/mL NT-Pro-B Natriuret Pep 505 H (<450) pg/mL Total Protein 6.2 L (6.3-8.2) g/dL Albumin 3.4 L (3.5-5.0) g/dL Globulin 2.8 (1.7-4.1) g/dL Albumin/Globulin Ratio 1.2 (1.0-2.8) Lipase 69 (23-300) U/L Urine RBC (0-5/HPF) Urine WBC (0-5/HPF) Ur Squamous Epith Cells (0-5/HPF) Urine Bacteria (None) 04/25/23 04/25/23 04/25/23 Range/Units 10:55 12:10 13:25 WBC (4.5-11.0) X10^3/uL RBC (4.5-5.9) X10^6/uL Hgb (13.5-17.5) g/dL Hct (41-53) % MCV (80-100) fL MCH (26-34) PG MCHC (30-36) % RDW (11.6-14.8) % Plt Count (150-400) X10^3/uL Neut % (Auto) (50-75) % Lymph % (Auto) (25-40) % [place] % (Auto) (3-14) % Eos % (Auto) (2-4) % Baso % (Auto) (0-2) % Neut # (Auto) (7032-2667) /uL Lymph # (Auto) (0022-3768) /uL [place] # (Auto) (0-900) /uL Eos # (Auto) (0-450) /uL Baso # (Auto) (0-100) /uL PT (10.1-12.7) SECONDS INR (0.9-1.3) APTT (26-36) SECONDS Sodium (137-145) mmol/L Potassium (3.4-5.1) mmol/L Chloride (98-107) mmol/L Carbon Dioxide (22-32) mmol/L BUN (9-20) mg/dL Creatinine (0.66-1.25) mg/dL Estimated GFR (>60) mL/min BUN/Creatinine Ratio (6-22) Glucose (80-110) mg/dL Lactate 2.2 H 1.6 (0.7-2.1) mmol/L Calcium (8.4-10.2) mg/dL Magnesium (1.6-2.3) mg/dL Total Bilirubin (0.2-1.3) mg/dL AST (17-59) IU/L ALT (<50) IU/L Alkaline Phosphatase (38-126) U/L Total Creatine Kinase (55-170) U/L CK-MB (CK-2) CK-MB (CK-2) Rel Index Troponin I (0.01-0.034) ng/mL NT-Pro-B Natriuret Pep (<450) pg/mL Total Protein (6.3-8.2) g/dL Albumin (3.5-5.0) g/dL Globulin (1.7-4.1) g/dL Albumin/Globulin Ratio (1.0-2.8) Lipase (23-300) U/L Urine RBC 0-1/hpf (0-5/HPF) Urine WBC 10-30/hpf H (0-5/HPF) Ur Squamous Epith Cells 0-1 /hpf (0-5/HPF) Urine Bacteria Many (>30) H (None) Urine Dip Bedside Urine Glucose 250 mg/dl Bedside Urine Bilirubin - Negative Bedside Urine Ketone - Negative Urine Specific [place] 1.015 Bedside Urine Occult Blood +/- Bedside Urine pH 6.0 Bedside Urine Protein - Negative Bedside Urine Urobilinogen - Negative Bedside Urine Nitrite - Negative Bedside Urine Leukocytes +++ 500 Esterase Imaging Data aortic runoff: Radiologist's Impression: Joseph Zepeda?(Candelario)??77??M??1945 ? Allergy/Adv: lisinopril, piperacillin, vancomycin, azithromycin (More??) Close Aorta w/Runoff CTA (Signed) Wes Mendenhall - 04/25/23 Vascular Ultrasound (Signed) Wes Mendenhall - 04/25/23 Chest X-Ray (Signed) Wes Mendenhall - 04/25/23 Chest X-Ray (Signed) Wes Mendenhall - 04/15/23 Chest X-Ray (Signed) Lobo Bhakta - 04/04/23 Thoracentesis Ultrasound (Signed) Bong Santacruz - 04/04/[address] (Signed) Lsiandro Del Angel - 04/03/23 Telemetry Strips 04/02/23 Telemetry Strips 04/02/23 EKG Rpt. 04/02/23 Chest X-Ray (Signed) Miki Zambrnao - 04/02/23 Telemetry Strips 02/24/23 Echocardiogram Ultrasound (Signed) Adelso Wilder - 02/24/23 EKG Rpt. 02/24/23 EKG Rpt. 02/24/23 Chest X-Ray (Signed) Lobo Bhakta - 02/24/23 DI Result CC 08/26/18 PFT Result 08/26/18 Chest X-Ray (Signed) Kieran Shayley - 06/14/18 Telemetry Strips 06/14/18 Telemetry Strips 06/14/18 Telemetry Strips 06/14/18 Chest X-Ray (Signed) LopezCarloz chowdhury - 04/18/18 Chest X-Ray (Signed) LopezCarloz chowdhury - 04/18/18 EKG Rpt. 04/18/18 Launch?[place] [address] CT Scan Report Signed Patient: Joseph Zepeda MR#: [id number] : 1945 Acct:[id number] Age/Sex: 77 / M Date of Service: 04/25/23 Loc: ED Accession Number: [id number] ?? Procedure: CT angio abd aorta runoff Ordering Provider: Erika Bernard D.O. PROCEDURE:? CT ANGIO ABD AORTA RUNOFF ? INDICATIONS:? left calf pain, sudden onset ? TECHNIQUE:? After the administration of intravenous contrast, 2.5 mm sections acquired from T12 to the feet, with optional delayed image acquisition from the knees to the feet.? 3-dimensional maximum intensity projection (MIP) coronal and sagittal reformats, and/or 3-dimensional volume rendering reformatting was then performed.? For radiation dose reduction, the following was used:? automated exposure control.? ? COMPARISON:? [facility], CT, CT CHEST WO CON, 04/03/2023, 8:42. ? FINDINGS:? Image quality:? Excellent.? ? Extravascular tissues:? Moderate right pleural effusion with right basilar collapse.? Severe coronary artery calcifications.? Pacemaker.? Heart size is normal.? 5.1 cm ascending aortic aneurysm.? Liver is normal in size and enhancement.? Gallbladder is unremarkable without calcified stones. .? Biliary system is non dilated.? Pancreas enhances normally.? Spleen is normal in size and enhancement.? No adrenal nodu les.? Kidneys are normal in size and enhancement, without hydronephrosis.? Non opacified bowel loops demonstrate normal wall thickness and enhancement.? No free fluid or air.? No retroperitoneal or mesenteric adenopathy.? No ventral hernias.? Bladder wall thickness is normal.? No inguinal hernias or adenopathy.? No suspicious bony lesions.? No vertebral body compression fractures.? ? Abdominal aorta:? No aneurysm or dissection.? Diffuse atherosclerotic calcifications with mild soft plaque, as well.? No significant stenosis.? SMA, celiac, SPENCER, and renal arteries are patent. ? Right lower extremity:? Common iliac artery and external iliac artery are diffusely calcified without significant stenotic disease.? Mild diffuse common femoral disease.? Mild diffuse SFA disease with straight line flow.? There is a focal moderate stenosis near Jerald's canal.? Popliteal is grossly patent.? By the level of the distal popliteal, there is poor contrast opacification.? There is no identification of tr ifurcation vessels, possibly secondary to technique and timing issues, or possibly indicating occlusion of these vessels.? Diffuse edema. ? Left lower extremity:? Common iliac artery and external iliac artery are diffusely calcified without significant stenotic disease.? Common femoral grossly patent.? SFA mildly diffusely diseased without focal stenosis.? Popliteal is patent with mild disease. ?The posterior tibial occludes.? The peroneal is patent.? The anterior tibial is somewhat small caliber, but is patent to below the ankle.? Diffuse edema. ? IMPRESSION:? ? 1. 5.1 cm ascending aortic aneurysm. ? 2. Severe coronary artery calcifications.? ? 3. Moderate right pleural effusion with right basilar collapse. ? 4. In this patient with sudden onset left calf pain, there is no occlusion of le ft pelvic or left lower extremity vascular structures which would result in left calf pain. ? 5. Aorto bi-iliac plaque without significant stenosis. ? 6. Right lower extremity runoff significant for straight line flow to the distal popliteal with a moderate stenosis near Jerald's canal.? There is no nvisualization of the vessels below the popliteal, most likely secondary to timing issues, but poten tially indicating occlusion of these vessels.? However, there is no acute symptomatology. ? 7. Left lower extremity runoff significant for no significant stenotic disease through the popliteal,? and 2 vessel runoff.? ? Dictated by: Wes Mendenhall M.D. on 04/25/2023 at 13:06 ? ? Approved by: Wes Mendenhall M.D. on 04/25/2023 at 13:16?? Chest x-ray: Radiologist's Impression: [address] [address] XRay Report Signed Patient: Joseph Zepeda MR#: [id number] : 1945 Acct:[id number] Age/Sex: 77 / M Date of Service: 04/25/23 Loc: ED Accession Number: [id number] ?? Procedure: XR chest 1V Ordering Provider: Erika Bernard D.O. PROCEDURE:? XR CHEST 1V ? INDICATIONS:? chest pain ? TECHNIQUE:? One view of the chest was acquired.? ? COMPARISON:? [facility], CR, XR CHEST 2V, 04/15/2023, 11:16. ? FINDINGS:? ? Surgical changes and devices:? Pacemaker ? Lungs and pleura:? Stable findings.? Moderate right pleural effusion with right basilar compressive atelectasis.? Left lung grossly clear. ? Mediastinum:? Mediastinal contours appear normal.? Mild cardiomegaly. ? Bones and chest wall:? No suspicious bony lesions.? Overlying soft tissues appear unremarkable.? ? IMPRESSION:? Stable findings.? Mild cardiomegaly.? Moderate right pleural effusion with right basilar atelectasis. ? ? Dictated by: Wes Mendenhall M.D. on 04/25/2023 at 11:19 ? ? Approved by: Wes Mendenhall M.D. on 04/25/2023 at 11:20?? US - DVT: Radiologist's Impression: Joseph Zepeda?(Candelario)??77??M??1945 ? Allergy/Adv: lisinopril, piperacillin, vancomycin, azithromycin (More??) Close Aorta w/Runoff CTA (Signed) Wes Mendenhall - 04/25/23 Vascular Ultrasound (Signed) Wes Mendenhall - 04/25/23 Chest X-Ray (Signed) Wes Mendenhall - 04/25/23 Chest X-Ray (Signed) Wes Mendenhall - 04/15/23 Chest X-Ray (Signed) BhaktaLobo - 04/04/23 Thoracentesis Ultrasound (Signed) Bong Santacruz - 04/04/[address] (Signed) Lisandro Del Angel - 04/03/23 Telemetry Strips 04/02/23 Telemetry Strips 04/02/23 EKG Rpt. 04/02/23 Chest X-Ray (Signed) Miki Zambrano - 04/02/23 Telemetry Strips 02/24/23 Echocardiogram Ultrasound (Signed) Adelso Wilder - 02/24/23 EKG Rpt. 02/24/23 EKG Rpt. 02/24/23 Chest X-Ray (Signed) Lobo Bhakta - 02/24/23 DI Result CC 08/26/18 PFT Result 08/26/18 Chest X-Ray (Signed) Kieran Shayley - 06/14/18 Telemetry Strips 06/14/18 Telemetry Strips 06/14/18 Telemetry Strips 06/14/18 Chest X-Ray (Signed) LopezCarloz - 04/18/18 Chest X-Ray (Signed) Carloz Lopez - 04/18/18 EKG Rpt. 04/18/18 Launch?[place] [address] Ultrasound Report Signed Patient: Joseph Zepeda MR#: [id number] : 1945 Acct:[id number] Age/Sex: 77 / M Date of Service: 04/25/23 Loc: ED Accession Number: [id number] ?? Procedure: US periph venous low extrem lt Ordering Provider: Erika Bernard D.O. PROCEDURE:? US PERIPH VENOUS LOW EXTREM LT ? INDICATIONS:? PAIN ? TECHNIQUE:? Real-time imaging, as well as color and pulse Doppler interrogation, were perf ormed of the lower extremity deep veins from the inguinal ligament to the popliteal fossa.? ? COMPARISON:? None. ? FINDINGS:? The common femoral, femoral and popliteal veins are normally compressible, and free of intraluminal thrombus.? Color and pulse Doppler demonstrate normal phasic intraluminal flow.? There is normal augmentation response to distal compression maneuver. ? ? IMPRESSION:? Negative left lower extremity duplex venous ultrasound for DVT. ? ? ? Dictated by: Wes Mendenhall M.D. on 04/25/2023 at 11:58 ? ? Approved by: Wes Mendenhall M.D. on 04/25/2023 at 11:59?? ECG Data Attestation EKG: I personally reviewed and interpreted this ECG as follows: Interpretation: Atrial paced rhythm rate of 65 IL 170 QRS 80 QTC of 451. No acute ST elevation. MDM Narrative Medical decision making narrative: This is a 77-year-old male with history of AFib, tachy-ama, coronary artery disease RCA stent, pacemaker, aortic stenosis also has ascending aortic aneurysm, dyslipidemia, CHF COVID type 2 diabetes presented with his main complaint being left calf pain that was sudden onset today. He is had chronic swelling, shortness of breath, discomfort but her brand new calf pain. No new numbness or sensation changes reported. No color changes. He states his legs become significant swelling swollen over the past 2 weeks. He appears to have CHF component but has also been taking a lot of steroids notes his sugars have been quite elevated 3-400 ranges in the mornings and then in the 150 range in the evenings. Able to share this on his monitor. Normally be component of neuropathic pain, DVT ultrasound was negative patient had multiple hospitalizations recently so this was obtained, pattern is atypical for arterial issue but Doppler ultrasounds of the dorsalis pedis were slightly less on the left than the right so aortic runoff was obtained no aneurysm, normal flow down the left leg which is the symptomatic leg. Right lower extremity moderate tendinosis near Jerald's canal but could be secondary to timing issues as visualized vessels were not below the popliteal on the right but patient is asymptomatic on the right. He also had dopplerable pulses on the right. Patient has had several rounds of pain medication with minimal improvement. He is somewhat limited in options secondary to his chronic kidney disease. Discussed with patient pain does not seem to be coming from his back he has normal range of motion he does not have any pain in the upper thigh that would be more consistent with a sciatica or vertebral source. Patient was able to ambulate without assistance. He is noted to have some redness more in the lower calf not so much in the area that hurts him as much but could be developing a cellulitis. Discharge Plan Departure Patient Disposition: Admitted As Inpatient Clinical Impression: Pain of left calf, Cellulitis of left leg, Acute exacerbation of CHF (congestive heart failure) Admit Date/Time: 04/25/23 16:18 Admit Provider: Nura Danielle
[2023-04-25 11:23] LABS: NT-proBNP (BNP-Adult 18+) 505 pg/mL (<450); Troponin I 0.032 ng/mL (0.01-0.034)
[2023-04-25] MEDS: HYDROMORPHONE 0.5 MG INJ IV ×2 (11:26→14:09)
--- NOTE | 2023-04-25 11:30 | PC.NURSE ---
patient had positive pulse in right dorsalis pedis and present but slightly less detectable in left dorsalis pedis. Rate was regular at 60 bpm
[2023-04-25 11:35] LABS: Lactate (Lactic Acid) 2.2 mmol/L (0.7-2.1)
[2023-04-25] MEDS: ACETAMINOPHEN 325 MG TABLET 975 MG PO (11:50)
[2023-04-25] MEDS: LORazepam 0.5 MG TABLET 1 MG PO (11:50)
--- NOTE | 2023-04-25 12:17 | DI.CT.S_ITS ---
PROCEDURE: CT ANGIO ABD AORTA RUNOFF INDICATIONS: left calf pain, sudden onset TECHNIQUE: After the administration of intravenous contrast, 2.5 mm sections acquired from T12 to the feet, with optional delayed image acquisition from the knees to the feet. 3-dimensional maximum intensity projection (MIP) coronal and sagittal reformats, and/or 3-dimensional volume rendering reformatting was then performed. For radiation dose reduction, the following was used: automated exposure control. COMPARISON: [facility], CT, CT CHEST WO CON, 04/03/2023, 8:42. FINDINGS: Image quality: Excellent. Extravascular tissues: Moderate right pleural effusion with right basilar collapse. Severe coronary artery calcifications. Pacemaker. Heart size is normal. 5.1 cm ascending aortic aneurysm. Liver is normal in size and enhancement. Gallbladder is unremarkable without calcified stones. . Biliary system is non dilated. Pancreas enhances normally. Spleen is normal in size and enhancement. No adrenal nodules. Kidneys are normal in size and enhancement, without hydronephrosis. Non opacified bowel loops demonstrate normal wall thickness and enhancement. No free fluid or air. No retroperitoneal or mesenteric adenopathy. No ventral hernias. Bladder wall thickness is normal. No inguinal hernias or adenopathy. No suspicious bony lesions. No vertebral body compression fractures. Abdominal aorta: No aneurysm or dissection. Diffuse atherosclerotic calcifications with mild soft plaque, as well. No significant stenosis. SMA, celiac, SPENCER, and renal arteries are patent. Right lower extremity: Common iliac artery and external iliac artery are diffusely calcified without significant stenotic disease. Mild diffuse common femoral disease. Mild diffuse SFA disease with straight line flow. There is a focal moderate stenosis near Jerald's canal. Popliteal is grossly patent. By the level of the distal popliteal, there is poor contrast opacification. There is no identification of trifurcation vessels, possibly secondary to technique and timing issues, or possibly indicating occlusion of these vessels. Diffuse edema. Left lower extremity: Common iliac artery and external iliac artery are diffusely calcified without significant stenotic disease. Common femoral grossly patent. SFA mildly diffusely diseased without focal stenosis. Popliteal is patent with mild disease. The posterior tibial occludes. The peroneal is patent. The anterior tibial is somewhat small caliber, but is patent to below the ankle. Diffuse edema. IMPRESSION: 1. 5.1 cm ascending aortic aneurysm. 2. Severe coronary artery calcifications. 3. Moderate right pleural effusion with right basilar collapse. 4. In this patient with sudden onset left calf pain, there is no occlusion of left pelvic or left lower extremity vascular structures which would result in left calf pain. 5. Aorto bi-iliac plaque without significant stenosis. 6. Right lower extremity runoff significant for straight line flow to the distal popliteal with a moderate stenosis near Jerald's canal. There is nonvisualization of the vessels below the popliteal, most likely secondary to timing issues, but potentially indicating occlusion of these vessels. However, there is no acute symptomatology. 7. Left lower extremity runoff significant for no significant stenotic disease through the popliteal, and 2 vessel runoff. Dictated by: Wes Mendenhall M.D. on 04/25/2023 at 13:06 Approved by: Wes Mendenhall M.D. on 04/25/2023 at 13:16
--- NOTE | 2023-04-25 12:23 | PC.NURSE ---
the patient's pain has grown bigger in reference to the area effected. His pain medication has only helped slightly. He agreed to elevate the limb but stated that ice packs make the pain worse.
[2023-04-25 12:28] LABS: Bacteria Urine Many (>30); RBC Urine 0-1/HPF (0-5/HPF); Squamous Epithelial Cell Urine 0-1 /HPF (0-5/HPF); WBC Urine 10-30/HPF (0-5/HPF)
[2023-04-25] MEDS: SODIUM CHLORIDE 0.9% 500 ML 1000 ML IV (12:51)
--- NOTE | 2023-04-25 12:55 | PC.NURSE ---
history of rib injury causing fluid to build in lungs which has caused SOB.
[2023-04-25 13:25] LABS: Reflexed Lactate in 2 Hours Y
[2023-04-25] MEDS: GABAPENTIN 300 MG CAPSULE PO (14:09)
[2023-04-25] MEDS: FUROSEMIDE 60 MG in SODIUM CHLORIDE 0.9% 50 ML 112 MG IV (14:10)
[2023-04-25 14:27] LABS: Lactate 2HR (Lactic Acid Rflx) 1.6 mmol/L (0.7-2.1)
--- NOTE | 2023-04-25 14:55 | PC.NURSE ---
Patient was given an ambulation trial and he made one full lap before needing a break. He dropped his 02 saturation down to 85% on RA. notified.
[2023-04-25] MEDS: CLINDAMYCIN 900 MG in SODIUM CHLORIDE 0.9% 100 ML 106 MG IV (15:05)
--- NOTE | 2023-04-25 15:11 | PC.NURSE ---
while ambulating the patient was noticed to have redness on the back of the ankle of the leg in pain. MD notified. ABX ordered
--- NOTE | 2023-04-25 16:18 | P.HP_ITS ---
History of Present Illness History of Present Illness Date Patient Seen: 04/25/23 Time Patient Seen: 16:18 Chief complaint: pain in LT leg afraid it's a blood clot Narrative: Patient presented with pain in his left leg she would emergency department. He is persisted with severe edema bilateral lower extremities that has failed to really respond to diuretic therapy so far. Extensive workup in the ER demonstrates probably nothing more than a cellulitis ongoing in his left posterior thigh. There is no evidence of DVT and arterial evaluation was even undertaken that did not reveal evidence of any significant arterial disease. Patient has been struggling with severe edema that is failed to respond to escalating doses of oral furosemide which was then switched to torsemide which then had metolazone added with still limited benefit. He shows no evidence of significant renal dysfunction on lab work. Abdominal CT done as part of his aortic runoff does not demonstrated intra-abdominal or intrapelvic process causing obstruction. His echocardiogram done in February of this year demonstrates normal left ventricular function with evidence of diastolic dysfunction, and maybe some mild right ventricular abnormality Patient is persistently mildly hypoxic with activity and at rest at times and so was admitted for aggressive treatment of his presumed acute on chronic congestive heart failure with preserved ejection fraction Patient also with diabetes and severe hyperglycemia secondary to corticosteroids. He also has known COPD. He was admitted here in February because of severe dyspnea treated as though more of a COPD exacerbation but really fa iled to respond to parental corticosteroids followed by oral corticosteroids. The corticosteroids made his blood sugars absolutely super high but been improving as he is had his oral corticosteroids taper down. There is really been no change in his overall sense of dyspnea with changing doses of his corticosteroids which would further argue against this being related to his COPD [facility] Medical History Aortic stenosis Atrial fibrillation (03/30/15) Cardiomyopathy (~03/2018) COPD (chronic obstructive pulmonary disease) Coronary artery disease (~03/2018) Hypertension (05/30/15) Tachy-ama syndrome Type 2 diabetes mellitus with hyperglycemia, without long-term current use of insulin Type 2 diabetes mellitus without complication (05/01/15) Surgical History H/O heart artery stent (~03/2018) S/P cardiac pacemaker procedure (~09/2018) Social History household members: none Smoking Status: Former smoker alcohol intake: never Meds Home Medications and Allergies Home Medications Medication Instructions Recorded Confirmed Type glucosamine sulfate 1,000 mg 1,000 mg PO DAILY 04/27/18 04/15/23 History capsule multivitamin 1 tab PO DAILY 04/27/18 04/15/23 History aspirin 81 mg tablet,delayed 81 mg PO DAILY 08/21/20 04/15/23 History release (Adult Low Dose Aspirin) atorvastatin 40 mg tablet 40 mg PO DAILY #90 tabs 06/24/22 04/15/23 Rx metformin 1,000 mg tablet 1,000 mg PO BID #180 tabs 06/24/22 04/15/23 Rx spironolactone 25 mg tablet 12.5 mg PO DAILY #45 tabs 06/24/22 04/15/23 Rx sotalol 120 mg tablet 120 mg PO BID 02/24/23 04/15/23 History albuterol sulfate 90 mcg/actuation 2 puff inhalation Q4-6H PRN 02/28/23 04/15/23 Rx aerosol inhaler shortness of breath or wheezing #8.5 grams glipizide 10 mg tablet 10 mg PO BID #180 tabs 03/31/23 04/15/23 Rx losartan 50 mg tablet 50 mg PO BID 04/02/23 04/15/23 History insulin glargine 100 unit/mL (3 See Rx Instructions .Route 04/07/23 04/15/23 Rx mL) subcutaneous pen .COMPLEX #15 mL ipratropium 0.5 mg-albuterol 3 mg 3 ml inhalation Q4-6H PRN 04/07/23 04/15/23 Rx (2.5 mg base)/3 mL nebulization shortness of breath or wheezing soln #180 mL prednisone 20 mg tablet 60 mg PO DAILY #60 tabs 04/07/23 04/15/23 Rx nebulizer and compressor #1 ea 04/08/23 04/15/23 Rx pen needle, diabetic 32 gauge x #100 ea 04/09/23 04/15/23 Rx 1/4 (BD Ultra-Fine Micro Pen Needle) torsemide 20 mg tablet 40 mg PO DAILY #60 tabs 04/15/23 04/15/23 Rx metolazone 2.5 mg tablet 2.5 mg PO DAILY #30 tabs 04/18/23 Rx clindamycin HCl 300 mg capsule 300 mg PO Q6H #40 caps 04/25/23 Rx metolazone 5 mg tablet 5 mg PO DAILY #4 tabs 04/25/23 Rx torsemide 40 mg tablet 80 mg PO DAILY #8 tabs 04/25/23 Rx Allergies Allergy/AdvReac Type Severity Reaction Status Date / Time lisinopril [LISINOPRIL] Allergy Intermediate COUGH Verified 04/25/23 10:32 piperacillin [PIPERACILLIN] AdvReac Mild RASH MAY Verified 04/25/23 10:32 2014 ADMIT, MAY BE VANCO, UNSURE vancomycin [VANCOMYCIN] AdvReac Mild RASH MAY Verified 04/25/23 10:32 2014 ADMIT MAY BE PIPERACILLIN INSTEAD azithromycin [From Zithromax] AdvReac Verified 04/25/23 10:32 Review of Systems Review of Systems ROS: Yes All systems reviewed with the patient and are negative except as otherwise documented Exam Vital Signs (past 8 hours): - 04/25/23 10:30 04/25/23 10:41 04/25/23 10:45 Temperature 97.0 F L Pulse Rate 60 60 60 Respiratory Rate 28 H 39 H 46 H Blood Pressure 126/58 L Pulse Oximetry 96 96 96 Oxygen Delivery Method Room Air Oxygen Flow Rate 04/25/23 11:00 04/25/23 11:00 04/25/23 11:15 Temperature Pulse Rate 60 60 Respiratory Rate 36 H 30 H Blood Pressure 137/63 Pulse Oximetry 95 95 Oxygen Delivery Method Room Air Oxygen Flow Rate 04/25/23 11:30 04/25/23 11:30 04/25/23 11:45 Temperature Pulse Rate 60 60 Respiratory Rate 28 H 36 H Blood Pressure 117/60 Pulse Oximetry 93 93 Oxygen Delivery Method Oxygen Flow Rate 04/25/23 12:00 04/25/23 12:01 04/25/23 12:01 Temperature Pulse Rate 62 68 Respiratory Rate 36 H 28 H Blood Pressure 131/64 Pulse Oximetry 91 89 L Oxygen Delivery Method Oxygen Flow Rate 04/25/23 12:15 04/25/23 12:26 04/25/23 12:47 Temperature Pulse Rate 60 Respiratory Rate 30 H Blood Pressure 155/69 H Pulse Oximetry 90 L 97 Oxygen Delivery Method Nasal Cannula Oxygen Flow Rate 2 04/25/23 12:47 04/25/23 13:00 04/25/23 13:00 Temperature Pulse Rate 60 60 Respiratory Rate 36 H 31 H Blood Pressure 145/65 H Pulse Oximetry 95 98 Oxygen Delivery Method Oxygen Flow Rate 04/25/23 13:15 04/25/23 13:30 04/25/23 13:30 Temperature Pulse Rate 60 60 Respiratory Rate 33 H 36 H Blood Pressure 158/70 H Pulse Oximetry 98 96 Oxygen Delivery Method Oxygen Flow Rate 04/25/23 13:45 04/25/23 14:00 04/25/23 14:00 Temperature Pulse Rate 60 60 Respiratory Rate 40 H 36 H Blood Pressure 130/63 Pulse Oximetry 95 97 Oxygen Delivery Method Oxygen Flow Rate 04/25/23 14:15 04/25/23 14:30 04/25/23 14:30 Temperature Pulse Rate 60 60 Respiratory Rate 38 H 32 H Blood Pressure 148/67 H Pulse Oximetry 97 91 Oxygen Delivery Method Oxygen Flow Rate 04/25/23 14:45 Temperature Pulse Rate 62 Respiratory Rate 30 H Blood Pressure Pulse Oximetry Oxygen Delivery Method Oxygen Flow Rate Oxygen Delivery Method Nasal Cannula Oxygen Flow Rate 2 Narrative Exam Narrative: Elderly male in no obvious distress sitting on his bed after being transferred from the [facility] from the ER HEENT-normocephalic atraumatic Neck-no lymphadenopathy Lungs-diminished breath sounds, with dullness right base, no wheezes no crackles Heart-regular rate and rhythm no murmur Abdomen-minimally obese positive bowel tones Extremities-4+ pitting edema the foot and ankle bilaterally including pretibial area, basically unchanged from previous evaluation in the clinic. No palpable abnormality or redness in the left thigh Objective Labs 04/25/23 10:55 04/26/23 05:17 Labs: Laboratory Results - last 24 hr 04/25/23 04/25/23 04/25/23 10:55 10:55 10:55 WBC 12.2 H RBC 3.85 L Hgb 11.6 L Hct 35.2 L MCV 91.6 MCH 30.2 MCHC 33.0 RDW 16.1 H Plt Count 183 Neut % (Auto) 90.7 H Lymph % (Auto) 4.0 L [place] % (Auto) 4.6 Eos % (Auto) 0.4 L Baso % (Auto) 0.3 Neut # (Auto) 35192 H Lymph # (Auto) 500 L [place] # (Auto) 600 Eos # (Auto) 0 Baso # (Auto) 0 PT 11.0 INR 1.0 APTT 24 L Sodium 132 L Potassium 5.1 Chloride 94 L Carbon Dioxide 33 H BUN 49 H Creatinine 1.47 H Estimated GFR 49 L BUN/Creatinine Ratio 33.3 H Glucose 393 H Lactate Calcium 8.3 L Magnesium 1.7 Total Bilirubin 0.5 AST 26 ALT 36 Alkaline Phosphatase 79 Total Creatine Kinase 23 L CK-MB (CK-2) TNP CK-MB (CK-2) Rel Index TNP Troponin I 0.032 NT-Pro-B Natriuret Pep 505 H Total Protein 6.2 L Albumin 3.4 L Globulin 2.8 Albumin/Globulin Ratio 1.2 Lipase 69 Urine RBC Urine WBC Ur Squamous Epith Cells Urine Bacteria 04/25/23 04/25/23 04/25/23 10:55 12:10 13:25 WBC RBC Hgb Hct MCV MCH MCHC RDW Plt Count Neut % (Auto) Lymph % (Auto) [place] % (Auto) Eos % (Auto) Baso % (Auto) Neut # (Auto) Lymph # (Auto) [place] # (Auto) Eos # (Auto) Baso # (Auto) PT INR APTT Sodium Potassium Chloride Carbon Dioxide BUN Creatinine Estimated GFR BUN/Creatinine Ratio Glucose Lactate 2.2 H 1.6 Calcium Magnesium Total Bilirubin AST ALT Alkaline Phosphatase Total Creatine Kinase CK-MB (CK-2) CK-MB (CK-2) Rel Index Troponin I NT-Pro-B Natriuret Pep Total Protein Albumin Globulin Albumin/Globulin Ratio Lipase Urine RBC 0-1/hpf Urine WBC 10-30/hpf H Ur Squamous Epith Cells 0-1 /hpf Urine Bacteria Many (>30) H Assessment & Plan Assessment & Plan narrative: 1. Acute on chronic congestive heart failure with preserved ejection fraction- patient needs more aggressive diuresis. Will employ large doses of IV furosemide and start with oral metolazone but consider switching to parental thi azide diuretic as well if necessary to achieve urinary output. Will need to monitor renal function carefully but I would pursue aggressive diuresis until or unless we see significant change in renal function. Patient appears to have reaccumulated some fluid in the right chest that I believe to be secondary to his congestive heart failure. Previous evaluation suggested this maybe a posttraumatic effusion as it was quite bloody. Cytology was negative for evidence of malignancy. However I think this is probably a combination of factors. Once we did drain some fluid off with thoracentesis there is no evidence of underlying neoplastic kind of abnormality noted. Patient may benefit from additional thoracentesis during this hospitalization 2. Peripheral edema-unclear as to the exact etiology of patient's rather sudden onset of severe peripheral edema (10-12 weeks ago). No evidence of significant cardiac dysfunction. No evidence of intra-abdominal pathology causing issues with venous return etcetera. Renal function is stable as well. Therefore I think he merely needs more aggressive diuretic therapy 3. Diabetes-patient's blood sugars have been quite elevated while on corti costeroid therapy. He continues on oral prednisone but lower dose and blood sugar seemingly been some better. Continue with long-acting insulin b.i.d. as well as coverage insulin here in the hospital. He will obviously need to be on a carbohydrate consistent diabetic diet 4. COPD-patient does have known significant COPD but has not really benefited from corticosteroid therapy. Continue with prednisone taper and administer nebulizer treatments on a scheduled as well as as needed basis 5. Cellulitis-continue with parental antibiotics. Will follow this clinically based on pain etcetera. Will need pain medication as well 6. UTI-patient with evidence of a UTI as well on urine sample. Will probably be treated by appropriate antibiotic therapy as we treat cellulitis. Will monitor culture results as well 7. VTE prophylaxis-patient appropriate for Lovenox, which will be ordered 8. Code status-patient has previously requested full code
[2023-04-25] MEDS: methylPREDNISolone 125 MG/2 ML VIAL IV (16:30)
[2023-04-25] MEDS: diphenhydrAMINE 50 MG/ML VIAL 25 MG IV (16:32)
[2023-04-25] MEDS: FAMOTIDINE 20 MG/2 ML VIAL IV (16:37)
[2023-04-25] MEDS: metOLazone 2.5 MG TABLET 5 MG PO (19:01)
[2023-04-25] MEDS: ALBUTEROL/IPRATROPIUM 3 ML AMPUL INH (21:56)
[2023-04-25] MEDS: ATORVASTATIN 20 MG TABLET 40 MG PO (22:02)
[2023-04-25] MEDS: FUROSEMIDE 120 MG in SODIUM CHLORIDE 0.9% 50 ML 124 MG IV (22:03)
[2023-04-25] MEDS: INSULIN LISPRO 100 UNIT/ML 3ML VIAL SUBCUT (22:14)
[2023-04-25] MEDS: INSULIN GLARGINE 100 UNIT/ML 3ML PEN 15 UNIT SUBCUT (22:14)
[2023-04-25] MEDS: SOTALOL 80 MG TABLET 120 MG PO (22:15)
[2023-04-25] MEDS: CLINDAMYCIN 600 MG/50 ML PIGGYBACK 50 MG IV (22:30)
[2023-04-26] VITALS (9 sets, daily range): BP systolic 90–116; BP diastolic 42–64; PULSE 60–87; RESP 18–22; TEMP 36.4–36.8; O2SAT 88–95
[2023-04-26] MEDS: HYDROMORPHONE 4 MG TABLET PO ×4 (00:27→21:15)
[2023-04-26 05:52] LABS: BUN Creatinine Ratio 28.9 (6-22); Blood Urea Nitrogen 58 mg/dL (9-20); Calcium 7.6 mg/dL (8.4-10.2); Carbon Dioxide 35 mmol/L (22-32); Chloride 93 mmol/L (98-107); Estimated Glomerular Filt Rate 34 mL/min (>60); Glucose 233 mg/dL (80-110); HEMOLYSIS < 15 (0-50); Magnesium 1.8 mg/dL (1.6-2.3); Sodium 134 mmol/L (137-145)
[2023-04-26 05:55] LABS: Potassium 6.1 mmol/L (3.4-5.1)
[2023-04-26 06:01] LABS: NT-proBNP (BNP-Adult 18+) 1920 pg/mL (<450)
[2023-04-26] MEDS: CLINDAMYCIN 600 MG/50 ML PIGGYBACK 50 MG IV ×3 (06:32→22:45)
[2023-04-26] MEDS: glipiZIDE 5 MG TABLET 10 MG PO ×2 (06:36→16:58)
--- NOTE | 2023-04-26 07:23 | DI.ECHO.S_ITS ---
[place] +---------+ Hospital +---------+ : : [address] : : : : [id number] : : : : Phone: [phone]+ Echocardiogram Report + + :Name: KRISTIAN REEVES Study Date: 04/26/2023 Height: 71 in : :[facility] ReadingLocation: Weight: 302 lb: : Gender: Male BSA: 2.5 m2 : :: 1945 Age: 77 yrs BP: 90/60 mmHg: :Reason For Study: CONGESTIVE HEART FAILURE : :Ordering Physician: SUJIT, : :FOX Chicas Performed By: Beth Soto : :Referring: FOX BECKETT : + + Interpretation Summary Limited Echo: 1) Normal left ventricular size, wall motion, and systolic function (EF 60- 65%). 2) The right ventricle grossly appears normal in size with probable normal systolic function. 3) There is no pericardial effusion. 4) Compared to the Echo done 02/24/2023, no significant change. Procedure: Images were not obtained from all of the standard acoustic windows due to the limited scope of the study. The study quality was technically adequate. Comparison is made with the echocardiogram of 02/24/2023. The patient was in sinus rhythm with heart rates between 60-63 bpm during the exam. Left Ventricle: The left ventricle is normal in size. The estimated left ventricular end diastolic volume is 86 ml. Left ventricular wall thickness is mild-moderately increased. The ejection fraction is estimated to be 60-65%. Left ventricular systolic function appears normal without focal wall motion abnormalities. Right Ventricle: The right ventricle grossly appears normal in size with probable normal systolic function. Pericardium/ Pleura There is no pericardial effusion. There is no pleural effusion. MMode/2D Measurements & Calculations LVIDd: 5.6 cm LVIDs: 4.0 cm FS: 28.9 % IVSd: 1.4 cm LVPWd: 1.2 cm LV storm. diameter/BSA (cm/m^2): 2.2 LV sys. diameter/BSA (cm/m^2): 1.6 Reading Physician:12:11 PM
[2023-04-26] MEDS: INSULIN LISPRO 100 UNIT/ML 3ML VIAL SUBCUT ×4 (07:57→21:18)
[2023-04-26] MEDS: INSULIN GLARGINE 100 UNIT/ML 3ML PEN 30 UNIT SUBCUT (07:58)
[2023-04-26] MEDS: ACETAMINOPHEN 325 MG TABLET 650 MG PO (08:08)
[2023-04-26] MEDS: SOTALOL 80 MG TABLET 120 MG PO (08:08)
[2023-04-26] MEDS: predniSONE 20 MG TABLET 30 MG PO (08:09)
[2023-04-26] MEDS: ENOXAPARIN 40 MG/0.4 ML SYRINGE SUBCUT ×2 (08:09→21:14)
[2023-04-26] MEDS: metOLazone 2.5 MG TABLET 5 MG PO (08:15)
[2023-04-26] MEDS: ALBUTEROL/IPRATROPIUM 3 ML AMPUL INH ×4 (08:16→23:17)
[2023-04-26] MEDS: FUROSEMIDE 120 MG in SODIUM CHLORIDE 0.9% 50 ML 124 MG IV (08:25)
[2023-04-26] MEDS: SODIUM CHLORIDE 0.9% FLUSH 10 ML IV (08:29)
--- NOTE | 2023-04-26 09:59 | PM.PN.1 ---
Subjective Subjective Date Patient Seen: 04/26/23 Time Patient Seen: 09:59 Interval history: Overnight patient has become a bit hypotensive. Despite the rather large doses of furosemide and a dose of metolazone he has had rather poor urinary output, only about a L. Catheter has been placed for accurate measurement. Still has a persistent mild hypoxia requiring low-dose oxygen replacement therapy Creatinine has bumped to 2.01 with potassium of 6.1. Patient nearly fell trying to get up to the bathroom last night, catheter was placed temporarily but was so uncomfortable for patient he insisted that it be removed. This morning is been up to the bathroom with assistance and feels stronger on his feet still would prefer not to have a catheter in place Exam Vital Signs (past 8 hours): - 04/26/23 08:35 04/26/23 08:00 04/26/23 09:10 Temperature 97.6 F Pulse Rate 60 60 60 Respiratory Rate 22 20 Blood Pressure 90/60 99/42 L Pulse Oximetry 94 91 Oxygen Delivery Method Room Air Oxygen Flow Rate 2 Oxygen Delivery Method Room Air Oxygen Flow Rate 2 Objective Labs 04/25/23 10:55 04/26/23 05:17 Labs: Laboratory Results - last 24 hr 04/25/23 04/25/23 04/25/23 10:55 10:55 10:55 WBC 12.2 H RBC 3.85 L Hgb 11.6 L Hct 35.2 L MCV 91.6 MCH 30.2 MCHC 33.0 RDW 16.1 H Plt Count 183 Neut % (Auto) 90.7 H Lymph % (Auto) 4.0 L Marshall % (Auto) 4.6 Eos % (Auto) 0.4 L Baso % (Auto) 0.3 Neut # (Auto) 36687 H Lymph # (Auto) 500 L Marshall # (Auto) 600 Eos # (Auto) 0 Baso # (Auto) 0 PT 11.0 INR 1.0 APTT 24 L Sodium 132 L Potassium 5.1 Chloride 94 L Carbon Dioxide 33 H BUN 49 H Creatinine 1.47 H Estimated GFR 49 L BUN/Creatinine Ratio 33.3 H Glucose 393 H Lactate Calcium 8.3 L Magnesium 1.7 Total Bilirubin 0.5 AST 26 ALT 36 Alkaline Phosphatase 79 Total Creatine Kinase 23 L CK-MB (CK-2) TNP CK-MB (CK-2) Rel Index TNP Troponin I 0.032 NT-Pro-B Natriuret Pep 505 H Total Protein 6.2 L Albumin 3.4 L Globulin 2.8 Albumin/Globulin Ratio 1.2 Lipase 69 Urine RBC Urine WBC Ur Squamous Epith Cells Urine Bacteria 04/25/23 04/25/23 04/25/23 10:55 12:10 13:25 WBC RBC Hgb Hct MCV MCH MCHC RDW Plt Count Neut % (Auto) Lymph % (Auto) Marshall % (Auto) Eos % (Auto) Baso % (Auto) Neut # (Auto) Lymph # (Auto) Marshall # (Auto) Eos # (Auto) Baso # (Auto) PT INR APTT Sodium Potassium Chloride Carbon Dioxide BUN Creatinine Estimated GFR BUN/Creatinine Ratio Glucose Lactate 2.2 H 1.6 Calcium Magnesium Total Bilirubin AST ALT Alkaline Phosphatase Total Creatine Kinase CK-MB (CK-2) CK-MB (CK-2) Rel Index Troponin I NT-Pro-B Natriuret Pep Total Protein Albumin Globulin Albumin/Globulin Ratio Lipase Urine RBC 0-1/hpf Urine WBC 10-30/hpf H Ur Squamous Epith Cells 0-1 /hpf Urine Bacteria Many (>30) H 04/26/23 05:17 WBC RBC Hgb Hct MCV MCH MCHC RDW Plt Count Neut % (Auto) Lymph % (Auto) Marshall % (Auto) Eos % (Auto) Baso % (Auto) Neut # (Auto) Lymph # (Auto) Marshall # (Auto) Eos # (Auto) Baso # (Auto) PT INR APTT Sodium 134 L Potassium 6.1 H Chloride 93 L Carbon Dioxide 35 H BUN 58 H Creatinine 2.01 H Estimated GFR 34 L BUN/Creatinine Ratio 28.9 H Glucose 233 H D Lactate Calcium 7.6 L Magnesium 1.8 Total Bilirubin AST ALT Alkaline Phosphatase Total Creatine Kinase CK-MB (CK-2) CK-MB (CK-2) Rel Index Troponin I NT-Pro-B Natriuret Pep 1920 H Total Protein Albumin Globulin Albumin/Globulin Ratio Lipase Urine RBC Urine WBC Ur Squamous Epith Cells Urine Bacteria [facility] Medical History Aortic stenosis Atrial fibrillation (03/30/15) Cardiomyopathy (~03/2018) COPD (chronic obstructive pulmonary disease) Coronary artery disease (~03/2018) Hypertension (05/30/15) Tachy-ama syndrome Type 2 diabetes mellitus with hyperglycemia, without long-term current use of insulin Type 2 diabetes mellitus without complication (05/01/15) Surgical History H/O heart artery stent (~03/2018) S/P cardiac pacemaker procedure (~09/2018) Social History household members: none Smoking Status: Former smoker alcohol intake: never Assessment & Plan Assessment & Plan narrative: 1. Acute congestive heart failure with acute respiratory failure-patient not producing a lot of urine and I think overall his heart failure is about the same. Will continue with diuretic therapy as below. Repeat limited echo still pending. 2. Renal-patient's showing poor urinary output to intermittent IV Lasix with metolazone and showing elevation in creatinine/BUN and potassium. Patient may well require input from Nephrology and or dialysis to help manage his fluid status. For now will switch to continuous furosemide infusion and discontinue the thiazide diuretic (metolazone). Patient did receive a load of IV contrast for his aortic runoff yesterday that may have had an impact on his renal function. If so, would expect some improvement with time and persistent diuresis. We will give the patient another 24 hours and reassess his renal function electrolytes urinary output etcetera. If not improved then will need input from Nephrology and may need transfer to tertiary care center for both Nephrology and Cardiology input. His CT scan did demonstrate normal renal size and no evidence of hydronephrosis and no other intra-abdominal or intrapelvic pathology to be causing his lower extremity edema and or his renal dysfunction. 3. Diabetes-numbers are elevated of course. Will further reduce oral prednisone and continue with insulin coverage. Did receive a single dose methylprednisolone at 125 mg yesterday which is probably still having an affect on his blood sugar. 4. COPD-continue with prednisone but at lower dose. Continue with DuoNeb scheduled, and albuterol as needed 5. Question cellulitis/UTI-continue with current IV antibiotics. No need to alter clindamycin dosing based on renal function at this time. Still no obvious source of infection except for the reported leg pain without evidence of any abnormality on physical exam (beyond the 4+ pitting edema which certainly can lead to cellulitis/infection etcetera) Quality VTE Deep Vein Thrombosis/Pulmonary Embolism Present on Admission: No
[2023-04-26] MEDS: FUROSEMIDE 100 MG in SODIUM CHLORIDE 0.9% 50 ML IV (10:46)
[2023-04-26] MEDS: CIPROFLOXACIN 400 MG/200 ML PIGGYBACK 100 MG IV (13:18)
[2023-04-26] MEDS: HYDROMORPHONE 2 MG TABLET PO (13:19)
--- NOTE | 2023-04-26 15:12 | CM.DANOTE ---
Initial DCP Assessment Note Patient is a 77 yo male, resident of [place], presents with left leg pain, increasing SOB and swelling in LE, admitted INPT for management of Acute congestive heart failure with acute respiratory failure According to DR Danielle's prog note: Renal-patient's showing poor urinary output to intermittent IV Lasix with metolazone and showing elevation in creatinine/BUN and potassium. If not improved then will need input from Nephrology and may need transfer to tertiary care center for both Nephrology and Cardiology input PCP Nura Haywood [facility] Met w/patient to say hello this morning, patient known to this DATASTAGE CONSULTANT from prior admissions, patient appears fatigued this AM Patient lives alone, DIL (nm?) assists as needed (son is currently deployed, active duty [employer]) Patient typically indp w/ADLs, poor activity tolerance r/t shortness of breath. Patient is seen by [facility] and would like this resumed upon discharge Plan: Anticipate discharge home w.family and [facility] vs transfer CM team will plan to follow closely as medical POC unfolds DAYAN Lanier Discharge Planning/Care Management CM Discharge Assessment Start: 04/26/23 15:07 Freq: Status: Active Protocol: Document 04/26/23 15:07 ROMAN (Rec: 04/26/23 15:12 ROMAN [id number]) Discharge Planning Assessment Assigned Prize Fighter DAYAN Pino DPOA/Assigned Designee Name Son- active duty [place], DIL assists as needed (nm?) Advance Directives? No History Provided By Patient,Medical Record Has Patient been admitted in last 30 Yes days? Comment 5.10-5.16 Prior Living Arrangements House Household Members none Type of transporation used prior to Relies on Others admit Independent with ADL's Yes: Poor activity tolerance Is patient alert and oriented? Yes Needs Assistance With Meal Prep,Home Chores / Shopping Patient/Family Preference Home with Home Health Comment Home w/family, [facility] and outpatient follow up vs transfer to higher level of care depending on medical POC Discharge Plan Home with Home Health Transportation Arrangement Friend Referrals Initiated None needed Additional Comment Patient has [facility], would like this resumed upon discharge
--- NOTE | 2023-04-26 16:47 | PC.NURSE ---
a/o, voices needs. uses call light. 1pa bed mobility, OOB w/ mod hand-held assist. appears unsteady on feet, assured RN/FIELD MECHANIC im fine, im fine. very stubborn and determined to walk around and move my body a little bit. desat to high 70's on RA, o2 applied at 2lpm via NC. sats up to low 90s. patient requested to walk to the window seat and look thru his luggage for black and yellow pulse ox which he states he came into the ED w/ this. call to ED requesting if they find it to return to patient. after ambulating short distance to the window, patient agreeable to sit down on bed and recover from SOB. grayish pallor, continuing to diurese. Dr cordova ordered additional IV gtt lasix at 3cc/hour continuous. tolerated OOB to chair for lunch. prefers to sit in chair for comfort. Echo completed. PIV infiltrated, large bruise to RFA. new PIV to LFA. warm compress to RFA. 1829: call to Dr cordova, requesting clarification of FR (as he is diuresing) and also to update Code status. new orders: FULL code, and FR of 1000/24hours, 500cc/shift. patient notified of above.
[2023-04-26] MEDS: ATORVASTATIN 20 MG TABLET 40 MG PO (21:14)
[2023-04-26] MEDS: INSULIN GLARGINE 100 UNIT/ML 3ML PEN 25 UNIT SUBCUT (21:17)
[2023-04-27] MEDS: CIPROFLOXACIN 400 MG/200 ML PIGGYBACK 100 MG IV (00:03)
[2023-04-27 06:21] LABS: Blood Urea Nitrogen 70 mg/dL (9-20); Calcium 7.5 mg/dL (8.4-10.2); Carbon Dioxide 33 mmol/L (22-32); Chloride 95 mmol/L (98-107); Estimated Glomerular Filt Rate 29 mL/min (>60); Glucose 90 mg/dL (80-110); HEMOLYSIS < 15 (0-50); Potassium 4.3 mmol/L (3.4-5.1); Sodium 134 mmol/L (137-145)
[2023-04-27] MEDS: glipiZIDE 5 MG TABLET 10 MG PO ×2 (06:55→17:06)
[2023-04-27] MEDS: CLINDAMYCIN 600 MG/50 ML PIGGYBACK 50 MG IV ×3 (06:55→23:26)
[2023-04-27] MEDS: ALBUTEROL/IPRATROPIUM 3 ML AMPUL INH ×4 (07:35→18:53)
[2023-04-27 07:36] VITALS: PULSE 63; RESP 18; O2SAT 93
[2023-04-27 08:00] VITALS: BP 118/46; PULSE 48; RESP 18; TEMP 36.2; O2SAT 93
[2023-04-27] MEDS: HYDROMORPHONE 2 MG TABLET PO (08:16)
[2023-04-27] MEDS: predniSONE 20 MG TABLET PO (08:17)
[2023-04-27] MEDS: ENOXAPARIN 40 MG/0.4 ML SYRINGE SUBCUT ×2 (08:23→21:13)
[2023-04-27] MEDS: SOTALOL 80 MG TABLET 120 MG PO ×2 (09:11→21:12)
--- NOTE | 2023-04-27 10:05 | PM.PN.1 ---
Subjective Subjective Date Patient Seen: 04/27/23 Time Patient Seen: 10:05 Interval history: Patient feeling poorly again this morning. Reports he can not get a deep breath. Says he feels more short of breath. Pulse oximetry is 89-93 % depending on I think accuracy. Also complaining of soreness in his jaws both sides upper and lower areas. Does seem to be making more consistent urine although again difficult to be clear on that given lack of catheter. However edema of lower extremities is essentially unchanged Repeat limited echo done yesterday does not show any changes. Still normal left ventricular function what appears to be normal right ventricular function and no new valvular disease. Renal function shows rising BUN continued slow rising creatinine. Potassium more normal. Exam Vital Signs (past 8 hours): - 04/27/23 07:36 04/27/23 08:00 Temperature 97.2 F L Pulse Rate 63 48 L Respiratory Rate 18 18 Blood Pressure 118/46 L Pulse Oximetry 93 93 Oxygen Delivery Method Room Air Oxygen Flow Rate 0 0 Fraction of Inspired Oxygen 21 Fraction of Inspired Oxygen 21 SaO2/FiO2 Ratio 442 Oxygen Delivery Method Room Air Oxygen Flow Rate 0 Narrative Exam Narrative: 4+ pitting edema from the toes to just below the knee, unchanged from previous Lungs-diminished breath sounds especially on right no wheezes Heart-minimally tachycardic regular rate and rhythm however Objective Labs 04/25/23 10:55 04/27/23 05:26 Labs: Laboratory Results - last 24 hr 04/27/23 05:26 Sodium 134 L Potassium 4.3 D Chloride 95 L Carbon Dioxide 33 H BUN 70 H Creatinine 2.26 H Estimated GFR 29 L BUN/Creatinine Ratio 31.0 H Glucose 90 D Calcium 7.5 L Magnesium 2.0 PFSH Medical History Aortic stenosis Atrial fibrillation (03/30/15) Cardiomyopathy (~03/2018) COPD (chronic obstructive pulmonary disease) Coronary artery disease (~03/2018) Hypertension (05/30/15) Tachy-ama syndrome Type 2 diabetes mellitus with hyperglycemia, without long-term current use of insulin Type 2 diabetes mellitus without complication (05/01/15) Surgical History H/O heart artery stent (~03/2018) S/P cardiac pacemaker procedure (~09/2018) Social History household members: none Smoking Status: Former smoker alcohol intake: never Assessment & Plan Assessment & Plan narrative: 1. Congestive heart failure-patient with an elevated BNP not really responding to diuretic therapy very adequately. The continuous infusion furosemide seems to have I think made some difference in overall urine output. However no evidence of real improvement. I continue be concerned as to potential etiology here which I do not understand at this point Patient reporting some new jaw symptoms and increased difficulty breathing although his vital signs seems stable. Plan to check cardiac enzymes EKG and single view chest x-ray 2. Renal-continues to show climbing creatinine and BUN and minimal response to the furosemide infused continuously. However I do think he put out more urine yesterday than he would have done with intermittent dosing so will continue with the furosemide. Will try and contact Nephrology for an over the phone consultation. I am not sure as to whether or not dialysis might be helpful in this situation. His protein status is okay with minimally diminished total protein and albumin, I do not think that is a source of his edema. No evidence of intra-abdominal edema or ascites on CT scan done upon admission. Repeat ECHO was unremarkable as above. Again this is very unclear as to why he is not improving. 3. Diabetes-patient's blood sugars were persistently quite elevated yesterday. I increased his long-acting insulin and this morning he would a blood sugar of 60 followed by an 82. The 60 was symptomatic. I am going to back off a little bit on the long-acting insulin but continue with the high dose coverage. Again as we get farther away from the higher dose corticosteroids I think his blood sugars well improve. Prior to starting him on steroid therapy he did not require any insulin therapy at all so perhaps the low blood sugars this morning are sign of him returning to his prior physiology 4. COPD-as above I have come to believe COPD is not a major component to his breathing difficulty. Continue with the lower dose prednisone and with the intermittent dosed albuterol/ipratropium. Quality VTE Deep Vein Thrombosis/Pulmonary Embolism Present on Admission: No
--- NOTE | 2023-04-27 10:38 | PC.NURSE ---
Patients coloring is dusky, he states that he does not feel well. Blood sugar this morning down to 60, given oj and then up to 82. States that when his blood sugar goes low, he has vision changes. This has resolved now. He has 4+ edema to his left leg with some wheepiness and intact blisters. His r.leg with 3+ edema. Patient also has a small abrasion to his shoulder. He is a one person assist with walker. Ate some at breakfast, he is back to bed and resting. Just talked to Dr. Danielle and he is going to adjust some of his medications and states get some troponin levels and an ekg.
--- NOTE | 2023-04-27 10:46 | DI.RAD.S_ITS ---
PROCEDURE: XR CHEST 1V INDICATIONS: chf TECHNIQUE: One view of the chest was acquired. COMPARISON: [facility], CR, XR CHEST 1V, 04/25/2023, 10:37. FINDINGS: Surgical changes and devices: Stable 2 lead cardiac device Lungs and pleura: Lungs are decreased inflation from recent examination. There is slightly enlarged moderate right-sided pleural effusion. Basilar opacities are also slightly increased from prior exam. No pneumothorax. Mediastinum: Mediastinal contours appear normal. Heart size is normal. Bones and chest wall: No suspicious bony lesions. Overlying soft tissues appear unremarkable. IMPRESSION: Slightly increased size of right-sided pleural effusion now moderate in size. Increased basilar opacities which may represent atelectasis versus developing consolidation/pulmonary edema. Dictated by: Herminio Collier D.O. on 04/27/2023 at 10:47 Approved by: Herminio Collier D.O. on 04/27/2023 at 10:48
[2023-04-27 11:12] VITALS: PULSE 100; RESP 20; O2SAT 93
[2023-04-27 11:34] LABS: Troponin I 0.032 ng/mL (0.01-0.034)
[2023-04-27 11:42] LABS: Creatine Kinase 24 U/L (55-170)
[2023-04-27 12:08] LABS: Creatinine Urine Random 48.6 mg/dL; Protein (Total) Urine Random 26 mg/dL (0-12); Protein Creatinine Ratio Urine 0.53 GRAM/24H
[2023-04-27] MEDS: CIPROFLOXACIN 400 MG/200 ML PIGGYBACK 200 MG IV (12:58)
[2023-04-27] MEDS: INSULIN GLARGINE 100 UNIT/ML 3ML PEN 28 UNIT SUBCUT (12:59)
[2023-04-27] MEDS: FUROSEMIDE IV (14:15)
[2023-04-27] MEDS: SODIUM CHLORIDE 0.9% IV (14:15)
[2023-04-27 15:16] VITALS: PULSE 63; RESP 22; O2SAT 96
[2023-04-27] MEDS: INSULIN LISPRO 100 UNIT/ML 3ML VIAL SUBCUT (17:06)
[2023-04-27 18:22] LABS: Blood Urea Nitrogen 74 mg/dL (9-20); Calcium 7.9 mg/dL (8.4-10.2); Carbon Dioxide 36 mmol/L (22-32); Chloride 92 mmol/L (98-107); Estimated Glomerular Filt Rate 30 mL/min (>60); Glucose 247 mg/dL (80-110); HEMOLYSIS < 15 (0-50); Potassium 4.8 mmol/L (3.4-5.1); Sodium 136 mmol/L (137-145)
[2023-04-27 18:53] VITALS: PULSE 103; RESP 22; O2SAT 94
[2023-04-27 19:48] VITALS: BP 114/67; PULSE 95; RESP 20; TEMP 36.4; O2SAT 92
[2023-04-27] MEDS: ATORVASTATIN 20 MG TABLET 40 MG PO (21:13)
[2023-04-27] MEDS: INSULIN GLARGINE 100 UNIT/ML 3ML PEN 25 UNIT SUBCUT (21:14)
[2023-04-28] VITALS (9 sets, daily range): BP systolic 119–123; BP diastolic 54–63; PULSE 63–84; RESP 20–22; TEMP 36.8; O2SAT 90–97
[2023-04-28] MEDS: CIPROFLOXACIN 400 MG/200 ML PIGGYBACK 200 MG IV ×2 (00:50→12:06)
[2023-04-28] MEDS: HYDROMORPHONE 2 MG TABLET PO ×2 (01:02→21:25)
[2023-04-28] MEDS: HYDROMORPHONE 4 MG TABLET PO ×3 (05:07→23:35)
[2023-04-28] MEDS: ALBUTEROL/IPRATROPIUM 3 ML AMPUL INH ×4 (06:03→20:13)
[2023-04-28] MEDS: CLINDAMYCIN 600 MG/50 ML PIGGYBACK 50 MG IV (06:23)
[2023-04-28] MEDS: HYDROMORPHONE 0.5 MG INJ IV (06:54)
[2023-04-28 07:20] LABS: INR 1.2 (0.9-1.3); Prothrombin Time 13.4 SECONDS (10.1-12.7)
--- NOTE | 2023-04-28 07:23 | PM.PN.1 ---
Subjective Subjective Date Patient Seen: 04/28/23 Time Patient Seen: 07:24 Interval history: Patient persists with left leg pain, worse than ever. Patient reports both legs are less swollen that appears to be true. However he feels like the left side has increased again resulting in increased pain Breathing feels much better feels like his fluid in his right chest is gone he can get a full deep breath now like he has not been able to Finally getting some urine output at levels expected with the continuous infusion furosemide as per Nephrology. Nearly 5 L of urine yesterday. Renal function has remained relatively stable (still awaiting this morning's numbers). Electrolytes okay thus far Blood sugars on the lower sides perhaps even borderline hypoglycemic side Exam Vital Signs (past 8 hours): - 04/28/23 06:03 Pulse Rate 84 Respiratory Rate 22 Pulse Oximetry 97 Oxygen Delivery Method Nasal Cannula Oxygen Flow Rate 3 Fraction of Inspired Oxygen 32 Fraction of Inspired Oxygen 32 SaO2/FiO2 Ratio 303 Oxygen Delivery Method Nasal Cannula Oxygen Flow Rate 3 Objective Labs 04/25/23 10:55 04/27/23 18:00 Labs: Laboratory Results - last 24 hr 04/25/23 04/27/23 04/27/23 12:10 11:05 18:00 PT INR Sodium 136 L Potassium 4.8 Chloride 92 L Carbon Dioxide 36 H BUN 74 H Creatinine 2.24 H Estimated GFR 30 L BUN/Creatinine Ratio 33.0 H Glucose 247 H D Calcium 7.9 L Total Creatine Kinase 24 L CK-MB (CK-2) TNP CK-MB (CK-2) Rel Index TNP Troponin I 0.032 U Random Total Protein 26 H Urine Creatinine 48.6 Protein/Creatinin Ratio 0.53 04/28/23 06:35 PT 13.4 H INR 1.2 Sodium Potassium Chloride Carbon Dioxide BUN Creatinine Estimated GFR BUN/Creatinine Ratio Glucose Calcium Total Creatine Kinase CK-MB (CK-2) CK-MB (CK-2) Rel Index Troponin I U Random Total Protein Urine Creatinine Protein/Creatinin Ratio [facility] Medical History Aortic stenosis Atrial fibrillation (03/30/15) Cardiomyopathy (~03/2018) COPD (chronic obstructive pulmonary disease) Coronary artery disease (~03/2018) Hypertension (05/30/15) Tachy-ama syndrome Type 2 diabetes mellitus with hyperglycemia, without long-term current use of insulin Type 2 diabetes mellitus without complication (05/01/15) Surgical History H/O heart artery stent (~03/2018) S/P cardiac pacemaker procedure (~09/2018) Social History household members: none Smoking Status: Former smoker alcohol intake: never Assessment & Plan Assessment & Plan narrative: 1. Acute on chronic congestive heart failure with lower extremity edema-finally having some decent urinary output. Continue with current diuretic therapy which is furosemide continuous infusion at 30 milligrams/hour. Continue monitor electrolytes and renal function carefully. If we can maintain this kind of urine output than I am not going to anticipate thoracentesis to drain fluid in his right chest. However that is a day today decision 2. Renal-numbers seem to be stable with interventions as above. Continue monitor carefully while patient continues on the furosemide. Will need to see a intensive care anaesthetist as an outpatient for sure 3. Diabetes-improved blood sugar control to the point of modest hypoglycemia. Will decrease evening long-acting insulin and increase morning long-acting insulin slightly given his persistent daytime hyperglycemia 4. UTI/cellulitis-continue with IV Cipro for his UTI which seems to be inappropriate antibiotic for the organism identified (Enterobacter). Still unclear as to whether not there is any active serious cellulitis in that left leg but that continues to be quite painful. Continue therefore with IV clindamycin for now. Blood cultures are negative. On exam his leg is indeed a bit more red and warm than has been. Hopefully with reduced edema we will be more effective in treating his infection/cellulitis as well 5. COPD-continue patient with nebulizers as above Quality VTE Deep Vein Thrombosis/Pulmonary Embolism Present on Admission: No
[2023-04-28] MEDS: predniSONE 20 MG TABLET PO (09:04)
[2023-04-28] MEDS: ENOXAPARIN 40 MG/0.4 ML SYRINGE SUBCUT ×2 (09:05→21:27)
[2023-04-28 09:06] LABS: Blood Urea Nitrogen 71 mg/dL (9-20); Calcium 8.2 mg/dL (8.4-10.2); Chloride 89 mmol/L (98-107); Estimated Glomerular Filt Rate 33 mL/min (>60); Glucose 65 mg/dL (80-110); HEMOLYSIS 17 (0-50); Potassium 3.7 mmol/L (3.4-5.1); Sodium 138 mmol/L (137-145)
[2023-04-28] MEDS: SOTALOL 80 MG TABLET 120 MG PO ×2 (09:06→21:05)
[2023-04-28 09:12] LABS: Carbon Dioxide 38 mmol/L (22-32)
--- NOTE | 2023-04-28 10:53 | PC.NURSE ---
Patient complains of l.lower leg pain. He has 3+ edema to bilateral lower extremities. Given 4mg of po dilaudid and helpful. Blood Sugar 75, night cleaner held po oral diabetic med as blood sugar was also low then. We will give him his lantus around lunch time as his blood sugar tends to get higher throughout the day. Patient is using a condom catheter to void and he states that this has helped him a lot.
[2023-04-28] MEDS: CYCLOBENZAPRINE 10 MG TABLET 5 MG PO ×2 (13:48→21:05)
[2023-04-28] MEDS: INSULIN LISPRO 100 UNIT/ML 3ML VIAL SUBCUT (17:14)
[2023-04-28] MEDS: glipiZIDE 5 MG TABLET 10 MG PO (17:15)
[2023-04-28] MEDS: CIPROFLOXACIN 250 MG TABLET 500 MG PO (21:05)
[2023-04-28] MEDS: ATORVASTATIN 20 MG TABLET 40 MG PO (21:06)
[2023-04-28] MEDS: SODIUM CHLORIDE 0.9% FLUSH 10 ML IV (21:06)
[2023-04-28] MEDS: CLINDAMYCIN 150 MG CAPSULE 300 MG PO (21:25)
[2023-04-28] MEDS: INSULIN GLARGINE 100 UNIT/ML 3ML PEN 20 UNIT SUBCUT (21:29)
[2023-04-28] MEDS: guaiFENesin ER 600 MG TAB PO (22:50)
[2023-04-29] VITALS (7 sets, daily range): BP systolic 109–116; BP diastolic 54; PULSE 58–64; RESP 18–22; TEMP 36.8; O2SAT 87–98; BMI 42.2
--- NOTE | 2023-04-29 05:09 | PC.NURSE ---
Addendum entered by Roni Weber R.N. 04/29/23 05:14: Good urine output noted since 1999 last night. 600 mL total as of 399 this AM. Original Note: When primary RN (telegraphic typewriter installer) received report from previous day shift RN and clinical nursing manager, they stated that pt's IV Furosemide was discontinued. Upon checking order, active order for Furosemide infusion is still active. RN asked pt if he was made aware that Furosemide infusion was discontinued and per pt, yes they told me they were stopping it because I received the max dose and they were worried about my kidneys. Swati RN coordinator was made aware. Will inform oncoming day shift RN regarding getting an order to discontinue active IV Furosemide infusion. Pt is in no acute distress. VSS.
[2023-04-29 05:38] LABS: BUN Creatinine Ratio 32.3 (6-22); Blood Urea Nitrogen 70 mg/dL (9-20); Chloride 90 mmol/L (98-107); Estimated Glomerular Filt Rate 31 mL/min (>60); Glucose 55 mg/dL (80-110); HEMOLYSIS < 15 (0-50); Magnesium 2.1 mg/dL (1.6-2.3); Potassium 3.4 mmol/L (3.4-5.1); Sodium 138 mmol/L (137-145)
[2023-04-29 05:45] LABS: Carbon Dioxide 37 mmol/L (22-32)
[2023-04-29] MEDS: CLINDAMYCIN 150 MG CAPSULE 300 MG PO ×3 (06:40→21:37)
[2023-04-29] MEDS: CIPROFLOXACIN 250 MG TABLET 500 MG PO ×2 (06:40→20:27)
[2023-04-29] MEDS: CYCLOBENZAPRINE 10 MG TABLET 5 MG PO ×3 (06:40→21:37)
--- NOTE | 2023-04-29 07:24 | P.PN_ITS ---
Subjective Subjective Date Patient Seen: 04/29/23 Time Patient Seen: 07:24 Interval history: Patient continues generate about 4 L of urine per day. However his furosemide infusion was inappropriately discontinued by nursing staff for reasons that are not at all clear at this time. BMP remains relatively stable to slightly improved Blood sugars are improved, low blood sugar not as low and high blood sugars no where near as high as they were Patient reports his leg pain is improved. Apparently had some confusion and or least emotional lability last evening that he is some what embarrassed by. Exam Vital Signs (past 8 hours): Fraction of Inspired Oxygen 32 SaO2/FiO2 Ratio 303 Oxygen Delivery Method Nasal Cannula Oxygen Flow Rate 3 Narrative Exam Narrative: Bilateral lower extremities with decreasing edema. Left lower extremity with persistent erythema and warmth, minimally changed from yesterday Objective Labs 04/25/23 10:55 04/29/23 05:08 Labs: Laboratory Results - last 24 hr 04/28/23 04/29/23 08:25 05:08 Sodium 138 138 Potassium 3.7 3.4 Chloride 89 L 90 L Carbon Dioxide 38 H 37 H BUN 71 H 70 H Creatinine 2.03 H 2.17 H Estimated GFR 33 L 31 L BUN/Creatinine Ratio 35.0 H 32.3 H Glucose 65 L D 55 L Calcium 8.2 L 8.0 L Magnesium 2.1 PFSH Medical History Aortic stenosis Atrial fibrillation (03/30/15) Cardiomyopathy (~03/2018) COPD (chronic obstructive pulmonary disease) Coronary artery disease (~03/2018) Hypertension (05/30/15) Tachy-ama syndrome Type 2 diabetes mellitus with hyperglycemia, without long-term current use of insulin Type 2 diabetes mellitus without complication (05/01/15) Surgical History H/O heart artery stent (~03/2018) S/P cardiac pacemaker procedure (~09/2018) Social History household members: none Smoking Status: Former smoker alcohol intake: never Assessment & Plan Assessment & Plan narrative: 1. Acute on chronic congestive heart failure with lower extremity edema-finally having some decent urinary output. Continue with current diuretic therapy which is furosemide continuous infusion at 30 milligrams/hour, which was unfortunately inappropriately discontinued and so patient has had really no urine output since it was stopped. This needs to continue. 2. Renal-numbers seem to be stable with interventions as above. Patient's creatinine this morning is technically a bit higher than yesterday but improved over where was at its worst. I think it is overall relatively stable. Continue monitor carefully while patient continues on the furosemide. Will need to see a roofing sales representative as an outpatient for sure 3. Diabetes-blood sugars are improved both on the low end and the high end. Continue with current insulin dosing and continue to monitor 4. UTI/cellulitis-patient's switch to oral Cipro for his UTI which can be discontinued after 7 days of treatment. Patient was also switched to oral clindamycin for his presumed left lower extremity cellulitis. Continue that for now but would have a low threshold to return to parental antibiotic therapy. 5. COPD-continue patient with nebulizers as above Quality VTE Deep Vein Thrombosis/Pulmonary Embolism Present on Admission: No
[2023-04-29] MEDS: ALBUTEROL/IPRATROPIUM 3 ML AMPUL INH ×4 (07:28→20:05)
[2023-04-29] MEDS: SODIUM CHLORIDE 0.9% FLUSH 10 ML IV ×2 (08:11→21:39)
[2023-04-29] MEDS: SOTALOL 80 MG TABLET 120 MG PO ×2 (08:11→20:33)
[2023-04-29] MEDS: ENOXAPARIN 40 MG/0.4 ML SYRINGE SUBCUT ×2 (08:12→20:28)
[2023-04-29] MEDS: ACETAMINOPHEN 325 MG TABLET 650 MG PO (08:12)
[2023-04-29] MEDS: guaiFENesin ER 600 MG TAB PO (08:12)
[2023-04-29] MEDS: predniSONE 20 MG TABLET PO (08:12)
[2023-04-29] MEDS: HYDROMORPHONE 4 MG TABLET PO (08:12)
[2023-04-29] MEDS: INSULIN GLARGINE 100 UNIT/ML 3ML PEN 34 UNIT SUBCUT (08:13)
[2023-04-29] MEDS: SODIUM CHLORIDE 0.9% IV (08:36)
[2023-04-29] MEDS: FUROSEMIDE IV (08:36)
[2023-04-29] MEDS: INSULIN LISPRO 100 UNIT/ML 3ML VIAL SUBCUT ×2 (12:27→17:36)
[2023-04-29] MEDS: glipiZIDE 5 MG TABLET 10 MG PO (15:23)
--- NOTE | 2023-04-29 15:51 | CM.DPC ---
DCP Cont: Checked in with patient today. Introduced self and role, was sitting up in his chair on oxygen, not feeling well. Confirmed that he resides alone in [place], son is away on deployment, but daughter lives nearby. Asked him if he felt that he may benefit from any skilled rehab, stated, he does not want rehab, has [facility] in place. Confirmed with Toya at [facility] that patient is currently under services, RN, P.T, will just need resumption orders. P: DCP to continue to follow. Plan is home with the resumption of [facility]. Marry Barnhart RN/Data Virtualization Consultant
[2023-04-29] MEDS: ATORVASTATIN 20 MG TABLET 40 MG PO (20:29)
[2023-04-29] MEDS: INSULIN GLARGINE 100 UNIT/ML 3ML PEN 20 UNIT SUBCUT (20:42)
[2023-04-30] MEDS: HYDROMORPHONE 4 MG TABLET PO ×3 (00:07→20:09)
[2023-04-30 01:08] VITALS: TEMP 37.7
[2023-04-30] MEDS: ACETAMINOPHEN 325 MG TABLET 650 MG PO ×2 (01:08→11:42)
[2023-04-30] MEDS: FUROSEMIDE IV ×2 (01:38→12:08)
[2023-04-30] MEDS: SODIUM CHLORIDE 0.9% IV ×2 (01:38→12:08)
[2023-04-30 02:05] VITALS: TEMP 36.6
[2023-04-30 07:00] VITALS: O2SAT 92
[2023-04-30 07:07] LABS: BUN Creatinine Ratio 29.5 (6-22); Blood Urea Nitrogen 66 mg/dL (9-20); Chloride 87 mmol/L (98-107); Estimated Glomerular Filt Rate 30 mL/min (>60); Glucose 75 mg/dL (80-110); HEMOLYSIS < 15 (0-50); Potassium 3.3 mmol/L (3.4-5.1); Sodium 138 mmol/L (137-145)
[2023-04-30 07:26] LABS: Carbon Dioxide 42 mmol/L (22-32)
[2023-04-30] MEDS: CYCLOBENZAPRINE 10 MG TABLET 5 MG PO ×2 (07:55→21:47)
[2023-04-30] MEDS: CLINDAMYCIN 150 MG CAPSULE 300 MG PO (07:55)
[2023-04-30] MEDS: POTASSIUM CHLORIDE 20 MEQ TAB PO ×3 (07:57→17:30)
[2023-04-30 08:00] VITALS: BP 105/57; PULSE 64; RESP 20; TEMP 36.3; O2SAT 92
[2023-04-30] MEDS: CIPROFLOXACIN 250 MG TABLET 500 MG PO (08:00)
[2023-04-30] MEDS: glipiZIDE 5 MG TABLET 10 MG PO ×2 (08:00→15:43)
[2023-04-30] MEDS: ENOXAPARIN 40 MG/0.4 ML SYRINGE SUBCUT ×2 (08:01→20:10)
[2023-04-30] MEDS: predniSONE 20 MG TABLET PO (08:01)
[2023-04-30] MEDS: SODIUM CHLORIDE 0.9% FLUSH 10 ML IV ×2 (08:08→20:12)
[2023-04-30] MEDS: INSULIN GLARGINE 100 UNIT/ML 3ML PEN 34 UNIT SUBCUT (09:32)
--- NOTE | 2023-04-30 09:40 | PM.PN.1 ---
Subjective Subjective Date Patient Seen: 04/30/23 Time Patient Seen: 09:40 Interval history: Patient says he is miserable. Pain in left leg has increased and redness has also increased. Has a chemical taste in his mouth that prohibits him from eating. Even water he tries to swallow his medications with has a foul taste to it he says. Has some increased nausea Believes the furosemide to be a culprit since when he was off the furosemide temporarily yesterday he really had none of this going on when it was restarted it seem to creep slowly back into his system Exam Vital Signs (past 8 hours): - 04/30/23 02:05 04/30/23 08:00 Temperature 97.8 F 97.3 F L Pulse Rate 64 Respiratory Rate 20 Blood Pressure 105/57 L Pulse Oximetry 92 Oxygen Flow Rate 2 Fraction of Inspired Oxygen 21 SaO2/FiO2 Ratio 414 Oxygen Delivery Method Nasal Cannula,CPAP Oxygen Flow Rate 2 Narrative Exam Narrative: Significantly increased erythema left lower extremity with increased warmth etcetera. Overall swelling unchanged bilaterally lower extremities Objective Labs 04/25/23 10:55 04/30/23 05:47 Labs: Laboratory Results - last 24 hr 04/30/23 05:47 Sodium 138 Potassium 3.3 L Chloride 87 L Carbon Dioxide 42 H* BUN 66 H Creatinine 2.24 H Estimated GFR 30 L BUN/Creatinine Ratio 29.5 H Glucose 75 L Calcium 9.0 PFSH Medical History Aortic stenosis Atrial fibrillation (03/30/15) Cardiomyopathy (~03/2018) COPD (chronic obstructive pulmonary disease) Coronary artery disease (~03/2018) Hypertension (05/30/15) Tachy-ama syndrome Type 2 diabetes mellitus with hyperglycemia, without long-term current use of insulin Type 2 diabetes mellitus without complication (05/01/15) Surgical History H/O heart artery stent (~03/2018) S/P cardiac pacemaker procedure (~09/2018) Social History household members: none Smoking Status: Former smoker alcohol intake: never Assessment & Plan Assessment & Plan narrative: 1. Acute on chronic congestive heart failure with lower extremity edema-patient with good urine output back on the furosemide continuous infusion. Maybe able to slightly decreased although his lower extremity edema isn't really changing. Respiratory status seems much improved per patient even though he somewhat tachypneic now. His bicarbonate popped up on his BMP this morning probably more due to renal dysfunction than anything else 2. Renal-continues to make good urine with the furosemide infusion. Numbers are relatively stable although bicarbonate a bit elevated. Continue to monitor carefully. Maybe able to back off a bit on the furosemide 3. Diabetes-blood sugars are improved both on the low end and the high end. Continues to have somewhat low blood sugars first thing in the morning so I am going to decrease his evening Lantus. Continue with morning lot to set current dose 4. UTI/cellulitis-patient with switch to oral antibiotics yesterday by pharmacy. His left lower extremity shows clear progression of cellulitis today. I am going to DC the oral antibiotics altogether and put him on IV meropenem. This is broad-spectrum antibiotics that would hopefully treat most organisms accept perhaps MRSA (of which there is no indication). Had a rash in the past to either piperacillin or vancomycin during hospitalization in 2014. This should not prevent him from receiving meropenem. If we need to treat MRSA I probably would choose daptomycin over vancomycin for this reason however. Unclear to me why this is become so much worse but clearly the oral clindamycin was not working and I am not convinced the parental clindamycin was a whole lot better. No cultures to help identify organism unfortunately (which is usually the case in this situation) 5. COPD-continue patient with nebulizers as above Quality VTE Deep Vein Thrombosis/Pulmonary Embolism Present on Admission: No
[2023-04-30] MEDS: SOTALOL 80 MG TABLET 120 MG PO ×2 (10:00→20:10)
[2023-04-30] MEDS: MEROPENEM 1 GM in SODIUM CHLORIDE 0.9% 100 ML IV ×2 (12:05→21:47)
[2023-04-30] MEDS: INSULIN LISPRO 100 UNIT/ML 3ML VIAL SUBCUT ×2 (17:44→20:08)
[2023-04-30] MEDS: ONDANSETRON 4 MG/2 ML INJ IV (17:48)
[2023-04-30] MEDS: HYDROMORPHONE 2 MG TABLET PO (17:48)
[2023-04-30 19:00] VITALS: O2SAT 92
[2023-04-30] MEDS: ALBUTEROL/IPRATROPIUM 3 ML AMPUL INH (19:44)
[2023-04-30] MEDS: INSULIN GLARGINE 100 UNIT/ML 3ML PEN 15 UNIT SUBCUT (20:09)
[2023-04-30] MEDS: ATORVASTATIN 20 MG TABLET 40 MG PO (20:10)
[2023-05-01] VITALS (8 sets, daily range): BP systolic 135–138; BP diastolic 55–60; PULSE 62–70; RESP 15–22; TEMP 36.3–36.7; O2SAT 90–98
[2023-05-01] MEDS: FUROSEMIDE IV ×2 (00:04→14:16)
[2023-05-01] MEDS: SODIUM CHLORIDE 0.9% IV ×2 (00:04→14:16)
[2023-05-01] MEDS: HYDROMORPHONE 4 MG TABLET PO (03:54)
[2023-05-01 05:15] LABS: Blood Urea Nitrogen 68 mg/dL (9-20); Calcium 8.8 mg/dL (8.4-10.2); Chloride 87 mmol/L (98-107); Estimated Glomerular Filt Rate 33 mL/min (>60); Glucose 47 mg/dL (80-110); HEMOLYSIS < 15 (0-50); Magnesium 2.2 mg/dL (1.6-2.3); Potassium 3.5 mmol/L (3.4-5.1); Sodium 141 mmol/L (137-145)
[2023-05-01 05:43] LABS: Carbon Dioxide 46 mmol/L (22-32)
[2023-05-01] MEDS: glipiZIDE 5 MG TABLET 10 MG PO ×2 (05:58→17:00)
[2023-05-01] MEDS: CYCLOBENZAPRINE 10 MG TABLET 5 MG PO ×3 (05:58→21:38)
--- NOTE | 2023-05-01 07:13 | DI.RAD.S_ITS ---
PROCEDURE: XR CHEST 1V INDICATIONS: hypoxia TECHNIQUE: One view of the chest was acquired. COMPARISON: [facility], CR, XR CHEST 1V, 04/27/2023, 11:07. FINDINGS: Surgical changes and devices: Left chest wall pacer is seen with intact leads. Lungs and pleura: Lungs are clear. Large right pleural effusion is unchanged compared to 04/27/2023. Mediastinum: Mediastinal contours appear normal. Heart size is enlarged. Bones and chest wall: No suspicious bony lesions. Overlying soft tissues appear unremarkable. IMPRESSION: 1. Large right pleural effusion is unchanged. 2. Stable cardiomegaly. Dictated by: Julián Lawton M.D. on 05/01/2023 at 8:44 Approved by: Julián Lawton M.D. on 05/01/2023 at 8:46
[2023-05-01] MEDS: ALBUTEROL/IPRATROPIUM 3 ML AMPUL INH ×3 (07:14→21:22)
--- NOTE | 2023-05-01 08:00 | P.PN_ITS ---
Subjective Subjective Date Patient Seen: 05/01/23 Time Patient Seen: 08:01 Interval history: Patient feeling somewhat better this morning than he was this time yesterday. Still having some nausea however his hungry but does not want to eat Blood sugar in the 40s this morning on lab draw as well as fingerstick while I was standing there. Patient seems to be mentating functioning normally despite that. Pain in left lower extremity is improved patient says indeed the erythema and edema are both significantly improved over where they were yesterday and the day before Wound culture started from left lower extremity posterior area that is somewhat weepy of fluid Edema in right lower extremity also improved over where was yesterday Exam Vital Signs (past 8 hours): - 05/01/23 00:04 05/01/23 03:45 05/01/23 07:14 Temperature 97.3 F L Pulse Rate 65 62 64 Respiratory Rate 20 15 18 Blood Pressure 138/60 Pulse Oximetry 94 90 L 98 Oxygen Delivery Method Oximask Oxygen Flow Rate 5 7 2 Fraction of Inspired Oxygen 28 Fraction of Inspired Oxygen 28 SaO2/FiO2 Ratio 350 Oxygen Delivery Method Oximask Oxygen Flow Rate 2 Narrative Exam Narrative: Persistent but decreased erythema and warmth left lower extremity. Decreased size of left lower extremity as well with reduced edema Reduced edema right lower extremity [id number] although still 2+ pitting edema Objective Labs 04/25/23 10:55 05/01/23 04:50 Labs: Laboratory Results - last 24 hr 05/01/23 04:50 Sodium 141 Potassium 3.5 Chloride 87 L Carbon Dioxide 46 H* BUN 68 H Creatinine 2.06 H Estimated GFR 33 L BUN/Creatinine Ratio 33.0 H Glucose 47 L Calcium 8.8 Magnesium 2.2 [facility] Medical History Aortic stenosis Atrial fibrillation (03/30/15) Cardiomyopathy (~03/2018) COPD (chronic obstructive pulmonary disease) Coronary artery disease (~03/2018) Hypertension (05/30/15) Tachy-ama syndrome Type 2 diabetes mellitus with hyperglycemia, without long-term current use of insulin Type 2 diabetes mellitus without complication (05/01/15) Surgical History H/O heart artery stent (~03/2018) S/P cardiac pacemaker procedure (~09/2018) Social History household members: none Smoking Status: Former smoker alcohol intake: never Assessment & Plan Assessment & Plan narrative: 1. Acute on chronic congestive heart failure with lower extremity edema- patient's respiratory status seems relatively stable. His oxygen levels so certainly been up and down. His bicarb level is risen slightly I think is more metabolic than respiratory. Going to go ahead and repeat chest x-ray today to follow-up on that right-sided pleural effusion. Urine output is diminished a wee bit but overall I think were making progress 2. Renal-continues to make good urine with the furosemide infusion, although somewhat less urine in the last 24 hours. Creatinine actually dropped with the last blood test so that is remaining stable. Electrolytes are okay on current dosing. Consider reducing amount of furosemide administered sometime in the next 24 hours depending on urine output and overall clinical status 3. Diabetes-patient continues to demonstrate hypoglycemia specially first thing in the morning. I am going to further reduce his long-acting insulin both the morning dose in the evening dose. I think this is a sign of him improving metabolically. 4. UTI/cellulitis-the evidence of cellulitis in the left lower extremity appears to be improving at this time. Yesterday was switched to IV broad- spectrum antibiotics given that he seem to certainly worsen when switched to oral clindamycin and I am not convinced there was dramatic improvement on the IV clindamycin either. Patient with drug allergies making it somewhat difficult as well as lack of culture results to guide appropriate antibiotic therapy. However with patient progressing despite IV clindamycin in effort to find broad- spectrum antibiotics I chose IV meropenem. Will await culture results again if evidence or other worries about MRSA would need to probably add daptomycin given patient's allergy to vancomycin. He does appear to be improved whether due to the reduced edema and or the change antibiotics probably a combination of both. Continue current antibiotic therapy for now. I do hope that culture results will help guide us but in this situation that does not usually work out that way. 5. COPD-continue patient with nebulizers as above. Patient has been refusing nebulizers but did accept them yesterday. 6. Weakness-patient will probably benefit from physical therapy. Assuming today is another reasonably good day plan to initiate physical therapy tomorrow. Quality VTE Deep Vein Thrombosis/Pulmonary Embolism Present on Admission: No
[2023-05-01] MEDS: predniSONE 20 MG TABLET PO (08:37)
[2023-05-01] MEDS: ENOXAPARIN 40 MG/0.4 ML SYRINGE SUBCUT ×2 (08:37→20:15)
[2023-05-01] MEDS: POTASSIUM CHLORIDE 20 MEQ TAB PO ×3 (08:38→17:03)
[2023-05-01] MEDS: PANTOPRAZOLE DR 40 MG TABLET PO (08:40)
[2023-05-01] MEDS: SOTALOL 80 MG TABLET 120 MG PO ×2 (08:40→20:14)
[2023-05-01] MEDS: HYDROMORPHONE 2 MG TABLET PO ×3 (08:42→20:15)
[2023-05-01] MEDS: INSULIN GLARGINE 100 UNIT/ML 3ML PEN 28 UNIT SUBCUT (09:00)
[2023-05-01] MEDS: LORazepam 2 MG/ML INJ 0.5 MG IV ×2 (09:00→20:16)
[2023-05-01] MEDS: SODIUM CHLORIDE 0.9% FLUSH 10 ML IV ×2 (09:01→20:17)
[2023-05-01] MEDS: MEROPENEM 1 GM in SODIUM CHLORIDE 0.9% 100 ML IV ×2 (10:55→21:39)
[2023-05-01] MEDS: INSULIN GLARGINE 100 UNIT/ML 3ML PEN 10 UNIT SUBCUT (20:13)
[2023-05-01] MEDS: INSULIN LISPRO 100 UNIT/ML 3ML VIAL SUBCUT (20:14)
[2023-05-01] MEDS: guaiFENesin ER 600 MG TAB PO (20:15)
[2023-05-01] MEDS: ATORVASTATIN 20 MG TABLET 40 MG PO (20:15)
[2023-05-02] VITALS (7 sets, daily range): BP systolic 101–117; BP diastolic 66–85; PULSE 64–82; RESP 18–20; TEMP 36.4–36.5; O2SAT 95–97
[2023-05-02] MEDS: HYDROMORPHONE 2 MG TABLET PO ×2 (00:46→05:04)
--- NOTE | 2023-05-02 01:36 | PC.NURSE ---
Addendum entered by Ney Perea R.N. 05/02/23 06:26: Rechecked Pt BG at 0255 BG was 118. AM lab draw came back reading 46 RN checked on Pt and did fingerstick BG check Pt was 48 RN administered 50% dextrose1/2 dose as per JAN, Pt was alert and awake. Pt also drank one cup of OJ and tolerated it well. After OJ Pt stated he felt nauseated, RN administered Zofran Per JAN. Rechecked Pt BG 10 minutes after Dextrose BG 140. Pt states he no longer feels nauseated. Original Note: [employer] Pt requested at start of shift to be given his PO 2mg Dilaudid Q4HR and to be woken up to receive pain medication. Pt said that his pain is constant and most of the staff can't get it right, RN informed the Pt and set up a schedule to be woken up and asked if in pain and will be medicated appropriately. Pt agreed. At 2300 Pt awoke from a nightmare, was confused believed that he was on a submarine and was very agitated. Pt undressed himself and demanded to get up to go to the bathroom. RN informed Pt that he had a condom catheter and that he can void into that. Pt was still confused and removed his CPAP mask. RN reorientated Pt and repositioned and redressed Pt and replaced his CPAP mask. At 0015 RN checked on Pt and Pt had removed his CPAP again and was agitated, stating i have been doing this for 30 years, why do you guys keep taking it off of me. RN informed Pt that no staff members had removed his CPAP mask.RN helped reapply CPAP mask, Pt then stated he wanted all the people out of the room. At 0035 RN checked on Pt for Pain evaluation and Pt stated he was a 6/10 stomach pain, medicated per JAN. after administration Pt stated why there were 3 other people in room. No other personal other than RN in room. Pt told RN to leave with the 3 other people. RN asked orientation questions (person,place, date, ) Pt answered all correctly and told RN to leave.
[2023-05-02] MEDS: CYCLOBENZAPRINE 10 MG TABLET 5 MG PO ×3 (05:05→22:01)
[2023-05-02 05:47] LABS: BUN Creatinine Ratio 33.6 (6-22); Blood Urea Nitrogen 71 mg/dL (9-20); Calcium 8.6 mg/dL (8.4-10.2); Chloride 89 mmol/L (98-107); Estimated Glomerular Filt Rate 32 mL/min (>60); Glucose 46 mg/dL (80-110); HEMOLYSIS < 15 (0-50); Potassium 3.5 mmol/L (3.4-5.1); Sodium 141 mmol/L (137-145)
[2023-05-02 06:10] LABS: Carbon Dioxide 46 mmol/L (22-32)
[2023-05-02] MEDS: DEXTROSE 50 % IN WATER 25 GM/50 ML SYRINGE IV (06:21)
[2023-05-02] MEDS: ONDANSETRON 4 MG/2 ML INJ IV (06:21)
[2023-05-02] MEDS: PANTOPRAZOLE DR 40 MG TABLET PO (06:48)
--- NOTE | 2023-05-02 07:22 | P.PN_ITS ---
Subjective Subjective Date Patient Seen: 05/02/23 Time Patient Seen: 07:22 Interval history: Lab work shows persistence of first thing in the morning hypoglycemia at 46. Renal function and electrolytes otherwise unchanged and unremarkable. Fingerstick blood sugar just now was 121 Urine output decreased somewhat. Discovered yesterday that his furosemide infus ion had inadvertently been decreased to 18 milligrams/hour after had been restarted after it was inappropriately discontinued. That explains the lesser urine output over the course of the last 24-36 hours Despite that his left lower extremity continues to improve day by day from an edema standpoint. It is more painful this morning he says in indeed it appears to be more red but frankly less of a bright pink red and more of the darker color that I associated with healing The abnormal taste in his mouth is gone he is still having trouble eating anything gets quite nauseated had some emesis yesterday (probably helps explain his low blood sugar issues) Exam Vital Signs (past 8 hours): - 05/01/23 23:47 05/01/23 23:47 05/02/23 04:00 Temperature 98.1 F Pulse Rate 62 Respiratory Rate 18 Blood Pressure 104/85 Pulse Oximetry 93 Oxygen Flow Rate 5 Fraction of Inspired Oxygen 32 SaO2/FiO2 Ratio 296 Oxygen Delivery Method CPAP,Oximask Oxygen Flow Rate 5 Objective Labs 04/25/23 10:55 05/02/23 05:00 Labs: Laboratory Results - last 24 hr 05/02/23 05:00 Sodium 141 Potassium 3.5 Chloride 89 L Carbon Dioxide 46 H* BUN 71 H Creatinine 2.11 H Estimated GFR 32 L BUN/Creatinine Ratio 33.6 H Glucose 46 L Calcium 8.6 PFSH Medical History Aortic stenosis Atrial fibrillation (03/30/15) Cardiomyopathy (~03/2018) COPD (chronic obstructive pulmonary disease) Coronary artery disease (~03/2018) Hypertension (05/30/15) Tachy-ama syndrome Type 2 diabetes mellitus with hyperglycemia, without long-term current use of insulin Type 2 diabetes mellitus without complication (05/01/15) Surgical History H/O heart artery stent (~03/2018) S/P cardiac pacemaker procedure (~09/2018) Social History household members: none Smoking Status: Former smoker alcohol intake: never Assessment & Plan Assessment & Plan narrative: 1. Acute on chronic congestive heart failure with lower extremity edema- patient's lower extremity edema continues to improve day by day by day. I think overall he is much improved over where he was a week ago. Renal function stabilized. Chest x-ray done yesterday shows improvement in his right-sided pleural effusion by my interpretation although radiology interpreted as unchanged. I agree the improvement is relatively minimal. No evidence of infiltrate etcetera. Continue with current diuretic therapy including the continuous infusion furosemide. Sometime perhaps in the next 24-48 hours we can switch back to more intermittent bolus, as his edema seems to be much improved 2. Renal-continues to make good urine with the furosemide infusion, although somewhat less because of the lesser dose furosemide I presume. However his c linical status continues to improve significantly. Continue to monitor with daily BMP 3. Diabetes-patient continues to demonstrate hypoglycemia specially first thing in the morning. I have discontinued his evening dose of Lantus and will further decrease his morning dose. His lack of oral intake is a contributing factor. 4. UTI/cellulitis-patient continues to wax and wane with symptoms of pain in the left lower extremity. The erythema continues to change slowly I do think it is improving fashion at this point. Continue with current broad-spectrum IV antibiotics (meropenem) 5. COPD-continue patient with nebulizers as above. Patient has been refusing nebulizers but did accept them yesterday. 6. Weakness-patient will probably benefit from physical therapy. Will order physical therapy today. Quality VTE Deep Vein Thrombosis/Pulmonary Embolism Present on Admission: No
[2023-05-02] MEDS: ENOXAPARIN 40 MG/0.4 ML SYRINGE SUBCUT ×2 (08:51→20:37)
[2023-05-02] MEDS: predniSONE 20 MG TABLET PO (08:51)
[2023-05-02] MEDS: HYDROMORPHONE 4 MG TABLET PO ×4 (08:51→22:01)
[2023-05-02] MEDS: POTASSIUM CHLORIDE 20 MEQ TAB PO ×3 (08:51→16:04)
[2023-05-02] MEDS: glipiZIDE 5 MG TABLET 10 MG PO ×2 (08:52→16:04)
[2023-05-02] MEDS: SOTALOL 80 MG TABLET 120 MG PO ×2 (08:52→20:37)
[2023-05-02] MEDS: INSULIN GLARGINE 100 UNIT/ML 3ML PEN 20 UNIT SUBCUT (08:57)
[2023-05-02] MEDS: ALBUTEROL/IPRATROPIUM 3 ML AMPUL INH ×3 (09:07→19:52)
[2023-05-02] MEDS: MEROPENEM 1 GM in SODIUM CHLORIDE 0.9% 100 ML IV ×2 (10:27→22:04)
[2023-05-02] MEDS: INSULIN LISPRO 100 UNIT/ML 3ML VIAL SUBCUT ×2 (12:01→16:39)
--- NOTE | 2023-05-02 15:39 | PT-IP ANOTE ---
Attempted to see patient this afternoon; patient reported his L leg becomes too painful in dependent position and not willing to get out of bed at this time to work with therapy. Encouraged patient to do some exercises with the RLE to keep his strength up in the meantime. Will follow up tomorrow.
[2023-05-02] MEDS: SODIUM CHLORIDE 0.9% IV (15:40)
[2023-05-02] MEDS: FUROSEMIDE IV (15:40)
[2023-05-02] MEDS: ACETAMINOPHEN 325 MG TABLET 650 MG PO (20:37)
[2023-05-02] MEDS: ATORVASTATIN 20 MG TABLET 40 MG PO (20:38)
[2023-05-02] MEDS: SODIUM CHLORIDE 0.9% FLUSH 10 ML IV (22:09)
[2023-05-03] VITALS (8 sets, daily range): BP systolic 113–128; BP diastolic 48–59; PULSE 61–72; RESP 18–22; TEMP 36.4–36.6; O2SAT 94–96
[2023-05-03 06:15] LABS: BUN Creatinine Ratio 36.4 (6-22); Blood Urea Nitrogen 68 mg/dL (9-20); Calcium 8.6 mg/dL (8.4-10.2); Chloride 87 mmol/L (98-107); Estimated Glomerular Filt Rate 37 mL/min (>60); Glucose 106 mg/dL (80-110); HEMOLYSIS < 15 (0-50); Potassium 3.9 mmol/L (3.4-5.1); Sodium 139 mmol/L (137-145)
[2023-05-03 06:24] LABS: Carbon Dioxide 48 mmol/L (22-32)
[2023-05-03] MEDS: CYCLOBENZAPRINE 10 MG TABLET 5 MG PO ×3 (07:38→21:00)
[2023-05-03] MEDS: glipiZIDE 5 MG TABLET 10 MG PO ×2 (07:38→15:45)
[2023-05-03] MEDS: PANTOPRAZOLE DR 40 MG TABLET PO (07:39)
[2023-05-03] MEDS: ALBUTEROL/IPRATROPIUM 3 ML AMPUL INH ×2 (07:45→17:32)
[2023-05-03] MEDS: POTASSIUM CHLORIDE 20 MEQ TAB PO ×3 (08:11→17:08)
[2023-05-03] MEDS: ENOXAPARIN 40 MG/0.4 ML SYRINGE SUBCUT ×2 (08:11→20:53)
[2023-05-03] MEDS: SOTALOL 80 MG TABLET 120 MG PO ×2 (08:11→20:53)
[2023-05-03] MEDS: predniSONE 20 MG TABLET PO (08:11)
[2023-05-03] MEDS: SODIUM CHLORIDE 0.9% FLUSH 10 ML IV ×2 (08:12→20:53)
[2023-05-03] MEDS: INSULIN GLARGINE 100 UNIT/ML 3ML PEN 20 UNIT SUBCUT (08:13)
[2023-05-03] MEDS: MEROPENEM 1 GM in SODIUM CHLORIDE 0.9% 100 ML IV ×2 (09:19→21:02)
[2023-05-03] MEDS: ACETAMINOPHEN 325 MG TABLET 650 MG PO (09:25)
[2023-05-03] MEDS: HYDROMORPHONE 4 MG TABLET PO ×3 (09:26→20:52)
[2023-05-03] MEDS: INSULIN LISPRO 100 UNIT/ML 3ML VIAL SUBCUT ×3 (11:50→21:10)
--- NOTE | 2023-05-03 12:07 | P.PN_ITS ---
Subjective Subjective Interval history: CC: This dumb leg hurts so bad Reports swelling is much improved today it's half the leg it was yesterday pain still significant, antibiotics seem to be working ok, he is in significant pain making it hard to sleep Exam Vital Signs (past 8 hours): - 05/03/23 07:45 05/03/23 08:18 05/03/23 08:00 Temperature 97.9 F Pulse Rate 70 72 Respiratory Rate 22 18 Blood Pressure 128/48 L Pulse Oximetry 95 95 95 Oxygen Delivery Method CPAP Nasal Cannula Oxygen Flow Rate 4 3 3 Fraction of Inspired Oxygen 32 SaO2/FiO2 Ratio 296 Oxygen Delivery Method Nasal Cannula Oxygen Flow Rate 3 Narrative Exam Narrative: obese elder laying in bed Resp Auscultation: clear to auscultation bilaterally Cardio Rate: regular rate Heart Sounds: S1 normal and S2 normal GI Other: active bowel sounds Neuro General: patient alert, patient awake, patient oriented x3 and no focal motor deficits Extrem Other: LLE with erythema spread across calf and foot - dorsal pedal pulse apppreciable, 1/2+ pitting edema to knee, painful and hot to touch Objective Labs 04/25/23 10:55 05/03/23 05:40 Labs: Laboratory Results - last 24 hr 05/03/23 05:40 Sodium 139 Potassium 3.9 Chloride 87 L Carbon Dioxide 48 H* BUN 68 H Creatinine 1.87 H Estimated GFR 37 L BUN/Creatinine Ratio 36.4 H Glucose 106 Calcium 8.6 PFSH Medical History Aortic stenosis Atrial fibrillation (03/30/15) Cardiomyopathy (~03/2018) COPD (chronic obstructive pulmonary disease) Coronary artery disease (~03/2018) Hypertension (05/30/15) Tachy-ama syndrome Type 2 diabetes mellitus with hyperglycemia, without long-term current use of insulin Type 2 diabetes mellitus without complication (05/01/15) Surgical History H/O heart artery stent (~03/2018) S/P cardiac pacemaker procedure (~09/2018) Social History household members: none Smoking Status: Former smoker alcohol intake: never Assessment & Plan Assessment & Plan narrative: #Acute on chronic congestive heart failure with lower extremity edema Doing well on lasix drip I think one more day at least appropriate he is breathing ok on RA and says the leg is coming down a lot. #Diabetes balance insulin dosing againsnt oral intake, which encourage #UTI/cellulitis of LLE seems to be improving clinically, continue meropenem iv #hx of COPD continue to offer nebulizers #Weakness 2/2 deconditioning unable to walk on this leg for some time now, continue PT dispo: still needs to get off lasix drip and off iv abx maybe tomorrow PCP: Shashi diet: diabetic code: night time babysitter spent: 45 min Quality VTE Deep Vein Thrombosis/Pulmonary Embolism Present on Admission: No
--- NOTE | 2023-05-03 13:57 | CM.DPNOTE ---
Discharge Planning Note: Patient remains on Insulin drip. His LLE is somewhat reddened with mild edema, elevated on 1 pillow. Patient has some mild dyspnea with conversation and he continues on O2 and is pale. Patient lives alone with his daughter next door available to him. He has [facility] and will need [facility] upon dc. He does not want SNF. Plan: Follow closely for dc needs. Anna Ramirez RN/DCP
--- NOTE | 2023-05-03 14:18 | PT.IIE ---
Current Diagnoses Acute on chronic diastolic (congestive) heart failure (04/25/23) Surgical History (Last Reviewed 04/25/23 @ 16:21 by Nura Danielle MD) H/O heart artery stent (~03/2018) S/P cardiac pacemaker procedure (~09/2018) Medical History (Last Reviewed 04/25/23 @ 16:21 by Nura Danielle MD) Aortic stenosis Atrial fibrillation (03/30/15) Cardiomyopathy (~03/2018) COPD (chronic obstructive pulmonary disease) Coronary artery disease (~03/2018) Hypertension (05/30/15) Tachy-ama syndrome Type 2 diabetes mellitus with hyperglycemia, without long-term current use of insulin Type 2 diabetes mellitus without complication (05/01/15) Physical Therapy Inpatient Evaluation/Re-Eval M1 PT/OT-IP Prior Functional Status Start: 05/03/23 16:35 Freq: NEEDED Status: Active Protocol: Document 05/03/23 14:18 AB (Rec: 05/03/23 16:52 AB [id number]) Medical Review Prior Functional Status Medical History Reviewed Yes Communication able to make needs known Mobility and Gait pt stated that he is independent with all mobilities and ambulation wtihout AD Social History Household Members none Living Arrangements House Number of Floors (Floors) One Floor Number of Stairs To Enter/Railing? 3 steps L rail ascending Home Environment Standard Height Toilet,Walk in Shower,Built-In Shower Seat Home Equipment Straight Cane,Shower Seat with Backrest,Hand Held Shower, Grab Bars In Shower Additional Social History Comment pt has a toilet safety frame pt stated that her daughter lives across the street and he can ask her to help him if needed pt stated that he can get a FWW to use if needed M2 PT-IP Current Condition Start: 05/03/23 16:35 Freq: NEEDED Status: Active Protocol: Document 05/03/23 14:18 AB (Rec: 05/03/23 16:52 AB [email or web address]) Physical Therapy Current Condition Current Condition Evaluation Date 05/03/23 Treatment Diagnosis CHF exacerbation; LLE cellulitis; difficulty in walking Onset Date 04/25/23 M3 PT-IP Subjective Start: 05/03/23 16:35 Freq: NEEDED Status: Active Protocol: Document 05/03/23 14:18 AB (Rec: 05/03/23 16:52 [email or web address]) Subjective Physical Therapy Visit Type Type Initial Evaluation Visit Start Time 14:18 Visit Stop Time 14:40 Total Visit Minutes 22 Number of DIVERSITY MANAGER Visits 0 Physical Therapy Visit Comments Patient Comments pt initially refusing PT and stated that he knows that he cannot stand and put weight on LLE due to pt and also stated that when he got up yesterday for only 20 min, swelling on LLE increased and it took 6 hours for it to go down Therapy Pain Assessment Pain When Pain Assessed At Rest Pain Present Pain Present Pain Reported Location LLE Scale Used pain scale not stated Pain Management Techniques Distraction,Elevation, Modification of Treatment,Re- positioning,Timing of Activity with Medications M4 PT-IP Mobility and Gait Start: 05/03/23 16:35 Freq: NEEDED Status: Active Protocol: Document 05/03/23 14:18 AB (Rec: 05/03/23 16:52 [email or web address]) PT-Bed Mobility Assessment Supine to Sit Supine to Sit Standby Assistance,Head of Bed Elevated Sit to Supine Sit to Supine Standby Assistance,Head of Bed Elevated,Bedrails PT-Transfer Assessment Sit to and From Stand Sit to and from Stand Standby Assistance,Contact Guard Assistance,1 Person Assistance,Use of Upper Extremities Equipment Transfer Assistive Device Gait Belt,Front Wheeled Walker Orthotic/Prosthetic Devices or Brace: No Transfers Transfer Destination Toilet Transfer Technique ambulated Transfer Ability Level of Assist Standby Assistance,Contact Guard Assistance,1 Person Assistance,Use of Upper Extremities Comments Mobility Comments pt initially refusing PT and stated that he knows that he cannot stand and put weight on LLE due to pt and also stated that when he got up yesterday for only 20 min, swelling on LLE increased and it took 6 hours for it to go down. Asked pt if he wants PT check back on him or to d/c PT order since he refused PT yesterday as well. pt then stated that he will do PT eventhough he knows that he is going to have more pain and swelling afterwards. Pt tends to direct his own care. completed supine to sit HOB elevated and used bed rail SBA . pt stated that he wants to use the toilet. completed sit to stand CGA and ambulated to the toilet using FWW. L knee with slight buckling but pt able to control. pt used the toilet SBA. ambulated back to the bed using fWW SBA. completed sit to supine SBA with use of bed rail. positioned pt in bed. call light and table placed within reach. O2 sat with O2 on : 92-95% Gait Assessment Gait Gait Assistance Required: Standby Assistance,Contact Guard Assist Distance (Feet) 10 Able to Maintain Weight Bearing Status Yes During Gait Assistive Devices Assistive Device Gait Belt,Front Wheeled Walker Orthotic/Prosthetic Devices or Brace: No Gait Deviations General Gait Pattern Decreased Stride Length, Decreased Feet Clearance,Step- to Gait,Wide Based Gait Factors Limiting Gait Function Factors Limiting Gait Function Decreased Activity Tolerance, Decreased Strength,Limited Range of Motion,Poor Safety Awareness,Respiratory Distress PT-Balance Assessment Sitting Balance and Reactions Static Sitting Balance Ability Normal Dynamic Sitting Balance Ability Good Standing Balance and Reactions Static Standing Balance Ability Fair Dynamic Standing Balance Ability Fair Device Used FWW M5 PT-IP Objective Assessments Start: 05/03/23 16:35 Freq: NEEDED Status: Active Protocol: Document 05/03/23 14:18 AB (Rec: 05/03/23 16:52 AB [id number]) Orientation Orientation/Cognition Level of Alertness Alert Orientation Name,Place,Situation Language Function Ability No Deficits Noted Safety Awareness Decreased Safety Awareness Memory Description No Deficits Noted Strength Lower Extremity Strength Assessment Left Impaired Hip 3+/5 Knee 3+/5 Muscle Tone Muscle Tone WNL Yes M6 PT-IP Treatment Start: 05/03/23 16:35 Freq: NEEDED Status: Active Protocol: Document 05/03/23 14:18 AB (Rec: 05/03/23 16:52 AB [email or web address]) Physical Therapy Treatment Education Education Provided Safety M7 PT-IP Assessment and Plan Start: 05/03/23 16:35 Freq: NEEDED Status: Active Protocol: Document 05/03/23 14:18 AB (Rec: 05/03/23 16:52 AB [email or web address]) PT Summary Assessment and Plan Potential Rehabilitation Potential Fair Status of Condition at Evaluation Evolving Summary Impairments Pain,ROM,Strength,Balance, Coordination,Sensation,Tone, Cognition,Bed Mobility, Transfers,Gait,Activity Tolerance Assessment Summary pt admitted for CHF exacerbation and LLE cellulitis. pt with c/o LLE pain and increases with mobility. pt is currently using O2 with (+) SOB but O2 sat stable. pt needs motivation to participate and tends to direct his own care. pt requiring SBA to CGA with mobility using FWW. will continue to assess progress. Goals Bed Mobility Goal Independent Transfer Goal Independent,Front Wheeled Walker Gait Goal Independent,Front Wheel Walker Gait Distance 50 Other Goals improve transfers and ambulation using SPC SBA ~ 150 ft up/down 3 steps L rail SBA Days to Meet Goals 10 Frequency of Treatment Frequency Of Treatment Once a Day Treatment Plan Physical Therapy Treatment Plan Bed Mobility Training,Transfer Training,Gait Training, Therapeutic Exercise,Balance Retraining,Discharge Planning, Hot or Cold Pack,Neuromuscular Re-ed,Coordination Retraining Recommendations To Nursing Amount of Assist Needed 1 Person Assist Discharge Recommendations PT Discharge Recommendations Home with Assistance,Home Health Equipment Needed for Home Before FWW if not safe with SPC Discharge Transportation Needs at Discharge Private Vehicle,Wheelchair/ Cabulance
[2023-05-03] MEDS: SODIUM CHLORIDE 0.9% IV (19:14)
[2023-05-03] MEDS: FUROSEMIDE IV (19:14)
[2023-05-03] MEDS: ATORVASTATIN 20 MG TABLET 40 MG PO (20:55)
[2023-05-03] MEDS: HYDROMORPHONE 2 MG INJ IV (23:40)
[2023-05-04] VITALS (7 sets, daily range): BP systolic 114–122; BP diastolic 49–52; PULSE 64–65; RESP 20; TEMP 36.4–36.6; O2SAT 92–97
[2023-05-04] MEDS: HYDROMORPHONE 4 MG TABLET PO ×2 (06:25→20:45)
[2023-05-04] MEDS: PANTOPRAZOLE DR 40 MG TABLET PO (06:25)
[2023-05-04] MEDS: CYCLOBENZAPRINE 10 MG TABLET 5 MG PO ×3 (06:25→21:48)
[2023-05-04] MEDS: HYDROMORPHONE 2 MG INJ IV (07:52)
[2023-05-04] MEDS: POTASSIUM CHLORIDE 20 MEQ TAB PO ×3 (07:57→16:42)
[2023-05-04] MEDS: INSULIN GLARGINE 100 UNIT/ML 3ML PEN 20 UNIT SUBCUT (07:58)
[2023-05-04] MEDS: INSULIN LISPRO 100 UNIT/ML 3ML VIAL SUBCUT ×4 (07:58→20:45)
[2023-05-04] MEDS: SODIUM CHLORIDE 0.9% FLUSH 10 ML IV ×2 (07:59→20:45)
[2023-05-04] MEDS: ENOXAPARIN 40 MG/0.4 ML SYRINGE SUBCUT ×2 (08:46→20:46)
[2023-05-04] MEDS: predniSONE 20 MG TABLET PO (08:47)
[2023-05-04] MEDS: SOTALOL 80 MG TABLET 120 MG PO ×2 (08:47→20:45)
[2023-05-04] MEDS: ALBUTEROL 2.5 MG/3 ML NEB (ADULT) INH (09:10)
--- NOTE | 2023-05-04 10:25 | PM.PN.1 ---
Subjective Subjective Date Patient Seen: 05/04/23 Time Patient Seen: 10:26 Interval history: CC: L leg pain Continued UOP leg swelling doing better but still extremely painful and erythematous calf. Keeping it elevated. eating and defecating ok. He is extremely concerned this may worsen if not treated aggressively. Exam Vital Signs (past 8 hours): - 05/04/23 09:12 05/04/23 09:36 05/04/23 07:00 Temperature 97.5 F L Pulse Rate 64 Respiratory Rate 20 Blood Pressure 122/52 L Pulse Oximetry 93 95 94 Oxygen Delivery Method Nasal Cannula Nasal Cannula Oxygen Flow Rate 3 2 3 Fraction of Inspired Oxygen 32 SaO2/FiO2 Ratio 296 Oxygen Delivery Method Nasal Cannula Oxygen Flow Rate 2 Narrative Exam Narrative: layin gin bed with LLE up on pillow Const General: cooperative and well developed HENMT Head: normocephalic and atraumatic Resp Auscultation: clear to auscultation bilaterally Cardio Rate: regular rate Heart Sounds: S1 normal and S2 normal GI Auscultation: normal bowel sounds Neuro General: patient alert, patient awake, patient oriented x3 and moves all extremities Extrem Other: LLE edema improved but still 1/2+ at ankle - good DP pulse - fading erythema over calf and shaffer - ~4cm eschar on posterior calf Objective Labs 04/25/23 10:55 05/03/23 05:40 [facility] Medical History Aortic stenosis Atrial fibrillation (03/30/15) Cardiomyopathy (~03/2018) COPD (chronic obstructive pulmonary disease) Coronary artery disease (~03/2018) Hypertension (05/30/15) Tachy-ama syndrome Type 2 diabetes mellitus with hyperglycemia, without long-term current use of insulin Type 2 diabetes mellitus without complication (05/01/15) Surgical History H/O heart artery stent (~03/2018) S/P cardiac pacemaker procedure (~09/2018) Social History household members: none Smoking Status: Former smoker alcohol intake: never Assessment & Plan Assessment & Plan narrative: #Acute on chronic congestive heart failure with lower extremity edema Doing well on lasix drip I think one more day at least appropriate he is breathing ok on RA and says the leg is coming down a lot. Will plan to transition to PO meds this afternoon - start oral loop then d/c drip around dinner #Diabetes balance insulin dosing against oral intake, which encourage hypoglycemia this morning responded to juice but will tweak insulin dosing #UTI/cellulitis of LLE seems to be improving clinically, continue meropenem iv infection still present agree further iv treatment advisable #hx of COPD continue to offer nebulizers encourage CPAP use #Weakness 2/2 deconditioning unable to walk on this leg for some time now, continue PT dispo: still needs to get off lasix drip and off iv abx maybe tomorrow PCP: Shashi diet: diabetic code: part time receptionist spent: 40 min Quality VTE Deep Vein Thrombosis/Pulmonary Embolism Present on Admission: No
--- NOTE | 2023-05-04 10:41 | PT.IPTN ---
Current Diagnoses Acute on chronic diastolic (congestive) heart failure (04/25/23) Physical Therapy Treatment Note M2 PT-IP Current Condition Start: 05/03/23 16:35 Freq: NEEDED Status: Active Protocol: Document 05/03/23 14:18 AB (Rec: 05/03/23 16:52 AB [email or web address]) Physical Therapy Current Condition Current Condition Evaluation Date 05/03/23 Treatment Diagnosis CHF exacerbation; LLE cellulitis; difficulty in walking Onset Date 04/25/23 M3 PT-IP Subjective Start: 05/03/23 16:35 Freq: NEEDED Status: Active Protocol: Document 05/04/23 10:18 KS (Rec: 05/04/23 13:25 KS [id number]) Subjective Physical Therapy Visit Type Type Treatment Note Visit Start Time 10:18 Visit Stop Time 10:41 Total Visit Minutes 23 Number of WEDDING DECORATOR Visits 1 Physical Therapy Visit Comments Patient Comments Pt adamantly refused OOB mobility Therapy Pain Assessment Pain When Pain Assessed At Rest Pain Present Pain Present Pain Reported Location LLE Intensity 9 Scale Used Numeric (0 - 10) Pain Behaviors Wincing Pain Management Techniques Elevation,Timing of Activity with Medications M4 PT-IP Mobility and Gait Start: 05/03/23 16:35 Freq: NEEDED Status: Active Protocol: Document 05/04/23 10:18 KS (Rec: 05/04/23 13:25 KS [id number]) PT-Transfer Assessment Comments Mobility Comments Pt supine in bed w/ LLE elevated upon arrival, periodically wincing due to pain rated 9/10. He adamantly refused OOB mobility, but did agree to LE exercises to prevent muscle wasting. On his LLE he could only complete ankle pumps and quad sets although could not flex full foot, only toes due to pain. On the right he completed ankle pumps, quad sets, SLR and heel slides. His niece is bringing foam wedge pillows from home to assist w/ removing pressure from sore on calf. Gait Assessment Comments Gait Comments Not agreeable M5 PT-IP Objective Assessments Start: 05/03/23 16:35 Freq: NEEDED Status: Active Protocol: Document 05/03/23 14:18 AB (Rec: 05/03/23 16:52 AB [email or web address]) Orientation Orientation/Cognition Level of Alertness Alert Orientation Name,Place,Situation Language Function Ability No Deficits Noted Safety Awareness Decreased Safety Awareness Memory Description No Deficits Noted Strength Lower Extremity Strength Assessment Left Impaired Hip 3+/5 Knee 3+/5 Muscle Tone Muscle Tone WNL Yes M6 PT-IP Treatment Start: 05/03/23 16:35 Freq: NEEDED Status: Active Protocol: Document 05/04/23 10:18 KS (Rec: 05/04/23 13:25 KS [id number]) Physical Therapy Treatment Exercises Exercises Ankle Pumps,Quad Sets,Heel Slides,Straight Leg Raises Education Education Provided Safety Other Treatments Other Treatment Performed Discussed importance of mobility, offered repositioning of LLE but pt refused. M7 PT-IP Assessment and Plan Start: 05/03/23 16:35 Freq: NEEDED Status: Active Protocol: Document 05/04/23 10:18 KS (Rec: 05/04/23 13:25 KS [id number]) PT Summary Assessment and Plan Potential Rehabilitation Potential Fair Summary Impairments Pain,ROM,Strength,Balance, Coordination,Sensation,Tone, Cognition,Bed Mobility, Transfers,Gait,Activity Tolerance Progress Towards Goals Slow Progress due to Pain Assessment Summary Unable to progress OOB mobility due to pt refusal because of high pain today, however pt did complete LE exercises to prevent muscle wasting. Pt states his niece will be bringing foam wedge pillows that he feels will help w/ reducing pain so that he may participate further w/ PT. Will continue to assess progress as pt tolerates. Goals Bed Mobility Goal Independent Transfer Goal Independent,Front Wheeled Walker Gait Goal Independent,Front Wheel Walker Gait Distance 50 Other Goals improve transfers and ambulation using SPC SBA ~ 150 ft up/down 3 steps L rail SBA Days to Meet Goals 10 Frequency of Treatment Frequency Of Treatment Once a Day Treatment Plan Physical Therapy Treatment Plan Bed Mobility Training,Transfer Training,Gait Training, Therapeutic Exercise,Balance Retraining,Discharge Planning, Hot or Cold Pack,Neuromuscular Re-ed,Coordination Retraining Recommendations To Nursing Amount of Assist Needed 1 Person Assist Discharge Recommendations PT Discharge Recommendations Home with Assistance,Home Health Equipment Needed for Home Before FWW if not safe with SPC Discharge Transportation Needs at Discharge Private Vehicle,Wheelchair/ Cabulance
[2023-05-04] MEDS: MEROPENEM 1 GM in SODIUM CHLORIDE 0.9% 100 ML IV ×2 (10:45→20:46)
[2023-05-04] MEDS: ACETAMINOPHEN 325 MG TABLET 650 MG PO ×3 (11:13→21:49)
[2023-05-04] MEDS: HYDROMORPHONE 2 MG TABLET PO ×2 (11:14→15:54)
[2023-05-04] MEDS: ALBUTEROL/IPRATROPIUM 3 ML AMPUL INH ×2 (11:50→15:57)
[2023-05-04] MEDS: TORSEMIDE 10 MG TABLET 40 MG PO (16:42)
[2023-05-04] MEDS: ATORVASTATIN 20 MG TABLET 40 MG PO (20:46)
[2023-05-05] VITALS (8 sets, daily range): BP systolic 121–135; BP diastolic 55–65; PULSE 58–74; RESP 16–24; TEMP 35.8–36.4; O2SAT 88–96
[2023-05-05] MEDS: ACETAMINOPHEN 325 MG TABLET 650 MG PO ×3 (03:49→16:33)
[2023-05-05] MEDS: HYDROMORPHONE 4 MG TABLET PO ×5 (03:49→19:46)
[2023-05-05] MEDS: LORazepam 2 MG/ML INJ 0.5 MG IV (03:53)
[2023-05-05 05:46] LABS: Add Manual Diff / Slide Review NO; Basophils Absolute Auto 100 /uL (0-100); Basophils Percent Auto 0.5 % (0-2); Eosinophils Absolute Auto 100 /uL (0-450); Eosinophils Percent Auto 0.5 % (2-4); Hematocrit 32.9 % (41-53); Hemoglobin 10.9 g/dL (13.5-17.5); Lymphocytes Absolute Auto 1100 /uL (1100-4500); Lymphocytes Percent Auto 8.3 % (25-40); Mean Corpuscular HGB Conc 33.2 % (30-36); Mean Corpuscular Hemoglobin 30.3 PG (26-34); Mean Corpuscular Volume 91.3 fL (80-100); Monocytes Absolute Auto 600 /uL (0-900); Monocytes Percent Auto 4.4 % (3-14); Neutrophils Absolute Auto 11100 /uL (1500-7000); Neutrophils Percent Auto 86.3 % (50-75); Platelet Count 294 X10^3/uL (150-400); Red Cell Distribution Width 16.9 % (11.6-14.8); White Blood Cell Count 12.9 X10^3/uL (4.5-11.0)
[2023-05-05] MEDS: CYCLOBENZAPRINE 10 MG TABLET 5 MG PO ×3 (05:52→21:56)
--- NOTE | 2023-05-05 07:41 | P.PN_ITS ---
Subjective Subjective Date Patient Seen: 05/05/23 Time Patient Seen: 07:41 Interval history: Over the weekend patient was transitioned from continuous infusion furosemide to torsemide orally. Urine output his continued although admittedly somewhat diminished Patient with decreasing pain left lower extremity. Able to move it more with less discomfort, but still unable/refusing to get up out of bed and try and bear weight or ambulate due to pain Blood sugars are back up again on lower dose insulin, eating somewhat better however probably a source of his higher blood sugars as well Having lot of anxiety and anna panic attack actually this morning. Still has minimum oxygen requirement Exam Vital Signs (past 8 hours): - 05/05/23 06:34 Pulse Oximetry 96 Oxygen Delivery Method CPAP Oxygen Flow Rate 4.5 Fraction of Inspired Oxygen 32 SaO2/FiO2 Ratio 296 Oxygen Delivery Method CPAP Oxygen Flow Rate 4.5 Narrative Exam Narrative: Bilateral lower extremities edema vastly improved probably close to baseline, dark red erythema left lower extremity consistent with healing cellulitis, low- grade skin breakdown posterior calf left side consistent with healing infection Objective Labs 05/05/23 05:15 05/03/23 05:40 Labs: Laboratory Results - last 24 hr 05/05/23 05:15 WBC 12.9 H RBC 3.60 L Hgb 10.9 L Hct 32.9 L MCV 91.3 MCH 30.3 MCHC 33.2 RDW 16.9 H Plt Count 294 Neut % (Auto) 86.3 H Lymph % (Auto) 8.3 L [place] % (Auto) 4.4 Eos % (Auto) 0.5 L Baso % (Auto) 0.5 Neut # (Auto) 89401 H Lymph # (Auto) 1100 [place] # (Auto) 600 Eos # (Auto) 100 Baso # (Auto) 100 PFSH Medical History Aortic stenosis Atrial fibrillation (03/30/15) Cardiomyopathy (~03/2018) COPD (chronic obstructive pulmonary disease) Coronary artery disease (~03/2018) Hypertension (05/30/15) Tachy-ama syndrome Type 2 diabetes mellitus with hyperglycemia, without long-term current use of insulin Type 2 diabetes mellitus without complication (05/01/15) Surgical History H/O heart artery stent (~03/2018) S/P cardiac pacemaker procedure (~09/2018) Social History household members: none Smoking Status: Former smoker alcohol intake: never Assessment & Plan Assessment & Plan narrative: 1. Acute on chronic congestive heart failure with lower extremity edema-patient continues to be stable to slightly improved now on oral diuretic therapy. Continue this for now without change. Planning to do chest x-ray today if he still has significant effusion may try repeat thoracentesis to see if we can improve his overall pulmonary status 2. Renal-continues to make adequate urine with oral torsemide. Continue to monitor but hopefully will not need to be transitioned back to the IV Lasix. Continue monitor renal function by repeating labs tomorrow 3. Diabetes-patient now hyperglycemic again. Will increase long-acting insulin and keep it a once a day dosing regimen for now. Likely secondary to reduced insulin and increased oral intake 4. UTI/cellulitis-leg clearly to me looks like it is healing at this point including loss of layer of skin on the left posterior calf consistent with healing infection. Consider switching back to oral antibiotics tomorrow. 5. COPD-continue patient with nebulizers as above. Still has some minimum oxyge n requirement. Plan chest x-ray as above. 6. Weakness-patient will probably benefit from physical therapy. Patient encouraged to be up and around in effort to evaluate whether he will be able to return home or not. Discussed with patient he is willing to least try hopefully we can get his pain under better control. Still taking the hydromorphone on a regular basis orally. Does seem to have pain way out of proportion to findings on exam. 7. Anxiety-this maybe playing a role in his overall pain as well as his inability to be up and around improved. I am going to start him on clonazepam b.i.d. as well as continue him on as needed lorazepam Quality VTE Deep Vein Thrombosis/Pulmonary Embolism Present on Admission: No
[2023-05-05] MEDS: INSULIN LISPRO 100 UNIT/ML 3ML VIAL SUBCUT ×4 (08:02→21:58)
[2023-05-05] MEDS: ENOXAPARIN 40 MG/0.4 ML SYRINGE SUBCUT ×2 (08:03→21:57)
[2023-05-05] MEDS: predniSONE 20 MG TABLET PO (08:03)
[2023-05-05] MEDS: POTASSIUM CHLORIDE 20 MEQ TAB PO ×3 (08:04→16:32)
[2023-05-05] MEDS: PANTOPRAZOLE DR 40 MG TABLET PO (08:05)
[2023-05-05] MEDS: SOTALOL 80 MG TABLET 120 MG PO ×2 (08:05→21:56)
[2023-05-05] MEDS: SODIUM CHLORIDE 0.9% FLUSH 10 ML IV ×2 (08:07→21:58)
[2023-05-05] MEDS: INSULIN GLARGINE 100 UNIT/ML 3ML PEN 28 UNIT SUBCUT (08:08)
[2023-05-05] MEDS: TORSEMIDE 10 MG TABLET 40 MG PO ×2 (08:11→16:32)
[2023-05-05] MEDS: glipiZIDE 5 MG TABLET 10 MG PO (08:12)
[2023-05-05] MEDS: ALBUTEROL/IPRATROPIUM 3 ML AMPUL INH ×3 (08:20→14:57)
--- NOTE | 2023-05-05 08:21 | DI.RAD.S_ITS ---
PROCEDURE: XR CHEST 1V INDICATIONS: pleural effusion TECHNIQUE: One view of the chest was acquired. COMPARISON: [facility], CR, XR CHEST 1V, 05/01/2023, 7:52. FINDINGS: Surgical changes and devices: Pacemaker. Lungs and pleura: Moderate right pleural effusion, similar compared to prior exam. Mediastinum: Mediastinal contours appear normal. Heart size is enlarged. Bones and chest wall: No suspicious bony lesions. Overlying soft tissues appear unremarkable. IMPRESSION: Similar appearance of prominent right effusion. Underlying areas of mass lesion and/or airspace disease such as pneumonia/atelectasis cannot be excluded. Dictated by: Shannon Shya M.D. on 05/05/2023 at 9:09 Approved by: Shannon Shay M.D. on 05/05/2023 at 9:10
[2023-05-05] MEDS: clonazePAM 0.5 MG TABLET PO ×2 (09:12→21:56)
[2023-05-05] MEDS: LORazepam 1 MG TABLET PO ×2 (09:12→16:32)
[2023-05-05] MEDS: MEROPENEM 1 GM in SODIUM CHLORIDE 0.9% 100 ML IV ×2 (09:59→21:57)
[2023-05-05] MEDS: HYDROMORPHONE 2 MG TABLET PO ×3 (10:09→21:57)
--- NOTE | 2023-05-05 10:30 | PT.IPTN ---
Current Diagnoses Acute on chronic diastolic (congestive) heart failure (04/25/23) Physical Therapy Treatment Note M2 PT-IP Current Condition Start: 05/03/23 16:35 Freq: NEEDED Status: Active Protocol: Document 05/03/23 14:18 AB (Rec: 05/03/23 16:52 AB [id number]) Physical Therapy Current Condition Current Condition Evaluation Date 05/03/23 Treatment Diagnosis CHF exacerbation; LLE cellulitis; difficulty in walking Onset Date 04/25/23 M3 PT-IP Subjective Start: 05/03/23 16:35 Freq: NEEDED Status: Active Protocol: Document 05/05/23 11:06 TS (Rec: 05/05/23 11:21 TS [id number]) Subjective Physical Therapy Visit Type Type Treatment Note Visit Start Time 10:30 Visit Stop Time 10:59 Total Visit Minutes 29 Number of MEDIA MONITOR Visits 2 Physical Therapy Visit Comments Patient Comments Pt found resting in chair, reports wanting to walk today and LLE is painful, agreeable to PT. Therapy Pain Assessment Pain When Pain Assessed At Rest Pain Present Pain Present Pain Reported M4 PT-IP Mobility and Gait Start: 05/03/23 16:35 Freq: NEEDED Status: Active Protocol: Document 05/05/23 11:06 TS (Rec: 05/05/23 11:21 TS [id number]) PT-Transfer Assessment Sit to and From Stand Sit to and from Stand Minimal Assistance,1 Person Assistance,Use of Upper Extremities Equipment Transfer Assistive Device Gait Belt,Front Wheeled Walker Orthotic/Prosthetic Devices or Brace: No Comments Mobility Comments Pt found resting in chair, on 2L of o2 at 94%, BP 116/56 sitting, agreeable to PT. Sit to stand from chair Laron with BUE support on arms of chair to come into standing, pt with some retroleaning. Pt stood ~ 1min, became fatigued and quickly sat back into chair. Sit to stand x1 Laron, no posterior LOB. He ambulated in room ~30' CGA w/FWW slow step thru gait, no c/o of dizziness, has x1LOB required Laron and sink counter suppport for balance. Pt was left in chair with friend in room, all needs met. Gait Assessment Gait Gait Assistance Required: Contact Guard Assist,Minimum Assistance Distance (Feet) 30 Able to Maintain Weight Bearing Status Yes During Gait Assistive Devices Assistive Device Gait Belt,Front Wheeled Walker Orthotic/Prosthetic Devices or Brace: No Gait Deviations General Gait Pattern Decreased Stride Length, Decreased Feet Clearance,Step- to Gait,Wide Based Gait Factors Limiting Gait Function Factors Limiting Gait Function Decreased Activity Tolerance, Decreased Strength,Limited Range of Motion,Poor Safety Awareness,Respiratory Distress Comments Gait Comments See mobility comments. PT-Balance Assessment Sitting Balance and Reactions Static Sitting Balance Ability Good Dynamic Sitting Balance Ability Good Standing Balance and Reactions Static Standing Balance Ability Fair Dynamic Standing Balance Ability Fair Device Used FWW Comments Other Balance Tests/Deviations/Treatment X2 LOB in standing this : session. See mobility comments . M5 PT-IP Objective Assessments Start: 05/03/23 16:35 Freq: NEEDED Status: Active Protocol: Document 05/03/23 14:18 AB (Rec: 05/03/23 16:52 AB [id number]) Orientation Orientation/Cognition Level of Alertness Alert Orientation Name,Place,Situation Language Function Ability No Deficits Noted Safety Awareness Decreased Safety Awareness Memory Description No Deficits Noted Strength Lower Extremity Strength Assessment Left Impaired Hip 3+/5 Knee 3+/5 Muscle Tone Muscle Tone WNL Yes M6 PT-IP Treatment Start: 05/03/23 16:35 Freq: NEEDED Status: Active Protocol: Document 05/05/23 11:06 TS (Rec: 05/05/23 11:21 TS [id number]) Physical Therapy Treatment Education Education Provided Safety M7 PT-IP Assessment and Plan Start: 05/03/23 16:35 Freq: NEEDED Status: Active Protocol: Document 05/05/23 11:06 TS (Rec: 05/05/23 11:21 TS [id number]) PT Summary Assessment and Plan Potential Rehabilitation Potential Fair Summary Impairments Pain,ROM,Strength,Balance, Coordination,Sensation,Tone, Cognition,Bed Mobility, Transfers,Gait,Activity Tolerance Progress Towards Goals Slow Progress due to Pain,Slow Progress due to Medical Issues,Slow Progress due to Activity Tolerance Assessment Summary Pt continues to make slow progress with his mobility. He performed sit to stand x2 Laron, 1st attempt pt fatigued quickly in standing and required to sit back in chair. He progressed his gait to ~30 ' in room CGA with slow stpe thru gait, had x1 LOB requiring Laron and counter sink support for balance. PT is recommending SNF vs Home with 24/7 at this time. Pt does not want to go to rehab and has daughter that can be live with him at home until he progresses to independence. Goals Bed Mobility Goal Independent Transfer Goal Independent,Front Wheeled Walker Gait Goal Independent,Front Wheel Walker Gait Distance 50 Other Goals improve transfers and ambulation using SPC SBA ~ 150 ft up/down 3 steps L rail SBA Days to Meet Goals 10 Frequency of Treatment Frequency Of Treatment Once a Day Treatment Plan Physical Therapy Treatment Plan Bed Mobility Training,Transfer Training,Gait Training, Therapeutic Exercise,Balance Retraining,Discharge Planning, Hot or Cold Pack,Neuromuscular Re-ed,Coordination Retraining Recommendations To Nursing Amount of Assist Needed 1 Person Assist Discharge Recommendations PT Discharge Recommendations Home with Assistance,Home Health Equipment Needed for Home Before FWW if not safe with SPC Discharge Transportation Needs at Discharge Private Vehicle,Wheelchair/ Cabulance
[2023-05-05] MEDS: ATORVASTATIN 20 MG TABLET 40 MG PO (21:56)
[2023-05-06 06:21] LABS: Add Manual Diff / Slide Review NO; Basophils Absolute Auto 0 /uL (0-100); Basophils Percent Auto 0.3 % (0-2); Eosinophils Absolute Auto 100 /uL (0-450); Eosinophils Percent Auto 0.6 % (2-4); Hematocrit 32.3 % (41-53); Hemoglobin 10.8 g/dL (13.5-17.5); Lymphocytes Absolute Auto 1200 /uL (1100-4500); Lymphocytes Percent Auto 9.6 % (25-40); Mean Corpuscular HGB Conc 33.3 % (30-36); Mean Corpuscular Hemoglobin 30.2 PG (26-34); Mean Corpuscular Volume 90.8 fL (80-100); Monocytes Absolute Auto 600 /uL (0-900); Monocytes Percent Auto 5.3 % (3-14); Neutrophils Absolute Auto 10200 /uL (1500-7000); Neutrophils Percent Auto 84.2 % (50-75); Platelet Count 281 X10^3/uL (150-400); Red Blood Cell Count 3.56 X10^6/uL (4.5-5.9); Red Cell Distribution Width 16.6 % (11.6-14.8); White Blood Cell Count 12.1 X10^3/uL (4.5-11.0)
[2023-05-06 06:25] LABS: INR 1.2 (0.9-1.3); Prothrombin Time 13.3 SECONDS (10.1-12.7)
[2023-05-06 06:34] LABS: BUN Creatinine Ratio 36.5 (6-22); Blood Urea Nitrogen 57 mg/dL (9-20); Calcium 8.2 mg/dL (8.4-10.2); Chloride 94 mmol/L (98-107); Estimated Glomerular Filt Rate 46 mL/min (>60); Glucose 158 mg/dL (80-110); HEMOLYSIS < 15 (0-50); Sodium 138 mmol/L (137-145)
[2023-05-06 06:40] LABS: Carbon Dioxide 37 mmol/L (22-32)
--- NOTE | 2023-05-06 07:58 | P.PN_ITS ---
Subjective Subjective Date Patient Seen: 05/06/23 Time Patient Seen: 07:58 Interval history: Patient apparently with some delirium/confusion last evening. Was able to be redirected. Interestingly enough, was not complaining of pain during this episode, which nursing staff found to be the first time since he was admitted. This morning he is still complaining of some disordered thinking having difficulty making sense of some of the details. He knows he is not quite his normal self Lab work shows continued improvement with decreased bicarb decreased creatinine etcetera Blood sugars remain somewhat elevated in the 200+ range Still producing urine about 2 L yesterday, down from peak of about 4700 cc while on furosemide drip Chest x-ray yesterday still showed modest right-sided effusion unchanged from previous Exam Vital Signs (past 8 hours): Fraction of Inspired Oxygen 21 SaO2/FiO2 Ratio 419 Oxygen Delivery Method Nasal Cannula Oxygen Flow Rate 0 Narrative Exam Narrative: Bilateral lower extremities essentially unchanged from yesterday, left lower extremity erythema slightly improved if anything continues to show evidence of healing Objective Labs 05/06/23 05:40 05/06/23 05:40 Labs: Laboratory Results - last 24 hr 05/06/23 05/06/23 05/06/23 05:40 05:40 05:40 WBC 12.1 H RBC 3.56 L Hgb 10.8 L Hct 32.3 L MCV 90.8 MCH 30.2 MCHC 33.3 RDW 16.6 H Plt Count 281 Neut % (Auto) 84.2 H Lymph % (Auto) 9.6 L Whiteside % (Auto) 5.3 Eos % (Auto) 0.6 L Baso % (Auto) 0.3 Neut # (Auto) 57353 H Lymph # (Auto) 1200 Whiteside # (Auto) 600 Eos # (Auto) 100 Baso # (Auto) 0 PT 13.3 H INR 1.2 Sodium 138 Potassium 4.0 Chloride 94 L Carbon Dioxide 37 H BUN 57 H Creatinine 1.56 H Estimated GFR 46 L BUN/Creatinine Ratio 36.5 H Glucose 158 H Calcium 8.2 L PFSH Medical History Aortic stenosis Atrial fibrillation (03/30/15) Cardiomyopathy (~03/2018) COPD (chronic obstructive pulmonary disease) Coronary artery disease (~03/2018) Hypertension (05/30/15) Tachy-ama syndrome Type 2 diabetes mellitus with hyperglycemia, without long-term current use of insulin Type 2 diabetes mellitus without complication (05/01/15) Surgical History H/O heart artery stent (~03/2018) S/P cardiac pacemaker procedure (~09/2018) Social History household members: none Smoking Status: Former smoker alcohol intake: never Assessment & Plan Assessment & Plan narrative: 1. Acute on chronic congestive heart failure with lower extremity edema-patient continues to be stable to slightly improved now on oral diuretic therapy. Continue this for now without change. Plan for ultrasound-guided thoracentesis. Would like to repeat cytology but basically trying to drain fluid see if it returns or not given the improved volume status overall with the diuresis etcetera 2. Renal-continues to make adequate urine with oral torsemide. Continues to show improvement. Bicarb improved renal function stable to improved. Adequate urine output in my opinion. No changes today. 3. Diabetes-patient now hyperglycemic again. Will increase long-acting insulin and keep it a once a day dosing regimen for now. 4. UTI/cellulitis-leg clearly to me looks like it is healing at this point including loss of layer of skin on the left posterior calf consistent with healing infection. I am going to switch him to oral antibiotics choosing doxycycline 5. COPD-continue patient with nebulizers as above. Still has some minimum oxygen requirement. Will try and drain his right-sided pleural effusion. Clear ly his respiratory status is improved though over where had has been. 6. Weakness-patient will probably benefit from physical therapy. Patient encouraged to be up and around in effort to evaluate whether he will be able to return home or not. Discussed with patient he is willing to least try hopefully we can get his pain under better control. Still taking the hydromorphone on a regular basis orally. Does seem to have pain way out of proportion to findings on exam. 7. Anxiety-this maybe playing a role in his overall pain as well as his inability to be up and around improved. Patient is showing some delirium in addition to the anxiety. Difficult to separate the 2. I still think low-dose clonazepam with backup lorazepam as necessary makes sense. No other medication at this point. I think overall managing his medical conditions and improving them as much as possible which is ongoing is the best way to clear his delirium and improve his anxiety Quality VTE Deep Vein Thrombosis/Pulmonary Embolism Present on Admission: No
[2023-05-06 08:00] VITALS: BP 148/65; PULSE 62; RESP 16; TEMP 35.7; O2SAT 95
--- NOTE | 2023-05-06 08:22 | DI.US.S_ITS ---
PROCEDURE: US THORACENTESIS INDICATIONS: RIGHT PLEURAL EFFUSION DIAGNOSTIC AND THERAPEUTIC TECHNIQUE: The indications, alternatives, benefits, risks, and complications of the procedure were explained to the patient. Written informed consent was obtained and placed in the chart. The chest was examined sonographically, and an appropriate site was chosen for thoracentesis. The skin was prepared and draped in the usual sterile fashion, and 1% lidocaine was infiltrated from the skin down through the pleural surface. A 19-gauge catheter-covered needle was then introduced into the pleural space, the catheter was advanced and the needle was withdrawn, and thereafter pleural fluid was aspirated. The catheter was then removed and a dressing was applied. COMPARISON: [facility], THORACENTESIS, 04/04/2023, 9:18. FINDINGS: Access site: Right hemithorax. Needle: One-Step centesis catheter with introducer needle. Fluid volume and description: 1170 cc of bloody fluid. Fluid sent for diagnostic testin cc was sent. Medications: 1% lidocaine for local anaesthesia. Complications: None; post-procedural chest radiograph is pending to assess for pneumothorax. IMPRESSION: Successful ultrasound-guided thoracentesis. Dictated by: Bong Santacruz M.D. on 05/06/2023 at 13:41 Approved by: Bong Santacruz M.D. on 05/06/2023 at 13:42
--- NOTE | 2023-05-06 08:23 | PATH_ITS ---
Note [facility] Accession Number: [id number] TESTS RESULT FLAG UNITS REF RANGE LAB Clinician Provided Cytology Information No. of containers..01 Other (Miscellaneous) Source: RIGHT PLEURAL EFFUSI DIAGNOSIS: RIGHT PLEURAL EFFUSI NEGATIVE FOR CYTOLOGICALLY MALIGNANT CELLS. THIS INTERPRETATION INCLUDES EVALUATION OF A CELL BLOCK. Pathologist ICD10: J90 Signed out by: Cherie Lyles MD, Pathologist NPI- [id number] Performed by: Arturo Roasrio, Insole And Outsole Splitter ([facility]) Gross description: 55 CC, RED, CLOUDY RECEIVED: FRESH IN ORANGE CAP CONTAINER.VO /VDU 05/08/2023 1333 Local FLAG LEGEND: L-Low Normal,H-High Normal,LL-Alert Low,HH-Alert High <-Panic Low,>-Panic High,A-Abnormal,AA-Critical Abnormal Performed at: 01 [facility] Cytology [address], [place] [address] Carloz Middleton MD, Specimen Comment: A courtesy copy of this report has been sent to [phone], - Specimen Comment: [id number] Performed at: 01 [facility] [address] [place] [address] [address], [place], [place] [id number] MD Carloz Middleton MD Phone: [phone]
[2023-05-06 08:36] VITALS: O2SAT 95
[2023-05-06 08:57] VITALS: O2SAT 94
[2023-05-06] MEDS: ALBUTEROL/IPRATROPIUM 3 ML AMPUL INH ×2 (08:57→12:16)
[2023-05-06] MEDS: POTASSIUM CHLORIDE 20 MEQ TAB PO ×3 (08:58→16:37)
[2023-05-06] MEDS: guaiFENesin ER 600 MG TAB PO (08:58)
[2023-05-06] MEDS: glipiZIDE 5 MG TABLET 10 MG PO (08:58)
[2023-05-06] MEDS: predniSONE 20 MG TABLET PO (08:58)
[2023-05-06] MEDS: INSULIN GLARGINE 100 UNIT/ML 3ML PEN 32 UNIT SUBCUT (08:59)
[2023-05-06] MEDS: clonazePAM 0.5 MG TABLET PO (08:59)
[2023-05-06] MEDS: INSULIN LISPRO 100 UNIT/ML 3ML VIAL SUBCUT ×4 (09:00→22:00)
[2023-05-06] MEDS: SOTALOL 80 MG TABLET 120 MG PO ×2 (09:04→22:00)
[2023-05-06] MEDS: ENOXAPARIN 40 MG/0.4 ML SYRINGE SUBCUT (09:05)
[2023-05-06] MEDS: SODIUM CHLORIDE 0.9% FLUSH 10 ML IV ×2 (09:05→21:56)
[2023-05-06] MEDS: DOXYCYCLINE HYCLATE 100 MG TABLET PO ×2 (09:07→21:56)
[2023-05-06] MEDS: TORSEMIDE 10 MG TABLET 40 MG PO ×2 (09:07→16:37)
--- NOTE | 2023-05-06 11:06 | DI.RAD.S_ITS ---
PROCEDURE: XR CHEST 1V INDICATIONS: POST THORACENTESIS TECHNIQUE: One view of the chest was acquired. COMPARISON: [facility], CR, XR CHEST 1V, 05/05/2023, 8:22. FINDINGS: Surgical changes and devices: Left chest wall pacemaker leads are in the region of right atrium and right ventricle. Lungs and pleura: Moderate right pleural effusion is seen, slightly decreased compared to previous study. No pneumothorax. Left lung is clear. Mediastinum: Mediastinal contours appear normal. Heart size is enlarged. Bones and chest wall: No suspicious bony lesions. Overlying soft tissues appear unremarkable. IMPRESSION: Moderate right pleural effusion with right middle and lower lobe atelectasis improved compared to previous study consistent with interval right thoracentesis. No gross pneumothorax. Dictated by: Bong Santacruz M.D. on 05/06/2023 at 11:45 Approved by: Bong Santacruz M.D. on 05/06/2023 at 11:51
[2023-05-06 12:52] LABS: Body Fluid Red Blood Cells 62700 /uL; Body Fluid Tot Nucleated Cells 961 /uL
[2023-05-06 12:55] LABS: Body Fluid Appearance SLIGHTLY CLOUDY; Body Fluid Clotted? NO CLOTS PRESENT; Body Fluid Color RED
[2023-05-06 13:18] LABS: Polynuclear WBC Body Fluid 8 %
[2023-05-06] MEDS: HYDROMORPHONE 2 MG TABLET PO (13:18)
[2023-05-06 13:19] LABS: Mononuclear WBC Body Fluid 92 %
--- NOTE | 2023-05-06 15:10 | PT.IPTN ---
Current Diagnoses Acute on chronic diastolic (congestive) heart failure (04/25/23) Physical Therapy Treatment Note M2 PT-IP Current Condition Start: 05/03/23 16:35 Freq: NEEDED Status: Active Protocol: Document 05/03/23 14:18 AB (Rec: 05/03/23 16:52 AB [id number]) Physical Therapy Current Condition Current Condition Evaluation Date 05/03/23 Treatment Diagnosis CHF exacerbation; LLE cellulitis; difficulty in walking Onset Date 04/25/23 M3 PT-IP Subjective Start: 05/03/23 16:35 Freq: NEEDED Status: Active Protocol: Document 05/06/23 15:40 TS (Rec: 05/06/23 15:53 TS [id number]) Subjective Physical Therapy Visit Type Type Treatment Note Visit Start Time 15:10 Visit Stop Time 15:35 Total Visit Minutes 25 Number of SALES AGENT PROTECTIVE SERVICE Visits 3 Physical Therapy Visit Comments Patient Comments Pt found resting in bed, agreeable to PT. Therapy Pain Assessment Pain When Pain Assessed At Rest Pain Present Pain Present Pain Reported M4 PT-IP Mobility and Gait Start: 05/03/23 16:35 Freq: NEEDED Status: Active Protocol: Document 05/06/23 15:40 TS (Rec: 05/06/23 15:53 TS [id number]) PT-Bed Mobility Assessment Supine to Sit Supine to Sit Minimal Assistance,Head of Bed Elevated Sit to Supine Sit to Supine Standby Assistance,Head of Bed Elevated,Bedrails Scooting Scooting to Edge of Bed Standby Assistance Scooting Up and Down in Bed Standby Assistance PT-Transfer Assessment Sit to and From Stand Sit to and from Stand Contact Guard Assistance, Minimal Assistance Equipment Transfer Assistive Device Gait Belt,Front Wheeled Walker Orthotic/Prosthetic Devices or Brace: No Comments Mobility Comments Pt found resting on 2.5L of o2 @95%, agreeable to PT. Supine to sit HOB elevated with handheld assist Laron. Sit to stand from CGA with BUE support on FWW, demonstrates good standing balance with no retrolean. Pt ambulated in room SBA ~40' with FWW, no buckling or LOB, required rest break on bench due to fatigue . Sit to stand from bench Laron with FWW due to lower surface . Sit to supine SBA with HOB elevated and UE support. Gait Assessment Gait Gait Assistance Required: Standby Assistance Distance (Feet) 40 Able to Maintain Weight Bearing Status Yes During Gait Assistive Devices Assistive Device Gait Belt,Front Wheeled Walker Orthotic/Prosthetic Devices or Brace: No Gait Deviations General Gait Pattern Decreased Stride Length, Decreased Feet Clearance,Step- to Gait,Wide Based Gait Factors Limiting Gait Function Factors Limiting Gait Function Decreased Activity Tolerance, Decreased Strength,Limited Range of Motion,Poor Safety Awareness,Respiratory Distress Comments Gait Comments See mobility comments. PT-Balance Assessment Sitting Balance and Reactions Static Sitting Balance Ability Good Dynamic Sitting Balance Ability Good Standing Balance and Reactions Static Standing Balance Ability Good Dynamic Standing Balance Ability Fair Device Used FWW M5 PT-IP Objective Assessments Start: 05/03/23 16:35 Freq: NEEDED Status: Active Protocol: Document 05/03/23 14:18 AB (Rec: 05/03/23 16:52 AB [id number]) Orientation Orientation/Cognition Level of Alertness Alert Orientation Name,Place,Situation Language Function Ability No Deficits Noted Safety Awareness Decreased Safety Awareness Memory Description No Deficits Noted Strength Lower Extremity Strength Assessment Left Impaired Hip 3+/5 Knee 3+/5 Muscle Tone Muscle Tone WNL Yes M6 PT-IP Treatment Start: 05/03/23 16:35 Freq: NEEDED Status: Active Protocol: Document 05/06/23 15:40 TS (Rec: 05/06/23 15:53 TS [id number]) Physical Therapy Treatment Education Education Provided Safety M7 PT-IP Assessment and Plan Start: 05/03/23 16:35 Freq: NEEDED Status: Active Protocol: Document 05/06/23 15:40 TS (Rec: 05/06/23 15:53 TS [id number]) PT Summary Assessment and Plan Potential Rehabilitation Potential Fair Summary Impairments Pain,ROM,Strength,Balance, Coordination,Sensation,Tone, Cognition,Bed Mobility, Transfers,Gait,Activity Tolerance Progress Towards Goals Progressing Toward Goals Assessment Summary Pt is progressing well with his mobility this session. He required decreased assist for sit to stands, x1CGA, x1MinA due to lower surface of window bench. He progressed his ambulation distance to ~40' SBA with good balance in FWW, did require x1 rest break after ~20' due to fatigue/pain in LLE. PT is recommending home with 24/7 assist available at this time and HHPT. If pt can progress mobility while in hospital may be able to go home with decreased assistance. Goals Bed Mobility Goal Independent Transfer Goal Independent,Front Wheeled Walker Gait Goal Independent,Front Wheel Walker Gait Distance 50 Other Goals improve transfers and ambulation using SPC SBA ~ 150 ft up/down 3 steps L rail SBA Days to Meet Goals 10 Frequency of Treatment Frequency Of Treatment Once a Day Treatment Plan Physical Therapy Treatment Plan Bed Mobility Training,Transfer Training,Gait Training, Therapeutic Exercise,Balance Retraining,Discharge Planning, Hot or Cold Pack,Neuromuscular Re-ed,Coordination Retraining Recommendations To Nursing Amount of Assist Needed Standby Assistance,1 Person Assist Discharge Recommendations PT Discharge Recommendations Home with Assistance,Home Health Equipment Needed for Home Before FWW if not safe with SPC Discharge Transportation Needs at Discharge Private Vehicle,Wheelchair/ Cabulance
[2023-05-06] MEDS: ACETAMINOPHEN 325 MG TABLET 650 MG PO ×2 (16:36→21:55)
--- NOTE | 2023-05-06 18:58 | PC.NURSE ---
Change in LOC: Hypervigilant, suspicious sitting in his chair. Wants to see Dr. Danielle and felt people were trying to keep him from seeing him. Pt is oriented per se but was unable to comprehend the timing of the day and doctors arrival. He did know who and where he was. Dr. Danielle did arrive this morning and spoke with pt for a long time and pt was able to become more calm. Later pt said. Some thing happened to me last night and I was scared. Given time to express his feelings. Later this am pt went down for a thoracentesis and returned. Lungs sounded about the same, O2 sat on 2L was 94%. Pt denies any increase in sob. Decided to take a pain pill and was able to sleep a couple of hours and he felt much better. Pt reports he feels his leg is worse, does have some black tissue on the back of the lt leg. However some other family members felt his leg looked better. This is the first day this junior underwriter has seen pt skin. Dr. Danielle office called and someone will come and look at leg tomorrow since he is switched to oral antibiotics. Pt is resting comfortable at this time.
[2023-05-06 19:35] VITALS: BP 114/56; PULSE 63; RESP 18; TEMP 36.6; O2SAT 94
[2023-05-06] MEDS: ATORVASTATIN 20 MG TABLET 40 MG PO (22:00)
[2023-05-07] VITALS (10 sets, daily range): BP systolic 139–157; BP diastolic 50–96; PULSE 65–74; RESP 16–22; TEMP 36.2–36.3; O2SAT 83–95
[2023-05-07] MEDS: HYDROMORPHONE 2 MG TABLET PO ×2 (02:51→10:07)
[2023-05-07] MEDS: ACETAMINOPHEN 325 MG TABLET 650 MG PO ×2 (05:12→17:10)
[2023-05-07 06:14] LABS: Add Manual Diff / Slide Review NO; Basophils Absolute Auto 100 /uL (0-100); Basophils Percent Auto 0.5 % (0-2); Eosinophils Absolute Auto 100 /uL (0-450); Eosinophils Percent Auto 0.5 % (2-4); Hematocrit 32.6 % (41-53); Hemoglobin 10.8 g/dL (13.5-17.5); Lymphocytes Absolute Auto 1300 /uL (1100-4500); Lymphocytes Percent Auto 10.8 % (25-40); Mean Corpuscular HGB Conc 33.2 % (30-36); Mean Corpuscular Hemoglobin 30.1 PG (26-34); Mean Corpuscular Volume 90.6 fL (80-100); Monocytes Absolute Auto 700 /uL (0-900); Monocytes Percent Auto 6.1 % (3-14); Neutrophils Absolute Auto 9800 /uL (1500-7000); Neutrophils Percent Auto 82.1 % (50-75); Platelet Count 289 X10^3/uL (150-400); Red Blood Cell Count 3.59 X10^6/uL (4.5-5.9); Red Cell Distribution Width 16.4 % (11.6-14.8)
[2023-05-07] MEDS: ALBUTEROL/IPRATROPIUM 3 ML AMPUL INH ×3 (07:28→16:01)
--- NOTE | 2023-05-07 07:41 | PM.PN.1 ---
Subjective Subjective Date Patient Seen: 05/07/23 Time Patient Seen: 07:41 Interval history: Patient underwent thoracentesis yesterday. Pleural effusion was persistently bloody. Sample sent for cytology. Still has fluid present based on postprocedure chest x-ray. Patient is still has a small oxygen requirement bit more so at night with his CPAP Patient has discontinued use of the oral hydromorphone which he thinks is cleared his mind significantly. Is obviously having decreased pain in the left lower extremity. Has been up and around walking to the bathroom and limited amount of ambulation with physical therapy and staff Over the last 36+ hours a eschar has formed the posterior calf area but otherwise left lower extremity is improving both in pain and function per patient Blood sugars have been still somewhat elevated but no where near the hyperglycemia seen earlier in patient's hospitalization. Patient with diminished urine output yesterday only about 1 L Exam Vital Signs (past 8 hours): - 05/07/23 07:30 Pulse Oximetry 93 Oxygen Delivery Method Nasal Cannula Oxygen Flow Rate 2 Fraction of Inspired Oxygen 21 SaO2/FiO2 Ratio 419 Oxygen Delivery Method Nasal Cannula Oxygen Flow Rate 2 Narrative Exam Narrative: HEENT-unremarkable Lungs-improved breath sounds still diminished breath sounds left base with overlying crackles Heart-regular rate and rhythm Abdomen-benign Extremities-only trace edema right lower extremity, only trace edema maybe 1+ left lower extremity with minor overlying deep red erythema and posteriorly a 2 x 3 cm eschar with superficial layer skin sloughing off Objective Labs 05/07/23 05:50 05/06/23 05:40 Labs: Laboratory Results - last 24 hr 05/06/23 05/07/23 10:00 05:50 WBC 12.0 H RBC 3.59 L Hgb 10.8 L Hct 32.6 L MCV 90.6 MCH 30.1 MCHC 33.2 RDW 16.4 H Plt Count 289 Neut % (Auto) 82.1 H Lymph % (Auto) 10.8 L [place] % (Auto) 6.1 Eos % (Auto) 0.5 L Baso % (Auto) 0.5 Neut # (Auto) 9800 H Lymph # (Auto) 1300 [place] # (Auto) 700 Eos # (Auto) 100 Baso # (Auto) 100 Fluid Color Red Fluid Appearance Slightly cloudy Fluid RBC [address] Fld Tot Nucleated Cell 961 Fluid Polynuclear WBCs 8 Fluid Mononuclear WBCs 92 Fluid Eosinophils TNP Fluid Other Cells TNP Body Fluid Clot No clots present [facility] Medical History Aortic stenosis Atrial fibrillation (03/30/15) Cardiomyopathy (~03/2018) COPD (chronic obstructive pulmonary disease) Coronary artery disease (~03/2018) Hypertension (05/30/15) Tachy-ama syndrome Type 2 diabetes mellitus with hyperglycemia, without long-term current use of insulin Type 2 diabetes mellitus without complication (05/01/15) Surgical History H/O heart artery stent (~03/2018) S/P cardiac pacemaker procedure (~09/2018) Social History household members: none Smoking Status: Former smoker alcohol intake: never Assessment & Plan Assessment & Plan narrative: 1. Acute on chronic congestive heart failure with lower extremity edema-patient continues to be stable to slightly improved now on oral diuretic therapy. Continue this for now without change. Will continue monitor for reaccumulation of fluid in the right chest. 2. Renal-continues to make adequate urine with oral torsemide. Continues to show improvement. Decreased urine output but stability with edema etcetera. 3. Diabetes-patient now hyperglycemic again. Will increase long-acting insulin and keep it a once a day dosing regimen for now. Probably overall acceptable 4. UTI/cellulitis-leg clearly to me looks like it is healing at this point including loss of layer of skin on the left posterior calf consistent with healing infection. I do think the overall process shows healing of the left lower extremity. The modest sized eschar is a bit concerning but I think it is merely a sign of healing process. He was started on oral doxycycline yesterday quickly developed a rash in the last 12-24 hours probably secondary to that and so I am going to switch him back to oral clindamycin given his overall improvement. 5. COPD-continue patient with nebulizers as above. Still has some minimum oxygen requirement. Respiratory status clearly improved but still not exactly where I would like it to be. May need home oxygen therapy 6. Weakness-patient has been up and around seems more viable to return home at this point. Continue with skilled therapy 7. Anxiety/delirium-I agree the narcotics seem to have negatively affected his overall thinking. Continue with the low-dose clonazepam. Will try an alternative for pain management although he is trying to avoid using any narcotics at all 8. Pleural effusion-still bloody pleural effusion which is concerning in my opinion. I doubt this is infectious etiology given the antibiotic therapy he is already received. I am more concerned about possible neoplastic process here. Sample was sent for cytology will await results. Overall patient continues to very slowly and that is clear very slowly improve. Far better today than he was last Friday. Definite healing and improvement in left lower extremity. Definite improvement in edema. Renal function is improved. Diabetes is improved. Respiratory status improved. Quality VTE Deep Vein Thrombosis/Pulmonary Embolism Present on Admission: No
[2023-05-07] MEDS: SODIUM CHLORIDE 0.9% FLUSH 10 ML IV ×2 (09:00→21:16)
[2023-05-07] MEDS: SOTALOL 80 MG TABLET 120 MG PO ×2 (10:05→21:14)
[2023-05-07] MEDS: TORSEMIDE 10 MG TABLET 40 MG PO ×2 (10:06→15:56)
[2023-05-07] MEDS: predniSONE 20 MG TABLET PO (10:06)
[2023-05-07] MEDS: guaiFENesin ER 600 MG TAB PO (10:07)
[2023-05-07] MEDS: PANTOPRAZOLE DR 40 MG TABLET PO (10:09)
[2023-05-07] MEDS: glipiZIDE 5 MG TABLET 10 MG PO (10:09)
[2023-05-07] MEDS: clonazePAM 0.5 MG TABLET PO ×2 (10:09→21:14)
[2023-05-07] MEDS: INSULIN GLARGINE 100 UNIT/ML 3ML PEN 32 UNIT SUBCUT (10:10)
[2023-05-07] MEDS: ENOXAPARIN 40 MG/0.4 ML SYRINGE SUBCUT (10:10)
[2023-05-07] MEDS: INSULIN LISPRO 100 UNIT/ML 3ML VIAL SUBCUT ×4 (10:11→21:15)
[2023-05-07] MEDS: POTASSIUM CHLORIDE 20 MEQ TAB PO ×3 (10:14→17:10)
[2023-05-07] MEDS: HYDROCODONE/ACET 10/325 TABLET 1 TAB PO (12:42)
[2023-05-07] MEDS: IBUPROFEN 400 MG TABLET PO (12:43)
[2023-05-07] MEDS: ALBUTEROL 2.5 MG/3 ML NEB (ADULT) INH (13:40)
--- NOTE | 2023-05-07 14:05 | CM.DPC ---
DCP Cont: Patient is continuing to work with P.T, plan is home with [facility], family was in earlier. Patient is not yet medically stable, pleural effusion. Will continue to follow closely for needs. P: DCP to continue to follow closely. Plan is home with resumption of [facility] when deemed medically stable. Marry Barnhart RN/[employer]udge [employer] Operator
[2023-05-07] MEDS: CLINDAMYCIN 150 MG CAPSULE 300 MG PO ×2 (15:31→21:15)
--- NOTE | 2023-05-07 15:40 | PT.IPTN ---
Current Diagnoses Acute on chronic diastolic (congestive) heart failure (04/25/23) Physical Therapy Treatment Note M2 PT-IP Current Condition Start: 05/03/23 16:35 Freq: NEEDED Status: Active Protocol: Document 05/03/23 14:18 AB (Rec: 05/03/23 16:52 AB [id number]) Physical Therapy Current Condition Current Condition Evaluation Date 05/03/23 Treatment Diagnosis CHF exacerbation; LLE cellulitis; difficulty in walking Onset Date 04/25/23 M3 PT-IP Subjective Start: 05/03/23 16:35 Freq: NEEDED Status: Active Protocol: Document 05/07/23 15:51 TS (Rec: 05/07/23 16:03 TS [id number]) Subjective Physical Therapy Visit Type Type Treatment Note Visit Start Time 15:40 Visit Stop Time 15:52 Total Visit Minutes 12 Number of EARTHMOVING PLANT OPERATOR Visits 4 Physical Therapy Visit Comments Patient Comments Pt agreeable to PT. Therapy Pain Assessment Pain When Pain Assessed During Mobility Pain Present Pain Present Pain Reported M4 PT-IP Mobility and Gait Start: 05/03/23 16:35 Freq: NEEDED Status: Active Protocol: Document 05/07/23 15:51 TS (Rec: 05/07/23 16:03 TS [id number]) PT-Transfer Assessment Sit to and From Stand Sit to and from Stand Standby Assistance,Use of Upper Extremities Comments Mobility Comments Pt found in restroom, agreeable to PT. He ambulated in hallway ~125' SBA FWW with a slower step thru gait, no buckling or LOB, required standing rest break ~20 secs before heading back to room. He performed sit to stand x1 SBA with BUE support from chair with FWW, demonstrates good upright posture and no retrolean. Pt was left in chair with friend in room, RN notified. Gait Assessment Gait Gait Assistance Required: Standby Assistance Distance (Feet) 125 Able to Maintain Weight Bearing Status Yes During Gait Assistive Devices Assistive Device Gait Belt,Front Wheeled Walker Orthotic/Prosthetic Devices or Brace: No Gait Deviations General Gait Pattern Decreased Stride Length, Decreased Feet Clearance,Wide Based Gait Factors Limiting Gait Function Factors Limiting Gait Function Decreased Activity Tolerance, Poor Safety Awareness, Respiratory Distress Comments Gait Comments See mobility comments. PT-Balance Assessment Sitting Balance and Reactions Static Sitting Balance Ability Good Dynamic Sitting Balance Ability Good Standing Balance and Reactions Static Standing Balance Ability Good Dynamic Standing Balance Ability Fair Device Used FWW M5 PT-IP Objective Assessments Start: 05/03/23 16:35 Freq: NEEDED Status: Active Protocol: Document 05/03/23 14:18 AB (Rec: 05/03/23 16:52 AB [id number]) Orientation Orientation/Cognition Level of Alertness Alert Orientation Name,Place,Situation Language Function Ability No Deficits Noted Safety Awareness Decreased Safety Awareness Memory Description No Deficits Noted Strength Lower Extremity Strength Assessment Left Impaired Hip 3+/5 Knee 3+/5 Muscle Tone Muscle Tone WNL Yes M6 PT-IP Treatment Start: 05/03/23 16:35 Freq: NEEDED Status: Active Protocol: Document 05/07/23 15:51 TS (Rec: 05/07/23 16:03 TS [id number]) Physical Therapy Treatment Education Education Provided Safety M7 PT-IP Assessment and Plan Start: 05/03/23 16:35 Freq: NEEDED Status: Active Protocol: Document 05/07/23 15:51 TS (Rec: 05/07/23 16:03 TS [id number]) PT Summary Assessment and Plan Potential Rehabilitation Potential Fair Summary Impairments Pain,ROM,Strength,Balance, Coordination,Sensation,Tone, Cognition,Bed Mobility, Transfers,Gait,Activity Tolerance Progress Towards Goals Progressing Toward Goals Assessment Summary Pt progressed his ambulation to ~125' SBA with FWW with step thru gait, no o2, required standing rest break before ambulating back to room . Pt became SOB once back in room and required 2L of o2, Spo2 92% after mobilization. He performed sit to stand from chair x1 SBA with FWW, demonstrates good upright posture and no retrolean. PT recommends return home with assistance and HHPT. Goals Bed Mobility Goal Independent Transfer Goal Independent,Front Wheeled Walker Gait Goal Independent,Front Wheel Walker Gait Distance 50 Other Goals improve transfers and ambulation using SPC SBA ~ 150 ft up/down 3 steps L rail SBA Days to Meet Goals 10 Frequency of Treatment Frequency Of Treatment Once a Day Treatment Plan Physical Therapy Treatment Plan Bed Mobility Training,Transfer Training,Gait Training, Therapeutic Exercise,Balance Retraining,Discharge Planning, Hot or Cold Pack,Neuromuscular Re-ed,Coordination Retraining Other Recommendations and Next Treatment Trial stairs, progress gait. Focus Recommendations To Nursing Amount of Assist Needed Standby Assistance Discharge Recommendations PT Discharge Recommendations Home with Assistance,Home Health Equipment Needed for Home Before FWW if not safe with SPC Discharge Transportation Needs at Discharge Private Vehicle,Wheelchair/ Cabulance
[2023-05-07] MEDS: ATORVASTATIN 20 MG TABLET 40 MG PO (21:15)
--- NOTE | 2023-05-07 21:22 | PC.NURSE ---
Skin/O2: Dr. Danielle here. he did look at pt's lower left leg this am and rash on back. Discussed O2 requirement and pt has needed O2 bled into cpap line. MD will review chart.
[2023-05-08 00:05] VITALS: O2SAT 91
[2023-05-08] MEDS: PANTOPRAZOLE DR 40 MG TABLET PO (06:33)
[2023-05-08] MEDS: CLINDAMYCIN 150 MG CAPSULE 300 MG PO ×3 (06:33→21:19)
[2023-05-08] MEDS: ACETAMINOPHEN 325 MG TABLET 650 MG PO ×4 (06:33→22:56)
[2023-05-08 07:00] VITALS: BP 136/59; PULSE 65; RESP 18; TEMP 36.1; O2SAT 95; O2SAT 96
--- NOTE | 2023-05-08 07:40 | P.PN_ITS ---
Subjective Subjective Date Patient Seen: 05/08/23 Time Patient Seen: 07:41 Interval history: Patient is sitting up in bed receiving a nebulizer treatment. He says he feels better. He is come to the conclusion that he needs to be up out of bed moving around more. Still wants to keep his leg elevated as much as possible but feels like he is done better since he has been a little more active Blood sugars are still in the 200-250 range He is actually doing okay off oxygen this morning with oxygen saturation at about 91%. Does get a little more dyspneic and low more hypoxic with activity Leg feels about the same not consistently persistently better but about the same Had some increased anxiety and little confusion last evening apparently. Exam Vital Signs (past 8 hours): - 05/08/23 00:05 Pulse Oximetry 91 Oxygen Delivery Method Room Air Oxygen Flow Rate 0 Fraction of Inspired Oxygen 21 SaO2/FiO2 Ratio 419 Oxygen Delivery Method Room Air Oxygen Flow Rate 0 Objective Labs 05/07/23 05:50 05/06/23 05:40 [facility] Medical History Aortic stenosis Atrial fibrillation (03/30/15) Cardiomyopathy (~03/2018) COPD (chronic obstructive pulmonary disease) Coronary artery disease (~03/2018) Hypertension (05/30/15) Tachy-ama syndrome Type 2 diabetes mellitus with hyperglycemia, without long-term current use of insulin Type 2 diabetes mellitus without complication (05/01/15) Surgical History H/O heart artery stent (~03/2018) S/P cardiac pacemaker procedure (~09/2018) Social History household members: none Smoking Status: Former smoker alcohol intake: never Assessment & Plan Assessment & Plan narrative: 1. Acute on chronic congestive heart failure with lower extremity edema-patient continues to be stable to slightly improved now on oral diuretic therapy. Patient's urine output was actually little more yesterday than the day before. 2. Renal-continues to make adequate urine with oral torsemide. Continues to show improvement. As above increased urine output verses the previous 24 hours. No change today. 3. Diabetes-patient persistently hyperglycemic. Will once again increase his single dose Lantus insulin dose 4. UTI/cellulitis-leg clearly is improved this morning. Decreased erythema. The eschar also seems to be somewhat improve and the overall surrounding erythema around this area on the posterior calf is improved. 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 COPD-continue patient with nebulizers as above. Continues to very slowly improve. May not need home oxygen. Time will tell. 6. Weakness-patient has been up and around seems more viable to return home at this point. I certainly think patient is correct the more activity he has the better he will feel and more things such as his pulmonary status will improve as well. Continue skilled therapy 7. Anxiety/delirium-I agree the narcotics seem to have negatively affected his overall thinking. Continue with the low-dose clonazepam. Will try an alternative for pain management although he is trying to avoid using any narcotics at all. 8. Pleural effusion-still bloody pleural effusion which is concerning in my opinion. I doubt this is infectious etiology given the antibiotic therapy he is already received. I am more concerned about possible neoplastic process here. Sample was sent for cytology will await results. Overall patient continues to very slowly, and that is clear, very slowly improve. Far better today than he was last . Definite healing and improvement in left lower extremity. Definite improvement in edema. Renal function is improved. Diabetes is improved. Respiratory status improved. He is very close to being able to be discharged home with home health services but again given his previous pattern I am going to certainly err on the side of if anything keeping him in the hospital a bit longer than he needs to be. He is proven to be very slow in his improvement and I think for him longer is better. However I believe he is probably within 1-3 days of discharge Quality VTE Deep Vein Thrombosis/Pulmonary Embolism Present on Admission: No
[2023-05-08 07:50] VITALS: PULSE 65; RESP 20; O2SAT 96
[2023-05-08] MEDS: INSULIN LISPRO 100 UNIT/ML 3ML VIAL SUBCUT ×4 (07:57→23:18)
[2023-05-08] MEDS: ENOXAPARIN 40 MG/0.4 ML SYRINGE SUBCUT (07:59)
[2023-05-08] MEDS: SOTALOL 80 MG TABLET 120 MG PO ×2 (08:02→21:20)
[2023-05-08] MEDS: TORSEMIDE 10 MG TABLET 40 MG PO ×2 (08:03→16:23)
[2023-05-08] MEDS: POTASSIUM CHLORIDE 20 MEQ TAB PO ×3 (08:03→16:22)
[2023-05-08] MEDS: glipiZIDE 5 MG TABLET 10 MG PO (08:03)
[2023-05-08] MEDS: ALBUTEROL/IPRATROPIUM 3 ML AMPUL INH ×3 (08:05→22:20)
[2023-05-08] MEDS: predniSONE 20 MG TABLET 10 MG PO (08:11)
[2023-05-08] MEDS: SODIUM CHLORIDE 0.9% FLUSH 10 ML IV ×2 (08:15→21:20)
[2023-05-08] MEDS: INSULIN GLARGINE 100 UNIT/ML 3ML PEN 40 UNIT SUBCUT (08:32)
--- NOTE | 2023-05-08 09:48 | PT.IPTN ---
Current Diagnoses Acute on chronic diastolic (congestive) heart failure (04/25/23) Physical Therapy Treatment Note M2 PT-IP Current Condition Start: 05/03/23 16:35 Freq: NEEDED Status: Active Protocol: Document 05/03/23 14:18 AB (Rec: 05/03/23 16:52 AB [id number]) Physical Therapy Current Condition Current Condition Evaluation Date 05/03/23 Treatment Diagnosis CHF exacerbation; LLE cellulitis; difficulty in walking Onset Date 04/25/23 M3 PT-IP Subjective Start: 05/03/23 16:35 Freq: NEEDED Status: Active Protocol: Document 05/08/23 09:25 KS (Rec: 05/08/23 11:09 KS [id number]) Subjective Physical Therapy Visit Type Type Treatment Note Visit Start Time 09:25 Visit Stop Time 09:48 Total Visit Minutes 23 Number of PAINTER SPRING Visits 5 Physical Therapy Visit Comments Patient Comments Pt agreeable to PT. Therapy Pain Assessment Pain When Pain Assessed At Rest Pain Present Pain Present Denied Pain M4 PT-IP Mobility and Gait Start: 05/03/23 16:35 Freq: NEEDED Status: Active Protocol: Document 05/08/23 09:25 KS (Rec: 05/08/23 11:09 KS [id number]) PT-Bed Mobility Assessment Scooting Scooting to Edge of Bed Standby Assistance PT-Transfer Assessment Sit to and From Stand Sit to and from Stand Standby Assistance,Use of Upper Extremities Equipment Transfer Assistive Device Gait Belt,Front Wheeled Walker Orthotic/Prosthetic Devices or Brace: No Transfers Transfer Destination Chair Transfer Technique ambulated Transfer Ability Level of Assist Standby Assistance,1 Person Assistance,Use of Upper Extremities Comments Mobility Comments Pt in restroom, agreeable to PT. Stood from toilet SBA w/ FWW and able to perform his own pericare. He ambulated ~15 ft to chair w/ FWW SBA and then sat in chair. Labored breathing, but O2 91% on RA. Pt refused furhter ambulation d/t fatigue and SOB. Pt completed LE exercises including ankle pumps, quad sets, seated marching, and glute sets. Encouraged pt to perform exercises throughout the day and he was agreeable. Left in chair w/ all needs in reach. Gait Assessment Gait Gait Assistance Required: Standby Assistance Distance (Feet) 15 Able to Maintain Weight Bearing Status Yes During Gait Assistive Devices Assistive Device Gait Belt,Front Wheeled Walker Orthotic/Prosthetic Devices or Brace: No Gait Deviations General Gait Pattern Decreased Stride Length, Decreased Feet Clearance,Wide Based Gait Factors Limiting Gait Function Factors Limiting Gait Function Decreased Activity Tolerance, Poor Safety Awareness, Respiratory Distress Comments Gait Comments See mobility comments. Stair Climbing Assessment Comments Stair Climbing Comments Did not assess d/t fatigue PT-Balance Assessment Sitting Balance and Reactions Static Sitting Balance Ability Good Dynamic Sitting Balance Ability Good Standing Balance and Reactions Static Standing Balance Ability Good Dynamic Standing Balance Ability Fair Device Used FWW M5 PT-IP Objective Assessments Start: 05/03/23 16:35 Freq: NEEDED Status: Active Protocol: Document 05/03/23 14:18 AB (Rec: 05/03/23 16:52 AB [id number]) Orientation Orientation/Cognition Level of Alertness Alert Orientation Name,Place,Situation Language Function Ability No Deficits Noted Safety Awareness Decreased Safety Awareness Memory Description No Deficits Noted Strength Lower Extremity Strength Assessment Left Impaired Hip 3+/5 Knee 3+/5 Muscle Tone Muscle Tone WNL Yes M6 PT-IP Treatment Start: 05/03/23 16:35 Freq: NEEDED Status: Active Protocol: Document 05/08/23 09:25 KS (Rec: 05/08/23 11:09 KS [id number]) Physical Therapy Treatment Exercises Exercises Ankle Pumps,Gluteal Sets,Quad Sets,Heel Slides,Straight Leg Raises Education Education Provided Safety Other Treatments Other Treatment Performed Discussed importance of mobility, reveiwed LE exercises to promote blood flow and strengthening. M7 PT-IP Assessment and Plan Start: 05/03/23 16:35 Freq: NEEDED Status: Active Protocol: Document 05/08/23 09:25 KS (Rec: 05/08/23 11:09 KS [id number]) PT Summary Assessment and Plan Potential Rehabilitation Potential Fair Summary Impairments Pain,ROM,Strength,Balance, Coordination,Sensation,Tone, Cognition,Bed Mobility, Transfers,Gait,Activity Tolerance Progress Towards Goals Progressing Toward Goals Assessment Summary Pt limited by low tolerance for activity, weakness, and SOB today. He was able to ambulate a short distance however was too fatigued to ambulate further and concerned about his LLE becoming more swollen if he did not elevate it quickly. He was able to complete LE exercises and maintained O2 >90% on RA throughout treatment. Continue to recommend returning home with assistance and HHPT to improve strength and activity tolerance. Goals Bed Mobility Goal Independent Transfer Goal Independent,Front Wheeled Walker Gait Goal Independent,Front Wheel Walker Gait Distance 50 Other Goals improve transfers and ambulation using SPC SBA ~ 150 ft up/down 3 steps L rail SBA Days to Meet Goals 10 Frequency of Treatment Frequency Of Treatment Once a Day Treatment Plan Physical Therapy Treatment Plan Bed Mobility Training,Transfer Training,Gait Training, Therapeutic Exercise,Balance Retraining,Discharge Planning, Hot or Cold Pack,Neuromuscular Re-ed,Coordination Retraining Recommendations To Nursing Amount of Assist Needed Standby Assistance Discharge Recommendations PT Discharge Recommendations Home with Assistance,Home Health Equipment Needed for Home Before FWW if not safe with SPC Discharge Transportation Needs at Discharge Private Vehicle,Wheelchair/ Cabulance
[2023-05-08] MEDS: IBUPROFEN 400 MG TABLET PO (14:46)
[2023-05-08 19:00] VITALS: O2SAT 91
[2023-05-08 19:50] VITALS: BP 120/66; PULSE 65; RESP 18; TEMP 36.6; O2SAT 93
[2023-05-08] MEDS: ATORVASTATIN 20 MG TABLET 40 MG PO (21:20)
[2023-05-09 05:43] LABS: Add Manual Diff / Slide Review NO; Basophils Absolute Auto 100 /uL (0-100); Basophils Percent Auto 0.7 % (0-2); Eosinophils Absolute Auto 100 /uL (0-450); Eosinophils Percent Auto 0.8 % (2-4); Hematocrit 34.1 % (41-53); Hemoglobin 11.6 g/dL (13.5-17.5); Lymphocytes Absolute Auto 1600 /uL (1100-4500); Lymphocytes Percent Auto 14.1 % (25-40); Mean Corpuscular HGB Conc 34.1 % (30-36); Mean Corpuscular Hemoglobin 31.1 PG (26-34); Mean Corpuscular Volume 91.1 fL (80-100); Monocytes Absolute Auto 700 /uL (0-900); Monocytes Percent Auto 6.3 % (3-14); Neutrophils Absolute Auto 8900 /uL (1500-7000); Neutrophils Percent Auto 78.1 % (50-75); Platelet Count 338 X10^3/uL (150-400); Red Blood Cell Count 3.74 X10^6/uL (4.5-5.9); Red Cell Distribution Width 17.4 % (11.6-14.8); White Blood Cell Count 11.3 X10^3/uL (4.5-11.0)
[2023-05-09] MEDS: ACETAMINOPHEN 325 MG TABLET 650 MG PO ×4 (05:45→23:22)
[2023-05-09] MEDS: CLINDAMYCIN 150 MG CAPSULE 300 MG PO ×3 (05:57→21:13)
[2023-05-09] MEDS: PANTOPRAZOLE DR 40 MG TABLET PO (06:01)
[2023-05-09 06:03] LABS: BUN Creatinine Ratio 27.3 (6-22); Blood Urea Nitrogen 54 mg/dL (9-20); Calcium 8.8 mg/dL (8.4-10.2); Carbon Dioxide 37 mmol/L (22-32); Chloride 99 mmol/L (98-107); Estimated Glomerular Filt Rate 34 mL/min (>60); Glucose 127 mg/dL (80-110); HEMOLYSIS < 15 (0-50); Potassium 4.6 mmol/L (3.4-5.1); Sodium 141 mmol/L (137-145)
[2023-05-09 06:13] LABS: NT-proBNP (BNP-Adult 18+) 1650 pg/mL (<450)
[2023-05-09 07:00] VITALS: BP 114/58; PULSE 62; RESP 20; TEMP 36.2; O2SAT 92
--- NOTE | 2023-05-09 07:24 | PM.PN.1 ---
Subjective Subjective Date Patient Seen: 05/09/23 Time Patient Seen: 07:24 Interval history: Patient up and around. Slowly gaining more strength and stamina but still pretty quickly pretty fatigued. Has been able to remain off of oxygen persistently. Even with activity he may get minimally hypoxic but quickly rebounds Leg has increased pain after activity but is allowing him to do more and more He was concerned about the high dose insulin yesterday but his blood sugars have remained about 200-230 or so. Still has episodes of anxiety/panic. They are shorter and farther in between and he is found that getting up and walking actually helps him to resolve these more quickly but it is still concerning to him Exam Vital Signs (past 8 hours): Fraction of Inspired Oxygen 21 SaO2/FiO2 Ratio 419 Oxygen Delivery Method Room Air Oxygen Flow Rate 0 Narrative Exam Narrative: Left lower extremity erythema anteriorly almost completely absent. Posterior erythema with black eschar persists but appears to be slowly healing in no evidence of further complication Objective Labs 05/09/23 05:18 05/09/23 05:18 Labs: Laboratory Results - last 24 hr 05/09/23 05/09/23 05:18 05:18 WBC 11.3 H RBC 3.74 L Hgb 11.6 L Hct 34.1 L MCV 91.1 MCH 31.1 MCHC 34.1 RDW 17.4 H Plt Count 338 Neut % (Auto) 78.1 H Lymph % (Auto) 14.1 L [place] % (Auto) 6.3 Eos % (Auto) 0.8 L Baso % (Auto) 0.7 Neut # (Auto) 8900 H Lymph # (Auto) 1600 [place] # (Auto) 700 Eos # (Auto) 100 Baso # (Auto) 100 Sodium 141 Potassium 4.6 Chloride 99 Carbon Dioxide 37 H BUN 54 H Creatinine 1.98 H Estimated GFR 34 L BUN/Creatinine Ratio 27.3 H Glucose 127 H Calcium 8.8 NT-Pro-B Natriuret Pep 1650 H [facility] Medical History Aortic stenosis Atrial fibrillation (03/30/15) Cardiomyopathy (~03/2018) COPD (chronic obstructive pulmonary disease) Coronary artery disease (~03/2018) Hypertension (05/30/15) Tachy-ama syndrome Type 2 diabetes mellitus with hyperglycemia, without long-term current use of insulin Type 2 diabetes mellitus without complication (05/01/15) Surgical History H/O heart artery stent (~03/2018) S/P cardiac pacemaker procedure (~09/2018) Social History household members: none Smoking Status: Former smoker alcohol intake: never Assessment & Plan Assessment & Plan narrative: 1. Acute on chronic congestive heart failure with lower extremity edema-patient continues to be stable to slightly improved now on oral diuretic therapy. BNP this morning still elevated but that is probably going to be his new baseline. Is off oxygen and I think slowly improving 2. Renal-continues to make adequate urine with oral torsemide. Continues to show improvement. Renal function relatively stable. Creatinine is trickled back up, but bicarb continues to be improved. Overall I think stable from a renal standpoint 3. Diabetes-patient persistently hyperglycemic. Continue with current single dose Lantus which he should go home on as well. 4. UTI/cellulitis-leg clearly is improved this morning. Decreased erythema. The eschar also seems to be somewhat improve and the overall surrounding erythema around this area on the posterior calf is improved. Altogether I would sports activities foul judge this as notably improved verses what is look like the last 24-48 hours. I think he can probably go home off of antibiotics, as he has had more than enough antibiotics in the 15 days he has been here in the hospital at this point (in my opinion). 5. COPD-continue patient with nebulizers as above. Continues to very slowly improve. May not need home oxygen. Time will tell. Plan to continue DuoNeb at home 6. Weakness-patient has been up and around seems more viable to return home at this point. I certainly think patient is correct the more activity he has the better he will feel and more things such as his pulmonary status will improve as well. Continue skilled therapy 7. Anxiety/delirium-I agree the narcotics seem to have negatively affected his overall thinking. Continue with the low-dose clonazepam. Could consider short-acting benzodiazepine such as alprazolam upon discharge. I think however he will do far better in his own surroundings and probably does not need that. Would continue with the clonazepam as an outpatient however 8. Pleural effusion-still bloody pleural effusion which is concerning in my opinion. I doubt this is infectious etiology given the antibiotic therapy he is already received. I am more concerned about possible neoplastic process here. Sample was sent for cytology results still not available Overall patient continues to very slowly, and that is clear, very slowly improve. Far better today than he was last Friday. Definite healing and improvement in left lower extremity. Definite improvement in edema. Renal function is improved. Diabetes is improved. Respiratory status improved. He is very close to being able to be discharged home with home health services but again given his previous pattern I am going to certainly err on the side of if anything keeping him in the hospital a bit longer than he needs to be. He is proven to be very slow in his improvement and I think for him longer is better. However I believe he can likely be discharged home with home health services (RN, PT) tomorrow. He can be off of antibiotics. He will need to be on Lantus plus his other oral diabetes medications. I would send him home with the clonazepam as above. I think his dose of diuretics is stable at 40 mg torsemide twice daily. He will also need to continue with home nebulizer treatments which we initiated I believe after his last hospitalization. Quality VTE Deep Vein Thrombosis/Pulmonary Embolism Present on Admission: No
[2023-05-09] MEDS: clonazePAM 0.5 MG TABLET PO (09:09)
[2023-05-09] MEDS: ENOXAPARIN 40 MG/0.4 ML SYRINGE SUBCUT (09:10)
[2023-05-09] MEDS: POTASSIUM CHLORIDE 20 MEQ TAB PO ×3 (09:10→16:50)
[2023-05-09] MEDS: glipiZIDE 5 MG TABLET 10 MG PO (09:11)
[2023-05-09] MEDS: predniSONE 20 MG TABLET 10 MG PO (09:11)
[2023-05-09] MEDS: TORSEMIDE 10 MG TABLET 40 MG PO ×2 (09:13→16:49)
[2023-05-09] MEDS: INSULIN GLARGINE 100 UNIT/ML 3ML PEN 40 UNIT SUBCUT (09:20)
[2023-05-09] MEDS: SOTALOL 80 MG TABLET 120 MG PO ×2 (09:21→21:13)
[2023-05-09] MEDS: SODIUM CHLORIDE 0.9% FLUSH 10 ML IV ×2 (09:23→21:15)
[2023-05-09] MEDS: IBUPROFEN 400 MG TABLET PO (09:23)
--- NOTE | 2023-05-09 09:25 | PT.IPTN ---
Current Diagnoses Acute on chronic diastolic (congestive) heart failure (04/25/23) Physical Therapy Treatment Note M2 PT-IP Current Condition Start: 05/03/23 16:35 Freq: NEEDED Status: Active Protocol: Document 05/03/23 14:18 AB (Rec: 05/03/23 16:52 AB [id number]) Physical Therapy Current Condition Current Condition Evaluation Date 05/03/23 Treatment Diagnosis CHF exacerbation; LLE cellulitis; difficulty in walking Onset Date 04/25/23 M3 PT-IP Subjective Start: 05/03/23 16:35 Freq: NEEDED Status: Active Protocol: Document 05/08/23 09:25 KS (Rec: 05/08/23 11:09 KS [id number]) Subjective Physical Therapy Visit Type Type Treatment Note Visit Start Time 09:25 Visit Stop Time 09:48 Total Visit Minutes 23 Number of TOOLS ADMINISTRATOR Visits 5 Physical Therapy Visit Comments Patient Comments Pt agreeable to PT. Therapy Pain Assessment Pain When Pain Assessed At Rest Pain Present Pain Present Denied Pain M4 PT-IP Mobility and Gait Start: 05/03/23 16:35 Freq: NEEDED Status: Active Protocol: Document 05/08/23 09:25 KS (Rec: 05/08/23 11:09 KS [id number]) PT-Bed Mobility Assessment Scooting Scooting to Edge of Bed Standby Assistance PT-Transfer Assessment Sit to and From Stand Sit to and from Stand Standby Assistance,Use of Upper Extremities Equipment Transfer Assistive Device Gait Belt,Front Wheeled Walker Orthotic/Prosthetic Devices or Brace: No Transfers Transfer Destination Chair Transfer Technique ambulated Transfer Ability Level of Assist Standby Assistance,1 Person Assistance,Use of Upper Extremities Comments Mobility Comments Pt in restroom, agreeable to PT. Stood from toilet SBA w/ FWW and able to perform his own pericare. He ambulated ~15 ft to chair w/ FWW SBA and then sat in chair. Labored breathing, but O2 91% on RA. Pt refused furhter ambulation d/t fatigue and SOB. Pt completed LE exercises including ankle pumps, quad sets, seated marching, and glute sets. Encouraged pt to perform exercises throughout the day and he was agreeable. Left in chair w/ all needs in reach. Gait Assessment Gait Gait Assistance Required: Standby Assistance Distance (Feet) 15 Able to Maintain Weight Bearing Status Yes During Gait Assistive Devices Assistive Device Gait Belt,Front Wheeled Walker Orthotic/Prosthetic Devices or Brace: No Gait Deviations General Gait Pattern Decreased Stride Length, Decreased Feet Clearance,Wide Based Gait Factors Limiting Gait Function Factors Limiting Gait Function Decreased Activity Tolerance, Poor Safety Awareness, Respiratory Distress Comments Gait Comments See mobility comments. Stair Climbing Assessment Comments Stair Climbing Comments Did not assess d/t fatigue PT-Balance Assessment Sitting Balance and Reactions Static Sitting Balance Ability Good Dynamic Sitting Balance Ability Good Standing Balance and Reactions Static Standing Balance Ability Good Dynamic Standing Balance Ability Fair Device Used FWW M5 PT-IP Objective Assessments Start: 05/03/23 16:35 Freq: NEEDED Status: Active Protocol: Document 05/03/23 14:18 AB (Rec: 05/03/23 16:52 AB [id number]) Orientation Orientation/Cognition Level of Alertness Alert Orientation Name,Place,Situation Language Function Ability No Deficits Noted Safety Awareness Decreased Safety Awareness Memory Description No Deficits Noted Strength Lower Extremity Strength Assessment Left Impaired Hip 3+/5 Knee 3+/5 Muscle Tone Muscle Tone WNL Yes M6 PT-IP Treatment Start: 05/03/23 16:35 Freq: NEEDED Status: Active Protocol: Document 05/08/23 09:25 KS (Rec: 05/08/23 11:09 KS [id number]) Physical Therapy Treatment Exercises Exercises Ankle Pumps,Gluteal Sets,Quad Sets,Heel Slides,Straight Leg Raises Education Education Provided Safety Other Treatments Other Treatment Performed Discussed importance of mobility, reveiwed LE exercises to promote blood flow and strengthening. M7 PT-IP Assessment and Plan Start: 05/03/23 16:35 Freq: NEEDED Status: Active Protocol: Document 05/08/23 09:25 KS (Rec: 05/08/23 11:09 KS [id number]) PT Summary Assessment and Plan Potential Rehabilitation Potential Fair Summary Impairments Pain,ROM,Strength,Balance, Coordination,Sensation,Tone, Cognition,Bed Mobility, Transfers,Gait,Activity Tolerance Progress Towards Goals Progressing Toward Goals Assessment Summary Pt limited by low tolerance for activity, weakness, and SOB today. He was able to ambulate a short distance however was too fatigued to ambulate further and concerned about his LLE becoming more swollen if he did not elevate it quickly. He was able to complete LE exercises and maintained O2 >90% on RA throughout treatment. Continue to recommend returning home with assistance and HHPT to improve strength and activity tolerance. Goals Bed Mobility Goal Independent Transfer Goal Independent,Front Wheeled Walker Gait Goal Independent,Front Wheel Walker Gait Distance 50 Other Goals improve transfers and ambulation using SPC SBA ~ 150 ft up/down 3 steps L rail SBA Days to Meet Goals 10 Frequency of Treatment Frequency Of Treatment Once a Day Treatment Plan Physical Therapy Treatment Plan Bed Mobility Training,Transfer Training,Gait Training, Therapeutic Exercise,Balance Retraining,Discharge Planning, Hot or Cold Pack,Neuromuscular Re-ed,Coordination Retraining Recommendations To Nursing Amount of Assist Needed Standby Assistance Discharge Recommendations PT Discharge Recommendations Home with Assistance,Home Health Equipment Needed for Home Before FWW if not safe with SPC Discharge Transportation Needs at Discharge Private Vehicle,Wheelchair/ Cabulance
[2023-05-09 11:34] VITALS: PULSE 84; RESP 20; O2SAT 94
[2023-05-09] MEDS: ALBUTEROL/IPRATROPIUM 3 ML AMPUL INH ×3 (11:34→23:25)
[2023-05-09] MEDS: LORazepam 1 MG TABLET PO (11:37)
[2023-05-09] MEDS: INSULIN LISPRO 100 UNIT/ML 3ML VIAL SUBCUT ×2 (11:38→16:54)
--- NOTE | 2023-05-09 13:47 | PC.NURSE ---
Pt A&OX4, c/o not feeling well today, stating he feels anxious and is having increased shortness of breath. He states his chest feels full. He is given prn lorazepam and RT administers nebulizing treatment. He declines working with PT this afternoon. He is able to rest but wakes up diaphoretic. BG 252 prior to lunch and he is assisted to sit in chair. 02 saturation is 96-100% on RA. Noted HR 120's, and RR 36, reported to MD Danielle. STAT EKG ordered.
--- NOTE | 2023-05-09 14:04 | PM.EVENT ---
Event Note Date Patient Seen: 05/09/23 Time Patient Seen: 14:05 Event Note (Rapid Response, Code, or fall): Patient reporting not feeling well feels as though he can not breathe. He is tachypneic but oxygen saturation remains at 100%. Did have improved breath sounds with a nebulizer treatment but again his vital signs were stable At 1 point his heart rate was in the 140s. EKG was performed which showed his atrial paced rhythm with heart rate at 80 or so. At this point not exactly clear why he is feeling as poorly as he is. He is complaining mostly a respiratory symptoms but there is absolutely no objective findings of any abnormality I believe this is more of an anxiety response will try giving him some parental lorazepam and see if this will help calm things down. If this is anxiety I presume it is on the basis his anticipation of going home tomorrow. Unless we have some new objective finding still think that is an appropriate plan
--- NOTE | 2023-05-09 14:52 | PT-IP ANOTE ---
Pt not appropriate for PT this afternoon, has not been feeling well, worked RT this afternoon and is hoping he will improve. Will check back in tomorrow.
[2023-05-09 20:25] VITALS: PULSE 91; RESP 18; TEMP 35.9; O2SAT 93
[2023-05-09] MEDS: ATORVASTATIN 20 MG TABLET 40 MG PO (21:14)
[2023-05-09] MEDS: guaiFENesin ER 600 MG TAB PO (23:29)
[2023-05-10] VITALS (8 sets, daily range): BP systolic 105–136; BP diastolic 57–96; PULSE 60–63; RESP 17–19; TEMP 35.9–37; O2SAT 93–96
[2023-05-10] MEDS: ACETAMINOPHEN 325 MG TABLET 650 MG PO ×3 (06:01→21:07)
[2023-05-10] MEDS: PANTOPRAZOLE DR 40 MG TABLET PO (06:02)
[2023-05-10] MEDS: CLINDAMYCIN 150 MG CAPSULE 300 MG PO ×3 (06:02→20:56)
[2023-05-10] MEDS: INSULIN LISPRO 100 UNIT/ML 3ML VIAL SUBCUT ×3 (08:06→17:03)
[2023-05-10] MEDS: INSULIN GLARGINE 100 UNIT/ML 3ML PEN 40 UNIT SUBCUT (08:06)
[2023-05-10] MEDS: ENOXAPARIN 40 MG/0.4 ML SYRINGE SUBCUT (08:07)
[2023-05-10] MEDS: HYDROCODONE/ACET 10/325 TABLET 1 TAB PO ×3 (08:07→16:46)
[2023-05-10] MEDS: predniSONE 20 MG TABLET 10 MG PO (08:08)
[2023-05-10] MEDS: glipiZIDE 5 MG TABLET 10 MG PO (08:08)
[2023-05-10] MEDS: POTASSIUM CHLORIDE 20 MEQ TAB PO ×3 (08:08→16:46)
[2023-05-10] MEDS: clonazePAM 0.5 MG TABLET PO ×2 (08:08→20:57)
[2023-05-10] MEDS: TORSEMIDE 10 MG TABLET 40 MG PO ×2 (08:18→16:46)
[2023-05-10] MEDS: SOTALOL 80 MG TABLET 120 MG PO ×2 (08:19→20:57)
[2023-05-10] MEDS: ALBUTEROL/IPRATROPIUM 3 ML AMPUL INH ×2 (08:34→15:22)
[2023-05-10] MEDS: SODIUM CHLORIDE 0.9% FLUSH 10 ML IV ×2 (08:40→20:56)
--- NOTE | 2023-05-10 09:53 | PT.IPTN ---
Current Diagnoses Acute on chronic diastolic (congestive) heart failure (04/25/23) Physical Therapy Treatment Note M2 PT-IP Current Condition Start: 05/03/23 16:35 Freq: NEEDED Status: Active Protocol: Document 05/03/23 14:18 AB (Rec: 05/03/23 16:52 AB [id number]) Physical Therapy Current Condition Current Condition Evaluation Date 05/03/23 Treatment Diagnosis CHF exacerbation; LLE cellulitis; difficulty in walking Onset Date 04/25/23 M3 PT-IP Subjective Start: 05/03/23 16:35 Freq: NEEDED Status: Active Protocol: Document 05/10/23 10:43 TS (Rec: 05/10/23 11:05 TS [id number]) Subjective Physical Therapy Visit Type Type Treatment Note Visit Start Time 09:53 Visit Stop Time 10:03 Total Visit Minutes 10 Number of STITCH BONDING MACHINE TENDER Visits 6 Physical Therapy Visit Comments Patient Comments Pt reports continued pain in LLE, states it feels like a deeper pain now, agreeable to PT. Therapy Pain Assessment Pain When Pain Assessed At Rest Pain Present Pain Present Pain Reported M4 PT-IP Mobility and Gait Start: 05/03/23 16:35 Freq: NEEDED Status: Active Protocol: Document 05/10/23 10:43 TS (Rec: 05/10/23 11:05 TS [id number]) PT-Transfer Assessment Comments Mobility Comments Pt found standing in room with FWW, family/friend attending. Pt ambulated ~100' in hallway SBA with FWW, slow step thru gait leaning heavily on FWW, pt fatigued after ~50' requested back to room. Stand to sit in chair SBA with FWW, provided cues for UE support on arms of chair. Pt was left in room, with call light nearby, all needs met. Gait Assessment Gait Gait Assistance Required: Standby Assistance Distance (Feet) 100 Able to Maintain Weight Bearing Status Yes During Gait Assistive Devices Assistive Device Gait Belt,Front Wheeled Walker Orthotic/Prosthetic Devices or Brace: No Gait Deviations General Gait Pattern Decreased Stride Length, Decreased Feet Clearance,Wide Based Gait Factors Limiting Gait Function Factors Limiting Gait Function Decreased Activity Tolerance, Poor Safety Awareness, Respiratory Distress Comments Gait Comments See mobility comments. Stair Climbing Assessment Comments Stair Climbing Comments Did not assess d/t fatigue PT-Balance Assessment Sitting Balance and Reactions Static Sitting Balance Ability Good Dynamic Sitting Balance Ability Good Standing Balance and Reactions Static Standing Balance Ability Good Dynamic Standing Balance Ability Fair Device Used FWW M5 PT-IP Objective Assessments Start: 05/03/23 16:35 Freq: NEEDED Status: Active Protocol: Document 05/03/23 14:18 AB (Rec: 05/03/23 16:52 AB [id number]) Orientation Orientation/Cognition Level of Alertness Alert Orientation Name,Place,Situation Language Function Ability No Deficits Noted Safety Awareness Decreased Safety Awareness Memory Description No Deficits Noted Strength Lower Extremity Strength Assessment Left Impaired Hip 3+/5 Knee 3+/5 Muscle Tone Muscle Tone WNL Yes M6 PT-IP Treatment Start: 05/03/23 16:35 Freq: NEEDED Status: Active Protocol: Document 05/08/23 09:25 KS (Rec: 05/08/23 11:09 KS [id number]) Physical Therapy Treatment Exercises Exercises Ankle Pumps,Gluteal Sets,Quad Sets,Heel Slides,Straight Leg Raises Education Education Provided Safety Other Treatments Other Treatment Performed Discussed importance of mobility, reveiwed LE exercises to promote blood flow and strengthening. M7 PT-IP Assessment and Plan Start: 05/03/23 16:35 Freq: NEEDED Status: Active Protocol: Document 05/10/23 10:43 TS (Rec: 05/10/23 11:05 TS [id number]) PT Summary Assessment and Plan Potential Rehabilitation Potential Fair Summary Impairments Pain,ROM,Strength,Balance, Coordination,Sensation,Tone, Cognition,Bed Mobility, Transfers,Gait,Activity Tolerance Progress Towards Goals Slow Progress due to Medical Issues,Slow Progress due to Activity Tolerance Assessment Summary Pt continues to be limited by his low activity tolerance with mobility. He ambulated ~ 100' SBA, became fatigued and reported LEs feeling weak, requested back to room. Pt is motivated to improve his mobility and work with PT but currently has low stamina. Pt reports wanting to trial crutches, discussed FWW is better for his balance at this time. PT is recommending home with assist and HHPT at this time for poor activity tolerance. Goals Bed Mobility Goal Independent Transfer Goal Independent,Front Wheeled Walker Gait Goal Independent,Front Wheel Walker Gait Distance 50 Other Goals improve transfers and ambulation using SPC SBA ~ 150 ft up/down 3 steps L rail SBA Days to Meet Goals 10 Frequency of Treatment Frequency Of Treatment Once a Day Treatment Plan Physical Therapy Treatment Plan Bed Mobility Training,Transfer Training,Gait Training, Therapeutic Exercise,Balance Retraining,Discharge Planning, Hot or Cold Pack,Neuromuscular Re-ed,Coordination Retraining Other Recommendations and Next Treatment Trial stairs, assess gait with Focus crutches if appropriate, progress gait. Recommendations To Nursing Amount of Assist Needed Standby Assistance Discharge Recommendations PT Discharge Recommendations Home with Assistance,Home Health Equipment Needed for Home Before FWW if not safe with SPC Discharge Transportation Needs at Discharge Private Vehicle,Wheelchair/ Cabulance
[2023-05-10] MEDS: IBUPROFEN 400 MG TABLET PO (11:42)
--- NOTE | 2023-05-10 12:31 | PM.PN.1 ---
Subjective Subjective Date Patient Seen: 05/10/23 Interval history: Pt reports he is feeling slightly more winded this morning than yesterday. He continues to feel very weak. He states that the pain in his leg is now a more manageable deep ache, vs the sharper more superficial pain he had before. He does not feel ready to discharge today. Exam Vital Signs (past 8 hours): - 05/10/23 05:54 05/10/23 08:35 Pulse Rate 61 Respiratory Rate 18 Blood Pressure 121/57 L Pulse Oximetry 96 Oxygen Delivery Method Room Air Fraction of Inspired Oxygen 21 SaO2/FiO2 Ratio 419 Oxygen Delivery Method Room Air Oxygen Flow Rate 0 Narrative Exam Narrative: Gen: Standing with walker in room, breathing heavily CV: RRR, grade 2/6 systolic murmur Resp: clear to auscultation bilaterally, no wheezes or crackles Ext: right leg with trace edema, left leg 1+ pitting edema, and mild erythema without warmth to mid-calf level, crusted scab on posterior of calf Objective Labs 05/09/23 05:18 05/09/23 05:18 [facility] Medical History Aortic stenosis Atrial fibrillation (03/30/15) Cardiomyopathy (~03/2018) COPD (chronic obstructive pulmonary disease) Coronary artery disease (~03/2018) Hypertension (05/30/15) Tachy-ama syndrome Type 2 diabetes mellitus with hyperglycemia, without long-term current use of insulin Type 2 diabetes mellitus without complication (05/01/15) Surgical History H/O heart artery stent (~03/2018) S/P cardiac pacemaker procedure (~09/2018) Social History household members: none Smoking Status: Former smoker alcohol intake: never Assessment & Plan Assessment & Plan narrative: 1. Acute on chronic diastolic congestive heart failure with lower extremity edema: Pt remains stable off oxygen. LE edema stabilized. Last Echo 02/24/23 with EF 55%. Net negative nearly 20L this hospitalization. - Continue Torsemide - Continue Sotalol, Atorvastatin 2. ELEANOR: Creatinine yeni slightly yesterday. Adequate urine output, although decreased from previous. - Repeat BMP tomorrow morning 3. Type 2 DM: Blood sugars showing some improvement - Continue Glipizide, 40 units Lantus daily - Sliding scale for meal coverage with ACHS checks 4.? Cellulitis: Mild erythema present, however does not appear acutely infected at this point. Eschar continues to improve. Pt is afraid has worsened slightly. - Continue Clindamycin while in hospital - Do not plan to d/c with any antibiotics 5. COPD: Stable off oxygen - Continue Nebulizer treatmentscontinue patient with nebulizers as above.? Continues to very slowly improve.? May not need home oxygen.? Time will tell.? Plan to continue DuoNeb at home 6. Weakness: Pt feels this is his largest concern in returning home. He was stable walking with walker, very slowly, in room this morning. - Continue working with PT 7.? Anxiety/delirium: Likely exacerbated by narcotic use while in the hospital, pt no longer needing. Pt states he is not typically this anxious. - Believe home environment will be beneficial - Continue Benzos for now for anxiety. If persistent issue at home, consider longer acting agents 8. Pleural effusion: Bloody - Awaiting cytology results FEN: Cardiac Code: Full DVT ppx: Lovenox Dispo: Pt continues to improve very slowly. Discussed with patient in detail plan to discharge tomorrow, which he is in agreement with at this point. Believe pt will benefit from one additional day to gain more strength as he does live independently at home. Encouraged him to be up and about more today. Quality VTE Deep Vein Thrombosis/Pulmonary Embolism Present on Admission: No
[2023-05-10] MEDS: CYCLOBENZAPRINE 10 MG TABLET 5 MG PO ×2 (14:35→21:07)
[2023-05-10] MEDS: LORazepam 1 MG TABLET PO (14:35)
[2023-05-10] MEDS: ATORVASTATIN 20 MG TABLET 40 MG PO (20:56)
[2023-05-11 05:50] LABS: BUN Creatinine Ratio 23.5 (6-22); Blood Urea Nitrogen 46 mg/dL (9-20); Calcium 8.5 mg/dL (8.4-10.2); Carbon Dioxide 34 mmol/L (22-32); Chloride 102 mmol/L (98-107); Estimated Glomerular Filt Rate 35 mL/min (>60); Glucose 91 mg/dL (80-110); HEMOLYSIS < 15 (0-50); Potassium 4.3 mmol/L (3.4-5.1); Sodium 142 mmol/L (137-145)
[2023-05-11] MEDS: ACETAMINOPHEN 325 MG TABLET 650 MG PO (05:50)
[2023-05-11] MEDS: CYCLOBENZAPRINE 10 MG TABLET 5 MG PO (05:51)
[2023-05-11] MEDS: CLINDAMYCIN 150 MG CAPSULE 300 MG PO (05:51)
[2023-05-11] MEDS: PANTOPRAZOLE DR 40 MG TABLET PO (05:55)
[2023-05-11 07:30] VITALS: O2SAT 96
[2023-05-11 07:38] VITALS: BP 120/70; PULSE 66; RESP 18; TEMP 36.6; O2SAT 96
[2023-05-11] MEDS: glipiZIDE 5 MG TABLET 10 MG PO (08:02)
[2023-05-11] MEDS: SOTALOL 80 MG TABLET 120 MG PO (08:02)
[2023-05-11] MEDS: predniSONE 20 MG TABLET 10 MG PO (08:03)
[2023-05-11] MEDS: ENOXAPARIN 40 MG/0.4 ML SYRINGE SUBCUT (08:04)
[2023-05-11] MEDS: POTASSIUM CHLORIDE 20 MEQ TAB PO ×2 (08:04→10:19)
[2023-05-11] MEDS: clonazePAM 0.5 MG TABLET PO (08:04)
[2023-05-11] MEDS: SODIUM CHLORIDE 0.9% FLUSH 10 ML IV (08:04)
[2023-05-11] MEDS: TORSEMIDE 10 MG TABLET 40 MG PO (08:05)
[2023-05-11 08:36] VITALS: PULSE 61; RESP 18; O2SAT 94
[2023-05-11] MEDS: ALBUTEROL/IPRATROPIUM 3 ML AMPUL INH ×2 (08:36→11:25)
--- NOTE | 2023-05-11 09:41 | P.DS_ITS ---
History of Present Illness History of Present Illness Date Patient Seen: 05/11/23 Time Patient Seen: 09:41 Chief complaint: pain in LT leg afraid it's a blood clot Narrative: Patient presented with pain in his left leg she would emergency department.? He is persisted with severe edema bilateral lower extremities that has failed to really respond to diuretic therapy so far.? Extensive workup in the ER demonstrates probably nothing more than a cellulitis ongoing in his left posterior thigh.? There is no evidence of DVT and arterial evaluation was even undertaken that did not reveal evidence of any significant arterial disease.? Patient has been struggling with severe edema that is failed to respond to escalating doses of oral furosemide which was then switched to torsemide which then had metolazone added with still limited benefit.? He shows no evidence of significant renal dysfunction on lab work.? Abdominal CT done as part of his aortic runoff does not demonstrated intra-abdominal or intrapelvic process causing obstruction.? His echocardiogram done in February of this year demonstrates normal left ventricular function with evidence of diastolic dysfunction, and maybe some mild right ventricular abnormality Patient is persistently mildly hypoxic with activity and at rest at times and so was admitted for aggressive treatment of his presumed acute on chronic congestive heart failure with preserved ejection fraction Patient also with diabetes and severe hyperglycemia secondary to corticosteroids.? He also has known COPD.? He was admitted here in February because of severe dyspnea treated as though more of a COPD exacerbation but really failed to respond to parental corticosteroids followed by oral corticosteroids.? The corticosteroids made his blood sugars absolutely super high but been improving as he is had his oral corticosteroids taper down.? There is really been no change in his overall sense of dyspnea with changing doses of his co rticosteroids which would further argue against this being related to his COPD Discharge Providers Provider Date of admission: 04/25/23 16:18 Discharge Date: 05/11/23 Primary care physician: Nura Danielle MD Consults: 05/02/23 08:08 Consult to Physical Therapy Evaluate & Treat Comment: Physician Instructions: Evaluate and Treat 05/10/23 13:45 Consult to Physical Therapy Evaluate & Treat Comment: Physician Instructions: FWW for home use Discharge provider: Isela Bates MD Summary Hospital Course Discharge Diagnosis: Acute on chronic CHF with preserved EF Cellulitis Peripheral edema Type 2 DM COPD UTI ELEANOR Anxiety Pleural effusion Weakness Hospital Course: The pt was admitted with acute CHF exacerbation, cellulitis, UTI, and unilateral edema thought to be due to CHF. He was started on IV Lasix and PO Metolazone, in addition to IV Clindamycin. Echo was obtained that showed no significant change from Echo earlier in the year, still with preserved EF. Due to no significant urinary output and an increase in his BUN/Cr, the Metolazone was discontinued, and the pt was placed on a Lasix drip. The pt continued to have a slow response. Nephrology was consulted, who recommended increasing his Lasix drip significantly with ongoing close monitoring of kidney function. The pt then diuresed well, with improvement in his kidney function. The pt was gradually transitioned to PO Torsemide, with ongoing diuresis. At the time of discharge, he had diuresed 21.5L of fluid. The pt will discharge on oral Torsemide, with stable renal function. The pt was noted to have a pleural effusion that was persistent, despite diuresis. He underwent thoracentesis, with production of bloody fluid. Cytology returned negative. The pts cellulitis seemed to worsen, and his IV Clindamycin was transitioned to IV Meropenem. The pt did have significant pain in the leg, prompting use of narcotic for pain control. This did cause some confusion/delirium, and ultimately severe anxiety. The pt was started on Clonazepam, with good response. His anxiety level remains intermittently elevated. He will discharge on PRN Clonazepam, with close f/u by his PCP. The pts cellulitis continued to improve, and he was transitioned to PO Clindamycin. He will discharge off antibiotics, as his leg no longer appears infected and he has completed > 7 days of antibiotics. The pts blood sugars were quite elevated during his hospitalization. Insulin l evels were adjusted, with improvement in his blood sugars. He will d/c on updated insulin dosing. Status at Discharge Cognitive/behavioral status at discharge: oriented Functional status at discharge: uses cane/walker Overall status at discharge: patient is progressing back to baseline Exam Vital Signs (past 8 hours): - 05/11/23 07:38 05/11/23 08:36 Temperature 97.8 F Pulse Rate 66 61 Respiratory Rate 18 18 Blood Pressure 120/70 Pulse Oximetry 96 94 Oxygen Delivery Method Room Air Oxygen Flow Rate 0 Fraction of Inspired Oxygen 21 SaO2/FiO2 Ratio 419 Oxygen Delivery Method Room Air Oxygen Flow Rate 0 Narrative Exam Narrative: Gen:? sitting comfortably in bed, breathing easily, speaking in complete sentences CV:? RRR, grade 2/6 systolic murmur Resp:? clear to auscultation bilaterally, no wheezes or crackles Ext:? right leg with trace edema, left leg 1+ pitting edema, and erythema improved from yesterday, eschar on posterior calf no change in size Objective Labs 05/09/23 05:18 05/11/23 04:54 Labs: Laboratory Results - last 24 hr 05/11/23 04:54 Sodium 142 Potassium 4.3 Chloride 102 Carbon Dioxide 34 H BUN 46 H Creatinine 1.96 H Estimated GFR 35 L BUN/Creatinine Ratio 23.5 H Glucose 91 Calcium 8.5 PFSH Medical History Aortic stenosis Atrial fibrillation (03/30/15) Cardiomyopathy (~03/2018) COPD (chronic obstructive pulmonary disease) Coronary artery disease (~03/2018) Hypertension (05/30/15) Tachy-ama syndrome Type 2 diabetes mellitus with hyperglycemia, without long-term current use of insulin Type 2 diabetes mellitus without complication (05/01/15) Surgical History H/O heart artery stent (~03/2018) S/P cardiac pacemaker procedure (~09/2018) Social History household members: none Smoking Status: Former smoker alcohol intake: never Discharge Plan Discharge Plan Patient Disposition: Home Health Service Transfer to: [facility] Provider Discharge Comment: Home Health RN/PT Nursing Discharge Comment: see MD's discharge instructions, call Dr Danielle if any questions about medications. call for follw up appt w/ in 7-10 days of today's date. continue to monitor your blood sugars. hold insulin if below 60-80 before meals. call pharmacist or MD for parameters. try to take a snack before bed if your sugar is low or youre feeling symptomatic. monitor your skin for return of cellulitis. try to elevate legs above your heart several times a day for at least 30 minutes. Home health will contact you w/in 48 hours of today. monitor your breathing, check your Spo2 frequently, use your cpap while resting during the day and at night. please monitor for signs and symptoms of oversedation w/ the klonipin use. it is easy to overdue it on this medication. move slowly and safely w/ your walker in your home. the medications you are on can make you feel sleepy and may contribute to feeling unsteady on your feet. see info on CHF it was a pleasure to meet you, and to be your nurse a few weeks ago and also today. i hope you have a wonderful rest of your day, and take care of yourself! Discharge orders & Medications Prescriptions: New clonazepam 0.5 mg Tablet 0.5 mg PO BID Qty: 60 1RF potassium chloride [Klor-Con M20] 20 mEq Tablet,Er Particles/Crystals 20 meq PO TIDWM Qty: 90 3RF torsemide 20 mg tablet 40 mg PO BID Qty: 120 6RF Rx Instructions: one dose in am, one at 1600 Continued metformin 1,000 mg tablet 1,000 mg PO BID Qty: 180 3RF atorvastatin 40 mg tablet 40 mg PO DAILY Qty: 90 3RF glipizide 10 mg tablet 10 mg PO BID Qty: 180 3RF multivitamin tablet 1 tab PO DAILY sotalol 120 mg tablet 120 mg PO BID albuterol sulfate 90 mcg/actuation HFA aerosol inhaler 2 puff inhalation Q4-6H PRN (Reason: shortness of breath or wheezing) Qty: 8.5 3RF ipratropium-albuterol 0.5 mg-3 mg(2.5 mg base)/3 mL solution for nebulization 3 ml inhalation Q4-6H PRN (Reason: shortness of breath or wheezing) Qty: 180 7RF Changed insulin glargine 100 unit/mL (3 mL) insulin pen 40 unit SUBCUT QAM Qty: 15 12RF Rx Instructions: 40 units subcutaneously; prednisone 20 mg tablet 10 mg PO DAILY Qty: 60 1RF Discontinued spironolactone 25 mg tablet 12.5 mg PO DAILY Qty: 45 3RF metolazone 2.5 mg tablet 2.5 mg PO DAILY Qty: 30 3RF torsemide 20 mg tablet 40 mg PO DAILY Qty: 60 3RF losartan 50 mg tablet 50 mg PO BID Patient Comments: TAKE ONE TABLET BY MOUTH TWICE DAILY No Action (DME) pen needle, diabetic [BD Ultra-Fine Micro Pen Needle] 32 gauge x 1/4 needle See Rx Instructions .Route Qty: 100 12RF Rx Instructions: As directed to inject insulin twice daily (DME) nebulizer and compressor Device See Rx Instructions .Route Qty: 1 0RF Rx Instructions: As directed Follow up/Referrals: Nura Danielle MD [Primary Care Provider] - 2 Weeks (7-14 dayas) Diet/Activity/Treatments Diet: Diet as Tolerated and Carb-consistent/Diabetic Visit Report/Discharge Packet Instructions: DI for Cellulitis -- Adult, Exercises to Help Prevent Falls, How to Prevent Falls, Clonazepam Stand Alone Forms: Patient Portal/API Discharge Data Primary Care Provider: Nura Danielle Quality VTE Deep Vein Thrombosis/Pulmonary Embolism Present on Admission: No
--- NOTE | 2023-05-11 10:33 | CM.DPC ---
Addendum entered by Marry Barnhart R.N. 05/11/23 11:24: Have not received any calls back from [facility] regarding discharge, and fax is not going though. Will attempt again later today. Addendum entered by Marry Barnhart R.N. 05/11/23 10:41: Faxing over resumption orders to [facility]. Will add P.T, O.T, and LOSS PREVENTION SPECIALIST, if not already ordered. LOSS PREVENTION SPECIALIST may assist with resources with in home caregivers. Addendum entered by Marry Barnhart R.N. 05/11/23 10:39: Called [facility], spoke to answering service, stated that they would have Willa from [facility] call back. Original Note: DCP Cont: Patient is supposed to discharge today. Has discharge orders, and will resume [facility]. Will call [facility] and update them. Patient does live alone, had [id number] nearby, and daughter. Has passed P.T. P: Patient is supposed to discharge home today, will update [facility], will need resumption orders. Marry Barnhart RN/[employer]
--- NOTE | 2023-05-11 10:55 | PC.NURSE ---
alert and oriented. voices needs. 1pa w/ ADLs and mobility, w/ FWW. family member (stepdaughter) yesica is at bedside and overnight, she is requesting to tend to his needs and declines offers of help from staff. patient states he is ready for d/c home, and is looking forward to getting out of here. dc orders received. potassium 1 tab given prior to leaving. patient has alot of belongings that will need to be packed. provided several bags for personal items, and a cart. awaiting patients readiness to review d/c paperwork and sign out.
[2023-05-11 11:25] VITALS: PULSE 63; RESP 16; O2SAT 95
--- NOTE | 2023-05-11 11:26 | PT-IP ANOTE ---
Pt refused OOB mobility, wants to save energy for going home today. Has practiced stairs and ambulation, reports no mobility concerns regarding dc home. Dispensed FWW for home use. No charge.
[2023-05-11] MEDS: INSULIN LISPRO 100 UNIT/ML 3ML VIAL SUBCUT (11:51)
== END 2023-05-11 12:00 | disposition home health service (06) | DRG 291 ==
LOC: ED 16:18 → AC 16:19
PROVIDERS: Family Medicine; Admitting Provider Internal Medicine; Emergency Provider Emergency Medicine; PCP Internal Medicine; Referring Provider Emergency Medicine; Visit Provider Internal Medicine
DX: I11.0 Hypertensive heart disease with heart failure (principal); I50.33 Acute on chronic diastolic (congestive) heart failure; L03.116 Cellulitis of left lower limb; N39.0 Urinary tract infection, site not specified; J90 Pleural effusion, not elsewhere classified; E11.65 Type 2 diabetes mellitus with hyperglycemia; J44.9 Chronic obstructive pulmonary disease, unspecified; E11.649 Type 2 diabetes mellitus with hypoglycemia without coma; F41.9 Anxiety disorder, unspecified; T38.0X5A Adverse effect of glucocorticoids and synthetic analogues, initial encounter; Z79.84 Long term (current) use of oral hypoglycemic drugs; Z87.891 Personal history of nicotine dependence; Z20.822 Contact with and (suspected) exposure to COVID-19
CPT/HCPCS: 32555; 36415; 71045; 75635; 80048; 80053; 81003; 81015; 82550; 82570; 82962; 83605; 83690; 83735; 83880; 84156; 84484; 85025; 85610; 85730; 87070; 87075; 87077; 87086; 87186; 87205; 89051; 93005; 93010; 93307; 93971; 94618; 94640; 94760; 96365; 96367; 96375; 96376; 97110; 97116; 97162; 97530; 99223; 99232; 99233; 99238; 99285; J0744; J1170; J1200; J1650; J1815; J1940; J2060; J2185; J2270; J2405; J2930; J7613; S0077

== ENCOUNTER 2023-05-12 03:29 | Emergency (ER) | payer OTHER, SELFPAY ==
[2023-04-29 09:41] VITALS: BMI 42.2
[2023-05-12] VITALS (10 sets, daily range): BP systolic 138–152; BP diastolic 70; PULSE 60–67; RESP 16; TEMP 36.4; O2SAT 90–97
--- NOTE | 2023-05-12 04:27 | ED_ITS ---
HPI - Extremity Problem General Chief complaint: Extremity Problem,Nontraumatic Stated complaint: rt leg infected Time Seen by Provider: 05/12/23 03:39 Source: patient Mode of arrival: Ambulatory History of Present Illness HPI Narrative: 77-year-old gentleman with complex medical history and multiple extended admissions starting in February presents within 12 hrs of discharge with worsening Left leg pain and concern for contiued infection. Issues by problem: 1. left lower extremity infection. Has completed 7 days of clindamycin and 7 d ays of meropenem, discharged from the hospital yesterday without antibiotics feeling that infection was adequately treated. He does not have a DVT, had vascular studies that do not suggest severe arterial or venous pathology/stenosis/occlusion of the lower extremity vessels 2. Chronic lower extremity edema -likely combination of diastolic dysfunction with most recent echocardiogram on April 26 similar to February 24 with ejection fraction preserved at 60-65%. Dependent edema that did eventually respond to higher doses of diuretics 3. Episode of acute delirium in the hospital that I believe his left some PTSD component for the patient who is terrified that he was ?losing his mind,? yelling at people that were trying to help me, and ?being completely out of control when I am and in control sort of makayla?. I believe the increasing lower extremity pain that he experienced when he got home today was clearly exacerbated by some of these emotions surrounding his recent hospitalization. 4. Diabetes, poorly controlled, significant steroid use secondary to [place] PD with chronic hypoxia. Hemoglobin A1c is 9.2 mid February of 2023 5 CHF with preserved ejection fraction that seems to be responding to diuretics. BNP was 1650 on May 09 and is down to 452 today. 6. Acute kidney injury with continued improvement creatinine today is down to 1.62 and GFR is up to 44. 7. COPD with recurrent exacerbations. Admission February 24, april 03 of April 25. He is had pleural effusions with thoracentesis. Does respond to nebulizers slightly. RSV infection in October that likely exacerbated findings. Seems to respond to steroids which then exacerbate his diabetes. 8. Social situation. He currently lives independently and is having difficulty with limitations in self-care based on his chronic medical issues. Home health is arranged for later this week but there is nobody to be home with him immediately. He [facility] not been [facility] with [facility] 9. Coronary artery disease post stenting, aortic aneurysm, pacemaker placement for tachy-ama syndrome syndrome, aortic stenosis. Each of these issues are currently moderately stable. 10. Persistent bloody pleural effusion. Post thoracentesis 04/04 and 05/06. Unclear volumes of fluid that were drained. Fluid was sent for pathology on May 06 with results not yet available. He is parched with dry mucous membranes, pale and appears in acute distress. Unable to focus, talk or participate in any way with exam or history taking until he has a glass of ice water. Recent discharge summaries reviewed and summarized above. Related Data Home Medications Medication Instructions Recorded Confirmed multivitamin 1 tab PO DAILY 04/27/18 04/26/23 sotalol 120 mg tablet 120 mg PO BID 02/24/23 04/26/23 Previous Rx's Medication Instructions Recorded atorvastatin 40 mg tablet 40 mg PO DAILY #90 tabs 06/24/22 metformin 1,000 mg tablet 1,000 mg PO BID #180 tabs 06/24/22 albuterol sulfate 90 mcg/actuation 2 puff inhalation Q4-6H PRN 02/28/23 aerosol inhaler shortness of breath or wheezing #8.5 grams glipizide 10 mg tablet 10 mg PO BID #180 tabs 03/31/23 ipratropium 0.5 mg-albuterol 3 mg 3 ml inhalation Q4-6H PRN 04/07/23 (2.5 mg base)/3 mL nebulization shortness of breath or wheezing soln #180 mL nebulizer and compressor #1 ea 04/08/23 pen needle, diabetic 32 gauge x #100 ea 04/09/23 1/ (BD Ultra-Fine Micro Pen Needle) clonazepam 0.5 mg tablet 0.5 mg PO BID #60 tabs 05/09/23 insulin glargine 100 unit/mL (3 40 unit (0.4 mL) SUBCUT QAM #15 mL 05/09/23 mL) subcutaneous pen potassium chloride 20 mEq 20 meq PO TIDWM #90 tabs 05/09/23 tablet,extended release(part/cryst) (Klor-Con M) prednisone 20 mg tablet 10 mg PO DAILY #60 tabs 05/09/23 torsemide 20 mg tablet 40 mg PO BID #120 tabs 05/09/23 Allergies Allergy/AdvReac Type Severity Reaction Status Date / Time lisinopril [LISINOPRIL] Allergy Intermediate COUGH Verified 04/25/23 10:32 doxycycline AdvReac Mild Rash Verified 05/07/23 09:48 piperacillin [PIPERACILLIN] AdvReac Mild RASH MAY Verified 04/25/23 10:32 2014 ADMIT, MAY BE VANCO, UNSURE vancomycin [VANCOMYCIN] AdvReac Mild RASH MAY Verified 04/25/23 10:32 2014 ADMIT MAY BE PIPERACILLIN INSTEAD azithromycin [From Zithromax] AdvReac Verified 04/25/23 10:32 Review of Systems Review of Systems Narrative: Pertinent positive and negative findings as per HPI Patient History Medical History Aortic stenosis Atrial fibrillation (03/30/15) Cardiomyopathy (~03/2018) COPD (chronic obstructive pulmonary disease) Coronary artery disease (~03/2018) Hypertension (05/30/15) Tachy-ama syndrome Type 2 diabetes mellitus with hyperglycemia, without long-term current use of insulin Type 2 diabetes mellitus without complication (05/01/15) Surgical History H/O heart artery stent (~03/2018) S/P cardiac pacemaker procedure (~09/2018) Social History household members: none Smoking Status: Former smoker alcohol intake: never Smoking Status: Former smoker alcohol intake frequency: 0-2 drinks per day Substance Use Type: does not use Exam Initial Vital Signs Initial Vital Signs: Vital Signs Temperature 97.6 F 05/12/23 03:40 Pulse Rate 60 05/12/23 03:40 Respiratory Rate 16 05/12/23 03:40 Blood Pressure 152/70 H 05/12/23 03:40 Pulse Oximetry 97 05/12/23 03:40 Oxygen Delivery Method Room Air 05/12/23 03:40 General: Chronically ill-appearing, pale diaphoretic in obvious distress secondary to pain dramatically parched and dramatically anxious. Unable to communicate effectively due to pain dry mouth and anxiety. HEENT: Very dry mucous membranes, normal sclera with reactive pupils, Neck: No JVD, supple Respiratory: Lungs with minor wheezing, no rhonchi. Full and symmetrical air movement Cardiac: Regular rate and rhythm no murmurs no bruits Abdomen: Soft, nontender, good bowel tones, no flank pain Skin: Initially pale and diaphoretic. Much improved after he calms. Chronic venous stasis changes with stable venous stasis ulcer posterior left calf and desquamation of skin with obvious recent large volume diuresis Neurologic: Grossly neurologically intact with no obvious asymmetries or abnormalities Extremities: No new trauma. Left lower extremity is still red with the ulcer in place, still edematous and pattern from the underlying mattress is notable in the edema where he has been resting his leg. The leg is not weeping at this time Psychiatric: Approaching full panic attack, calm significantly once pain is adequately controlled Course Orders Ordered: ED Orders 05/12/23 04:34 Complete Blood Count AUTO DIFF Stat Comprehensive Metabolic Panel Stat NT-proBNP (BNP-Adult 18+) Stat Troponin I Stat 05/12/23 04:35 XR chest 1V Stat EKG-12 Lead Stat Discontinued Medications Hydromorphone HCl (Hydromorphone 1 Mg Inj) 1 mg IV NOW ONE Stop: 05/12/23 04:35 Last Admin: 05/12/23 04:58 Dose: 1 mg Vital Signs Vital signs: Vital Signs - 8 hr 05/12/23 03:40 05/12/23 04:44 05/12/23 05:00 Temperature 97.6 F Pulse Rate 60 60 60 Respiratory Rate 16 Blood Pressure 152/70 H Pulse Oximetry 97 97 90 L Oxygen Delivery Method Room Air MDM - Extremity (Nontraumatic) Lab Data 05/12/23 04:53 05/12/23 04:53 Labs: Lab Results 05/12/23 Range/Units 04:53 WBC 11.9 H (4.5-11.0) X10^3/uL RBC 3.98 L (4.5-5.9) X10^6/uL Hgb 12.0 L (13.5-17.5) g/dL Hct 36.7 L (41-53) % MCV 92.2 (80-100) fL MCH 30.3 (26-34) PG MCHC 32.8 (30-36) % RDW 17.7 H (11.6-14.8) % Plt Count 341 (150-400) X10^3/uL Neut % (Auto) 77.6 H (50-75) % Lymph % (Auto) 11.9 L (25-40) % Cross % (Auto) 8.4 (3-14) % Eos % (Auto) 1.1 L (2-4) % Baso % (Auto) 1.0 (0-2) % Neut # (Auto) 9200 H (6510-8208) /uL Lymph # (Auto) 1400 (1707-9927) /uL Cross # (Auto) 1000 H (0-900) /uL Eos # (Auto) 100 (0-450) /uL Baso # (Auto) 100 (0-100) /uL MDM Narrative Medical decision making narrative: CC: Severe left lower extremity pain, acute exacerbation of an ongoing issue uncertain prognosis Complicating co-morbidities: Extensive, please see HPI above Data collected from: patient, Social determinants of health that may influence the patients condition: 3 hospitalizations in the last 3 months with significant deconditioning and significant acute delirium with most recent hospitalization that has left the patient with significant anxiety Medical records reviewed: Extensive medical review over the last number of aunts is summarized in HPI above Differential considered: Persistent infection left lower extremity, pain seco ndary to infection chronic edema, panic attack, Exam documented above, pertinent findings include: Mild erythema and pain around the left calf ulcer. Drying superficial eschar over the area. No we epage no drainage. Panic subsides significantly once pain was addressed Lab Test results independently reviewed as above. Pertinent findings: CBC shows white count is essentially stable. Slight increase to H&H suggesting that his diuretics are effective Chemistries show continued improvement in acute kidney injury with creatinine decreased to 1.62. GFR increased to 44. Potassium sodium and calcium are all appropriate BNP continues to improve and is down to 452 Independently reviewed EKG shows atrial paced EKG at a rate of 62 Imaging studies independently reviewed: Chest x-ray still with significant right pleural effusion however it does seem less when compared to May 05 reflecting thoracentesis on May 06. Overall cardiac size is slightly smaller. No obvious cephalization or fluid overload X-ray tib-fib does not suggest acute osteomyelitis or air in subcutaneous tissues Consultations: 7am Dr Bates Treatments: Tramadol 50 mg, oral Tylenol and oral clindamycin Re-evaluation: At this point I think patient simply was not adequately prepared for discharge home. Below is the list of issues. I have contacted Dr. Bates who discharged him yesterday will contact Dr. Danielle. Between the 2 of them his inpatient discharge from yesterday will be finessed, organized and will again try to get him home today with concrete plans clearly laid out. Discussion: Long discussion with patient regarding options. At this point I do not think that he needs to be admitted. There are number of things that do need to happen for him to successfully go home: 1. Needs an updated med list 2. Needs to make sure that he has medications on the med list, currently has a friend with him who can help pick up operator medications today 3. Needs to confirm home health timing 4. Needs a scheduled plan for pain medications. I am wondering if perhaps tramadol twice a day combined with Tylenol twice a day might be effective 5. I think that he is going to need longer duration oral antibiotics 6. he might also benefit from wound care unless this is a service that will be completely guided and covered by home health. More immediate consultation and concrete plan for caring for his chronic left leg ulcer needs to be in place Issues by problem: 1. left lower extremity infection. Has completed 7 days of clindamycin and 7 days of meropenem, discharged from the hospital yesterday without antibiotics feeling that infection was adequately treated. He does not have a DVT, had vascular studies that do not suggest severe arterial or venous pathology/stenosis/occlusion of the lower extremity vessels 2. Chronic lower extremity edema -likely combination of diastolic dysfunction with most recent echocardiogram on April 26 similar to February 24 with ejection fraction preserved at 60-65%. Dependent edema that did eventually respond to higher doses of diuretics 3. Episode of acute delirium in the hospital that I believe his left some PTSD component for the patient who is terrified that he was ?losing his mind,? yelling at people that were trying to help me, and ?being completely out of control when I am and in control sort of makayla?. I believe the increasing lower extremity pain that he experienced when he got home today was clearly exacerbated by some of these emotions surrounding his recent hospitalization. 4. Diabetes, poorly controlled, significant steroid use secondary to [place] with chronic hypoxia. Hemoglobin A1c is 9.2 mid February of 2023 5 CHF with preserved ejection fraction that seems to be responding to diuretics. BNP was 1650 on May 09 and is down to 452 today. 6. Acute kidney injury with continued improvement creatinine today is down to 1.62 and GFR is up to 44. 7. COPD with recurrent exacerbations. Admission February 24, april 03 of April 25. He is had pleural effusions with thoracentesis. Does respond to nebulizers slightly. RSV infection in October that likely exacerbated findings. Seems to respond to steroids which then exacerbate his diabetes. 8. Social situation. He currently lives independently and is having difficulty with limitations in self-care based on his chronic medical issues. Home health is arranged for later this week but there is nobody to be home with him immediately. He has not been set up with [facility] 9. Coronary artery disease post stenting, aortic aneurysm, pacemaker placement for tachy-ama syndrome syndrome, aortic stenosis. Each of these issues are currently moderately stable. 10. Persistent bloody pleural effusion. Post thoracentesis 04/04 and 05/06. Unclear volumes of fluid that were drained. Fluid was sent for pathology on May 06 with results not yet available. Discharge Plan Departure Patient Disposition: Home Clinical Impression: Chronic wound of extremity, Uncontrolled pain, Panic attack Activity Restrictions/Additional Instructions: Please see all inpatient discharge notes to be arranged and clarified by Dr Danielle and inpatient staff today Prescriptions: No Action metformin 1,000 mg tablet 1,000 mg PO BID Qty: 180 3RF atorvastatin 40 mg tablet 40 mg PO DAILY Qty: 90 3RF glipizide 10 mg tablet 10 mg PO BID Qty: 180 3RF (DME) pen needle, diabetic [BD Ultra-Fine Micro Pen Needle] 32 gauge x 1/4 needle See Rx Instructions .Route Qty: 100 12RF Rx Instructions: As directed to inject insulin twice daily multivitamin tablet 1 tab PO DAILY sotalol 120 mg tablet 120 mg PO BID albuterol sulfate 90 mcg/actuation HFA aerosol inhaler 2 puff inhalation Q4-6H PRN (Reason: shortness of breath or wheezing) Qty: 8.5 3RF ipratropium-albuterol 0.5 mg-3 mg(2.5 mg base)/3 mL solution for nebulization 3 ml inhalation Q4-6H PRN (Reason: shortness of breath or wheezing) Qty: 180 7RF (DME) nebulizer and compressor Device See Rx Instructions .Route Qty: 1 0RF Rx Instructions: As directed torsemide 20 mg tablet 40 mg PO BID Qty: 120 6RF Rx Instructions: one dose in am, one at 1600 prednisone 20 mg tablet 10 mg PO DAILY Qty: 60 1RF insulin glargine 100 unit/mL (3 mL) insulin pen 40 unit SUBCUT QAM Qty: 15 12RF Rx Instructions: 40 units subcutaneously; clonazepam 0.5 mg Tablet 0.5 mg PO BID Qty: 60 1RF potassium chloride [Klor-Con M20] 20 mEq Tablet,Er Particles/Crystals 20 meq PO TIDWM Qty: 90 3RF Referrals: Nura Danielle MD [Primary Care Provider] - Stand Alone Forms: Patient Portal/API
[2023-05-12] MEDS: HYDROMORPHONE 1 MG INJ IV (04:58)
[2023-05-12 05:08] LABS: Add Manual Diff / Slide Review NO; Basophils Absolute Auto 100 /uL (0-100); Eosinophils Absolute Auto 100 /uL (0-450); Eosinophils Percent Auto 1.1 % (2-4); Hematocrit 36.7 % (41-53); Lymphocytes Absolute Auto 1400 /uL (1100-4500); Lymphocytes Percent Auto 11.9 % (25-40); Mean Corpuscular HGB Conc 32.8 % (30-36); Mean Corpuscular Hemoglobin 30.3 PG (26-34); Mean Corpuscular Volume 92.2 fL (80-100); Monocytes Absolute Auto 1000 /uL (0-900); Monocytes Percent Auto 8.4 % (3-14); Neutrophils Absolute Auto 9200 /uL (1500-7000); Neutrophils Percent Auto 77.6 % (50-75); Platelet Count 341 X10^3/uL (150-400); Red Blood Cell Count 3.98 X10^6/uL (4.5-5.9); Red Cell Distribution Width 17.7 % (11.6-14.8); White Blood Cell Count 11.9 X10^3/uL (4.5-11.0)
[2023-05-12 05:22] LABS: Alanine Aminotransferase 41 IU/L (<50); Albumin 3.7 g/dL (3.5-5.0); Albumin Globulin Ratio 0.9 (1.0-2.8); Alkaline Phosphatase 75 U/L (38-126); Aspartate Aminotransferase 36 IU/L (17-59); BUN Creatinine Ratio 25.3 (6-22); Bilirubin Total 0.9 mg/dL (0.2-1.3); Blood Urea Nitrogen 41 mg/dL (9-20); Calcium 8.9 mg/dL (8.4-10.2); Carbon Dioxide 27 mmol/L (22-32); Chloride 104 mmol/L (98-107); Estimated Glomerular Filt Rate 44 mL/min (>60); Globulin 4.3 g/dL (1.7-4.1); Glucose 59 mg/dL (80-110); Sodium 140 mmol/L (137-145)
[2023-05-12 05:23] LABS: HEMOLYSIS 106 (0-50)
[2023-05-12 05:24] LABS: Potassium 4.6 mmol/L (3.4-5.1)
[2023-05-12 05:34] LABS: NT-proBNP (BNP-Adult 18+) 452 pg/mL (<450); Troponin I 0.029 ng/mL (0.01-0.034)
--- NOTE | 2023-05-12 05:35 | DI.RAD.S_ITS ---
PROCEDURE: XR CHEST 1V INDICATIONS: dyspnea, CHF, prior pleural effusion TECHNIQUE: One view of the chest was acquired. COMPARISON: [facility], CR, XR CHEST 1V, 05/06/2023, 11:33. [facility], CR, XR CHEST 1V, 05/05/2023, 8:22. FINDINGS: Surgical changes and devices: Left chest wall pulse generator with electrode leads. Lungs and pleura: Moderate right pleural effusion and similar decreased aeration of the right lung. Minimal left lung base opacity, possibly atelectasis. Mediastinum: Right heart borders obscured, borderline cardiomegaly. Bones and chest wall: No suspicious bony lesions. Overlying soft tissues appear unremarkable. IMPRESSION: Similar moderate right pleural effusion and decreased aeration of the right lung. Agree with prelim report. Dictated by: Miki Zambrano M.D. on 05/12/2023 at 8:07 Approved by: Miki Zambrano M.D. on 05/12/2023 at 8:09
--- NOTE | 2023-05-12 05:48 | DI.RAD.S_ITS ---
1PROCEDURE: XR TIBIA FIBULA LT 2V INDICATIONS: infection TECHNIQUE: 2 views of the tibia and fibula were acquired. COMPARISON: None. FINDINGS: Bones: Mild scattered degenerative changes at the knee joint in the ankle joint. No displaced fracture or dislocation identified. No convincing erosion. There is minor periosteal thickening in the mid tibial and fibular shafts. Soft tissues: There are dystrophic soft tissue calcifications in the lower leg. Fragmented calcaneal enthesopathy partially seen. There also vascular calcifications. Patellar insertional enthesopathy. IMPRESSION: No convincing osseous erosion. Mild nonspecific periosteal thickening is present in the mid tibial and fibular shafts. Please consider MRI for further evaluation if clinically necessary. Dictated by: Miki Zambrano M.D. on 05/12/2023 at 8:09 Approved by: Miki Zambrano M.D. on 05/12/2023 at 8:12
[2023-05-12] MEDS: CLINDAMYCIN 150 MG CAPSULE 300 MG PO (06:55)
[2023-05-12] MEDS: ACETAMINOPHEN 325 MG TABLET PO (06:55)
[2023-05-12] MEDS: TRAMADOL 50 MG TABLET PO (06:56)
--- NOTE | 2023-05-12 07:12 | PC.NURSE ---
Notified Dr. Seay of glucose, okayed to give pt food. Pt provided 200ml of apple juice, egg sandwich, and oatmeal bar. Pt awake, alert, and oriented. Assisting self to meal. Pt reports taking long acting insulin last night, denies feeling like his blood glucose is low.
--- NOTE | 2023-05-12 08:03 | PC.NURSE ---
Pt given 240ml of apple juice and yogurt. Pt declined egg sandwich and states Isn't the apple juice going to be enough? educated pt on need for long acting carb in addition to juice to maintain blood glucose. Dr. Durán aware.
--- NOTE | 2023-05-12 08:19 | CM.MNRNOTE ---
Pt provided meal tray, Dr. Danielle at bedside educating pt.
--- NOTE | 2023-05-12 08:21 | PC.NURSE ---
Dr Danielle in department to go over DC with patient. Breakfast and coffee provided. AAOx3 with at side. Awaiting DC instructions.
--- NOTE | 2023-05-12 08:35 | P.CONS_ITS ---
History of Present Illness Consult details Date Patient Seen: 05/12/23 Time Patient Seen: 07:50 Chief complaint: rt leg infected Reason for consult: Evaluate discharge plan Narrative: 77-year-old male I am well acquainted with who has been in the hospital for 14 days prior to being discharged less than 12 hours prior to his presentation e mergency department Patient reports he was not sent home with any sort of med list, was very very confused about his medications which had change significantly as well as having increasing pain in his left lower extremity which was infected. He had purposely declined any pain medications at discharge as he was concerned there might be contributing to a confusional/delirious state during his hos pitalization (and he is probably least in part correct about that). In addition patient was discharged home health services but really did not have any clear understanding of the process with that either ER evaluation is essentially unremarkable. Labs are unremarkable renal function stable electrolytes stable white count and CBC essentially stable. Appearance of his left lower extremities actually improved over what it look like when I last visualized on the 02 of May I was asked to consult to help clarify his discharge plan etcetera. Meds Home Medications and Allergies Home Medications Medication Instructions Recorded Confirmed Type multivitamin 1 tab PO DAILY 04/27/18 04/26/23 History atorvastatin 40 mg tablet 40 mg PO DAILY #90 tabs 06/24/22 04/26/23 Rx metformin 1,000 mg tablet 1,000 mg PO BID #180 tabs 06/24/22 04/26/23 Rx sotalol 120 mg tablet 120 mg PO BID 02/24/23 04/26/23 History albuterol sulfate 90 mcg/actuation 2 puff inhalation Q4-6H PRN 02/28/23 04/26/23 Rx aerosol inhaler shortness of breath or wheezing #8.5 grams glipizide 10 mg tablet 10 mg PO BID #180 tabs 03/31/23 04/26/23 Rx ipratropium 0.5 mg-albuterol 3 mg 3 ml inhalation Q4-6H PRN 04/07/23 04/26/23 Rx (2.5 mg base)/3 mL nebulization shortness of breath or wheezing soln #180 mL nebulizer and compressor #1 ea 04/08/23 04/26/23 Rx pen needle, diabetic 32 gauge x #100 ea 04/09/23 04/26/23 Rx 1/4 (BD Ultra-Fine Micro Pen Needle) clonazepam 0.5 mg tablet 0.5 mg PO BID #60 tabs 05/09/23 Rx potassium chloride 20 mEq 20 meq PO TIDWM #90 tabs 05/09/23 Rx tablet,extended release(part/cryst) (Klor-Con M) prednisone 20 mg tablet 10 mg PO DAILY #60 tabs 05/09/23 04/26/23 Rx torsemide 20 mg tablet 40 mg PO BID #120 tabs 05/09/23 Rx insulin glargine 100 unit/mL (3 35 unit (0.35 mL) SUBCUT QAM #15 mL 05/12/23 04/26/23 Rx mL) subcutaneous pen tramadol 50 mg tablet 50 mg PO TID PRN pain #45 tabs 05/12/23 Rx Allergies Allergy/AdvReac Type Severity Reaction Status Date / Time lisinopril [LISINOPRIL] Allergy Intermediate COUGH Verified 04/25/23 10:32 doxycycline AdvReac Mild Rash Verified 05/07/23 09:48 piperacillin [PIPERACILLIN] AdvReac Mild RASH MAY Verified 04/25/23 10:32 2014 ADMIT, MAY BE VANCO, UNSURE vancomycin [VANCOMYCIN] AdvReac Mild RASH MAY Verified 04/25/23 10:32 2014 ADMIT MAY BE PIPERACILLIN INSTEAD azithromycin [From Zithromax] AdvReac Verified 04/25/23 10:32 Review of Systems Review of Systems ROS: Yes All systems reviewed with the patient and are negative except as otherwise documented Exam Vital Signs (past 8 hours): - 05/12/23 03:40 05/12/23 04:44 05/12/23 05:00 Temperature 97.6 F Pulse Rate 60 60 60 Respiratory Rate 16 Blood Pressure 152/70 H Pulse Oximetry 97 97 90 L Oxygen Delivery Method Room Air 05/12/23 05:30 05/12/23 06:00 05/12/23 06:30 Temperature Pulse Rate 62 60 62 Respiratory Rate Blood Pressure Pulse Oximetry 94 93 93 Oxygen Delivery Method 05/12/23 07:00 05/12/23 07:11 05/12/23 07:11 Temperature Pulse Rate 60 65 Respiratory Rate Blood Pressure 138/70 Pulse Oximetry 93 91 Oxygen Delivery Method 05/12/23 07:30 05/12/23 08:00 Temperature Pulse Rate 65 67 Respiratory Rate Blood Pressure Pulse Oximetry 92 94 Oxygen Delivery Method Room Air Oxygen Delivery Method Room Air Narrative Exam Narrative: Elderly male in no obvious distress sitting up on a gurney in the emergency department. Quickly identifies me and has no evidence of altered mental status etcetera HEENT-unremarkable Lungs-clear with good breath sounds maybe slightly diminished at the right base Heart-regular rate and rhythm Abdomen-benign Extremities-1+ edema bilateral lower extremities, similar to last exam 05/02/2023. Erythema with eschar left lower extremity similar to slightly improve verses last exam on same date Objective Labs 05/12/23 04:53 05/12/23 04:53 Labs: Laboratory Results - last 24 hr 05/12/23 05/12/23 04:53 04:53 WBC 11.9 H RBC 3.98 L Hgb 12.0 L Hct 36.7 L MCV 92.2 MCH 30.3 MCHC 32.8 RDW 17.7 H Plt Count 341 Neut % (Auto) 77.6 H Lymph % (Auto) 11.9 L Gem % (Auto) 8.4 Eos % (Auto) 1.1 L Baso % (Auto) 1.0 Neut # (Auto) 9200 H Lymph # (Auto) 1400 Gem # (Auto) 1000 H Eos # (Auto) 100 Baso # (Auto) 100 Sodium 140 Potassium 4.6 Chloride 104 Carbon Dioxide 27 BUN 41 H Creatinine 1.62 H Estimated GFR 44 L BUN/Creatinine Ratio 25.3 H Glucose 59 L Calcium 8.9 Total Bilirubin 0.9 AST 36 ALT 41 Alkaline Phosphatase 75 Troponin I 0.029 NT-Pro-B Natriuret Pep 452 H Total Protein 8.0 Albumin 3.7 Globulin 4.3 H Albumin/Globulin Ratio 0.9 L PFSH Medical History Aortic stenosis Atrial fibrillation (03/30/15) Cardiomyopathy (~03/2018) COPD (chronic obstructive pulmonary disease) Coronary artery disease (~03/2018) Hypertension (05/30/15) Tachy-ama syndrome Type 2 diabetes mellitus with hyperglycemia, without long-term current use of insulin Type 2 diabetes mellitus without complication (05/01/15) Surgical History H/O heart artery stent (~03/2018) S/P cardiac pacemaker procedure (~09/2018) Social History household members: none Tobacco & Substance Use Smoking Status: Former smoker alcohol intake: never Assessment & Plan Assessment & Plan narrative: 1. Cellulitis left lower extremity-I continue to believe patient has completed a proper course of antibiotic therapy. His leg looks better to me today than it did when I last saw prior to the weekend. He did have 14 days of parental and oral antibiotics in the hospital. I think the air with sending him home without any pain medication. His edema continues to be much improved as well. I continue to believe he does not need any additional antibiotics and will not send him home with any additional antibiotics at this point. He will have this monitored carefully by home health services as well as myself in the clinic 2. Chronic lower extremity edema-as noted in his discharge summary he had probably in excess of 40 L of urine output during his hospitalization over 14 days plus. His edema looks to be similar to what look like prior to discharge and have no reason to be concerned or change his diuretic dose at this time. Obviously this is related to his renal dysfunction will need to be seen by Nephrology as well 3. Altered mental status/PTSD/anxiety-patient is started on clonazepam during his hospitalization which I plan to continue as an outpatient. I do think some pain medication would be helpful as well. 4. Diabetes-actually much better controlled during the last week or so of his hospitalization. Had more difficulty with hypoglycemia than anything else. Continue with his oral meds plus single dose glargine insulin. Given his blood sugar was slightly low upon presentation in the emergency department this morning I am going to reduce his glargine dose slightly to 35 units 5. Congestive heart failure-patient remains off oxygen with normal saturation. BNP was actually much improved on his ER labs this morning. Again no change in his diuretic therapy 6. Chronic renal failure-numbers are actually somewhat improved here. I think he is at baseline but he is got a significant proteinuria going on which I believe is contributing to his edema and his initial lack of response to diuretic therapy. Continue with torsemide at discharge dose which is 40 mg b.i.d.. He also required potassium supplementation which should be continued as well 7. COPD-patient continues to taper down on prednisone plan to get rid of this as an outpatient. Continue with his DuoNeb as scheduled and albuterol as needed 8. Pleural effusion-still awaiting cytology report. Still very concerned this represents something more significant that we have yet to diagnose, and patient is well aware of this perhaps contributing to his anxiety 9. Social situation-patient does seem to have appropriate set up at home with single level home and significant assistance from friends and family members. Home health services should be contacting him today to set up a schedule for evaluation. Per discharge plan he will be getting home health visiting nurse PT OT and social work. This is through [facility] [employer] and unfortunately we do not have the ability to control their schedule they will reach out and cont act him but I know they have been contacted prior to his discharge yesterday Overall patient appears stable in fact I think slightly improved over where he was when I last saw him on the 02 of May. I went through his discharge medications with him 1 x 1 x 1 in including giving him a printed handout and circling areas were doses of changed and or might be confusing on the printout. I think he has a full understanding. I did go ahead and prescribe him some tramadol which he used successfully in the ER this morning for some pain management. I think he does need something for pain. I discussed with him at length that frankly he was in the hospital for 14 days he is very complicated as above and if anybody would benefit from mcc placement after hospitalization would be somebody with those features but he is very adamant that he does not want mcc placement so we will try once more to discharge him to the home environment and I think he is likely to be successful with additional work and effort as above
--- NOTE | 2023-05-12 08:37 | PC.NURSE ---
Noted that glucose was low on overnight labs. Pt asymptomatic. glucose after eating 101 and pt continues to eat breakfast. helped to dress. placed in wheelchair. IV removed. Dr Danielle completed DC instructions at length with updated med list. Pt DC'd home with .
== END 2023-05-12 09:07 | disposition home or self-care (01) ==
PROVIDERS: Emergency Provider Emergency Medicine; PCP Internal Medicine
DX: S81.802A Unspecified open wound, left lower leg, initial encounter (principal); F41.0 Panic disorder [episodic paroxysmal anxiety]; Z95.0 Presence of cardiac pacemaker
CPT/HCPCS: 36415; 71045; 73590; 80053; 82962; 83880; 84484; 85025; 93005; 96374; 99284; J1170

== ENCOUNTER → 2023-05-23 10:58 | Outpatient (CLI) | payer OTHER, SELFPAY ==
[2023-04-29 09:41] VITALS: BMI 42.2
[2023-05-23 11:27] LABS: Hematocrit 33.9 % (41-53); Hemoglobin 11.1 g/dL (13.5-17.5); Mean Corpuscular HGB Conc 32.8 % (30-36); Mean Corpuscular Hemoglobin 30.3 PG (26-34); Mean Corpuscular Volume 92.3 fL (80-100); Platelet Count 345 X10^3/uL (150-400); Red Blood Cell Count 3.67 X10^6/uL (4.5-5.9); Red Cell Distribution Width 17.5 % (11.6-14.8)
[2023-05-23 11:30] LABS: Add Manual Diff / Slide Review YES
[2023-05-23 11:43] LABS: Anisocytosis 1+; Neutrophils Absolute Manual 9600 /uL (3000-5900); RBC Morphology Norm; Total Cells Counted 100
[2023-05-23 11:50] LABS: Alanine Aminotransferase 45 IU/L (<50); Albumin 3.8 g/dL (3.5-5.0); Alkaline Phosphatase 86 U/L (38-126); Aspartate Aminotransferase 34 IU/L (17-59); BUN Creatinine Ratio 16.5 (6-22); Bilirubin Total 0.6 mg/dL (0.2-1.3); Blood Urea Nitrogen 26 mg/dL (9-20); Calcium 8.9 mg/dL (8.4-10.2); Carbon Dioxide 34 mmol/L (22-32); Chloride 99 mmol/L (98-107); Estimated Glomerular Filt Rate 45 mL/min (>60); Glucose 124 mg/dL (80-110); HEMOLYSIS < 15 (0-50); Magnesium 1.6 mg/dL (1.6-2.3); Sodium 138 mmol/L (137-145); Total Protein 7.8 g/dL (6.3-8.2)
[2023-05-23 11:59] LABS: NT-proBNP (BNP-Adult 18+) 521 pg/mL (<450)
== END ==
PROVIDERS: PCP Internal Medicine; Referring Provider Internal Medicine; Visit Provider Internal Medicine
DX: I42.9 Cardiomyopathy, unspecified (principal); L03.116 Cellulitis of left lower limb; I10 Essential (primary) hypertension; E11.9 Type 2 diabetes mellitus without complications; J44.9 Chronic obstructive pulmonary disease, unspecified; N18.31 Chronic kidney disease, stage 3a
CPT/HCPCS: 36415; 80053; 83735; 83880; 85007; 85025

== ENCOUNTER 2023-05-30 11:14 | Emergency (ER) | payer OTHER, SELFPAY ==
[2023-04-29 09:41] VITALS: BMI 42.2
[2023-05-30] VITALS (18 sets, daily range): BP systolic 137–186; BP diastolic 65–82; PULSE 29–73; RESP 17–45; TEMP 36.9; O2SAT 90–96; BMI 38.7
--- NOTE | 2023-05-30 11:22 | DI.RAD.S_ITS ---
PROCEDURE: XR CHEST 1V INDICATIONS: SOB, weight gain TECHNIQUE: One view of the chest was acquired. COMPARISON: [facility], CR, XR CHEST 1V, 05/06/2023, 11:33. [facility], CR, XR CHEST 1V, 05/12/2023, 5:19. FINDINGS: Surgical changes and devices: There is a cardiac pacemaker in expected position. Lungs and pleura: There is a large right pleural effusion, increased compared to 05/12/2023. No pneumothorax. Left basilar infiltrate or atelectasis. Mediastinum: Mediastinal contours appear normal. Heart size is mildly increased. Bones and chest wall: No suspicious bony lesions. Overlying soft tissues appear unremarkable. IMPRESSION: 1. Large right pleural effusion, increased since the last exam. 2. Left basilar infiltrate or atelectasis. Dictated by: Saurav Grande M.D. on 05/30/2023 at 11:54 Approved by: Saurav Grande M.D. on 05/30/2023 at 11:55
--- NOTE | 2023-05-30 11:26 | ED_ITS ---
HPI - General Adult General Chief complaint: Shortness of Breath/Dyspnea Stated complaint: DR malgorzata rowland Time Seen by Provider: 05/30/23 11:15 History of Present Illness HPI narrative: 77-year-old male former smoker with history of aortic stenosis, hypertension, COPD, chronic kidney disease, coronary artery disease, AFib, cardiomyopathy presents at the request of his primary care provider for increasing shortness of breath for the past few days. He reports a 12 lb weight gain. He has had increased swelling in both legs. He admits to increasing shortness of breath with exertion and states he is unable to lay flat as a consequence of his difficulty in breathing. He denies any chest pain, dizziness or lightheadedness but is generally weak. Related Data Home Medications Medication Instructions Recorded Confirmed multivitamin 1 tab PO DAILY 04/27/18 05/23/23 sotalol 120 mg tablet 120 mg PO BID 02/24/23 05/23/23 Previous Rx's Medication Instructions Recorded atorvastatin 40 mg tablet 40 mg PO DAILY #90 tabs 06/24/22 metformin 1,000 mg tablet 1,000 mg PO BID #180 tabs 06/24/22 albuterol sulfate 90 mcg/actuation 2 puff inhalation Q4-6H PRN 02/28/23 aerosol inhaler shortness of breath or wheezing #8.5 grams glipizide 10 mg tablet 10 mg PO BID #180 tabs 03/31/23 ipratropium 0.5 mg-albuterol 3 mg 3 ml inhalation Q4-6H PRN 04/07/23 (2.5 mg base)/3 mL nebulization shortness of breath or wheezing soln #180 mL nebulizer and compressor #1 ea 04/08/23 pen needle, diabetic 32 gauge x #100 ea 04/09/23/ (BD Ultra-Fine Micro Pen Needle) clonazepam 0.5 mg tablet 0.5 mg PO BID #60 tabs 05/09/23 potassium chloride 20 mEq 20 meq PO TIDWM #90 tabs 05/09/23 tablet,extended release(part/cryst) (Klor-Con M) torsemide 20 mg tablet 40 mg PO BID #120 tabs 05/09/23 insulin glargine 100 unit/mL (3 35 unit (0.35 mL) SUBCUT QAM #15 mL 06/19/23 mL) subcutaneous pen tramadol 50 mg tablet 50 mg PO TID PRN pain #45 tabs 05/20/23 prednisone 20 mg tablet 10 mg PO Q OTHER DAY #60 tabs 05/23/23 Allergies Allergy/AdvReac Type Severity Reaction Status Date / Time lisinopril [LISINOPRIL] Allergy Intermediate COUGH Verified 05/23/23 10:18 doxycycline AdvReac Mild Rash Verified 05/23/23 10:18 piperacillin [PIPERACILLIN] AdvReac Mild RASH MAY Verified 05/23/23 10:18 2014 ADMIT, MAY BE VANCO, UNSURE vancomycin [VANCOMYCIN] AdvReac Mild RASH MAY Verified 05/23/23 10:18 2014 ADMIT MAY BE PIPERACILLIN INSTEAD azithromycin [From Zithromax] AdvReac Verified 05/23/23 10:18 Review of Systems Review of Systems Narrative: GENERAL: Denies chills, fatigue, malaise, fever, sweats. HEENT: Denies sinus pain, ear pain, sore throat, difficulty swallowing, dizziness. RESPIRATORY: See HPI CARDIOVASCULAR: See HPI GASTROINTESTINAL: Denies nausea, vomiting, abdominal pain, diarrhea, constipation, melena. : Denies dysuria, frequency, incontinence, hematuria, urinary retention. MUSCULOSKELETAL: denies weakness, joint pain, or bony pain SKIN: Denies rash, skin lesions, or other NEUROLOGIC: Denies weakness, headache, numbness, change in speech, confusion, seizures, incoordination. PSYCHIATRIC: No concerning psychosocial issues. 12 point review of systems is negative except for those stated above Patient History Medical History (Updated 05/30/23 @ 17:20 by Shine Alas DO) Aortic stenosis Atrial fibrillation (03/30/15) Cardiomyopathy (~03/2018) Chronic renal failure, stage 3a COPD (chronic obstructive pulmonary disease) Coronary artery disease (~03/2018) Hypertension (05/30/15) Panic attack Tachy-ama syndrome Type 2 diabetes mellitus with hyperglycemia, without long-term current use of insulin Type 2 diabetes mellitus without complication (05/01/15) Surgical History H/O heart artery stent (~03/2018) S/P cardiac pacemaker procedure (~09/2018) Social History household members: none Smoking Status: Former smoker alcohol intake: never Smoking Status: Former smoker alcohol intake frequency: 0-2 drinks per day Substance Use Type: does not use Exam Narrative Exam Narrative: GENERAL: [77] year old patient appears stated age. Well-developed patient, in mild distress. Obviously short of breath, increased work of breathing, hypoxemic HEAD: Atraumatic. Normocephalic. EYES: Pupils equal round and reactive. Extraocular motions intact. No scleral icterus. No injection or drainage. ENT: Nose without bleeding, purulent drainage. Throat without erythema, tonsillar hypertrophy or exudate. Airway patent. NECK: Trachea midline. Non tender CARDIOVASCULAR: Regular rate and rhythm without murmurs, gallops, or rubs. RESPIRATORY: Decreased breath sounds on the right, significantly diminished in the base, faint crackles throughout the left i. GASTROINTESTINAL: Abdomen soft, non-tender, nondistended. EXTREMITIES: 1+ pitting edema bilateral lower extremities with some erythema, chronic per patient BACK: Nontender without deformity or crepitance. No flank tenderness. NEURO: AOx3. SKIN: No rash or erythema of visible areas Initial Vital Signs Initial Vital Signs: Vital Signs Pulse Rate 69 05/30/23 11:22 Blood Pressure 175/74 H 05/30/23 11:22 Pulse Oximetry 91 05/30/23 11:22 Course Orders Ordered: ED Orders 05/30/23 11:22 Chest [XR chest 1V] Stat EKG-12 Lead Stat 05/30/23 11:23 Complete Blood Count AUTO DIFF Stat Comprehensive Metabolic Panel Stat Lactate (Lactic Acid) Stat Magnesium Stat NT-proBNP (BNP-Adult 18+) Stat PTT Partial Thromboplastin Ronal Stat Procalcitonin Stat Prothrombin Time INR Stat Troponin & CK Cardiac Panel Stat 05/30/23 11:41 Respiratory Panel (Film Array) Stat 05/30/23 11:51 Blood Culture Stat 05/30/23 12:19 US thoracentesis Stat 05/30/23 12:21 XR chest 1V Stat 05/30/23 12:26 Urine Culture Stat Urine Culture Stat Urine Microscopic Stat 05/30/23 12:45 ABG [Arterial Blood Gas] Stat Discontinued Medications Furosemide (Furosemide 40 Mg/4 Ml Vial) 40 mg IV NOW ONE Stop: 05/30/23 12:20 Last Admin: 05/30/23 12:32 Dose: 40 mg Documented By: DAIANA Methylprednisolone (Methylprednisolone 125 Mg/2 Ml Vial) 125 mg IV NOW ONE Stop: 05/30/23 11:22 Last Admin: 05/30/23 11:35 Dose: 125 mg Documented By: DAIANA Vital Signs Vital signs: Vital Signs - 8 hr 05/30/23 12:30 05/30/23 12:31 05/30/23 12:31 Pulse Rate 65 29 L Respiratory Rate Blood Pressure 186/82 H Pulse Oximetry 94 93 Oxygen Delivery Method Room Air Oxygen Flow Rate 05/30/23 13:00 05/30/23 13:29 05/30/23 13:29 Pulse Rate 64 66 Respiratory Rate 31 H 36 H Blood Pressure 165/74 H Pulse Oximetry 96 96 Oxygen Delivery Method Nasal Cannula Oxygen Flow Rate 2 05/30/23 13:30 05/30/23 13:30 05/30/23 14:00 Pulse Rate 66 Respiratory Rate 40 H Blood Pressure 150/67 H 152/67 H Pulse Oximetry 96 Oxygen Delivery Method Oxygen Flow Rate 05/30/23 14:00 05/30/23 14:30 05/30/23 15:00 Pulse Rate 66 69 71 Respiratory Rate 23 Blood Pressure Pulse Oximetry 93 96 94 Oxygen Delivery Method Oxygen Flow Rate 05/30/23 15:13 05/30/23 15:13 05/30/23 15:30 Pulse Rate 73 Respiratory Rate Blood Pressure 137/65 149/67 H Pulse Oximetry 91 Oxygen Delivery Method Oxygen Flow Rate 05/30/23 15:30 05/30/23 16:00 05/30/23 16:00 Pulse Rate 71 72 Respiratory Rate 28 H 29 H Blood Pressure 139/68 Pulse Oximetry 94 90 L Oxygen Delivery Method Room Air Room Air Oxygen Flow Rate 05/30/23 16:30 05/30/23 16:30 05/30/23 17:00 Pulse Rate 70 Respiratory Rate 34 H Blood Pressure 145/70 H 137/76 Pulse Oximetry 93 Oxygen Delivery Method Oxygen Flow Rate 05/30/23 17:00 Pulse Rate 71 Respiratory Rate 17 Blood Pressure Pulse Oximetry 95 Oxygen Delivery Method Room Air Oxygen Flow Rate Medical Decision Making Lab Data 05/30/23 11:23 05/30/23 11:23 Labs: Lab Results 05/30/23 05/30/23 05/30/23 Range/Units 11:23 11:23 11:23 WBC 11.3 H (4.5-11.0) X10^3/uL RBC 3.41 L (4.5-5.9) X10^6/uL Hgb 10.3 L (13.5-17.5) g/dL Hct 31.7 L (41-53) % MCV 92.9 (80-100) fL MCH 30.1 (26-34) PG MCHC 32.4 (30-36) % RDW 17.7 H (11.6-14.8) % Plt Count 317 (150-400) X10^3/uL Neut % (Auto) 77.0 H (50-75) % Lymph % (Auto) 12.3 L (25-40) % [place] % (Auto) 7.9 (3-14) % Eos % (Auto) 1.7 L (2-4) % Baso % (Auto) 1.1 (0-2) % Neut # (Auto) 8700 H (3507-2321) /uL Lymph # (Auto) 1400 (2596-0879) /uL [place] # (Auto) 900 (0-900) /uL Eos # (Auto) 200 (0-450) /uL Baso # (Auto) 100 (0-100) /uL PT (10.1-12.7) SECONDS INR (0.9-1.3) APTT (26-36) SECONDS ABG pH (7.35-7.45) ABG pCO2 (35-45) mmHg ABG pO2 (80-100) mmHg ABG HCO3 (23-27) mmol/L ABG Total CO2 (23-27) mmol/L ABG O2 Saturation (95-100) % ABG Base Excess (-2-3) mmol/L FiO2 Sodium 141 (137-145) mmol/L Potassium 4.7 (3.4-5.1) mmol/L Chloride 100 (98-107) mmol/L Carbon Dioxide 33 H (22-32) mmol/L BUN 29 H (9-20) mg/dL Creatinine 1.51 H (0.66-1.25) mg/dL Estimated GFR 48 L (>60) mL/min BUN/Creatinine Ratio 19.2 (6-22) Glucose 122 H (80-110) mg/dL Lactate (0.7-2.1) mmol/L Calcium 8.8 (8.4-10.2) mg/dL Magnesium 1.6 (1.6-2.3) mg/dL Total Bilirubin 0.5 (0.2-1.3) mg/dL AST 35 (17-59) IU/L ALT 39 (<50) IU/L Alkaline Phosphatase 60 (38-126) U/L Total Creatine Kinase 22 L (55-170) U/L Troponin I 0.019 (0.01-0.034) ng/mL NT-Pro-B Natriuret Pep 512 H (<450) pg/mL Total Protein 7.6 (6.3-8.2) g/dL Albumin 3.7 (3.5-5.0) g/dL Globulin 3.9 (1.7-4.1) g/dL Albumin/Globulin Ratio 0.9 L (1.0-2.8) Procalcitonin 0.16 (<0.5) ng/mL Urine RBC (0-5/HPF) Urine WBC (0-5/HPF) Ur Squamous Epith Cells (0-5/HPF) Urine Bacteria (None) Ur Culture Indicated? Chlamy pneumoniae PCR (Not Detect) Adenovirus (PCR) (Not Detect) B. pertussis DNA (PCR) (Not Detecte) B.parapertussis DNA PCR (Not Detecte) Coronavirus OC43 (PCR) (Not Detect) Coronavirus HKU1 (PCR) (Not Detect) Coronavirus 229E (PCR) (Not Detect) SARS-CoV-2 (PCR) (Not Detecte) Coronavirus NL63 (PCR) (Not Detect) Human Metapneumovir PCR (Not Detect) Influenza Type A (PCR) (Not Detect) Influenza Type B (PCR) (Not Detect) M. pneumoniae (PCR) (Not Detect) Parainfluenza 1 (PCR) (Not Detect) Parainfluenza 2 (PCR) (Not Detect) Parainfluenza 3 (PCR) (Not Detect) Parainfluenza 4 (PCR) (Not Detect) RSV (PCR) (Not Detect) Entero/Rhino (PCR) (Not Detect) 05/30/23 05/30/23 05/30/23 Range/Units 11:23 11:23 11:41 WBC (4.5-11.0) X10^3/uL RBC (4.5-5.9) X10^6/uL Hgb (13.5-17.5) g/dL Hct (41-53) % MCV (80-100) fL MCH (26-34) PG MCHC (30-36) % RDW (11.6-14.8) % Plt Count (150-400) X10^3/uL Neut % (Auto) (50-75) % Lymph % (Auto) (25-40) % [place] % (Auto) (3-14) % Eos % (Auto) (2-4) % Baso % (Auto) (0-2) % Neut # (Auto) (6195-8636) /uL Lymph # (Auto) (6316-5085) /uL [place] # (Auto) (0-900) /uL Eos # (Auto) (0-450) /uL Baso # (Auto) (0-100) /uL PT 13.8 H (10.1-12.7) SECONDS INR 1.2 (0.9-1.3) APTT 31 (26-36) SECONDS ABG pH (7.35-7.45) ABG pCO2 (35-45) mmHg ABG pO2 (80-100) mmHg ABG HCO3 (23-27) mmol/L ABG Total CO2 (23-27) mmol/L ABG O2 Saturation (95-100) % ABG Base Excess (-2-3) mmol/L FiO2 Sodium (137-145) mmol/L Potassium (3.4-5.1) mmol/L Chloride (98-107) mmol/L Carbon Dioxide (22-32) mmol/L BUN (9-20) mg/dL Creatinine (0.66-1.25) mg/dL Estimated GFR (>60) mL/min BUN/Creatinine Ratio (6-22) Glucose (80-110) mg/dL Lactate 2.3 H (0.7-2.1) mmol/L Calcium (8.4-10.2) mg/dL Magnesium (1.6-2.3) mg/dL Total Bilirubin (0.2-1.3) mg/dL AST (17-59) IU/L ALT (<50) IU/L Alkaline Phosphatase (38-126) U/L Total Creatine Kinase (55-170) U/L Troponin I (0.01-0.034) ng/mL NT-Pro-B Natriuret Pep (<450) pg/mL Total Protein (6.3-8.2) g/dL Albumin (3.5-5.0) g/dL Globulin (1.7-4.1) g/dL Albumin/Globulin Ratio (1.0-2.8) Procalcitonin (<0.5) ng/mL Urine RBC (0-5/HPF) Urine WBC (0-5/HPF) Ur Squamous Epith Cells (0-5/HPF) Urine Bacteria (None) Ur Culture Indicated? Chlamy pneumoniae PCR Not detected (Not Detect) Adenovirus (PCR) Not detected (Not Detect) B. pertussis DNA (PCR) Not detected (Not Detecte) B.parapertussis DNA PCR Not detected (Not Detecte) Coronavirus OC43 (PCR) Not detected (Not Detect) Coronavirus HKU1 (PCR) Not detected (Not Detect) Coronavirus 229E (PCR) Not detected (Not Detect) SARS-CoV-2 (PCR) Not detected (Not Detecte) Coronavirus NL63 (PCR) Not detected (Not Detect) Human Metapneumovir PCR Not detected (Not Detect) Influenza Type A (PCR) Not detected (Not Detect) Influenza Type B (PCR) Not detected (Not Detect) M. pneumoniae (PCR) Not detected (Not Detect) Parainfluenza 1 (PCR) Not detected (Not Detect) Parainfluenza 2 (PCR) Not detected (Not Detect) Parainfluenza 3 (PCR) Not detected (Not Detect) Parainfluenza 4 (PCR) Not detected (Not Detect) RSV (PCR) Not detected (Not Detect) Entero/Rhino (PCR) Not detected (Not Detect) 05/30/23 05/30/23 05/30/23 Range/Units 12:26 12:45 13:32 WBC (4.5-11.0) X10^3/uL RBC (4.5-5.9) X10^6/uL Hgb (13.5-17.5) g/dL Hct (41-53) % MCV (80-100) fL MCH (26-34) PG MCHC (30-36) % RDW (11.6-14.8) % Plt Count (150-400) X10^3/uL Neut % (Auto) (50-75) % Lymph % (Auto) (25-40) % [place] % (Auto) (3-14) % Eos % (Auto) (2-4) % Baso % (Auto) (0-2) % Neut # (Auto) (8529-5449) /uL Lymph # (Auto) (6816-4581) /uL [place] # (Auto) (0-900) /uL Eos # (Auto) (0-450) /uL Baso # (Auto) (0-100) /uL PT (10.1-12.7) SECONDS INR (0.9-1.3) APTT (26-36) SECONDS ABG pH 7.41 (7.35-7.45) ABG pCO2 52.0 H (35-45) mmHg ABG pO2 77 L (80-100) mmHg ABG HCO3 33 H (23-27) mmol/L ABG Total CO2 35 H (23-27) mmol/L ABG O2 Saturation 95 (95-100) % ABG Base Excess 9.0 H (-2-3) mmol/L FiO2 28 Sodium (137-145) mmol/L Potassium (3.4-5.1) mmol/L Chloride (98-107) mmol/L Carbon Dioxide (22-32) mmol/L BUN (9-20) mg/dL Creatinine (0.66-1.25) mg/dL Estimated GFR (>60) mL/min BUN/Creatinine Ratio (6-22) Glucose (80-110) mg/dL Lactate 2.1 (0.7-2.1) mmol/L Calcium (8.4-10.2) mg/dL Magnesium (1.6-2.3) mg/dL Total Bilirubin (0.2-1.3) mg/dL AST (17-59) IU/L ALT (<50) IU/L Alkaline Phosphatase (38-126) U/L Total Creatine Kinase (55-170) U/L Troponin I (0.01-0.034) ng/mL NT-Pro-B Natriuret Pep (<450) pg/mL Total Protein (6.3-8.2) g/dL Albumin (3.5-5.0) g/dL Globulin (1.7-4.1) g/dL Albumin/Globulin Ratio (1.0-2.8) Procalcitonin (<0.5) ng/mL Urine RBC 1-5/hpf (0-5/HPF) Urine WBC 5-10/hpf H (0-5/HPF) Ur Squamous Epith Cells 1-5 /hpf (0-5/HPF) Urine Bacteria Many (>30) H (None) Ur Culture Indicated? Specimen cultured Chlamy pneumoniae PCR (Not Detect) Adenovirus (PCR) (Not Detect) B. pertussis DNA (PCR) (Not Detecte) B.parapertussis DNA PCR (Not Detecte) Coronavirus OC43 (PCR) (Not Detect) Coronavirus HKU1 (PCR) (Not Detect) Coronavirus 229E (PCR) (Not Detect) SARS-CoV-2 (PCR) (Not Detecte) Coronavirus NL63 (PCR) (Not Detect) Human Metapneumovir PCR (Not Detect) Influenza Type A (PCR) (Not Detect) Influenza Type B (PCR) (Not Detect) M. pneumoniae (PCR) (Not Detect) Parainfluenza 1 (PCR) (Not Detect) Parainfluenza 2 (PCR) (Not Detect) Parainfluenza 3 (PCR) (Not Detect) Parainfluenza 4 (PCR) (Not Detect) RSV (PCR) (Not Detect) Entero/Rhino (PCR) (Not Detect) Urine Dip Bedside Urine Glucose Negative Bedside Urine Bilirubin - Negative Bedside Urine Ketone - Negative Urine Specific [place] 1.010 Bedside Urine Occult Blood - Negative Bedside Urine pH 6.5 Bedside Urine Protein - Negative Bedside Urine Urobilinogen - Negative Bedside Urine Nitrite - Negative Bedside Urine Leukocytes ++ 125 Esterase Point of care testing: Urine Dip Bedside Urine Glucose Negative Bedside Urine Bilirubin - Negative Bedside Urine Ketone - Negative Urine Specific [place] 1.010 Bedside Urine Occult Blood - Negative Bedside Urine pH 6.5 Bedside Urine Protein - Negative Bedside Urine Urobilinogen - Negative Bedside Urine Nitrite - Negative Bedside Urine Leukocytes ++ 125 Esterase MDM Narrative Medical decision making narrative: [77] year old patient presents with worsening shortness of breath Multiple etiologies for patient's symptoms considered including, but not limited to: [Pleural effusion versus pneumonia versus CHF exacerbation] Prior Charts reviewed in our EMR Primary Historian: patient Labs reviewed and interpreted by myself: Minimal leukocytosis chronic for patient, minimal anemia, chronic per patient, slight increasing creatinine, chronic for patient. No significant abnormalities Imaging reviewed: Chest x-ray demonstrates a large recurrence of a right-sided pleural effusion, most recently drained a few weeks ago. Post thoracentesis chest x-ray confirms no pneumothorax Consultations: Discussed with patient's primary care provider, Dr. Danielle. Given patient's significant improvement after thoracentesis and his strong desire to go home, we elect to increase the patient's torsemide from 40-60 mg twice daily until he follows up in 2 weeks Patient's symptoms improved over duration of stay with above-stated therapies. Findings and discharge diagnosis discussed with patient/family followed by verbalization of understanding Return precautions discussed with patient/family whom verbalize understanding of diagnosis and plan Discharge Plan Departure Patient Disposition: Home Clinical Impression: Pleural effusion, Acute exacerbation of CHF (congestive heart failure) Instructions: DI for Heart Failure, DI for Pleural Effusion Activity Restrictions/Additional Instructions: *You have been diagnosed with [acute CHF exacerbation and recurrence of pleural effusion] *What to do: * please increase your torsemide to 60 mg twice daily until your follow-up appointment with Dr. Danielle in 2 weeks. Otherwise please continue to take your regular medications as directed. *Please follow up with your primary care provider in 2-3 days, call for an a ppointment. Let them know you were seen in the Emergency Department and that we ask that you be seen in follow up. We will electronically transmit a record of today's note if your PCP is in our system *Return to Emergency Department if you should have any new, worsening or concerning symptoms, such as [fever greater than 101 F, shaking chills, worsening pain, persistent vomiting or other bothersome symptoms] Prescriptions: No Action metformin 1,000 mg tablet 1,000 mg PO BID Qty: 180 3RF atorvastatin 40 mg tablet 40 mg PO DAILY Qty: 90 3RF glipizide 10 mg tablet 10 mg PO BID Qty: 180 3RF (DME) pen needle, diabetic [BD Ultra-Fine Micro Pen Needle] 32 gauge x 1/4 needle See Rx Instructions .Route Qty: 100 12RF Rx Instructions: As directed to inject insulin twice daily tramadol 50 mg tablet 50 mg PO TID PRN (Reason: pain) Qty: 45 0RF prednisone 20 mg tablet 10 mg PO Q OTHER DAY Qty: 60 1RF multivitamin tablet 1 tab PO DAILY insulin glargine 100 unit/mL (3 mL) insulin pen 35 unit SUBCUT QAM Qty: 15 12RF Rx Instructions: 40 units subcutaneously; sotalol 120 mg tablet 120 mg PO BID albuterol sulfate 90 mcg/actuation HFA aerosol inhaler 2 puff inhalation Q4-6H PRN (Reason: shortness of breath or wheezing) Qty: 8.5 3RF ipratropium-albuterol 0.5 mg-3 mg(2.5 mg base)/3 mL solution for nebulization 3 ml inhalation Q4-6H PRN (Reason: shortness of breath or wheezing) Qty: 180 7RF (DME) nebulizer and compressor Device See Rx Instructions .Route Qty: 1 0RF Rx Instructions: As directed torsemide 20 mg tablet 40 mg PO BID Qty: 120 6RF Rx Instructions: one dose in am, one at 1600 clonazepam 0.5 mg Tablet 0.5 mg PO BID Qty: 60 1RF potassium chloride [Klor-Con M20] 20 mEq Tablet,Er Particles/Crystals 20 meq PO TIDWM Qty: 90 3RF Referrals: Nura Danielle MD [Primary Care Provider] - Stand Alone Forms: Patient Portal/API
[2023-05-30] MEDS: methylPREDNISolone 125 MG/2 ML VIAL IV (11:35)
[2023-05-30 11:39] LABS: Add Manual Diff / Slide Review NO; Basophils Absolute Auto 100 /uL (0-100); Basophils Percent Auto 1.1 % (0-2); Eosinophils Absolute Auto 200 /uL (0-450); Eosinophils Percent Auto 1.7 % (2-4); Hematocrit 31.7 % (41-53); Hemoglobin 10.3 g/dL (13.5-17.5); Lymphocytes Absolute Auto 1400 /uL (1100-4500); Lymphocytes Percent Auto 12.3 % (25-40); Mean Corpuscular HGB Conc 32.4 % (30-36); Mean Corpuscular Hemoglobin 30.1 PG (26-34); Mean Corpuscular Volume 92.9 fL (80-100); Monocytes Absolute Auto 900 /uL (0-900); Monocytes Percent Auto 7.9 % (3-14); Neutrophils Absolute Auto 8700 /uL (1500-7000); Platelet Count 317 X10^3/uL (150-400); Red Blood Cell Count 3.41 X10^6/uL (4.5-5.9); Red Cell Distribution Width 17.7 % (11.6-14.8); White Blood Cell Count 11.3 X10^3/uL (4.5-11.0)
[2023-05-30 11:50] LABS: Lactate (Lactic Acid) 2.3 mmol/L (0.7-2.1)
[2023-05-30 11:52] LABS: Alanine Aminotransferase 39 IU/L (<50); Albumin 3.7 g/dL (3.5-5.0); Albumin Globulin Ratio 0.9 (1.0-2.8); Alkaline Phosphatase 60 U/L (38-126); Aspartate Aminotransferase 35 IU/L (17-59); BUN Creatinine Ratio 19.2 (6-22); Bilirubin Total 0.5 mg/dL (0.2-1.3); Blood Urea Nitrogen 29 mg/dL (9-20); Calcium 8.8 mg/dL (8.4-10.2); Carbon Dioxide 33 mmol/L (22-32); Chloride 100 mmol/L (98-107); Creatine Kinase 22 U/L (55-170); Estimated Glomerular Filt Rate 48 mL/min (>60); Globulin 3.9 g/dL (1.7-4.1); Glucose 122 mg/dL (80-110); HEMOLYSIS 41 (0-50); Magnesium 1.6 mg/dL (1.6-2.3); Potassium 4.7 mmol/L (3.4-5.1); Sodium 141 mmol/L (137-145); Total Protein 7.6 g/dL (6.3-8.2)
[2023-05-30 12:03] LABS: NT-proBNP (BNP-Adult 18+) 512 pg/mL (<450); Troponin I 0.019 ng/mL (0.01-0.034)
[2023-05-30 12:09] LABS: Procalcitonin 0.16 ng/mL (<0.5)
--- NOTE | 2023-05-30 12:19 | DI.US.S_ITS ---
PROCEDURE: US THORACENTESIS INDICATIONS: LARGE PLEURAL EFFUSION TECHNIQUE: The indications, alternatives, benefits, risks, and complications of the procedure were explained to the patient. Written informed consent was obtained and placed in the chart. The chest was examined sonographically, and an appropriate site was chosen for thoracentesis. The skin was prepared and draped in the usual sterile fashion, and 1% lidocaine was infiltrated from the skin down through the pleural surface. A 19-gauge catheter-covered needle was then introduced into the pleural space, the catheter was advanced and the needle was withdrawn, and thereafter pleural fluid was aspirated. The catheter was then removed and a dressing was applied. COMPARISON: [facility], THORACENTESIS, 05/06/2023, 11:04. [facility], THORACENTESIS, 04/04/2023, 9:18. FINDINGS: Access site: Right hemithorax. Needle: One-Step centesis catheter with introducer needle. Fluid volume and description: 1250 mL clear red fluid Fluid sent for diagnostic testing: Not requested Medications: 1% lidocaine for local anaesthesia. Complications: None; post-procedural chest radiograph is pending to assess for pneumothorax. IMPRESSION: Successful ultrasound-guided thoracentesis. Approved by: Donnie Raphael M.D. on 05/30/2023 at 15:16
--- NOTE | 2023-05-30 12:21 | DI.RAD.S_ITS ---
PROCEDURE: XR CHEST 1V INDICATIONS: post-thoracentesis. TECHNIQUE: One view of the chest was acquired. COMPARISON: [facility], , US THORACENTESIS, 05/30/2023, 14:32. [facility], CR, XR CHEST 1V, 05/30/2023, 11:30. FINDINGS: Surgical changes and devices: There is a cardiac pacemaker in expected position. Lungs and pleura: Right pleural effusion decreased. No pneumothorax. Mediastinum: Mediastinal contours appear normal. Heart size is normal. Bones and chest wall: No suspicious bony lesions. Overlying soft tissues appear unremarkable. IMPRESSION: No pneumothorax postthoracentesis. Dictated by: Saurav Grande M.D. on 05/30/2023 at 16:35 Approved by: Saurav Grande M.D. on 05/30/2023 at 16:36
[2023-05-30 12:29] LABS: INR 1.2 (0.9-1.3); Prothrombin Time 13.8 SECONDS (10.1-12.7)
[2023-05-30 12:32] LABS: PTT Partial Thromboplastin Tim 31 SECONDS (26-36)
[2023-05-30] MEDS: FUROSEMIDE 40 MG/4 ML VIAL IV (12:32)
[2023-05-30 12:38] LABS: Adenovirus Not Detected (Not Detect); B. parapertussis Not Detected (Not Detecte); Bordetella pertussis Not Detected (Not Detecte); Chlamydophila pneumoniae Not Detected (Not Detect); Coronavirus 229E Not Detected (Not Detect); Coronavirus HKU1 Not Detected (Not Detect); Coronavirus NL 63 Not Detected (Not Detect); Coronavirus OC43 Not Detected (Not Detect); Human Metapneumovirus Not Detected (Not Detect); Human Rhinovirus/Enterovirus Not Detected (Not Detect); Influenza A Not Detected (Not Detect); Influenza B Not Detected (Not Detect); Mycoplasma pneumoniae Not Detected (Not Detect); Parainfluenza Virus 1 Not Detected (Not Detect); Parainfluenza Virus 2 Not Detected (Not Detect); Parainfluenza Virus 3 Not Detected (Not Detect); Parainfluenza Virus 4 Not Detected (Not Detect); Respiratory Syncytial Virus Not Detected (Not Detect); SARS- CoV-2 Not Detected (Not Detecte)
[2023-05-30 12:49] LABS: Bacteria Urine Many (>30); Culture Indicated Urine Specimen Cultured; RBC Urine 1-5/HPF (0-5/HPF); Squamous Epithelial Cell Urine 1-5 /HPF (0-5/HPF); WBC Urine 5-10/HPF (0-5/HPF)
--- NOTE | 2023-05-30 12:51 | PC.NURSE ---
Pt has become increasingly SOB, tachypneic, and is now requiring 2L O2 NC. Skin pale/ashen and pt reports the need to sit at the side of the bed for comfort. Dr Alas made aware and at bedside for assessment. No new orders at this time.
[2023-05-30 13:34] LABS: Reflexed Lactate in 2 Hours Y
[2023-05-30 13:50] LABS: Lactate 2HR (Lactic Acid Rflx) 2.1 mmol/L (0.7-2.1)
[2023-05-30 14:00] LABS: Fractionated Inspired Oxygen 28; HCO3 ABG 33 mmol/L (23-27); Oxygen Saturation ABG 95 % (95-100); PO2 ABG 77 mmHg (80-100); TCO2 ABG 35 mmol/L (23-27); pH ABG 7.41 (7.35-7.45)
--- NOTE | 2023-05-30 14:07 | PC.NURSE ---
Pt is sitting up in wheelchair. He reports that he is feeling better and that he does not feel as SOB. Remains on 2L NC. 250mL clear, yellow urine.
--- NOTE | 2023-05-30 15:11 | PC.NURSE ---
DI at bedside doing thoracentesis.
== END 2023-05-30 17:24 | disposition home or self-care (01) ==
PROVIDERS: Emergency Provider Emergency Medicine; PCP Internal Medicine
DX: J90 Pleural effusion, not elsewhere classified (principal); I50.9 Heart failure, unspecified; R63.5 Abnormal weight gain; Z20.822 Contact with and (suspected) exposure to COVID-19
CPT/HCPCS: 32555; 36415; 36600; 71045; 80053; 81003; 81015; 82550; 82805; 83605; 83735; 83880; 84145; 84484; 85025; 85610; 85730; 87040; 87077; 87086; 87186; 87633; 93005; 93010; 96374; 96375; 99284; 99285; J1940; J2930

== ENCOUNTER 2023-06-10 21:39 | Emergency (ER) | payer OTHER, SELFPAY ==
[2023-04-29 09:41] VITALS: BMI 42.2
[2023-06-10] VITALS (7 sets, daily range): BP systolic 114–157; BP diastolic 58–67; PULSE 59–63; RESP 23–25; TEMP 36.1; O2SAT 91–97; BMI 38.0
--- NOTE | 2023-06-10 10:50 | DI.US.S_ITS ---
PROCEDURE: US THORACENTESIS INDICATIONS: Right-sided pleural effusion TECHNIQUE: The indications, alternatives, benefits, risks, and complications of the procedure were explained to the patient. Written informed consent was obtained and placed in the chart. The chest was examined sonographically, and an appropriate site was chosen for thoracentesis. The skin was prepared and draped in the usual sterile fashion, and 1% lidocaine was infiltrated from the skin down through the pleural surface. A 19-gauge catheter-covered needle was then introduced into the pleural space, the catheter was advanced and the needle was withdrawn, and thereafter pleural fluid was aspirated. The catheter was then removed and a dressing was applied. COMPARISON: [facility], THORACENTESIS, 05/30/2023, 14:32. FINDINGS: Access site: Right hemithorax. Needle: One-Step centesis catheter with introducer needle. Fluid volume and description: 500 cc of clear yellow fluid Fluid sent for diagnostic testing: No Medications: 1% lidocaine for local anaesthesia. Complications: None; post-procedural chest radiograph is pending to assess for pneumothorax. IMPRESSION: Successful ultrasound-guided thoracentesis. Dictated by: Mikey Ballesteros M.D. on 06/11/2023 at 13:26 Approved by: Mikey Ballesteros M.D. on 06/11/2023 at 13:27
--- NOTE | 2023-06-10 21:58 | DI.RAD.S_ITS ---
PROCEDURE: XR CHEST 1V INDICATIONS: Shortness of breath TECHNIQUE: One view of the chest was acquired. COMPARISON: [facility], CR, XR CHEST 1V, 05/30/2023, 15:00. FINDINGS: Surgical changes and devices: Left chest wall pacemaker redemonstrated. Lungs and pleura: There is a moderate to large right pleural effusion with right basilar opacities consistent with compressive atelectasis or consolidation. The left lung is clear. No pneumothorax. Mediastinum: Mediastinal contours appear unchanged. Heart size is normal. Bones and chest wall: No suspicious bony lesions. Overlying soft tissues appear unremarkable. IMPRESSION: 1. Persistent moderate to large right pleural effusion with right basilar compressive atelectasis or consolidation. Dictated by: Carloz Lopez M.D. on 06/10/2023 at 22:52 Approved by: Carloz Lopez M.D. on 06/10/2023 at 22:56
--- NOTE | 2023-06-10 22:12 | ED.GENADULT ---
HPI - General Adult <Adelso Norwood DO - Last Filed: 06/11/23 19:09> General Chief complaint: Shortness of Breath/Dyspnea Stated complaint: can't breathe Time Seen by Provider: 06/10/23 22:07 Source: patient and family Mode of arrival: Wheelchair History of Present Illness HPI narrative: Patient is a 77-year-old male that has had recurrent right-sided pleural effusions over the past several weeks/months. He states he is still being worked up for these does not know specifically what has been causing them. He has had prior right-sided thoracentesis that greatly improves his symptoms for short period of time. Over the past couple days he is noticed increasing shortness of breath. He states that it feels very similar to what he has felt like prior to his thoracentesis. He denies chest pain. No fevers. No abdominal pain. Does have lower extremity swelling but this is not new. Related Data Home Medications Medication Instructions Recorded Confirmed multivitamin 1 tab PO DAILY 04/27/18 05/23/23 sotalol 120 mg tablet 120 mg PO BID 02/24/23 05/23/23 Previous Rx's Medication Instructions Recorded atorvastatin 40 mg tablet 40 mg PO DAILY #90 tabs 06/24/22 metformin 1,000 mg tablet 1,000 mg PO BID #180 tabs 06/24/22 albuterol sulfate 90 mcg/actuation 2 puff inhalation Q4-6H PRN 02/28/23 aerosol inhaler shortness of breath or wheezing #8.5 grams glipizide 10 mg tablet 10 mg PO BID #180 tabs 03/31/23 ipratropium 0.5 mg-albuterol 3 mg 3 ml inhalation Q4-6H PRN 04/07/23 (2.5 mg base)/3 mL nebulization shortness of breath or wheezing soln #180 mL nebulizer and compressor #1 ea 04/08/23 pen needle, diabetic 32 gauge x #100 ea 04/09/2311/27 (BD Ultra-Fine Micro Pen Needle) clonazepam 0.5 mg tablet 0.5 mg PO BID #60 tabs 05/09/23 potassium chloride 20 mEq 20 meq PO TIDWM #90 tabs 05/09/23 tablet,extended release(part/cryst) (Klor-Con M) torsemide 20 mg tablet 40 mg PO BID #120 tabs 05/09/23 insulin glargine 100 unit/mL (3 35 unit (0.35 mL) SUBCUT QAM #15 mL 05/12/23 mL) subcutaneous pen prednisone 20 mg tablet 10 mg PO Q OTHER DAY #60 tabs 05/23/23 sulfamethoxazole 800 1 tab PO BID #20 tabs 06/02/23 mg-trimethoprim 160 mg tablet tramadol 50 mg tablet 50 mg PO TID PRN pain #45 tabs 06/02/23 Allergies Allergy/AdvReac Type Severity Reaction Status Date / Time lisinopril [LISINOPRIL] Allergy Intermediate COUGH Verified 05/23/23 10:18 doxycycline AdvReac Mild Rash Verified 05/23/23 10:18 piperacillin [PIPERACILLIN] AdvReac Mild RASH MAY Verified 05/23/23 10:18 2014 ADMIT, MAY BE VANCO, UNSURE vancomycin [VANCOMYCIN] AdvReac Mild RASH MAY Verified 05/23/23 10:18 2014 ADMIT MAY BE PIPERACILLIN INSTEAD azithromycin [From Zithromax] AdvReac Verified 05/23/23 10:18 Review of Systems <Adelso Norwood DO - Last Filed: 06/11/23 19:09> Constitutional Constitutional: Reports system reviewed and no additional complaints, except as documented Cardiovascular Cardiovascular: Reports system reviewed and no additional complaints, except as documented Respiratory Respiratory: Reports system reviewed and no additional complaints, except as documented Gastrointestinal Gastrointestinal: Reports system reviewed and no additional complaints, except as documented Integumentary/Breasts Skin/Breast: Reports system reviewed and no additional complaints, except as documented Hematologic/Lymphatic On Anticoagulants: No Patient History <Adelso Norwood DO - Last Filed: 06/11/23 19:09> Medical History Aortic stenosis Atrial fibrillation (03/30/15) Cardiomyopathy (~03/2018) Chronic renal failure, stage 3a COPD (chronic obstructive pulmonary disease) Coronary artery disease (~03/2018) Hypertension (05/30/15) Panic attack Tachy-ama syndrome Type 2 diabetes mellitus with hyperglycemia, without long-term current use of insulin Type 2 diabetes mellitus without complication (05/01/15) Surgical History H/O heart artery stent (~03/2018) S/P cardiac pacemaker procedure (~09/2018) Social History household members: none Smoking Status: Former smoker alcohol intake: never Smoking Status: Former smoker alcohol intake frequency: 0-2 drinks per day Substance Use Type: does not use Exam <DO Debra Velasco Last Filed: 06/11/23 19:09> Initial Vital Signs Initial Vital Signs: Vital Signs Temperature 96.9 F L 06/10/23 21:53 Pulse Rate 61 06/10/23 21:53 Respiratory Rate 23 06/10/23 21:53 Blood Pressure 129/60 06/10/23 21:53 Pulse Oximetry 94 06/10/23 21:53 Oxygen Delivery Method Room Air 06/10/23 21:53 HENMT Head: normal to inspection and normocephalic Resp Effort & Inspection: normal respiratory effort Auscultation: clear to auscultation bilaterally Cardio Rate: regular rate Rhythm: regular rhythm Extrem General: edema <Erika Bernard DO - Last Filed: 06/11/23 19:19> Initial Vital Signs Initial Vital Signs: Vital Signs Temperature 96.9 F L 06/10/23 21:53 Pulse Rate 61 06/10/23 21:53 Respiratory Rate 23 06/10/23 21:53 Blood Pressure 129/60 06/10/23 21:53 Pulse Oximetry 94 06/10/23 21:53 Oxygen Delivery Method Room Air 06/10/23 21:53 Course <DO Debra Velasco Last Filed: 06/11/23 19:09> Orders Ordered: ED Orders 06/11/23 10:32 XR chest 1V Stat Discontinued Medications Atorvastatin Calcium (Atorvastatin 20 Mg Tablet) 80 mg PO BEDTIME [facility] Clonazepam (Clonazepam 0.5 Mg Tablet) 0.5 mg PO BID [facility] Last Admin: 06/11/23 12:02 Dose: 0.5 mg Documented By: ABDULLAHI Dextrose (Dextrose 50 % In Water 25 Gm/50 Ml Syringe) 25 gm TUBE PRN PRN PRN Reason: Hypoglycemia Last Admin: 06/11/23 09:38 Dose: 12.5 gm Documented By: GEORGIA Furosemide (Furosemide 40 Mg/4 Ml Vial) 40 mg IV NOW ONE Stop: 06/10/23 22:15 Last Admin: 06/10/23 22:34 Dose: 40 mg Documented By: Gl[facility] ([facility] 5 Mg [facility] (Glipizide 5 Mg Tablet) 10 mg PO 0800,1700 [facility] Last Admin: 06/11/23 16:13 Dose: 10 mg Documented By: AMV Insulin Glargine (Insulin Glargine 100 Unit/Ml 3ml Pen) 30 unit SUBCUT DAILY [facility] Last Admin: 06/11/23 15:25 Dose: Not Given Documented By: ABDULLAHI Insulin Glargine (Insulin Glargine 100 Unit/Ml 3ml Pen) 35 unit SUBCUT DAILY [facility] Last Admin: 06/11/23 12:47 Dose: 35 unit Documented By: FRANCO Co-signed By: GEOR[place]IA Metformin HCl (Metformin Hcl 500 Mg Tablet) 1,000 mg PO 0800,1700 [facility] Last Admin: 06/11/23 16:13 Dose: 1,000 mg Documented By: AMV Potassium Chloride (Potassium Chloride 20 Meq Tab) 20 meq PO TIDWM [facility] Last Admin: 06/11/23 16:13 Dose: 20 meq Documented By: Admin: 06/11/23 12:04 Dose: 20 meq Documented By: ABDULLAHI Sotalol HCl (Sotalol 80 Mg Tablet) 120 mg PO BID [facility] Last Admin: 06/11/23 17:40 Dose: 120 mg Documented By: Admin: 06/11/23 12:08 Dose: 120 mg Documented By: ABDULLAHI Spironolactone (Spironolactone 25 Mg Tablet) 12.5 mg PO DAILY [facility] Last Admin: 06/11/23 12:49 Dose: 12.5 mg Documented By: BS Torsemide (Torsemide 10 Mg Tablet) 60 mg PO BID [facility] Last Admin: 06/11/23 12:05 Dose: 60 mg Documented By: ABDULLAHI Tramadol HCl (Tramadol 50 Mg Tablet) 50 mg PO QID PRN PRN Reason: Pain, Moderate (4-6) Last Admin: 06/11/23 12:40 Dose: 50 mg Documented By: BS Trazodone HCl (Trazodone 50 Mg Tablet) 100 mg PO BEDTIME [facility] Last Admin: 06/10/23 23:34 Dose: 100 mg Documented By: Trimethoprim/Sulfamethoxazole (Trimeth/Sulfa 160/800 (Ds) Tablet) 1 tab PO BID [facility] Last Admin: 06/11/23 12:40 Dose: 1 tab Documented By: FRANCO Vital Signs Vital signs: Vital Signs - 8 hr 06/11/23 14:43 06/11/23 11:30 06/11/23 12:00 Pulse Rate 62 64 60 Respiratory Rate 18 28 H 34 H Blood Pressure 112/55 L Pulse Oximetry 98 96 Oxygen Delivery Method Nasal Cannula Oxygen Flow Rate 2 06/11/23 12:30 06/11/23 13:00 06/11/23 13:30 Pulse Rate 60 60 60 Respiratory Rate 32 H 27 H Blood Pressure Pulse Oximetry 96 94 95 Oxygen Delivery Method Oxygen Flow Rate 06/11/23 14:00 06/11/23 14:30 06/11/23 14:42 Pulse Rate 60 60 Respiratory Rate Blood Pressure 112/55 L Pulse Oximetry 96 96 Oxygen Delivery Method Oxygen Flow Rate 06/11/23 14:42 06/11/23 15:00 06/11/23 15:30 Pulse Rate 60 60 60 Respiratory Rate 22 Blood Pressure Pulse Oximetry 95 94 96 Oxygen Delivery Method Nasal Cannula Oxygen Flow Rate 2 06/11/23 16:00 06/11/23 16:08 06/11/23 16:08 Pulse Rate 64 60 Respiratory Rate Blood Pressure 133/62 Pulse Oximetry 96 97 Oxygen Delivery Method Nasal Cannula Oxygen Flow Rate 2 06/11/23 16:30 06/11/23 17:00 06/11/23 17:30 Pulse Rate 60 60 60 Respiratory Rate 34 H Blood Pressure Pulse Oximetry 96 97 97 Oxygen Delivery Method Oxygen Flow Rate <Erika Bernard, - Last Filed: 06/11/23 19:19> Orders Ordered: ED Orders 06/11/23 10:32 XR chest 1V Stat Discontinued Medications Atorvastatin Calcium (Atorvastatin 20 Mg Tablet) 80 mg PO BEDTIME [facility] Clonazepam (Clonazepam 0.5 Mg Tablet) 0.5 mg PO BID [facility] Last Admin: 06/11/23 12:02 Dose: 0.5 mg Documented By: ABDULLAHI Dextrose (Dextrose 50 % In Water 25 Gm/50 Ml Syringe) 25 gm TUBE PRN PRN PRN Reason: Hypoglycemia Last Admin: 06/11/23 09:38 Dose: 12.5 gm Documented By: GEOR[place]IA Furosemide (Furosemide 40 Mg/4 Ml Vial) 40 mg IV NOW ONE Stop: 06/10/23 22:15 Last Admin: 06/10/23 22:34 Dose: 40 mg Documented By: Glipizide ([facility] 5 Mg Tablet) [facility] Glipizide (Glipizide 5 Mg Tablet) 10 mg PO 0800,1700 [facility] Last Admin: 06/11/23 16:13 Dose: 10 mg Documented By: AMV Insulin Glargine (Insulin Glargine 100 Unit/Ml 3ml Pen) 30 unit SUBCUT DAILY [facility] Last Admin: 06/11/23 15:25 Dose: Not Given Documented By: RLS Insulin Glargine (Insulin Glargine 100 Unit/Ml 3ml Pen) 35 unit SUBCUT DAILY [facility] Last Admin: 06/11/23 12:47 Dose: 35 unit Documented By: BS Co-signed By: GE[place] Metformin HCl (Metformin Hcl 500 Mg Tablet) 1,000 mg PO 0800,1700 [facility] Last Admin: 06/11/23 16:13 Dose: 1,000 mg Documented By: AMV Potassium Chloride (Potassium Chloride 20 Meq Tab) 20 meq PO TIDWM [facility] Last Admin: 06/11/23 16:13 Dose: 20 meq Documented By: Admin: 06/11/23 12:04 Dose: 20 meq Documented By: RLS Sotalol HCl (Sotalol 80 Mg Tablet) 120 mg PO BID [facility] Last Admin: 06/11/23 17:40 Dose: 120 mg Documented By: Admin: 06/11/23 12:08 Dose: 120 mg Documented By: ABDULLAHI Spironolactone (Spironolactone 25 Mg Tablet) 12.5 mg PO DAILY [facility] Last Admin: 06/11/23 12:49 Dose: 12.5 mg Documented By: BS Torsemide (Torsemide 10 Mg Tablet) 60 mg PO BID [facility] Last Admin: 06/11/23 12:05 Dose: 60 mg Documented By: RLS Tramadol HCl (Tramadol 50 Mg Tablet) 50 mg PO QID PRN PRN Reason: Pain, Moderate (4-6) Last Admin: 06/11/23 12:40 Dose: 50 mg Documented By: BS Trazodone HCl (Trazodone 50 Mg Tablet) 100 mg PO BEDTIME [facility] Last Admin: 06/10/23 23:34 Dose: 100 mg Documented By: Trimethoprim/Sulfamethoxazole (Trimeth/Sulfa 160/800 (Ds) Tablet) 1 tab PO BID [facility] Last Admin: 06/11/23 12:40 Dose: 1 tab Documented By: FRANCO Vital Signs Vital signs: Vital Signs - 8 hr 06/11/23 14:43 06/11/23 11:30 06/11/23 12:00 Pulse Rate 62 64 60 Respiratory Rate 18 28 H 34 H Blood Pressure 112/55 L Pulse Oximetry 98 96 Oxygen Delivery Method Nasal Cannula Oxygen Flow Rate 2 06/11/23 12:30 06/11/23 13:00 06/11/23 13:30 Pulse Rate 60 60 60 Respiratory Rate 32 H 27 H Blood Pressure Pulse Oximetry 96 94 95 Oxygen Delivery Method Oxygen Flow Rate 06/11/23 14:00 06/11/23 14:30 06/11/23 14:42 Pulse Rate 60 60 Respiratory Rate Blood Pressure 112/55 L Pulse Oximetry 96 96 Oxygen Delivery Method Oxygen Flow Rate 06/11/23 14:42 06/11/23 15:00 06/11/23 15:30 Pulse Rate 60 60 60 Respiratory Rate 22 Blood Pressure Pulse Oximetry 95 94 96 Oxygen Delivery Method Nasal Cannula Oxygen Flow Rate 2 06/11/23 16:00 06/11/23 16:08 06/11/23 16:08 Pulse Rate 64 60 Respiratory Rate Blood Pressure 133/62 Pulse Oximetry 96 97 Oxygen Delivery Method Nasal Cannula Oxygen Flow Rate 2 06/11/23 16:30 06/11/23 17:00 06/11/23 17:30 Pulse Rate 60 60 60 Respiratory Rate 34 H Blood Pressure Pulse Oximetry 96 97 97 Oxygen Delivery Method Oxygen Flow Rate Medical Decision Making <Adelso Norwood, - Last Filed: 06/11/23 19:09> Medical Records Medical records reviewed: Yes I reviewed the patient's medical records. Lab Data Lab results reviewed: Yes I reviewed the patient's lab results. 06/11/23 09:58 06/11/23 09:58 Labs: Lab Results 06/10/23 06/10/23 06/10/23 Range/Units 22:21 22:21 22:21 WBC 11.9 H (4.5-11.0) X10^3/uL RBC 3.27 L (4.5-5.9) X10^6/uL Hgb 9.8 L (13.5-17.5) g/dL Hct 29.7 L (41-53) % MCV 91.1 (80-100) fL MCH 29.9 (26-34) PG MCHC 32.8 (30-36) % RDW 18.1 H (11.6-14.8) % Plt Count 399 (150-400) X10^3/uL Neut % (Auto) Not Reportable Lymph % (Auto) Not Reportable Casey % (Auto) Not Reportable Eos % (Auto) Not Reportable Baso % (Auto) Not Reportable Neut # (Auto) (1091-7533) /uL Lymph # (Auto) Not Reportable Casey # (Auto) Not Reportable Eos # (Auto) (0-450) /uL Baso # (Auto) Not Reportable Total Counted 100 Seg Neutrophils % 84.0 H (38-70) % Band Neutrophils % 4.0 (3-7) % Lymphocytes % (Manual) 10.0 L (25-45) % Monocytes % (Manual) 1.0 L (2-11) % Basophils % (Manual) 1.0 (0-1) % Neutrophils # (Manual) 24378 H (8685-4783) /uL RBC Morphology See below Anisocytosis 2+ H PT 14.3 H (10.1-12.7) SECONDS INR 1.2 (0.9-1.3) Sodium 137 (137-145) mmol/L Potassium 4.6 (3.4-5.1) mmol/L Chloride 97 L (98-107) mmol/L Carbon Dioxide 33 H (22-32) mmol/L BUN 31 H (9-20) mg/dL Creatinine 2.51 H (0.66-1.25) mg/dL Estimated GFR 26 L (>60) mL/min BUN/Creatinine Ratio 12.4 (6-22) Glucose 124 H (80-110) mg/dL Lactate (0.7-2.1) mmol/L Calcium 8.6 (8.4-10.2) mg/dL Total Bilirubin 0.4 (0.2-1.3) mg/dL AST 33 (17-59) IU/L ALT 39 (<50) IU/L Alkaline Phosphatase 67 (38-126) U/L Total Creatine Kinase (55-170) U/L Troponin I 0.013 (0.01-0.034) ng/mL NT-Pro-B Natriuret Pep 565 H (<450) pg/mL Total Protein 7.5 (6.3-8.2) g/dL Albumin 3.6 (3.5-5.0) g/dL Globulin 3.9 (1.7-4.1) g/dL Albumin/Globulin Ratio 0.9 L (1.0-2.8) 06/10/23 06/11/23 06/11/23 Range/Units 22:21 09:58 09:58 WBC 10.8 (4.5-11.0) X10^3/uL RBC 3.12 L (4.5-5.9) X10^6/uL Hgb 9.6 L (13.5-17.5) g/dL Hct 28.4 L (41-53) % MCV 91.3 (80-100) fL MCH 30.9 (26-34) PG MCHC 33.9 (30-36) % RDW 18.0 H (11.6-14.8) % Plt Count 371 (150-400) X10^3/uL Neut % (Auto) 79.4 H Lymph % (Auto) 10.2 L Casey % (Auto) 7.5 Eos % (Auto) 1.5 L Baso % (Auto) 1.4 Neut # (Auto) 8600 H (0532-8136) /uL Lymph # (Auto) 1100 Casey # (Auto) 800 Eos # (Auto) 200 (0-450) /uL Baso # (Auto) 200 H Total Counted Seg Neutrophils % (38-70) % Band Neutrophils % (3-7) % Lymphocytes % (Manual) (25-45) % Monocytes % (Manual) (2-11) % Basophils % (Manual) (0-1) % Neutrophils # (Manual) (9515-4813) /uL RBC Morphology Anisocytosis PT (10.1-12.7) SECONDS INR (0.9-1.3) Sodium 139 (137-145) mmol/L Potassium 4.0 (3.4-5.1) mmol/L Chloride 97 L (98-107) mmol/L Carbon Dioxide 36 H (22-32) mmol/L BUN 29 H (9-20) mg/dL Creatinine 2.25 H (0.66-1.25) mg/dL Estimated GFR 29 L (>60) mL/min BUN/Creatinine Ratio 12.9 (6-22) Glucose 88 (80-110) mg/dL Lactate 1.6 (0.7-2.1) mmol/L Calcium 8.6 (8.4-10.2) mg/dL Total Bilirubin (0.2-1.3) mg/dL AST (17-59) IU/L ALT (<50) IU/L Alkaline Phosphatase (38-126) U/L Total Creatine Kinase < 20 L (55-170) U/L Troponin I 0.017 (0.01-0.034) ng/mL NT-Pro-B Natriuret Pep (<450) pg/mL Total Protein (6.3-8.2) g/dL Albumin (3.5-5.0) g/dL Globulin (1.7-4.1) g/dL Albumin/Globulin Ratio (1.0-2.8) Point of Care Testing Glucose POC 222 Urine Dip Bedside Urine Glucose Negative Bedside Urine Bilirubin - Negative Bedside Urine Ketone - Negative Urine Specific Alba 1.010 Bedside Urine Occult Blood - Negative Bedside Urine pH 7.0 Bedside Urine Protein - Negative Bedside Urine Urobilinogen - Negative Bedside Urine Nitrite - Negative Bedside Urine Leukocytes - Negative Esterase Point of care testing: Point of Care Testing Glucose POC 222 Urine Dip Bedside Urine Glucose Negative Bedside Urine Bilirubin - Negative Bedside Urine Ketone - Negative Urine Specific Alba 1.010 Bedside Urine Occult Blood - Negative Bedside Urine pH 7.0 Bedside Urine Protein - Negative Bedside Urine Urobilinogen - Negative Bedside Urine Nitrite - Negative Bedside Urine Leukocytes - Negative Esterase Imaging Data Chest x-ray: Radiologist's Impression: PROCEDURE:? XR CHEST 1V ? INDICATIONS:? Shortness of breath ? TECHNIQUE:? One view of the chest was acquired.? ? COMPARISON:? [facility], CR, XR CHEST 1V, 05/30/2023, 15:00. ? FINDINGS:? ? Surgical changes and devices:? Left chest wall pacemaker redemonstrated.? ? Lungs and pleura:? There is a moderate to large right pleural effusion with right basilar opacities consistent with compressive atelectasis or consolidation.? The left lung is clear.? No pneumothorax. ? Mediastinum:? Mediastinal contours appear unchanged.? Heart size is normal.? ? Bones and chest wall:? No suspicious bony lesions.? Overlying soft tissues appear unremarkable.? ? IMPRESSION:? ? 1. Persistent moderate to large right pleural effusion with right basilar compressive atelectasis or consolidation. ECG Data Attestation: I personally reviewed and interpreted this ECG as follows: Interpretation: Atrially paced rhythm Ventricular rate is [address] T wave changes MDM Narrative Medical decision making narrative: Patient is slightly tachypneic but is not hypoxic. It does have clear lung exam but somewhat diminished on the right. Chest x-ray shows recurrent pulmonary effusion. We are unable to obtain a thoracentesis this evening here in the emergency department. Patient does feel better with oxygen by nasal cannula. Plan will be is to keep him here in the emergency department this evening and obtained an ultrasound-guided thoracentesis tomorrow morning. Patient was instructed of this. Care turned over to day provider to follow-up and disposition. <Erika Bernard, DO - Last Filed: 06/11/23 19:19> Lab Data Labs: Lab Results 06/10/23 06/10/23 06/10/23 Range/Units 22:21 22:21 22:21 WBC 11.9 H (4.5-11.0) X10^3/uL RBC 3.27 L (4.5-5.9) X10^6/uL Hgb 9.8 L (13.5-17.5) g/dL Hct 29.7 L (41-53) % MCV 91.1 (80-100) fL MCH 29.9 (26-34) PG MCHC 32.8 (30-36) % RDW 18.1 H (11.6-14.8) % Plt Count 399 (150-400) X10^3/uL Neut % (Auto) Not Reportable Lymph % (Auto) Not Reportable Casey % (Auto) Not Reportable Eos % (Auto) Not Reportable Baso % (Auto) Not Reportable Neut # (Auto) (3064-3601) /uL Lymph # (Auto) Not Reportable Casey # (Auto) Not Reportable Eos # (Auto) (0-450) /uL Baso # (Auto) Not Reportable Total Counted 100 Seg Neutrophils % 84.0 H (38-70) % Band Neutrophils % 4.0 (3-7) % Lymphocytes % (Manual) 10.0 L (25-45) % Monocytes % (Manual) 1.0 L (2-11) % Basophils % (Manual) 1.0 (0-1) % Neutrophils # (Manual) 86430 H (5237-1004) /uL RBC Morphology See below Anisocytosis 2+ H PT 14.3 H (10.1-12.7) SECONDS INR 1.2 (0.9-1.3) Sodium 137 (137-145) mmol/L Potassium 4.6 (3.4-5.1) mmol/L Chloride 97 L (98-107) mmol/L Carbon Dioxide 33 H (22-32) mmol/L BUN 31 H (9-20) mg/dL Creatinine 2.51 H (0.66-1.25) mg/dL Estimated GFR 26 L (>60) mL/min BUN/Creatinine Ratio 12.4 (6-22) Glucose 124 H (80-110) mg/dL Lactate (0.7-2.1) mmol/L Calcium 8.6 (8.4-10.2) mg/dL Total Bilirubin 0.4 (0.2-1.3) mg/dL AST 33 (17-59) IU/L ALT 39 (<50) IU/L Alkaline Phosphatase 67 (38-126) U/L Total Creatine Kinase (55-170) U/L Troponin I 0.013 (0.01-0.034) ng/mL NT-Pro-B Natriuret Pep 565 H (<450) pg/mL Total Protein 7.5 (6.3-8.2) g/dL Albumin 3.6 (3.5-5.0) g/dL Globulin 3.9 (1.7-4.1) g/dL Albumin/Globulin Ratio 0.9 L (1.0-2.8) 06/10/23 06/11/23 06/11/23 Range/Units 22:21 09:58 09:58 WBC 10.8 (4.5-11.0) X10^3/uL RBC 3.12 L (4.5-5.9) X10^6/uL Hgb 9.6 L (13.5-17.5) g/dL Hct 28.4 L (41-53) % MCV 91.3 (80-100) fL MCH 30.9 (26-34) PG MCHC 33.9 (30-36) % RDW 18.0 H (11.6-14.8) % Plt Count 371 (150-400) X10^3/uL Neut % (Auto) 79.4 H Lymph % (Auto) 10.2 L Casey % (Auto) 7.5 Eos % (Auto) 1.5 L Baso % (Auto) 1.4 Neut # (Auto) 8600 H (7545-4489) /uL Lymph # (Auto) 1100 Casey # (Auto) 800 Eos # (Auto) 200 (0-450) /uL Baso # (Auto) 200 H Total Counted Seg Neutrophils % (38-70) % Band Neutrophils % (3-7) % Lymphocytes % (Manual) (25-45) % Monocytes % (Manual) (2-11) % Basophils % (Manual) (0-1) % Neutrophils # (Manual) (7724-0097) /uL RBC Morphology Anisocytosis PT (10.1-12.7) SECONDS INR (0.9-1.3) Sodium 139 (137-145) mmol/L Potassium 4.0 (3.4-5.1) mmol/L Chloride 97 L (98-107) mmol/L Carbon Dioxide 36 H (22-32) mmol/L BUN 29 H (9-20) mg/dL Creatinine 2.25 H (0.66-1.25) mg/dL Estimated GFR 29 L (>60) mL/min BUN/Creatinine Ratio 12.9 (6-22) Glucose 88 (80-110) mg/dL Lactate 1.6 (0.7-2.1) mmol/L Calcium 8.6 (8.4-10.2) mg/dL Total Bilirubin (0.2-1.3) mg/dL AST (17-59) IU/L ALT (<50) IU/L Alkaline Phosphatase (38-126) U/L Total Creatine Kinase < 20 L (55-170) U/L Troponin I 0.017 (0.01-0.034) ng/mL NT-Pro-B Natriuret Pep (<450) pg/mL Total Protein (6.3-8.2) g/dL Albumin (3.5-5.0) g/dL Globulin (1.7-4.1) g/dL Albumin/Globulin Ratio (1.0-2.8) Point of Care Testing Glucose POC 222 Urine Dip Bedside Urine Glucose Negative Bedside Urine Bilirubin - Negative Bedside Urine Ketone - Negative Urine Specific Alba 1.010 Bedside Urine Occult Blood - Negative Bedside Urine pH 7.0 Bedside Urine Protein - Negative Bedside Urine Urobilinogen - Negative Bedside Urine Nitrite - Negative Bedside Urine Leukocytes - Negative Esterase Point of care testing: Point of Care Testing Glucose POC 222 Urine Dip Bedside Urine Glucose Negative Bedside Urine Bilirubin - Negative Bedside Urine Ketone - Negative Urine Specific Alba 1.010 Bedside Urine Occult Blood - Negative Bedside Urine pH 7.0 Bedside Urine Protein - Negative Bedside Urine Urobilinogen - Negative Bedside Urine Nitrite - Negative Bedside Urine Leukocytes - Negative Esterase MDM Narrative Medical decision making narrative: Patient is slightly tachypneic but is not hypoxic. It does have clear lung exam but somewhat diminished on the right. Chest x-ray shows recurrent pulmonary effusion. We are unable to obtain a thoracentesis this evening here in the emergency department. Patient does feel better with oxygen by nasal cannula. Plan will be is to keep him here in the emergency department this evening and obtained an ultrasound-guided thoracentesis tomorrow morning. Patient was instructed of this. Care turned over to day provider to follow-up and disposition. 06/11/23 Mank: Patient seen and evaluated by myself. Patient does have recurrent pulmonary effusion, felt better with O2 via nasal cannula and did not use his personal CPAP overnight. Patient's workup shows hemoglobin 9.8 was in the 10-11 range for the past month. Platelets 399, white count 11.9 but appears pretty consistent with p patient had INR 1.2, creatinine was 2.51, BUN is 31, chloride 97 CO2 33 sodium potassium are appropriate, glucose was 124 lactate 1.6, troponin was negative with a BNP of 565. Patient's creatinine is noted to be elevated from his was 1.5 as a week ago 2.24 at his peak in the last 2 months. Patient states he is had least 3 prior thoracentesis last was 11 days ago. He short of breath but 96% on 2 L in the room. Denies chest pain or pressure. He does complain of feeling confused and like his head is full of ?crap? patient is able to tell me the code do phone but isn't able to put it in his phone.. Asked if patient is diabetic, glucose was checked was given dextrose as well as oral juice and food. Discussed with patient he is feeling improved in his mentation after food. Reviewed his findings including Labs and his creatinine is higher than it has been in the past. This might be also contributing to his recurrent effusion. He is supposed to see pulmonology he states as an outpatient but has not been able to. He has been referred by his primary care provider. Plan to resend cbc, bmp and troponin. These show hemoglobin stable from 9.8-9.6, creatinine slightly improved from 2.5-2.2, no other major electrolyte changes troponin was repeated is also negative. Patient was marked by ultrasound for thoracentesis, had thoracentesis with 500ml yellow/clear fluid with radiology. Patient had improvement in oxygenation and comfort. Occassionally still 89-90% seated and dips with ambulation. Spoke with Dr. Danielle patient's primary care service, he feels patient would benefit from hospitalization with his rising creatinine and recurrent pleural effusion but we do not have pulmonary or nephrology available locally and needs likely [id number] evaluation with the services. He notes they have sent cytology and fluid test for pleural effusion 3 times does not feel like they found a clear source of his infection. His high suspicion for malignancy. He asked we attempt for transfer to facility with both of the services available. Spoke with Dr. Cook at who accepts for transfer. She does ask for CT chest from 04/03/23 to be pushed. Reviewed labs, imaging and findings today. Discussed with patient is agreeable to transfer. Discharge Plan Departure Patient Disposition: [facility] Clinical Impression: Recurrent pleural effusion, Acute on chronic kidney failure Prescriptions: No Action metformin 1,000 mg tablet 1,000 mg PO BID Qty: 180 3RF atorvastatin 40 mg tablet 40 mg PO DAILY Qty: 90 3RF glipizide 10 mg tablet 10 mg PO BID Qty: 180 3RF (DME) pen needle, diabetic [BD Ultra-Fine Micro Pen Needle] 32 gauge x 1/4 needle See Rx Instructions .Route Qty: 100 12RF Rx Instructions: As directed to inject insulin twice daily sulfamethoxazole-trimethoprim 800-160 mg tablet 1 tab PO BID Qty: 20 0RF tramadol 50 mg tablet 50 mg PO TID PRN (Reason: pain) Qty: 45 0RF prednisone 20 mg tablet 10 mg PO Q OTHER DAY Qty: 60 1RF multivitamin tablet 1 tab PO DAILY insulin glargine 100 unit/mL (3 mL) insulin pen 35 unit SUBCUT QAM Qty: 15 12RF Rx Instructions: 40 units subcutaneously; sotalol 120 mg tablet 120 mg PO BID albuterol sulfate 90 mcg/actuation HFA aerosol inhaler 2 puff inhalation Q4-6H PRN (Reason: shortness of breath or wheezing) Qty: 8.5 3RF ipratropium-albuterol 0.5 mg-3 mg(2.5 mg base)/3 mL solution for nebulization 3 ml inhalation Q4-6H PRN (Reason: shortness of breath or wheezing) Qty: 180 7RF (DME) nebulizer and compressor Device See Rx Instructions .Route Qty: 1 0RF Rx Instructions: As directed torsemide 20 mg tablet 40 mg PO BID Qty: 120 6RF Rx Instructions: one dose in am, one at 1600 clonazepam 0.5 mg Tablet 0.5 mg PO BID Qty: 60 1RF potassium chloride [Klor-Con M20] 20 mEq Tablet,Er Particles/Crystals 20 meq PO TIDWM Qty: 90 3RF Referrals: Nura Danielle MD [Primary Care Provider] -
[2023-06-10] MEDS: FUROSEMIDE 40 MG/4 ML VIAL IV (22:34)
[2023-06-10 22:41] LABS: Add Manual Diff / Slide Review YES; Hematocrit 29.7 % (41-53); Hemoglobin 9.8 g/dL (13.5-17.5); Mean Corpuscular HGB Conc 32.8 % (30-36); Mean Corpuscular Hemoglobin 29.9 PG (26-34); Mean Corpuscular Volume 91.1 fL (80-100); Platelet Count 399 X10^3/uL (150-400); Red Blood Cell Count 3.27 X10^6/uL (4.5-5.9); Red Cell Distribution Width 18.1 % (11.6-14.8); White Blood Cell Count 11.9 X10^3/uL (4.5-11.0)
[2023-06-10 22:42] LABS: INR 1.2 (0.9-1.3); Prothrombin Time 14.3 SECONDS (10.1-12.7)
[2023-06-10 22:47] LABS: Lactate (Lactic Acid) 1.6 mmol/L (0.7-2.1)
[2023-06-10 22:48] LABS: Alanine Aminotransferase 39 IU/L (<50); Albumin 3.6 g/dL (3.5-5.0); Albumin Globulin Ratio 0.9 (1.0-2.8); Alkaline Phosphatase 67 U/L (38-126); Aspartate Aminotransferase 33 IU/L (17-59); BUN Creatinine Ratio 12.4 (6-22); Bilirubin Total 0.4 mg/dL (0.2-1.3); Blood Urea Nitrogen 31 mg/dL (9-20); Calcium 8.6 mg/dL (8.4-10.2); Carbon Dioxide 33 mmol/L (22-32); Chloride 97 mmol/L (98-107); Estimated Glomerular Filt Rate 26 mL/min (>60); Globulin 3.9 g/dL (1.7-4.1); Glucose 124 mg/dL (80-110); HEMOLYSIS < 15 (0-50); Potassium 4.6 mmol/L (3.4-5.1); Sodium 137 mmol/L (137-145); Total Protein 7.5 g/dL (6.3-8.2)
[2023-06-10 22:59] LABS: NT-proBNP (BNP-Adult 18+) 565 pg/mL (<450); Troponin I 0.013 ng/mL (0.01-0.034)
[2023-06-10] MEDS: TRAZODONE 50 MG TABLET 100 MG PO (23:34)
[2023-06-11] VITALS (41 sets, daily range): BP systolic 92–133; BP diastolic 51–62; PULSE 60–75; RESP 18–34; O2SAT 91–98
--- NOTE | 2023-06-11 00:12 | RT ---
At 2313 on 06/10/23, pt placed on home CPAP unit with 2L oxygen bleed in as requested. Device plugged into red outlet. Pt tolerating well, no overt signs on distress noted. SpO2 95%, HR 63 BPM.
[2023-06-11 02:05] LABS: Neutrophils Absolute Manual 10472 /uL (3000-5900); Total Cells Counted 100
[2023-06-11 02:06] LABS: Anisocytosis 2+
[2023-06-11] MEDS: DEXTROSE 50 % IN WATER 25 GM/50 ML SYRINGE TUBE (09:38)
[2023-06-11 10:13] LABS: Add Manual Diff / Slide Review NO; Basophils Absolute Auto 200 /uL (0-100); Basophils Percent Auto 1.4 % (0-2); Eosinophils Absolute Auto 200 /uL (0-450); Eosinophils Percent Auto 1.5 % (2-4); Hematocrit 28.4 % (41-53); Hemoglobin 9.6 g/dL (13.5-17.5); Lymphocytes Absolute Auto 1100 /uL (1100-4500); Lymphocytes Percent Auto 10.2 % (25-40); Mean Corpuscular HGB Conc 33.9 % (30-36); Mean Corpuscular Hemoglobin 30.9 PG (26-34); Mean Corpuscular Volume 91.3 fL (80-100); Monocytes Absolute Auto 800 /uL (0-900); Monocytes Percent Auto 7.5 % (3-14); Neutrophils Absolute Auto 8600 /uL (1500-7000); Neutrophils Percent Auto 79.4 % (50-75); Platelet Count 371 X10^3/uL (150-400); Red Blood Cell Count 3.12 X10^6/uL (4.5-5.9); White Blood Cell Count 10.8 X10^3/uL (4.5-11.0)
[2023-06-11 10:17] LABS: BUN Creatinine Ratio 12.9 (6-22); Blood Urea Nitrogen 29 mg/dL (9-20); Calcium 8.6 mg/dL (8.4-10.2); Carbon Dioxide 36 mmol/L (22-32); Chloride 97 mmol/L (98-107); Creatine Kinase < 20 U/L (55-170); Estimated Glomerular Filt Rate 29 mL/min (>60); Glucose 88 mg/dL (80-110); HEMOLYSIS < 15 (0-50); Sodium 139 mmol/L (137-145)
[2023-06-11 10:28] LABS: Troponin I 0.017 ng/mL (0.01-0.034)
--- NOTE | 2023-06-11 10:32 | DI.RAD.S_ITS ---
PROCEDURE: XR CHEST 1V INDICATIONS: post thoracentisis TECHNIQUE: One view of the chest was acquired. COMPARISON: [facility], CR, XR CHEST 1V, 06/10/2023, 21:58. FINDINGS: Surgical changes and devices: Dual lead left-sided transvenous pacemaker. Lungs and pleura: Right pleural effusion and probable atelectatic change with aeration of small portion of the right upper lobe. No pneumothorax. Left lung is normally aerated without effusion or consolidation. Mediastinum: Stable cardiomegaly and prominent mediastinal contour. No acute central vascular congestion. Bones and chest wall: No suspicious bony lesions. Overlying soft tissues appear unremarkable. IMPRESSION: 1. No pneumothorax post right thoracentesis. 2. Stable cardiomediastinal contour. Dictated by: Lala Jones M.D. on 06/11/2023 at 11:31 Approved by: Lala Jones M.D. on 06/11/2023 at 11:33
--- NOTE | 2023-06-11 10:47 | PC.NURSE ---
Right sided Thoracentesis done with Jessie, ultrasound and radiologist. 500 cc fluid removed. post xray.
[2023-06-11] MEDS: clonazePAM 0.5 MG TABLET PO (12:02)
[2023-06-11] MEDS: POTASSIUM CHLORIDE 20 MEQ TAB PO ×2 (12:04→16:13)
[2023-06-11] MEDS: TORSEMIDE 10 MG TABLET 60 MG PO (12:05)
[2023-06-11] MEDS: SOTALOL 80 MG TABLET 120 MG PO ×2 (12:08→17:40)
--- NOTE | 2023-06-11 12:29 | PC.NURSE ---
RESEARCH RECRUITER Note: Started transfer for pt at , [facility] and [facility]. Spoke with Thierno from [facility], currently boarding many. Tried transferring to [facility], however Alexus from [facility] said 3-4 days wait.
[2023-06-11] MEDS: TRIMETH/SULFA 160/800 (DS) TABLET 1 TAB PO (12:40)
[2023-06-11] MEDS: TRAMADOL 50 MG TABLET PO (12:40)
[2023-06-11] MEDS: INSULIN GLARGINE 100 UNIT/ML 3ML PEN 35 UNIT SUBCUT (12:47)
[2023-06-11] MEDS: SPIRONOLACTONE 25 MG TABLET 12.5 MG PO (12:49)
[2023-06-11] MEDS: glipiZIDE 5 MG TABLET 10 MG PO (16:13)
[2023-06-11] MEDS: METFORMIN HCL 500 MG TABLET 1000 MG PO (16:13)
== END 2023-06-11 18:19 | disposition short-term general hospital (02) ==
PROVIDERS: Emergency Medicine; Emergency Provider Emergency Medicine; PCP Internal Medicine
DX: J90 Pleural effusion, not elsewhere classified (principal); N17.9 Acute kidney failure, unspecified
CPT/HCPCS: 32555; 36415; 71045; 80048; 80053; 81003; 82550; 82962; 83605; 83880; 84484; 85007; 85025; 85610; 93005; 96372; 96374; 99285; J1940

== ENCOUNTER → 2023-06-27 16:39 | Outpatient (CLI) | payer OTHER, SELFPAY ==
[2023-04-29 09:41] VITALS: BMI 42.2
[2023-06-27 17:35] LABS: Alanine Aminotransferase 65 IU/L (<50); Albumin 3.2 g/dL (3.5-5.0); Albumin Globulin Ratio 0.8 (1.0-2.8); Alkaline Phosphatase 69 U/L (38-126); Aspartate Aminotransferase 75 IU/L (17-59); Bilirubin Total 0.4 mg/dL (0.2-1.3); Bilirubin Unconjugated 0.3 mg/dL (0.0-1.1); Globulin 3.9 g/dL (1.7-4.1); HEMOLYSIS 21 (0-50); Magnesium 1.9 mg/dL (1.6-2.3); Total Protein 7.1 g/dL (6.3-8.2)
[2023-06-27 17:47] LABS: BUN Creatinine Ratio 15.2 (6-22); Blood Urea Nitrogen 17 mg/dL (9-20); Calcium 8.1 mg/dL (8.4-10.2); Carbon Dioxide 30 mmol/L (22-32); Chloride 100 mmol/L (98-107); Estimated Glomerular Filt Rate > 60 mL/min (>60); Glucose 81 mg/dL (80-110); HEMOLYSIS 17 (0-50); Sodium 135 mmol/L (137-145)
[2023-06-27 18:01] LABS: Potassium 5.5 mmol/L (3.4-5.1)
[2023-06-30 02:39] LABS: Labcorp Hemoglobin (Hb) A1c 6.8 % (4.8-5.6)
== END ==
PROVIDERS: PCP Internal Medicine; Referring Provider Internal Medicine; Visit Provider Internal Medicine
DX: E11.9 Type 2 diabetes mellitus without complications (principal); I10 Essential (primary) hypertension; J44.9 Chronic obstructive pulmonary disease, unspecified; N18.31 Chronic kidney disease, stage 3a; E87.6 Hypokalemia
CPT/HCPCS: 36415; 80048; 80076; 83036; 83735